=== PATIENT | male | born 1995 | race Caucasian/White ===

== ENCOUNTER 2020-02-24 08:57 | Emergency (ER) | payer SELFPAY ==
[2020-02-24 09:01] VITALS: BMI 27.1
[2020-02-24 09:07] VITALS: BP 156/99; PULSE 116; RESP 18; TEMP 37; O2SAT 99
[2020-02-24 09:08] LABS: Glucose Point of Care 116 mg/dL (70-110)
--- NOTE | 2020-02-24 09:11 | W.ED.GENADLT ---
HPI - General Adult General: Chief complaint: General Medical Stated complaint: SUGAR PROBLEMS Time Seen by Provider: 02/24/20 09:01 Source: patient Mode of arrival: ambulatory Limitations: no limitations History of Present Illness: HPI narrative: Patient is a 24-year-old male who presents to ED today with a complaint of feeling shaky . He wonders if it could be related to his blood sugars. Patient tells me he has a chronic alcoholic and normally consumes about 1/5 of hard alcohol daily. States he has not had a drink since last night. Reports by this time on a normal morning he has already had several drinks. He is also concerned it could be my liver or kidneys . Onset (ago): hour(s) Relieving factors: none Exacerbating factors: other (not drinking) Associated symptoms: Deny chest pain, dyspnea, headache(s), malaise, nausea, rash, palpitations, syncope or vomiting Treatments prior to arrival: none Review of Systems Const: Denies: fever, chills, body aches, change in appetite, change in weight, fatigue or malaise Eyes: Denies: change in vision or blurry vision ENMT: Denies: enlarged tonsils or painful swallowing Card: Denies: chest pain, palpitations, irregular heart rhythm, lightheadedness, syncope or shortness of breath on exertion Resp: Denies: shortness of breath, productive cough or pain on inspiration GI: Denies: abdominal pain, nausea, vomiting, heartburn/indigestion or diarrhea : Denies: difficulty urinating or painful urination Musc: Denies: neck pain, back pain or joint pain Skin/Breast: Denies: rash Neuro: Reports: other (feeling shaky ); Denies: headache, numbness in extremities, weakness in extremities, lack of coordination or difficulty walking [facility] ED PFSH: Medical History (Updated 02/24/20 @ 09:31 by HARDIK Stokes) Pyloric stenosis Tonsillectomy planned Social History Smoking and tobacco status: current every day smoker Physical Exam Const: COMMON NORMALS: no apparent distress, average body habitus, oriented x3, no limitations, healthy appearing, alert and well nourished ORIENTATION/CONSCIOUSNESS: Yes oriented to person, Yes oriented to place and Yes oriented to time HENMT: COMMON NORMALS: normocephalic and head/scalp atraumatic HEAD & SCALP: normocephalic and atraumatic Resp: COMMON NORMALS: normal respiratory effort and clear to auscultation bilaterally AUSCULTATION: clear to auscultation bilaterally Cardio: COMMON NORMALS: regular rhythm RATE: tachycardic RHYTHM: regular rhythm GI: COMMON NORMALS: normal to inspection, nondistended, normoactive bowel sounds, soft to palpation, non-tender, no hepatosplenomegaly and no masses PALPATION: Yes soft and Yes no hepatosplenomegaly Extremity: COMMON NORMALS: normal to inspection, full ROM, normal capillary refill, no joint enlargement, no clubbing, cyanosis or edema, no calf tenderness and no pedal edema Neuro: ALLEN COMA SCALE: document GCS findings Allen coma scale eye opening: Spontaneous [place] coma scale verbal response: Orientated Allen coma scale motor response: Obey commands [place] coma scale total score: 15 COMMON NORMALS: oriented x3, CN's II-XII intact bilaterally, moves all extremities, no focal motor deficits, no sensory deficits noted and gait normal SENSORIUM/ORIENTATION: Yes alert, Yes oriented to person, Yes oriented to place and Yes oriented to time Psych: COMMON NORMALS: mental status grossly normal, cooperative, affect normal, speech normal, denies hallucinations, denies homicidal ideation and denies suicidal ideation APPEARANCE: Yes grossly normal ATTITUDE: Yes calm, Yes engaged and Yes paranoid (slightly ) ACTIVITY/MOTOR BEHAVIOR: Yes psychomotor agitation (mild) SPEECH: Yes normal speech MOOD & AFFECT: Yes euthymic mood ATTENTION/CONCENTRATION: Yes attention grossly intact MEMORY/COGNITION: Yes memory grossly intact and Yes cognition grossly intact Skin: COMMON NORMALS: no rashes or lesions noted GENERAL SKIN EXAM: no rashes or lesions noted Course Vital Signs: Vital signs: Vital Signs Temperature 98.6 F 02/24/20 09:07 Pulse Rate 116 H 02/24/20 09:07 Respiratory Rate 18 02/24/20 09:07 Blood Pressure 156/99 02/24/20 09:07 Pulse Oximetry 99 02/24/20 09:07 MDM - General Adult MDM Narrative: Medical decision making narrative: plan was for patient to receive labs/fluids; he has expressed he has no desire to detox or attempt detox at this time; just wanted to make sure it wasn't something else that caused the shakiness (bedside glucose was 116); shortly after my exam pt was seen walking towards the ED exit; I asked him if he was leaving and he responded yes-I've changed my mind. I don't mean to be disrespectful. Lab Data: Labs: Lab Results 02/24/20 Range/Units 09:04 POC Glucose 116 (70-110) mg/dL Discharge Plan Discharge Patient Disposition: Left Against Medical Advice Clinical Impression: Alcohol withdrawal Condition: Stable Prescriptions: No Action lithium aspartate 5 mg capsule 5 mg PO ONCE RF: 0 doxepin 10 mg capsule 10 mg PO BID RF: 0 Coding Level of Care Code ED Police Officer Crime Prevention for Marie Panda
[2020-02-24 09:38] VITALS: PULSE 116; RESP 16; O2SAT 98
== END 2020-02-24 09:39 | disposition left against medical advice (07) ==
PROVIDERS: Emergency Provider Physician Assistant
DX: F10.239 Alcohol dependence with withdrawal, unspecified (principal); T51.0X1A Toxic effect of ethanol, accidental (unintentional), initial encounter; F17.200 Nicotine dependence, unspecified, uncomplicated; Z53.29 Procedure and treatment not carried out because of patient's decision for other reasons
CPT/HCPCS: 12345; 36416; 82962; 99281; 99282

== ENCOUNTER 2020-03-11 12:56 | Emergency (ER) | payer SELFPAY ==
--- NOTE | 2020-03-11 13:05 | ECG_ITS ---
Measurements Intervals [place] Rate: 80 P: 52 IN: 116 QRS: 83 QRSD: 87 T: 63 QT: 366 QTc: 424 SINUS RHYTHM WITH SHORT IN INTERVAL Compared to ECG 07/01/2017 02:37:03 Short IN interval now present Early repolarization no longer present Electronically Signed On 03-11-2020 19:07:01 CDT by Carlene Keating M.D. [email or web address]
[2020-03-11 13:06] VITALS: BP 176/101; PULSE 82; RESP 18; O2SAT 99; BMI 26.4
--- NOTE | 2020-03-11 13:17 | W.ED.PSYCH ---
HPI - Psych General: Chief Complaint: Psychiatric Symptoms Stated Complaint: mhe Time Seen by Provider: 03/11/20 13:05 History of Present Illness: HPI Narrative: Bolivar is a 25-year-old male who comes in with report of taking some type of unknown medication last night. He states he has been on a 5-day binge of alcohol and drugs. Last night he took something that what he thought was LSD but he states he is not having any of the effects of LSD. He states he is feels tremulous and shaky and wants that to go away. He does admit to alcohol, methamphetamines and marijuana use heavily over the past 3 to 5 days. The patient is alert to person, place, time and situation but overall is a poor historian as he is very uncooperative and not forthcoming with much information. Review of Systems General: Reports: other (Review of systems is thought to be negative other than as noted in HPI. Patient is uncooperative for further questioning.) [facility] ED PFSH: Medical History Pyloric stenosis Tonsillectomy planned Social History Smoking and tobacco status: current every day smoker Physical Exam Const: COMMON NORMALS: no apparent distress, oriented x3, no limitations, healthy appearing and well nourished EXAM LIMITATIONS: no altered mental status GENERAL APPEARANCE: cooperative, well kempt and well developed ORIENTATION/CONSCIOUSNESS: Yes awake HENMT: COMMON NORMALS: normocephalic, head/scalp atraumatic, hearing grossly normal bilaterally, external ears normal, EAC's normal, external nose normal and moist oral mucous membranes HEAD & SCALP: normal to inspection, normocephalic and atraumatic FACE & SINUS: normal facial exam and face symmetric NOSE: external nose normal and nares normal EXTERNAL EAR: Yes external ears normal EXTERNAL AUDITORY CANAL: EAC's normal MOUTH: oral and palatal mucosa normal and tongue normal Eye: COMMON NORMALS: PERRL, EOMs intact bilaterally, conjunctivae normal and no scleral icterus GENERAL EYE: normal appearance of both eyes and normal light reflex CONJUNCTIVA: Yes conjunctivae normal SCLERA: sclerae normal CORNEA: Yes corneas normal PUPIL: Yes PERRL DIRECT OPHTHALMOSCOPY: Yes normal light reflex Neck/C-Spine: COMMON NORMALS: full ROM, no lymphadenopathy, supple, no meningeal signs and no JVD GENERAL: Yes normal visual inspection and Yes trachea midline CERVICAL SPINE: Yes cervical ROM normal Chest: COMMONS NORMALS: inspection of chest normal and palpation of chest normal Resp: COMMON NORMALS: normal respiratory effort, no retractions, no use of accessory muscles and clear to auscultation bilaterally EFFORT & INSPECTION: Yes able to speak in complete sentences AUSCULTATION: clear to auscultation bilaterally Cardio: COMMON NORMALS: no JVD, regular rhythm, S1 normal heart sound, S2 normal heart sound, no gallops, no clicks, no murmurs and no rub JUGULAR VENOUS DISTENTION: no JVD RATE: tachycardic RHYTHM: regular rhythm HEART SOUNDS: S1 normal and S2 normal GI: COMMON NORMALS: soft to palpation, non-tender, no hepatosplenomegaly and no masses INSPECTION: Yes normal to inspection PALPATION: Yes soft and Yes no hepatosplenomegaly : COMMON NORMALS: Yes no CVA tenderness BLADDER/KIDNEY EXAM: Yes no CVA tenderness Back/Pelvis: COMMON NORMALS: no CVA tenderness, thoracic and lumbar spine normal to inspection, no thoracic nor lumbar tenderness and thoraco-lumbar ROM normal Extremity: COMMON NORMALS: normal to inspection, full ROM, normal capillary refill, no joint enlargement, no clubbing, cyanosis or edema and no calf tenderness Neuro: COMMON NORMALS: oriented x3, CN's II-XII intact bilaterally, moves all extremities, no focal motor deficits and no sensory deficits noted MENINGEAL SIGNS: Yes no meningeal signs Psych: COMMON NORMALS: mental status grossly normal, thought process normal, cooperative, affect normal, speech normal and activity/motor behavior normal APPEARANCE: Yes well kempt SPEECH: Yes normal speech THOUGHT PROCESS: normal thought process Skin: COMMON NORMALS: no rashes or lesions noted, skin turgor normal, no jaundice, no petechiae and no mottling GENERAL SKIN EXAM: no rashes or lesions noted and turgor normal MDM - Psych MDM Narrative: Medical decision making narrative: Bolivar is a 25-year-old male who comes in specifically requesting to be tested for drugs to see what medicine or drug he was given last night instead of LSD. He test positive for methamphetamines, marijuana which he did admit to. The patient has been very difficult stopping and refusing to do what we have asked him to multiple times. In the process of trying to figure out why his liver enzymes are elevated he finally admitted to hepatitis C after I diagnosed on acute hepatitis panel he admits to having it chronically. The patient is not homicidal or suicidal but keeps demanding Ativan for anxiety. I will discharge him with Atarax at this time. I do anticipate the patient will be back if he is unable to get drugs. Lab Data: Labs: Lab Results 03/11/20 03/11/20 03/11/20 Range/Units 13:12 13:29 13:29 WBC 6.9 (4.0-10.0) 10^3/ uL RBC 4.85 (4.1-5.3) 10^6/u L Hgb 16.6 (11.7-16.6) g/dL Hct 46.6 (42.0-52.0) % MCV 96.1 H (80-94) fL MCH 34.2 H (28.0-34.0) pg MCHC 35.6 (30.0-36.0) g/dL RDW 12.3 (12.1-15.1) % Plt Count 207 (130-400) 10^3/c mm MPV 11.4 H (7.4-10.4) fL Neut % (Auto) 59.4 % Lymph % (Auto) 28.9 % [place] % (Auto) 9.1 % Eos % (Auto) 2.0 % Baso % (Auto) 0.3 % Neut # (Auto) 4.1 (1.8-7.7) 10^3/u L Lymph # (Auto) 2.0 (0.8-4.8) 10^3/u L [place] # (Auto) 0.6 (0.2-0.9) 10^3/u L Eos # (Auto) 0.1 (0.0-0.8) 10^3/u L Baso # (Auto) 0.0 (0.0-0.1) 10^3/u L Nucleated RBC % (a uto) 0 % Nucleated RBCs # 0.0 /100WBC Sodium (136-145) mmol/L Potassium (3.5-5.1) mmol/L Chloride (98-107) mmol/L Carbon Dioxide (22-29) mmol/L Anion Gap (5-19) BUN (6-20) mg/dL Creatinine (0.7-1.2) mg/dL GFR Calculation (90-130) mL/min Glucose (65-115) mg/dL Calculated Osmolal ity (285-295) mOsm/k g Calcium (8.5-10.5) mg/dL Magnesium (1.7-2.3) mg/dL Total Bilirubin (0.15-1.2) mg/dL AST (0-40) U/L ALT (0-41) U/L Alkaline Phosphata se (40-130) IU/L Creatine Kinase 262 (39-308) U/L Total Protein (6.6-8.7) g/dL Albumin (3.5-5.2) g/dL Globulin (1.3-4.6) g/dL TSH (0.27-4.20) uIU/ mL Urine Color Yellow (Yellow) Urine Appearance Clear (CLEAR) Urine pH 7 (5-7) Ur Specific Gravit y 1.015 (1.005-1.030) Urine Protein Trace (Negative) Urine Glucose (UA) Norm (Normal) Urine Ketones 2+ H (Negative) Urine Blood Neg (Negative) Urine Nitrate Negative (Negative) Urine Bilirubin 1+ H (NEGATIVE) Urine Urobilinogen 1 H (Negative) mg/dL Ur Leukocyte Andie ase Negative (Negative) Urine RBC None (0-2) /hpf Urine WBC 0-4 H (0-5) /hpf Ur Squamous Epith Cells 0-4 H (0-5) Urine Bacteria 1+ H (NONE) Urine Sperm 3+ Salicylates (3-10) mg/dL Urine Opiates Scre en (Negative) ng/mL Acetaminophen (10-30) ug/mL Ur Barbiturates Sc reen (Negative) ng/mL Phenytoin (10-20) ug/mL Valproic Acid (50-100) mcg/mL Carbamazepine (4.0-12.0) ug/mL Ur Phencyclidine S crn (Negative) ng/mL Ur Amphetamines Sc reen (Negative) ng/mL U Benzodiazepines Scrn (Negative) ng/mL [place] (0.6-1.2) mmol/L Urine Cocaine Scre en (Negative) ng/mL U Marijuana (THC) Screen (Negative) ng/mL Ethyl Alcohol (0-10) mg/dL Hepatitis A IgM Ab (Nonreactive) Hep Bs Antigen (Nonreactive) Hep B Core IgM Ab (Nonreactive) Hepatitis C Antibo dy (Nonreactive) 03/11/20 03/11/20 03/11/20 Range/Units 13:29 13:29 13:29 WBC (4.0-10.0) 10^3/ uL RBC (4.1-5.3) 10^6/u L Hgb (11.7-16.6) g/dL Hct (42.0-52.0) % MCV (80-94) fL MCH (28.0-34.0) pg MCHC (30.0-36.0) g/dL RDW (12.1-15.1) % Plt Count (130-400) 10^3/c mm MPV (7.4-10.4) fL Neut % (Auto) % Lymph % (Auto) % [place] % (Auto) % Eos % (Auto) % Baso % (Auto) % Neut # (Auto) (1.8-7.7) 10^3/u L Lymph # (Auto) (0.8-4.8) 10^3/u L [facility] # (Auto) (0.2-0.9) 10^3/u L Eos # (Auto) (0.0-0.8) 10^3/u L Baso # (Auto) (0.0-0.1) 10^3/u L Nucleated RBC % (a uto) % Nucleated RBCs # /100WBC Sodium 141 (136-145) mmol/L Potassium 3.4 L (3.5-5.1) mmol/L Chloride 102 (98-107) mmol/L Carbon Dioxide 21 L (22-29) mmol/L Anion Gap 21.4 H (5-19) BUN 13 (6-20) mg/dL Creatinine 0.8 (0.7-1.2) mg/dL GFR Calculation 116.0 (90-130) mL/min Glucose 120 H (65-115) mg/dL Calculated Osmolal ity 289 (285-295) mOsm/k g Calcium 10.2 (8.5-10.5) mg/dL Magnesium 2.1 (1.7-2.3) mg/dL Total Bilirubin 1.1 (0.15-1.2) mg/dL AST 98 H (0-40) U/L ALT 192 H (0-41) U/L Alkaline Phosphata se 75 (40-130) IU/L Creatine Kinase (39-308) U/L Total Protein 7.7 (6.6-8.7) g/dL Albumin 4.8 (3.5-5.2) g/dL Globulin 2.9 (1.3-4.6) g/dL TSH 0.71 (0.27-4.20) uIU/ mL Urine Color (Yellow) Urine Appearance (CLEAR) Urine pH (5-7) Ur Specific Gravit y (1.005-1.030) Urine Protein (Negative) Urine Glucose (UA) (Normal) Urine Ketones (Negative) Urine Blood (Negative) Urine Nitrate (Negative) Urine Bilirubin (NEGATIVE) Urine Urobilinogen (Negative) mg/dL Ur Leukocyte Andie ase (Negative) Urine RBC (0-2) /hpf Urine WBC (0-5) /hpf Ur Squamous Epith Cells (0-5) Urine Bacteria (NONE) Urine Sperm Salicylates < 0.3 L (3-10) mg/dL Urine Opiates Scre en (Negative) ng/mL Acetaminophen < 5.0 L (10-30) ug/mL Ur Barbiturates Sc reen (Negative) ng/mL Phenytoin 0.8 L (10-20) ug/mL Valproic Acid 2.8 L (50-100) mcg/mL Carbamazepine 2.0 L (4.0-12.0) ug/mL Ur Phencyclidine S crn (Negative) ng/mL Ur Amphetamines Sc reen (Negative) ng/mL U Benzodiazepines Scrn (Negative) ng/mL [place] 0.1 L (0.6-1.2) mmol/L Urine Cocaine Scre en (Negative) ng/mL U Marijuana (THC) Screen (Negative) ng/mL Ethyl Alcohol < 10 (0-10) mg/dL Hepatitis A IgM Ab (Nonreactive) Hep Bs Antigen (Nonreactive) Hep B Core IgM Ab (Nonreactive) Hepatitis C Antibo dy (Nonreactive) 03/11/20 03/11/20 Range/Units 13:29 14:05 WBC (4.0-10.0) 10^3/ uL RBC (4.1-5.3) 10^6/u L Hgb (11.7-16.6) g/dL Hct (42.0-52.0) % MCV (80-94) fL MCH (28.0-34.0) pg MCHC (30.0-36.0) g/dL RDW (12.1-15.1) % Plt Count (130-400) 10^3/c mm MPV (7.4-10.4) fL Neut % (Auto) % Lymph % (Auto) % [place] % (Auto) % Eos % (Auto) % Baso % (Auto) % Neut # (Auto) (1.8-7.7) 10^3/u L Lymph # (Auto) (0.8-4.8) 10^3/u L [place] # (Auto) (0.2-0.9) 10^3/u L Eos # (Auto) (0.0-0.8) 10^3/u L Baso # (Auto) (0.0-0.1) 10^3/u L Nucleated RBC % (a uto) % Nucleated RBCs # /100WBC Sodium (136-145) mmol/L Potassium (3.5-5.1) mmol/L Chloride (98-107) mmol/L Carbon Dioxide (22-29) mmol/L Anion Gap (5-19) BUN (6-20) mg/dL Creatinine (0.7-1.2) mg/dL GFR Calculation (90-130) mL/min Glucose (65-115) mg/dL Calculated Osmolal ity (285-295) mOsm/k g Calcium (8.5-10.5) mg/dL Magnesium (1.7-2.3) mg/dL Total Bilirubin (0.15-1.2) mg/dL AST (0-40) U/L ALT (0-41) U/L Alkaline Phosphata se (40-130) IU/L Creatine Kinase (39-308) U/L Total Protein (6.6-8.7) g/dL Albumin (3.5-5.2) g/dL Globulin (1.3-4.6) g/dL TSH (0.27-4.20) uIU/ mL Urine Color (Yellow) Urine Appearance (CLEAR) Urine pH (5-7) Ur Specific Gravit y (1.005-1.030) Urine Protein (Negative) Urine Glucose (UA) (Normal) Urine Ketones (Negative) Urine Blood (Negative) Urine Nitrate (Negative) Urine Bilirubin (NEGATIVE) Urine Urobilinogen (Negative) mg/dL Ur Leukocyte Andie ase (Negative) Urine RBC (0-2) /hpf Urine WBC (0-5) /hpf Ur Squamous Epith Cells (0-5) Urine Bacteria (NONE) Urine Sperm Salicylates (3-10) mg/dL Urine Opiates Scre en Negative (Negative) ng/mL Acetaminophen (10-30) ug/mL Ur Barbiturates Sc reen Negative (Negative) ng/mL Phenytoin (10-20) ug/mL Valproic Acid (50-100) mcg/mL Carbamazepine (4.0-12.0) ug/mL Ur Phencyclidine S crn Negative (Negative) ng/mL Ur Amphetamines Sc reen Positive H (Negative) ng/mL U Benzodiazepines Scrn Negative (Negative) ng/mL [place] (0.6-1.2) mmol/L Urine Cocaine Scre en Negative (Negative) ng/mL U Marijuana (THC) Screen Positive H (Negative) ng/mL Ethyl Alcohol (0-10) mg/dL Hepatitis A IgM Ab Non-reactive (Nonreactive) Hep Bs Antigen Non-reactive (Nonreactive) Hep B Core IgM Ab Non-reactive (Nonreactive) Hepatitis C Antibo dy Reactive H (Nonreactive) EKG Data^: EKG 1: Attestation: I personally reviewed and interpreted this EKG as follows: EKG interpretation date: 03/11/20 EKG interpretation time: 16:03 Interpretation: Normal sinus rhythm at 80 beats a minute, short [place] interval, UA present to symptoms hypokalemia, otherwise no acute findings. Discharge Plan Discharge Patient Disposition: Home, Self-Care Clinical Impression: Acute anxiety Condition: Stable Prescriptions: New hydroxyzine HCl 25 mg tablet 25 mg PO Q8H PRN (Reason: anxiety) Qty: 20 RF: 0 No Action lithium carbonate 450 mg tablet extended release 450 mg PO BID RF: 0 Discharge Orders: Discharge Order (Routine); Ordered 03/11/20 Ordered By: Kayli Arias Referrals: Adalberto Rubin MD [Physician] - 1-3 days [facility], [Staff Physician] - 1-3 days (Follow-up with [facility] in [place] or in [place].) Discharge Diet: Advance as tolerated Discharge Activity: Resume usual activity Patient Instructions: Polysubstance Abuse (ED) Activity Restrictions/Additional Instructions: Please return to the ER immediately for any of the signs or symptoms listed on your discharge instruction sheets, worsening/changing of your symptoms, you are not getting better as quickly as expected, or for ANY other cause or concerns. Return to the ER if you become suicidal, homicidal or have ideas of wanting to hurt yourself or others. Be certain to follow-up with Dr. Rubin regarding your hepatitis C as you will need further management and care for this. Coding Level of Care Code ED Cnc Operator Machinist for Marie Fwedwin Exam Comprehensive
[2020-03-11 13:48] LABS: Creatine Phosphokinase 262 U/L (39-308)
[2020-03-11] MEDS: ondansetron 2 mg/ML SDV 2 mL 4 MG IVP (13:48)
[2020-03-11] MEDS: folic acid 1 MG, multivitamin inj 10 ML, thiamine 100 MG in sodium chloride 0.9% 1,000 ML 252.8 MG IV (13:53)
[2020-03-11 14:28] LABS: Basophils % 0.3 %; Eosinophils # 0.1 10^3/uL (0.0-0.8); Hematocrit 46.6 % (42.0-52.0); Hemoglobin 16.6 g/dL (11.7-16.6); Lymphocytes % 28.9 %; Mean Corpuscular HGB Conc 35.6 g/dL (30.0-36.0); Mean Corpuscular Hemoglobin 34.2 pg (28.0-34.0); Mean Corpuscular Volume 96.1 fL (80-94); Mean Platelet Volume 11.4 fL (7.4-10.4); Monocytes # 0.6 10^3/uL (0.2-0.9); Monocytes % 9.1 %; Neutrophils # 4.1 10^3/uL (1.8-7.7); Neutrophils % 59.4 %; Nucleated Red Blood Cells % 0 %; Platelet Count 207 10^3/cmm (130-400); Red Blood Count 4.85 10^6/uL (4.1-5.3); Red Cell Distribution Width 12.3 % (12.1-15.1); White Blood Count 6.9 10^3/uL (4.0-10.0)
[2020-03-11 14:52] LABS: Alanine Aminotransferase 192 U/L (0-41); Albumin Level 4.8 g/dL (3.5-5.2); Alkaline Phosphatase 75 IU/L (40-130); Anion Gap 21.4 (5-19); Aspartate Amino Transferase 98 U/L (0-40); Blood Urea Nitrogen 13 mg/dL (6-20); Calcium 10.2 mg/dL (8.5-10.5); Carbon Dioxide 21 mmol/L (22-29); Chloride 102 mmol/L (98-107); Globulin 2.9 g/dL (1.3-4.6); Glucose 120 mg/dL (65-115); Osmolality Calculated 289 mOsm/kg (285-295); Phenytoin Dilantin 0.8 ug/mL (10-20); Potassium 3.4 mmol/L (3.5-5.1); Sodium 141 mmol/L (136-145); Thyroid Stimulating Hormone 0.71 uIU/mL (0.27-4.20); Total Bilirubin 1.1 mg/dL (0.15-1.2); Total Protein 7.7 g/dL (6.6-8.7); Valproic Acid Level 2.8 mcg/mL (50-100)
[2020-03-11 14:53] LABS: Acetaminophen < 5.0 ug/mL (10-30); Alcohol Level < 10 mg/dL (0-10); Salicylate < 0.3 mg/dL (3-10)
[2020-03-11 14:56] LABS: Lithium 0.1 mmol/L (0.6-1.2)
[2020-03-11 15:08] LABS: Amphetamines Screen Urine Positive (Negative); Barbiturates Screen Urine Negative (Negative); Benzodiazepines Screen Urine Negative (Negative); Cocaine Screen Urine Negative (Negative); Opiate Screen Urine Negative (Negative); PCP Screen Urine Negative (Negative); THC Screen Urine Positive (Negative)
[2020-03-11 15:39] LABS: Magnesium 2.1 mg/dL (1.7-2.3)
[2020-03-11 16:09] LABS: Blood Urine Neg (Negative); Glucose Urine UA Norm (Normal); Ketones Urine 2+ (Negative); Protein Urine Trace (Negative); Specific Gravity, Urine 1.015 (1.005-1.030); Urine Appearance Clear (CLEAR); Urine Color Yellow (Yellow); pH Urine 7 (5-7)
[2020-03-11 16:10] LABS: Add Urine Microscopic? YES; Bilirubin Urine 1+ (NEGATIVE); Leukocyte Esterase Urine Negative (Negative); Nitrate Urine Negative (Negative); Urobilinogen Urine 1 mg/dL (Negative)
[2020-03-11 16:11] LABS: Bacteria Urine 1+; Sperm Urine 3+; Squamous Epithelial Cell Urine 0-4 (0-5); WBC Urine 0-4 /hpf (0-5)
[2020-03-11 16:12] LABS: Add Urine Culture? No
[2020-03-11] MEDS: LORazepam 2 mg/mL INJ 1 mL 1 MG IVP (16:20)
[2020-03-11 16:25] LABS: Hepatitis A Antibody IgM. Non-Reactive (Nonreactive); Hepatitis B Core IgM Non-Reactive (Nonreactive); Hepatitis B Surface Antigen. Non-Reactive (Nonreactive)
[2020-03-11 16:59] LABS: Hepatitis C Virus Antibody Reactive (Nonreactive)
== END 2020-03-11 17:33 | disposition home or self-care (01) ==
PROVIDERS: Emergency Provider Emergency Medicine
DX: F15.980 Other stimulant use, unspecified with stimulant-induced anxiety disorder (principal); F17.210 Nicotine dependence, cigarettes, uncomplicated; B18.2 Chronic viral hepatitis C
CPT/HCPCS: 12345; 36415; 80053; 80074; 80156; 80164; 80178; 80185; 80306; 80307; 81001; 82550; 83735; 84443; 85025; 93005; 96365; 96366; 96374; 96375; 99283; 99284; A9270; J2060; J2405; J3411; J3490; J7030

== ENCOUNTER 2020-04-08 00:11 | Emergency (ER) | payer SELFPAY ==
[2020-04-08 00:16] VITALS: BP 147/89; PULSE 132; RESP 18; TEMP 36.8; O2SAT 96; BMI 24.4
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
--- NOTE | 2020-04-08 00:32 | XR_ITS ---
WS: [id number] LEFT HAND: 3 VIEW(S) TECHNIQUE: PA, oblique and lateral. HISTORY: injury COMPARISON: None available. No acute fracture or dislocation. Soft tissue injury proximal third finger. No foreign body or fracture. XR/XR hand LT min 3V* [id number] IMPRESSION: Soft tissue injury third finger.
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
[2020-04-08 00:46] VITALS: BP 140/77; PULSE 123; RESP 18; O2SAT 97
[2020-04-08] MEDS: lidocaine 1% INJ 20 mL INJECTION (00:51)
[2020-04-08 01:28] VITALS: RESP 16
[2020-04-08 01:33] VITALS: BP 131/62; PULSE 120; RESP 16; O2SAT 98
--- NOTE | 2020-04-09 11:14 | DCPLANNER ---
network services project manager had message to schedule a follow up appointment for patient with a hand surgeon. network services project manager called patient to speak with about patient about a referral to a hand surgeon. network services project manager called [phone], unable to speak with patient at this time, a voicemail was left for patient to return test case developer phone call.
== END 2020-04-08 01:37 | disposition home or self-care (01) ==
LOC: ER 01:21
PROVIDERS: Emergency Provider Nurse Practitioner Family
DX: S61.213A Laceration without foreign body of left middle finger without damage to nail, initial encounter (principal); W26.0XXA Contact with knife, initial encounter; F17.210 Nicotine dependence, cigarettes, uncomplicated
CPT/HCPCS: 12001; 12345; 73130; 99281; 99283; J2001

== ENCOUNTER 2020-04-14 22:48 | Emergency (ER) | payer SELFPAY ==
[2020-04-14 22:54] VITALS: BP 109/74; PULSE 109; RESP 16; TEMP 36.6; O2SAT 96; BMI 27.1
--- NOTE | 2020-04-14 23:04 | W.ED.EXTPRO ---
HPI - Extremity Problem General: Chief complaint: Extremity Problem,Nontraumatic Stated complaint: hand and arm pain Time Seen by Provider: 04/14/20 23:02 History of Present Illness: HPI Narrative: Patient is a 25-year-old male who comes into the ED with left extremity pain. Patient was seen here in the ED on April 08 for laceration of third digit on left hand. A referral was placed with case management for patient to be set up with a hand surgeon for evaluation. Patient comes today with pain in the left hand and 3rd finger and states he is unable to bend 3rd finger. Denies any reinjury. patient has been taking cephalexin as prescribed. Patient also admits that he has been drinking heavily. Associated symptoms: Deny chest pain, fever(s) or rash Review of Systems Const: Denies: fever(s), chills or fatigue Eyes: Denies: change in vision or eye discomfort ENMT: Denies: throat pain, odynophagia, nasal discharge or nasal congestion Card: Denies: chest pain, palpitations, edema, swelling of feet/ankles, dyspnea on exertion or orthopnea Resp: Denies: dyspnea, productive cough or non-productive cough GI: Denies: abdominal pain, nausea, vomiting, diarrhea, constipation or hematochezia : Denies: flank pain, difficulty urinating, dysuria or hematuria Musc: Reports: extremity pain (left hand and 3rd digit); Denies: neck pain, back pain or extremity swelling Skin/Breast: Denies: rash or new lesions Neuro: Denies: headache(s), numbness in extremities or weakness in extremities [facility] ED PFSH: Medical History Pyloric stenosis Tonsillectomy planned Social History Smoking and tobacco status: current every day smoker Physical Exam Narrative: EXAM NARRATIVE: Patient is a 25-year-old male that appears to be intoxicated and is sitting comfortably on the exam bed in no distress. Patient was slurring some of his words. Const: COMMON NORMALS: no acute distress and patient oriented x3 HENMT: COMMON NORMALS: normocephalic HEAD & SCALP: normocephalic MOUTH: Normal oral and palatal mucosa present THROAT: posterior oropharynx normal and uvula midline Eye: COMMON NORMALS: Equal, round and reactive pupils present PUPIL: Yes Equal, round and reactive pupils present OTHER: Patient's eyes appear red and bloodshot. Neck/C-Spine: COMMON NORMALS: supple GENERAL: Yes normal visual inspection Resp: COMMON NORMALS: normal respiratory effort, No retractions, No use of accessory muscles and clear to auscultation bilaterally AUSCULTATION: clear to auscultation bilaterally Cardio: COMMON NORMALS: regular rate, regular rhythm, S1 normal heart sound present, S2 normal heart sound present, No gallops present (Cardio), No clicks present (Cardio), No murmurs present (Cardio) and Peripheral pulses 2+ throughout RATE: regular rate RHYTHM: regular rhythm HEART SOUNDS: S1 normal heart sound present and S2 normal heart sound present PERIPHERAL PULSES: Peripheral pulses 2+ throughout GI: COMMON NORMALS: Normal to inspection, nondistended, normoactive bowel sounds present, Soft to palpation, non-tender and no masses PALPATION: Yes Soft to palpation : COMMON NORMALS: Yes no CVA tenderness BLADDER/KIDNEY EXAM: Yes no CVA tenderness Back/Pelvis: COMMON NORMALS: no CVA tenderness Extremity: LEFT UPPER EXTREMITY: Yes hand & digits (Laceration site is healing up well and showing no signs of infection.) Neuro: COMMON NORMALS: patient oriented x3 and moves all extremities Skin: NARRATIVE SKIN EXAM: Laceration site with sutures closing wound visible on left hand third digit. No signs of erythema, warmth purulent drainage. Wound appears to be healing well and closed up well. GENERAL SKIN EXAM: dry skin Course Vital Signs: Vital signs: Vital Signs Temperature 97.8 F 04/14/20 22:54 Pulse Rate 76 04/15/20 00:01 Respiratory Rate 17 04/15/20 00:01 Blood Pressure 153/84 04/15/20 00:01 Pulse Oximetry 98 04/15/20 00:01 MDM - Extremity (Nontraumatic) MDM Narrative: Medical decision making narrative: Patient is a 25-year-old male who comes to the ED with left hand pain due to previous left finger laceration. Patient states he is unable to bend third digit on left hand. Physical exam showed a laceration site that is healing well and showing no signs of infection. Sutures are still in place, laceration site is closed and no drainage seen. Patient had some concerns that he felt the cephalexin was making him feel odd. I switched patient from cephalexin and told him to stop taking cephalexin and to start taking new Bactrim prescription. I also told patient that hand specialist should be contacting him soon to set up an appointment to evaluate injury. Discharge Plan Discharge Patient Disposition: Home, Self-Care Clinical Impression: Finger laceration Qualifiers: Encounter type: subsequent encounter Finger: middle finger Damage to nail status: without damage Foreign body presence: without foreign body Laterality: left Qualified Code(s): S61.213D - Laceration without foreign body of left middle finger without damage to nail, subsequent encounter Condition: Stable Prescriptions: New Bactrim DS 800-160 mg tablet 1 tab PO BID 7 Days Qty: 14 RF: 0 No Action lithium carbonate 450 mg tablet extended release 450 mg PO BID RF: 0 hydroxyzine HCl 25 mg tablet 25 mg PO Q8H PRN (Reason: anxiety) Qty: 20 RF: 0 cephalexin 500 mg capsule 500 mg PO BID 10 Days Qty: 20 RF: 0 diclofenac potassium 50 mg tablet 50 mg PO TID PRN (Reason: pain) Qty: 20 RF: 0 Discharge Orders: Discharge Order (Routine); Ordered 04/14/20 Ordered By: Arden Stewart Discharge Diet: Regular Discharge Activity: Increase activity as tolerated Patient Instructions: Finger Laceration (ED) Activity Restrictions/Additional Instructions: Stop taking cephalexin and fill new prescription of Bactrim and take full course as prescribed. You can take ibuprofen up to 600 mg 3 times a day as needed for pain. As stated at your previous emergency department visit, hand surgeon specialist will be contacting you to set up an appointment to evaluate hand injury. Discharge Date/Time: 04/15/20 00:02 Coding Level of Care Code ED Nick Setter for Marie Panda Exam Comprehensive
[2020-04-14] MEDS: ibuprofen 600 mg Tablet PO (23:50)
[2020-04-15 00:01] VITALS: BP 153/84; PULSE 76; RESP 17; O2SAT 98
--- NOTE | 2020-04-15 10:46 | DCPLANNER ---
clinical engineering manager tried to reach patient after visit on April 08, was unable to speak with patient, a voicemail was left for patient to return case monitor phone call. clinical engineering manager tried to reach patient again after visit on April 14. clinical engineering manager called [phone] and left a voicemail for patient. clinical engineering manager then called [phone], patients mother, left a message with her to have patient call disability case manager. Patients mother gave disability case manager another number to reach patient at which is [phone], disability case manager called that number and there was no answer, and was unable to leave a voicemail for patient.
== END 2020-04-15 00:02 | disposition home or self-care (01) ==
PROVIDERS: Emergency Provider Physician Assistant
DX: S61.213A Laceration without foreign body of left middle finger without damage to nail, initial encounter (principal); X58.XXXA Exposure to other specified factors, initial encounter; F17.210 Nicotine dependence, cigarettes, uncomplicated
CPT/HCPCS: 12345; 99281; 99283

== ENCOUNTER 2020-04-26 04:29 | Emergency (ER) | payer SELFPAY ==
[2020-04-26 04:35] VITALS: BP 144/115; PULSE 100; RESP 16; TEMP 37.2; O2SAT 100; BMI 25.0
--- NOTE | 2020-04-26 04:37 | XRR_ITS ---
PROCEDURE INFORMATION: Exam: XR Chest, 1 View Exam date and time: 04/26/2020 5:27 AM Age: 25 years old Clinical indication: Chest pain; Type not specified; Additional info: Cp x 2 days TECHNIQUE: Imaging protocol: XR of the chest Views: 1 view. COMPARISON: CR Chest 1 [place] [id number] 11/29/2018 2:51 PM FINDINGS: Lungs: Unremarkable. No consolidation. Pleural space: Unremarkable. No pleural effusion. No pneumothorax. Heart/Mediastinum: Unremarkable. No cardiomegaly. Bones/joints: Unremarkable. XR/XR chest 1V portable [id number] IMPRESSION: No acute findings.
--- NOTE | 2020-04-26 04:46 | ED_ITS ---
HPI - Chest Pain General: Chief Complaint: Chest Pain Stated Complaint: cp Time Seen by Provider: 04/26/20 04:36 History of Present Illness: HPI narrative: Bolivar is a 25-year-old male who comes in complaining of left-sided chest pain. 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 He denies any nausea vomiting but he is diaphoretic. He denies any shortness of breath, palpitations syncope or near syncope type symptoms. Patient is a poor historian as he is very reserved and does not want to give much information. Associated symptoms: Deny abdominal pain, diaphoresis, dyspnea, fever(s), nausea, palpitations, syncope or vomiting Review of Systems Const: Denies: fever(s), chills, body aches, fatigue, malaise or diaphoresis Eyes: Denies: change in vision, blurry vision, blind spots or photophobia ENMT: Denies: throat pain, odynophagia, hoarseness, swelling of lips/tongue, ear or mastoid pain, ear discharge, change in hearing or nasal discharge Card: Denies: palpitations, irregular heart rhythm, edema, lightheadedness, syncope, pre-syncope, dyspnea on exertion or orthopnea Resp: Denies: dyspnea, productive cough, non-productive cough, wheezing, hemoptysis or chest congestion GI: Denies: abdominal pain, nausea, vomiting, hematemesis, coffee ground emesis, heartburn, diarrhea, constipation, GI cramping, hematochezia or melena : Denies: flank pain, dysuria, urinary frequency, urinary urgency or hematuria Musc: Denies: neck pain, back pain, extremity pain, extremity swelling, joint pain, joint swelling, joint redness, joint warmth or joint stiffness Skin/Breast: Denies: rash, pruritus, erythema, skin tenderness or jaundice Neuro: Denies: headache(s), numbness in extremities, weakness in extremities, sensory changes, lack of coordination, difficulty walking, dizziness, vertigo, confusion or Slurred speech present Jevon/Lymph: Denies: easy bruising, easy bleeding, petechiae, purpura or enlarged lymph nodes All/Imm: Denies: urticaria, throat swelling, tongue swelling, facial swelling or acute wheezing PFS ED PFSH: Medical History (Updated 04/16/20 @ 00:00 by ) Pyloric stenosis Tonsillectomy planned Social History (Updated 04/26/20 @ 05:00 by Kayli Arias) Smoking and tobacco status: current every day smoker Alcohol intake: current Substance/Drug Use: current Substance/Drug use type: Marijuana and Methamphetamine Physical Exam Const: COMMON NORMALS: no acute distress, patient oriented x3, no limitations, healthy appearing and well nourished GENERAL APPEARANCE: cooperative, well kempt and well developed HENMT: COMMON NORMALS: normocephalic, atraumatic, hearing grossly normal bilaterally, external ears normal, EAC's normal, Normal external nose present and moist oral mucous membranes HEAD & SCALP: normocephalic and atraumatic NOSE: Normal external nose present and Normal nares present EXTERNAL EAR: Yes external ears normal EXTERNAL AUDITORY CANAL: EAC's normal MOUTH: Normal oral and palatal mucosa present, lip normal and tongue normal Eye: COMMON NORMALS: Equal, round and reactive pupils present, EOMs intact bilaterally, conjunctivae normal and no scleral icterus GENERAL EYE: appearance normal, both eyes and all related structures ALIGNMENT: Yes alignment normal PERIORBITAL: periorbital findings normal EYELID: eyelids normal CONJUNCTIVA: Yes conjunctivae normal SCLERA: sclerae normal PUPIL: Yes Equal, round and reactive pupils present Neck/C-Spine: COMMON NORMALS: full ROM, no lymphadenopathy, supple, no mening eal signs and no JVD GENERAL: Yes normal visual inspection and Yes trachea midline Chest: COMMONS NORMALS: normal inspection of the chest and normal palpation of entire chest wall Resp: COMMON NORMALS: normal respiratory effort, No retractions, No use of accessory muscles and clear to auscultation bilaterally EFFORT & INSPECTION: Yes able to speak in complete sentences and Yes symmetric chest movement AUSCULTATION: clear to auscultation bilaterally, no crackles, no rales, no rhonchi and no wheezes Cardio: COMMON NORMALS: no JVD, regular rhythm, S1 normal heart sound present, S2 normal heart sound present, No gallops present (Cardio), No clicks present ( Cardio), No murmurs present (Cardio) and No rub (Cardio) RATE: tachycardic RHYTHM: regular rhythm HEART SOUNDS: S1 normal heart sound present and S2 normal heart sound present GI: COMMON NORMALS: Soft to palpation and No hepatosplenomegaly present PA LPATION: Yes Soft to palpation, No Tenderness to palpation present (GI), No Guarding due to palpation present (GI), No Rigid due to palpation, Yes No hepatosplenomegaly present, No Hernia present, No Palpable mass present and No Pulsatile mass present : COMMON NORMALS: Yes no CVA tenderness BLADDER/KIDNEY EXAM: Yes no CVA tenderness Back/Pelvis: COMMON NORMALS: no CVA tenderness, thoracic and lumbar spine no rmal to inspection, no thoracic nor lumbar tenderness and thoraco-lumbar ROM normal Extremity: COMMON NORMALS: normal to inspection, full ROM, capillary refill normal, no joint enlargement, no clubbing, cyanosis or edema and no calf tenderness Neuro: COMMON NORMALS: patient oriented x3, CN's II-XII intact bilaterally, moves all extremities, no focal motor deficits and no sensory deficits noted MENINGEAL SIGNS: Yes no meningeal signs SPEECH: speech normal Psych: COMMON NORMALS: mental status grossly normal, Normal thought process present, cooperative, normal affect, speech normal and activity/motor behavior normal APPEARANCE: Yes well kempt SPEECH: Yes normal speech THOUGHT PROCESS: Normal thought process present Skin: COMMON NORMALS: no rashes or lesions noted, turgor normal, no jaundice, no petechiae and no mottling GENERAL SKIN EXAM: no rashes or lesions noted and turgor normal Course Vital Signs: Vital signs: Vital Signs Temperature 98.9 F 04/26/20 04:35 Pulse Rate 100 04/26/20 04:35 Respiratory Rate 16 04/26/20 04:35 Blood Pressure 144/115 04/26/20 04:35 Pulse Oximetry 100 04/26/20 04:35 MDM - Chest Pain EKG Data^: EKG 1: Attestation: I personally reviewed and interpreted this EKG as follows: EKG interpretation date: 04/26/20 EKG interpretation time: 04:49 Interpretation: Normal sinus rhythm with sinus arrhythmia at 85 beats a minute, normal axis, nonspecific ST and T wave changes. Discharge Plan Discharge Prescriptions: No Action lithium carbonate 450 mg tablet extended release 450 mg PO BID RF: 0 hydroxyzine HCl 25 mg tablet 25 mg PO Q8H PRN (Reason: anxiety) Qty: 20 RF: 0 diclofenac potassium 50 mg tablet 50 mg PO TID PRN (Reason: pain) Qty: 20 RF: 0 Coding Level of Care Code ED Database Programmer Analyst for Chg Fwd Exam Comprehensive
--- NOTE | 2020-04-26 04:53 | ECG_ITS ---
Measurements Intervals [place] Rate: 85 P: 69 VT: 120 QRS: 71 QRSD: 85 T: 55 QT: 351 QTc: 418 SINUS RHYTHM WITH SINUS ARRHYTHMIA Compared to ECG 03/11/2020 16:03:55 Short VT interval no longer present Electronically Signed On 04-26-2020 7:48:52 CDT by Frank Marie M.D. [id number] f
[2020-04-26] MEDS: aspirin 325 mg Tablet PO (05:05)
[2020-04-26] MEDS: lactated ringers 1,000 ML 999 ML IV ×2 (05:05→05:50)
[2020-04-26 05:14] LABS: Basophils % 0.4 %; Eosinophils # 0.1 10^3/uL (0.0-0.8); Eosinophils % 1.1 %; Hematocrit 42.2 % (42.0-52.0); Lymphocytes % 18.3 %; Mean Corpuscular HGB Conc 35.5 g/dL (30.0-36.0); Mean Corpuscular Hemoglobin 33.9 pg (28.0-34.0); Mean Corpuscular Volume 95.5 fL (80-94); Mean Platelet Volume 10.6 fL (7.4-10.4); Monocytes # 0.5 10^3/uL (0.2-0.9); Monocytes % 9.3 %; Neutrophils # 3.9 10^3/uL (1.8-7.7); Neutrophils % 70.5 %; Nucleated Red Blood Cells % 0 %; Platelet Count 170 10^3/cmm (130-400); Red Blood Count 4.42 10^6/uL (4.1-5.3); White Blood Count 5.6 10^3/uL (4.0-10.0)
[2020-04-26 05:22] LABS: INR 0.88 (0.8-1.2)
[2020-04-26 05:24] LABS: D Dimer 0.77 ug/mIFEU (0-0.59)
[2020-04-26 05:30] LABS: Lactic Sepsis W/Reflex 0.7 mmol/L (0.5-2.2)
[2020-04-26 05:31] LABS: Troponin(5th) Baseline 6 ng/mL (0-15)
[2020-04-26 05:36] LABS: Alanine Aminotransferase 280 U/L (0-41); Albumin Level 4.9 g/dL (3.5-5.2); Alkaline Phosphatase 85 IU/L (40-130); Anion Gap 16.9 (5-19); Aspartate Amino Transferase 205 U/L (0-40); Blood Urea Nitrogen 12 mg/dL (6-20); Calcium 9.3 mg/dL (8.5-10.5); Carbon Dioxide 24 mmol/L (22-29); Chloride 99 mmol/L (98-107); Creatine Phosphokinase 262 U/L (39-308); Globulin 2.3 g/dL (1.3-4.6); Glomerular Filtration Rate 135.3 mL/min (90-130); Glucose 94 mg/dL (65-115); Lipase 20 U/L (13-60); Magnesium 1.8 mg/dL (1.7-2.3); Osmolality Calculated 278 mOsm/kg (285-295); Potassium 3.9 mmol/L (3.5-5.1); Sodium 136 mmol/L (136-145); Thyroid Stimulating Hormone 2.35 uIU/mL (0.27-4.20); Total Bilirubin 0.8 mg/dL (0.15-1.2); Total Protein 7.2 g/dL (6.6-8.7)
[2020-04-26 05:41] LABS: Alcohol Level < 10 mg/dL (0-10)
[2020-04-26 06:40] VITALS: BP 146/90; PULSE 92; O2SAT 96
--- NOTE | 2020-04-26 06:53 | ECG_ITS ---
Measurements Intervals [place] Rate: 72 P: 65 [place]: 121 QRS: 76 QRSD: 88 T: 52 QT: 372 QTc: 408 SINUS RHYTHM Compared to ECG 04/26/2020 04:49:21 Sinus arrhythmia no longer present Electronically Signed On 04-27-2020 17:05:14 CDT by Frank Marie M.D. [id number] f
--- NOTE | 2020-04-26 06:55 | PC.NURSE ---
Report received from LUANNE Bernstein at this time.
[2020-04-26 06:58] LABS: Bilirubin Urine Neg (NEGATIVE); Blood Urine Neg (Negative); Glucose Urine UA Norm (Normal); Ketones Urine Negative (Negative); Leukocyte Esterase Urine Negative (Negative); Nitrate Urine Negative (Negative); Protein Urine Neg (Negative); Specific Gravity, Urine 1.005 (1.005-1.030); Urine Appearance Clear (CLEAR); Urine Color Yellow (Yellow); Urobilinogen Urine 1 mg/dL (Negative); pH Urine 7 (5-7)
[2020-04-26 07:00] LABS: Add Urine Culture? No; Amorphous Sediment Urine TRACE; Bacteria Urine TRACE; Mucus Urine 1+; RBC Urine RARE /hpf (0-2); Sperm Urine 1+; Squamous Epithelial Cell Urine RARE (0-5); WBC Urine 0-4 /hpf (0-5)
--- NOTE | 2020-04-26 07:05 | CTR_ITS ---
PROCEDURE INFORMATION: Exam: CT Angiography Chest With Contrast Exam date and time: 04/26/2020 7:11 AM Age: 25 years old Clinical indication: Left-sided chest pain; Additional info: Dyspnea TECHNIQUE: Imaging protocol: Computed tomographic angiography of the chest with intravenous contrast. 3D rendering: MIP and/or 3D reconstructed images were created by the technologist. Radiation optimization: All CT scans at this facility use at least one of these dose optimization techniques: automated exposure control; mA and/or kV adjustment per patient size (includes targeted exams where dose is matched to clinical indication); or iterative reconstruction. Contrast material: OMNI 350; Contrast volume: 95 ml; Contrast route: RT AC; COMPARISON: CT chest wo con [id number] 09/13/2018 6:37 PM RADIATION DOSE METRICS: Total DLP: 632.53 mGy-cm FINDINGS: Pulmonary arteries: Limited definition of subsegmental artery left anterior mid lung eccentrically is probably related to averaging of vessel margin series to images 295-297. No definite visualization of acute pulmonary embolus. Aorta: Trace calcification thoracic aorta. Lungs: No parenchymal consolidation. Pleural space: Unremarkable. No pneumothorax. No pleural effusion. Heart: Unremarkable. No cardiomegaly. No pericardial effusion. Lymph nodes: Unremarkable. No enlarged lymph nodes. Bones/joints: Unremarkable. No acute fracture. Soft tissues: Unremarkable. CT/CT angio chest PE protcl [id number] IMPRESSION: 1. No acute pulmonary embolus. 2. No pulmonary consolidation. Radiation Dose CTDIVOL = (mGy): DLP = 632.53 (mGy-cm)
[2020-04-26 07:12] VITALS: BP 146/102; PULSE 79; RESP 16; O2SAT 100
[2020-04-26 07:12] LABS: Troponin 5 2HR 7.76 ng/mL (0-15); Troponin 5 2HR Delta 1.76 ABS# (0-10)
[2020-04-26] MEDS: iohexol 350 mg/mL 100 mL Btl IV (07:38)
[2020-04-26 08:08] VITALS: BP 146/96; PULSE 78; RESP 18; O2SAT 100
[2020-04-26 08:16] VITALS: BP 158/105; PULSE 75; RESP 18; O2SAT 100
== END 2020-04-26 08:16 | disposition home or self-care (01) ==
PROVIDERS: Emergency Provider Emergency Medicine
DX: R07.9 Chest pain, unspecified (principal); F17.210 Nicotine dependence, cigarettes, uncomplicated
CPT/HCPCS: 12345; 71045; 71275; 80053; 80307; 81001; 82550; 83605; 83690; 83735; 84443; 84484; 85025; 85378; 85610; 93005; 96360; 96361; 96365; 96366; 99284; Q9967

== ENCOUNTER → 2020-05-08 08:18 | Outpatient (BNVA) | payer OTHER, SELFPAY | PROVIDERS: Visit Provider Psychiatry & Neurology Psychiatry | DX: F39 Unspecified mood [affective] disorder (principal); F19.20 Other psychoactive substance dependence, uncomplicated; F11.20 Opioid dependence, uncomplicated; F10.239 Alcohol dependence with withdrawal, unspecified; Z03.89 Encounter for observation for other suspected diseases and conditions ruled out | CPT/HCPCS: 80306; 99215 ==

== ENCOUNTER 2020-05-11 10:50 | Outpatient (CLI) | payer SELFPAY ==
[2020-05-11 11:20] LABS: Basophils % 0.4 %; Eosinophils # 0.2 10^3/uL (0.0-0.8); Eosinophils % 3.3 %; Hematocrit 42.9 % (42.0-52.0); Hemoglobin 15.1 g/dL (11.7-16.6); Lymphocytes # 1.3 10^3/uL (0.8-4.8); Lymphocytes % 24.3 %; Mean Corpuscular HGB Conc 35.2 g/dL (30.0-36.0); Mean Corpuscular Hemoglobin 35.1 pg (28.0-34.0); Mean Corpuscular Volume 99.8 fL (80-94); Mean Platelet Volume 10.6 fL (7.4-10.4); Monocytes # 0.6 10^3/uL (0.2-0.9); Monocytes % 11.5 %; Neutrophils # 3.2 10^3/uL (1.8-7.7); Neutrophils % 60.3 %; Nucleated Red Blood Cells % 0 %; Platelet Count 184 10^3/cmm (130-400); White Blood Count 5.2 10^3/uL (4.0-10.0)
[2020-05-11 11:33] LABS: Amphetamines Screen Urine Negative (Negative); Barbiturates Screen Urine Negative (Negative); Benzodiazepines Screen Urine Negative (Negative); Cocaine Screen Urine Negative (Negative); Opiate Screen Urine Negative (Negative); PCP Screen Urine Negative (Negative); THC Screen Urine Positive (Negative)
[2020-05-11 11:46] LABS: Alanine Aminotransferase 351 U/L (0-41); Albumin Level 4.6 g/dL (3.5-5.2); Alkaline Phosphatase 85 IU/L (40-130); Anion Gap 16.9 (5-19); Aspartate Amino Transferase 202 U/L (0-40); Blood Urea Nitrogen 15 mg/dL (6-20); Calcium 9.6 mg/dL (8.5-10.5); Carbon Dioxide 20 mmol/L (22-29); Chloride 105 mmol/L (98-107); Cholesterol 151 mg/dL (0-200); Free T4 Free Thyroxine 1.34 ng/dL (0.82-1.77); Globulin 2.4 g/dL (1.3-4.6); Glomerular Filtration Rate 161.6 mL/min (90-130); Glucose 85 mg/dL (65-115); HDL Cholesterol 54 mg/dL (60-100); LDL Cholesterol Calculated 63 mg/dL (50-129); LDL HDL Ratio 1.17 RATIO (0.00-3.22); Magnesium 2.2 mg/dL (1.7-2.3); Osmolality Calculated 282 mOsm/kg (285-295); Potassium 3.9 mmol/L (3.5-5.1); Sodium 138 mmol/L (136-145); T3 Free 4.5 PG/ML (2.0-4.4); Thyroid Stimulating Hormone 1.13 uIU/mL (0.27-4.20); Total Bilirubin 0.6 mg/dL (0.15-1.2); Triglycerides 169 mg/dL (0-150)
[2020-05-11 11:52] LABS: Vitamin B12 670 pg/mL (232-1245)
[2020-05-11 12:26] LABS: Folate Level 13.8 ng/mL (4.5-32.2)
[2020-05-11 13:41] LABS: 25 Hydroxy Vitamin D 26 ng/mL (30-100)
[2020-05-14 00:35] LABS: T3 Total 213 ng/dL (76-181)
[2020-05-19 06:52] LABS: Copper Level 125 mcg/dL (70-175); Zinc Level, Serum or Plasma 67 mcg/dL (60-130)
== END 2020-05-11 10:51 | disposition home or self-care (01) ==
LOC: LAB 10:53
PROVIDERS: Visit Provider Psychiatry & Neurology Psychiatry
DX: F10.239 Alcohol dependence with withdrawal, unspecified (principal); F11.20 Opioid dependence, uncomplicated; F19.20 Other psychoactive substance dependence, uncomplicated; F39 Unspecified mood [affective] disorder; F16.21 Hallucinogen dependence, in remission; F15.20 Other stimulant dependence, uncomplicated; F12.20 Cannabis dependence, uncomplicated
CPT/HCPCS: 36415; 80053; 80061; 80306; 82306; 82525; 82607; 82746; 83735; 84439; 84443; 84480; 84481; 84630; 85025

== ENCOUNTER 2020-05-13 01:22 | Emergency (ER) | payer SELFPAY ==
[2020-05-13] VITALS (7 sets, daily range): BP systolic 104–148; BP diastolic 63–99; PULSE 84–99; RESP 16–18; TEMP 36.6; O2SAT 97–100; BMI 26.9
--- NOTE | 2020-05-13 01:26 | XR_ITS ---
WS: [id number] XR chest 1V portable [id number] REASON FOR EXAM: FALL FINDINGS: Comparisons were made to April 26, 2020. No definite new fractures of the rib cage are seen. The fifth rib on the left shows a remote fracture this was seen on previous exam. No lung contusions pneumonia, pleural effusion, pulmonary edema. The mediastinum was normal including the heart. XR/XR chest 1V portable [id number] IMPRESSION: Remote fracture of the fifth rib on the left unchanged since previous exam April 26, 2020 The remaining chest was negative.
--- NOTE | 2020-05-13 01:46 | PC.NURSE ---
patient refused EKG, Dr. Arias notified
--- NOTE | 2020-05-13 01:52 | ED_ITS ---
Documented by User: Kayli Arias 05/13/20 05:06 HPI - Alcohol General: Chief Complaint: Alcohol Stated Complaint: DEPRESSION / ETOH Time Seen by Provider: 05/13/20 01:22 Source: EMS Mode of arrival: EMS Limitations: no limitations History of Present Illness: HPI narrative: Bolivar is a 25-year-old male who comes in by EMS with report of being intoxicated and feeling depressed. The patient adamantly denies any homicidal or suicidal ideation. EMS reports that law enforcement called them but no report as to why was given. The patient initially said that he wanted to check into the neuropsychiatric unit but now states that he is not suicidal or homicidal and he just misses his kids. He denies any complaints or concerns. He denies any injuries. He admits to drinking but denies any other ingestions at this time. Associated symptoms: Deny abdominal pain, diaphoresis, hematemesis, melena, nausea, syncope or vomiting Review of Systems Const: Denies: fever(s), chills, body aches, fatigue, malaise or diaphoresis Eyes: Denies: change in vision, blurry vision, blind spots or photophobia ENMT: Denies: throat pain, odynophagia, hoarseness, swelling of lips/tongue, ear or mastoid pain, ear discharge, change in hearing or nasal discharge Card: Denies: chest pain, palpitations, irregular heart rhythm, edema, lightheadedness, syncope, pre-syncope, dyspnea on exertion or orthopnea Resp: Denies: dyspnea, productive cough, non-productive cough, wheezing, hemoptysis or chest congestion GI: Denies: abdominal pain, nausea, vomiting, hematemesis, coffee ground emesis, heartburn, diarrhea, constipation, GI cramping, hematochezia or melena : Denies: flank pain, dysuria, urinary frequency, urinary urgency or hematuria Musc: Denies: neck pain, back pain, extremity pain, extremity swelling, joint pain, joint swelling, joint redness, joint warmth or joint stiffness Skin/Breast: Denies: rash, pruritus, erythema, skin tenderness or jaundice Neuro: Denies: headache(s), numbness in extremities, weakness in extremities, sensory changes, lack of coordination, difficulty walking, dizziness, vertigo, confusion or Slurred speech present Jevon/Lymph: Denies: easy bruising, easy bleeding, petechiae, purpura or enlarged lymph nodes All/Imm: Denies: urticaria, throat swelling, tongue swelling, facial swelling or acute wheezing PFSH ED PFSH: Medical History Mood disorder Polysubstance (including opioids) dependence, daily use Pyloric stenosis Social History Smoking and tobacco status: current every day smoker cigarettes Packs smoked per day: 0.75 Years cigarettes smoked: 11 Quit status (tobacco): not considering quitting Second hand smoke exposure: No Alcohol intake: current Physical Exam Const: COMMON NORMALS: no acute distress, patient oriented x3, no limitations, healthy appearing and well nourished GENERAL APPEARANCE: cooperative, well kempt and well developed HENMT: COMMON NORMALS: normocephalic, atraumatic, external ears normal, EAC's normal and Normal external nose present HEAD & SCALP: normal to inspection, normocephalic and atraumatic FACE & SINUS: normal facial exam and face symmetric NOSE: Normal external nose present and Normal nares present EXTERNAL EAR: Yes external ears normal EXTERNAL AUDITORY CANAL: EAC's normal MOUTH: Normal oral and palatal mucosa present, lip normal and tongue normal Eye: COMMON NORMALS: Equal, round and reactive pupils present and conjunctivae normal GENERAL EYE: appearance normal, both eyes and all related structures ALIGNMENT: Yes alignment normal PERIORBITAL: periorbital findings normal EYELID: eyelids normal CONJUNCTIVA: Yes conjunctivae normal SCLERA: sclerae normal PUPIL: Yes Equal, round and reactive pupils present Neck/C-Spine: COMMON NORMALS: full ROM, no lymphadenopathy, supple, no meningeal signs and no JVD GENERAL: Yes normal visual inspection and Yes trachea midline Chest: COMMONS NORMALS: normal inspection of the chest and normal palpation of entire chest wall Resp: COMMON NORMALS: normal respiratory effort, No retractions and No use of accessory muscles EFFORT & INSPECTION: Yes able to speak in complete sentences and Yes symmetric chest movement AUSCULTATION: no crackles, no rales, no rhonchi and no wheezes Cardio: COMMON NORMALS: no JVD, regular rate, regular rhythm, S1 normal heart sound present and S2 normal heart sound present RATE: regular rate RHYTHM: regular rhythm HEART SOUNDS: S1 normal heart sound present, S2 normal heart sound present, no click, no gallops, no murmurs, no rubs and abnormal split S2 GI: COMMON NORMALS: Soft to palpation and No hepatosplenomegaly present PALPATION: Yes Soft to palpation, No Tenderness to palpation present (GI), No Guarding due to palpation present (GI), No Rigid due to palpation, Yes No hepatosplenomegaly present, No Hernia present, No Palpable mass present and No Pulsatile mass present : COMMON NORMALS: Yes no CVA tenderness BLADDER/KIDNEY EXAM: Yes no CVA tenderness Back/Pelvis: COMMON NORMALS: no CVA tenderness, thoracic and lumbar spine normal to inspection, no thoracic nor lumbar tenderness and thoraco-lumbar ROM normal Extremity: COMMON NORMALS: normal to inspection, full ROM, capillary refill normal, no joint enlargement, no clubbing, cyanosis or edema and no calf tenderness Neuro: COMMON NORMALS: patient oriented x3, CN's II-XII intact bilaterally, moves all extremities, no focal motor deficits and no sensory deficits noted MENINGEAL SIGNS: Yes no meningeal signs SPEECH: speech normal Psych: COMMON NORMALS: mental status grossly normal, Normal thought process present, cooperative, normal affect, speech normal and activity/motor behavior normal APPEARANCE: Yes well kempt SPEECH: Yes normal speech THOUGHT PROCESS: Normal thought process present Skin: COMMON NORMALS: no rashes or lesions noted, turgor normal, no jaundice, no petechiae and no mottling GENERAL SKIN EXAM: no rashes or lesions noted and turgor normal Course Vital Signs: Vital signs: Vital Signs Temperature 97.8 F 05/13/20 01:22 Pulse Rate 90 05/13/20 06:20 Respiratory Rate 16 05/13/20 06:20 Blood Pressure 134/82 05/13/20 06:20 Pulse Oximetry 97 05/13/20 06:20 MDM - Alcohol MDM Narrative: Medical decision making narrative: 0237 -bolivar has not been cooperative since arrival but he has not been combative or violent. When asked if he still wants to go to the neuropsychiatric unit he says no. He states he just wants somewhere to sleep for a while and then he wants to leave. We have t ried to call his grandmother to come pick him up but she does not answer her phone. As the patient reports no injuries and no other ingestions and he is hemodynamically stable we will allow him to rest here after giving him something to help him relax and watch him and when clinically sober we will discharge him with a sober driver's license examiner. 0545 -patient has been resting comfortably throughout the night. The been no acute abnormalities or problems from him. He still does not want to go to the [facility] so once he is more cooperative we will have nursing work on getting him a ride home. His grandmother who we called previously has never called back. Lab Data: Labs: Lab Results 05/13/20 05/13/20 05/13/20 Range/Units 01:42 01:42 01:42 WBC 5.3 (4.0-10.0) 10^3/ uL RBC 4.10 (4.1-5.3) 10^6/u L Hgb 14.4 (11.7-16.6) g/dL Hct 41.5 L (42.0-52.0) % MCV 101.2 H (80-94) fL MCH 35.1 H (28.0-34.0) pg MCHC 34.7 (30.0-36.0) g/dL RDW 13.2 (12.1-15.1) % Plt Count 178 (130-400) 10^3/c mm MPV 10.9 H (7.4-10.4) fL Neut % (Auto) 41.8 % Lymph % (Auto) 43.3 % Mccone % (Auto) 10.3 % Eos % (Auto) 3.8 % Baso % (Auto) 0.4 % Neut # (Auto) 2.2 (1.8-7.7) 10^3/u L Lymph # (Auto) 2.3 (0.8-4.8) 10^3/u L Mccone # (Auto) 0.6 (0.2-0.9) 10^3/u L Eos # (Auto) 0.2 (0.0-0.8) 10^3/u L Baso # (Auto) 0.0 (0.0-0.1) 10^3/u L Nucleated RBC % (a uto) 0 % Nucleated RBCs # 0.0 /100WBC Sodium 141 (136-145) mmol/L Potassium 3.8 (3.5-5.1) mmol/L Chloride 105 (98-107) mmol/L Carbon Dioxide 24 (22-29) mmol/L Anion Gap 15.8 (5-19) BUN 10 (6-20) mg/dL Creatinine 0.7 (0.7-1.2) mg/dL GFR Calculation 135.3 H (90-130) mL/min Glucose 113 (65-115) mg/dL Calculated Osmolal ity 289 (285-295) mOsm/k g Calcium 9.0 (8.5-10.5) mg/dL Magnesium 2.4 H (1.7-2.3) mg/dL Total Bilirubin 0.2 (0.15-1.2) mg/dL AST 278 H (0-40) U/L ALT 374 H (0-41) U/L Alkaline Phosphata se 92 (40-130) IU/L Creatine Kinase 376 H* (39-308) U/L Total Protein 7.1 (6.6-8.7) g/dL Albumin 4.5 (3.5-5.2) g/dL Globulin 2.6 (1.3-4.6) g/dL TSH 1.89 (0.27-4.20) uIU/ mL Salicylates < 0.3 L (3-10) mg/dL Acetaminophen < 5.0 L (10-30) ug/mL Phenytoin 0.8 L (10-20) ug/mL Valproic Acid 2.8 L (50-100) ug/mL Carbamazepine 2.0 L (4.0-12.0) ug/mL [place] 0.1 L (0.6-1.2) mmol/L Ethyl Alcohol 269 H (0-10) mg/dL Discharge Plan Discharge Patient Disposition: Home, Self-Care Clinical Impression: Alcoholic intoxication Condition: Stable Prescriptions: No Action lorazepam [Ativan] 1 mg tablet 1 mg PO TID PRN (Reason: anxiety) Qty: 15 RF: 0 aspirin 325 mg tablet 325 mg PO BID RF: 0 lorazepam [Ativan] 2 mg tablet 1 mg PO .q6 hours PRN (Reason: anxiety) 4 Days Qty: 4 RF: 0 hydroxyzine HCl 25 mg tablet 25 mg PO Q8H PRN (Reason: anxiety) Qty: 20 RF: 0 diclofenac potassium 50 mg tablet 50 mg PO TID PRN (Reason: pain) Qty: 20 RF: 0 Discharge Orders: Discharge Order (Routine); Ordered 05/13/20 Ordered By: Romulo Garza Discharge Diet: Advance as tolerated Discharge Activity: Increase activity as tolerated Patient Instructions: Abuse of Alcohol (ED) Activity Restrictions/Additional Instructions: Stop drinking alcohol. Recommend you go either to an inpatient service such as [facility] or begin attending alcoholics anonymous Sign Out Sign Out Data: Patient Sign Out occurred on 05/13/20 at 06:42. Patient's care was discussed, and care was transferred from Kayli Arias to Romulo Garza DO. Sign Out Comment: Case turned over to Dr. Garza at change of shift. Last updated by Kayli Arias at 05/13/20 06:23 Coding Level of Care Code ED Senior Data Integration Developer for Chg Fwd Exam Comprehensive Documented by User: Romulo Garza DO 05/13/20 07:13 HPI - Alcohol General: Chief Complaint: Alcohol Stated Complaint: DEPRESSION / ETOH Time Seen by Provider: 05/13/20 01:22 [facility] ED PFSH: Medical History Mood disorder Polysubstance (including opioids) dependence, daily use Pyloric stenosis Social History Smoking and tobacco status: current every day smoker cigarettes Packs smoked per day: 0.75 Years cigarettes smoked: 11 Quit status (tobacco): not considering quitting Second hand smoke exposure: No Alcohol intake: current Course Vital Signs: Vital signs: Vital Signs Temperature 97.8 F 05/13/20 01:22 Pulse Rate 90 05/13/20 06:20 Respiratory Rate 16 05/13/20 06:20 Blood Pressure 134/82 05/13/20 06:20 Pulse Oximetry 97 05/13/20 06:20 MDM - Alcohol MDM Narrative: Medical decision making narrative: Care assumed a change of shift. Patient is awake and alert he is answering questions appropriately he was able to walk independently to the restroom and use the restroom. At this point he can be discharged patient form to be discharged home and recommend that he does not drink any alcohol and seek assistance from either [facility] for a other outpatient group such as alcoholics anonymous. Lab Data: Labs: Lab Results 05/13/20 05/13/20 05/13/20 Range/Units 01:42 01:42 01:42 WBC 5.3 (4.0-10.0) 10^3/ uL RBC 4.10 (4.1-5.3) 10^6/u L Hgb 14.4 (11.7-16.6) g/dL Hct 41.5 L (42.0-52.0) % MCV 101.2 H (80-94) fL MCH 35.1 H (28.0-34.0) pg MCHC 34.7 (30.0-36.0) g/dL RDW 13.2 (12.1-15.1) % Plt Count 178 (130-400) 10^3/c mm MPV 10.9 H (7.4-10.4) fL Neut % (Auto) 41.8 % Lymph % (Auto) 43.3 % Mccone % (Auto) 10.3 % Eos % (Auto) 3.8 % Baso % (Auto) 0.4 % Neut # (Auto) 2.2 (1.8-7.7) 10^3/u L Lymph # (Auto) 2.3 (0.8-4.8) 10^3/u L Mccone # (Auto) 0.6 (0.2-0.9) 10^3/u L Eos # (Auto) 0.2 (0.0-0.8) 10^3/u L Baso # (Auto) 0.0 (0.0-0.1) 10^3/u L Nucleated RBC % (a uto) 0 % Nucleated RBCs # 0.0 /100WBC Sodium 141 (136-145) mmol/L Potassium 3.8 (3.5-5.1) mmol/L Chloride 105 (98-107) mmol/L Carbon Dioxide 24 (22-29) mmol/L Anion Gap 15.8 (5-19) BUN 10 (6-20) mg/dL Creatinine 0.7 (0.7-1.2) mg/dL GFR Calculation 135.3 H (90-130) mL/min Glucose 113 (65-115) mg/dL Calculated Osmolal ity 289 (285-295) mOsm/k g Calcium 9.0 (8.5-10.5) mg/dL Magnesium 2.4 H (1.7-2.3) mg/dL Total Bilirubin 0.2 (0.15-1.2) mg/dL AST 278 H (0-40) U/L ALT 374 H (0-41) U/L Alkaline Phosphata se 92 (40-130) IU/L Creatine Kinase 376 H* (39-308) U/L Total Protein 7.1 (6.6-8.7) g/dL Albumin 4.5 (3.5-5.2) g/dL Globulin 2.6 (1.3-4.6) g/dL TSH 1.89 (0.27-4.20) uIU/ mL Salicylates < 0.3 L (3-10) mg/dL Acetaminophen < 5.0 L (10-30) ug/mL Phenytoin 0.8 L (10-20) ug/mL Valproic Acid 2.8 L (50-100) ug/mL Carbamazepine 2.0 L (4.0-12.0) ug/mL [place] 0.1 L (0.6-1.2) mmol/L Ethyl Alcohol 269 H (0-10) mg/dL Discharge Plan Discharge Patient Disposition: Home, Self-Care Clinical Impression: Alcoholic intoxication Condition: Stable Prescriptions: No Action lorazepam [Ativan] 1 mg tablet 1 mg PO TID PRN (Reason: anxiety) Qty: 15 RF: 0 aspirin 325 mg tablet 325 mg PO BID RF: 0 lorazepam [Ativan] 2 mg tablet 1 mg PO .q6 hours PRN (Reason: anxiety) 4 Days Qty: 4 RF: 0 hydroxyzine HCl 25 mg tablet 25 mg PO Q8H PRN (Reason: anxiety) Qty: 20 RF: 0 diclofenac potassium 50 mg tablet 50 mg PO TID PRN (Reason: pain) Qty: 20 RF: 0 Discharge Orders: Discharge Order (Routine); Ordered 05/13/20 Ordered By: Romulo Garza Discharge Diet: Advance as tolerated Discharge Activity: Increase activity as tolerated Patient Instructions: Abuse of Alcohol (ED) Activity Restrictions/Additional Instructions: Stop drinking alcohol. Recommend you go either to an inpatient service such as [facility] or begin attending alcoholics anonymous Sign Out Sign Out Data: Patient Sign Out occurred on 05/13/20 at 06:42. Patient's care was discussed, and care was transferred from Kayli Arias to Romulo Garza DO. Sign Out Comment: Case turned over to Dr. Garza at change of shift. Last updated by Kayli Arias at 05/13/20 06:23 Coding Level of Care Code ED Senior Data Integration Developer for Chg Fwd Exam Comprehensive
[2020-05-13 02:10] LABS: Basophils % 0.4 %; Eosinophils # 0.2 10^3/uL (0.0-0.8); Eosinophils % 3.8 %; Hematocrit 41.5 % (42.0-52.0); Hemoglobin 14.4 g/dL (11.7-16.6); Lymphocytes # 2.3 10^3/uL (0.8-4.8); Lymphocytes % 43.3 %; Mean Corpuscular HGB Conc 34.7 g/dL (30.0-36.0); Mean Corpuscular Hemoglobin 35.1 pg (28.0-34.0); Mean Corpuscular Volume 101.2 fL (80-94); Mean Platelet Volume 10.9 fL (7.4-10.4); Monocytes # 0.6 10^3/uL (0.2-0.9); Monocytes % 10.3 %; Neutrophils # 2.2 10^3/uL (1.8-7.7); Neutrophils % 41.8 %; Nucleated Red Blood Cells % 0 %; Platelet Count 178 10^3/cmm (130-400); Red Cell Distribution Width 13.2 % (12.1-15.1); White Blood Count 5.3 10^3/uL (4.0-10.0)
[2020-05-13] MEDS: folic acid 1 MG, multivitamin inj 10 ML, thiamine 100 MG in sodium chloride 0.9% 1,000 ML 252.8 MG IV (02:16)
[2020-05-13] MEDS: haloperidol inj 5 mg/mL INJ 1 mL IVP (02:16)
[2020-05-13] MEDS: diphenhydrAMINE 50 mg/mL SDV 1mL IVP (02:16)
--- NOTE | 2020-05-13 02:16 | PC.NURSE ---
Patient refusing to where pulse ox or bp cuff, just wants to sleep will make frequent rounds.
[2020-05-13 02:26] LABS: Lithium 0.1 mmol/L (0.6-1.2)
[2020-05-13 02:33] LABS: Acetaminophen < 5.0 ug/mL (10-30); Alanine Aminotransferase 374 U/L (0-41); Albumin Level 4.5 g/dL (3.5-5.2); Alcohol Level 269 mg/dL (0-10); Alkaline Phosphatase 92 IU/L (40-130); Anion Gap 15.8 (5-19); Aspartate Amino Transferase 278 U/L (0-40); Blood Urea Nitrogen 10 mg/dL (6-20); Carbon Dioxide 24 mmol/L (22-29); Chloride 105 mmol/L (98-107); Globulin 2.6 g/dL (1.3-4.6); Glomerular Filtration Rate 135.3 mL/min (90-130); Glucose 113 mg/dL (65-115); Magnesium 2.4 mg/dL (1.7-2.3); Osmolality Calculated 289 mOsm/kg (285-295); Phenytoin Dilantin 0.8 ug/mL (10-20); Potassium 3.8 mmol/L (3.5-5.1); Salicylate < 0.3 mg/dL (3-10); Sodium 141 mmol/L (136-145); Total Bilirubin 0.2 mg/dL (0.15-1.2); Total Protein 7.1 g/dL (6.6-8.7); Valproic Acid Level 2.8 ug/mL (50-100)
[2020-05-13 02:34] LABS: Creatine Phosphokinase 376 U/L (39-308)
[2020-05-13 02:35] LABS: Thyroid Stimulating Hormone 1.89 uIU/mL (0.27-4.20)
--- NOTE | 2020-05-13 05:01 | PC.NURSE ---
Patient resting with eyes closed, resp even and unlabored.
== END 2020-05-13 07:12 | disposition home or self-care (01) ==
PROVIDERS: Emergency Medicine; Emergency Provider Family Medicine
DX: F10.129 Alcohol abuse with intoxication, unspecified (principal); Z79.82 Long term (current) use of aspirin; F17.210 Nicotine dependence, cigarettes, uncomplicated
CPT/HCPCS: 12345; 36415; 71045; 80053; 80156; 80164; 80178; 80185; 80307; 82550; 83735; 84443; 85025; 96361; 96374; 96375; 99283; 99284; J1200; J1630; J3411; J3490; J7030

== ENCOUNTER 2020-06-20 13:36 | Emergency (ER) | payer SELFPAY ==
[2020-06-20 13:39] VITALS: BMI 23.7
[2020-06-20 13:44] VITALS: BP 127/86; PULSE 98; RESP 16; TEMP 36.9; O2SAT 99
== END 2020-06-20 14:03 | disposition left against medical advice (07) ==
PROVIDERS: Emergency Provider Emergency Medicine
DX: Z53.21 Procedure and treatment not carried out due to patient leaving prior to being seen by health care provider (principal)
CPT/HCPCS: 99284

== ENCOUNTER 2020-06-27 17:55 | Emergency (ER) | payer SELFPAY ==
[2020-06-27 18:02] VITALS: BP 139/84; PULSE 109; RESP 18; TEMP 36.7; O2SAT 97; BMI 24.4
[2020-06-27 18:04] VITALS: RESP 18
--- NOTE | 2020-06-27 18:14 | W.ED.SKABFB ---
Documented by User: HARDIK Duque 06/27/20 18:55 HPI - Skin/Abscess/Foreign Bdy General: Chief complaint: Skin/Abscess/Foreign Body Stated complaint: spider bite Time Seen by Provider: 06/27/20 18:13 History of Present Illness: Associated symptoms: Deny chills, fever(s), nausea or vomiting Review of Systems Const: Denies: fever(s), chills or fatigue Eyes: Denies: change in vision or eye discomfort ENMT: Denies: throat pain, odynophagia, nasal discharge or nasal congestion Card: Denies: chest pain, palpitations, edema, swelling of feet/ankles, dyspnea on exertion or orthopnea Resp: Denies: dyspnea, productive cough or non-productive cough GI: Denies: abdominal pain, nausea, vomiting, diarrhea, constipation or hematochezia : Denies: flank pain, difficulty urinating, dysuria or hematuria Musc: Denies: neck pain, back pain or extremity swelling Skin/Breast: Denies: rash or new lesions Neuro: Denies: headache(s), numbness in extremities or weakness in extremities PFSH ED PFSH: Medical History Mood disorder Polysubstance (including opioids) dependence, daily use Pyloric stenosis Social History Smoking and tobacco status: current every day smoker cigarettes Packs smoked per day: 0.75 Years cigarettes smoked: 11 Quit status (tobacco): has tried quititng Number of times tried to quit tobacco: 5 Second hand smoke exposure: No Smoking risk assessment/counseling performed?: No Alcohol intake: current Alcohol intake frequency: 3 or more drinks per day Physical Exam Const: COMMON NORMALS: patient oriented x3 HENMT: COMMON NORMALS: normocephalic HEAD & SCALP: normocephalic MOUTH: Normal oral and palatal mucosa present THROAT: posterior oropharynx normal and uvula midline Neck/C-Spine: COMMON NORMALS: supple GENERAL: Yes normal visual inspection Resp: COMMON NORMALS: normal respiratory effort, No retractions, No use of accessory muscles and clear to auscultation bilaterally AUSCULTATION: clear to auscultation bilaterally Cardio: COMMON NORMALS: regular rate, regular rhythm, S1 normal heart sound present, S2 normal heart sound present, No gallops present (Cardio), No clicks present (Cardio), No murmurs present (Cardio) and Peripheral pulses 2+ throughout RATE: regular rate RHYTHM: regular rhythm HEART SOUNDS: S1 normal heart sound present and S2 normal heart sound present PERIPHERAL PULSES: Peripheral pulses 2+ throughout GI: COMMON NORMALS: Normal to inspection, nondistended, normoactive bowel sounds present, Soft to palpation, non-tender and no masses PALPATION: Yes Soft to palpation : COMMON NORMALS: Yes no CVA tenderness BLADDER/KIDNEY EXAM: Yes no CVA tenderness Back/Pelvis: COMMON NORMALS: no CVA tenderness Neuro: COMMON NORMALS: patient oriented x3 and moves all extremities Course Vital Signs: Vital signs: Vital Signs Temperature 98.1 F 06/27/20 18:02 Pulse Rate 109 H 06/27/20 18:02 Respiratory Rate 18 06/27/20 18:04 Blood Pressure 139/84 06/27/20 18:02 Pulse Oximetry 97 06/27/20 18:02 Discharge Plan Discharge Patient Disposition: Home Clinical Impression: Cellulitis Qualifiers: Site of cellulitis: buttock Qualified Code(s): L03.317 - Cellulitis of buttock Condition: Stable Prescriptions: New Bactrim DS 800-160 mg tablet 1 tab PO BID 10 Days Qty: 20 RF: 0 No Action lorazepam [Ativan] 1 mg tablet 1 mg PO TID PRN (Reason: anxiety) Qty: 15 RF: 0 aspirin 325 mg tablet 325 mg PO BID RF: 0 lorazepam [Ativan] 2 mg tablet 1 mg PO .q6 hours PRN (Reason: anxiety) 4 Days Qty: 4 RF: 0 hydroxyzine HCl 25 mg tablet 25 mg PO Q8H PRN (Reason: anxiety) Qty: 20 RF: 0 diclofenac potassium 50 mg tablet 50 mg PO TID PRN (Reason: pain) Qty: 20 RF: 0 Discharge Orders: Discharge Order (Routine); Ordered 06/27/20 Ordered By: Komal Barajas Discharge Diet: Advance as tolerated Discharge Activity: Resume usual activity Patient Instructions: Cellulitis (ED) Coding Level of Care Code ED Radiologic Technician for Chg Fwd Exam Comprehensive Documented by User: Komal Barajas MD 06/27/20 18:49 HPI - Skin/Abscess/Foreign Bdy General: Chief complaint: Skin/Abscess/Foreign Body Stated complaint: spider bite Time Seen by Provider: 06/27/20 18:13 Source: patient Mode of arrival: ambulatory Limitations: no limitations History of Present Illness: HPI narrative: 25-year-old male who states that he believes he had a spider bite to his buttocks 3 days ago. He states he has an area of erythema slightly painful. He denies any fevers. He denies any drainage. complaint: rash Associated symptoms: Deny chills, fever(s), nausea or vomiting Review of Systems Const: Denies: fever(s), chills, body aches or change in appetite Eyes: Denies: blurry vision or eye discomfort ENMT: Denies: throat pain or dental pain Card: Denies: chest pain Resp: Denies: dyspnea GI: Denies: abdominal pain, nausea, vomiting or diarrhea : Denies: dysuria Musc: Denies: neck pain or back pain Skin/Breast: Reports: rash Neuro: Denies: headache(s) Psych: Denies: depression Jevon/Lymph: Denies: easy bruising All/Imm: Denies: urticaria PFSH ED PFSH: Medical History Mood disorder Polysubstance (including opioids) dependence, daily use Pyloric stenosis Social History Smoking and tobacco status: current every day smoker cigarettes Packs smoked per day: 0.75 Years cigarettes smoked: 11 Quit status (tobacco): has tried quititng Number of times tried to quit tobacco: 5 Second hand smoke exposure: No Smoking risk assessment/counseling performed?: No Alcohol intake: current Alcohol intake frequency: 3 or more drinks per day Physical Exam Const: COMMON NORMALS: no acute distress, patient oriented x3 and healthy appearing HENMT: COMMON NORMALS: normocephalic and atraumatic HEAD & SCALP: normocephalic and atraumatic Eye: COMMON NORMALS: Equal, round and reactive pupils present and EOMs intact bilaterally PUPIL: Yes Equal, round and reactive pupils present Neck/C-Spine: COMMON NORMALS: full ROM and supple Chest: COMMONS NORMALS: normal inspection of the chest and normal palpation of entire chest wall Resp: COMMON NORMALS: normal respiratory effort, No retractions, No use of accessory muscles and clear to auscultation bilaterally AUSCULTATION: clear to auscultation bilaterally Cardio: COMMON NORMALS: regular rate, regular rhythm and No murmurs present (Cardio) RATE: regular rate RHYTHM: regular rhythm GI: COMMON NORMALS: Normal to inspection, nondistended, normoactive bowel sounds present, Soft to palpation, non-tender and no masses PALPATION: Yes Soft to palpation Extremity: COMMON NORMALS: normal to inspection and full ROM Neuro: COMMON NORMALS: patient oriented x3, moves all extremities and no focal motor deficits Psych: COMMON NORMALS: mental status grossly normal, Normal thought process present and cooperative THOUGHT PROCESS: Normal thought process present Skin: NARRATIVE SKIN EXAM: Slight area of cellulitis to buttocks with no abscess or necrosis or eschar Course Vital Signs: Vital signs: Vital Signs Temperature 98.1 F 06/27/20 18:02 Pulse Rate 109 H 06/27/20 18:02 Respiratory Rate 18 06/27/20 18:04 Blood Pressure 139/84 06/27/20 18:02 Pulse Oximetry 97 06/27/20 18:02 MDM - Skin/Abscess/Foreign Bdy MDM Narrative: Medical decision making narrative: Chance presents here with cellulitis to his buttocks possibles brown recluse bite. He has no skin necrosis and the wound is well-appearing. He has no signs of abscess. We will place him on Bactrim and he is stable for discharge is return if worsening. Discharge Plan Discharge Patient Disposition: Home Clinical Impression: Cellulitis Qualifiers: Site of cellulitis: buttock Qualified Code(s): L03.317 - Cellulitis of buttock Condition: Stable Prescriptions: New Bactrim DS 800-160 mg tablet 1 tab PO BID 10 Days Qty: 20 RF: 0 No Action lorazepam [Ativan] 1 mg tablet 1 mg PO TID PRN (Reason: anxiety) Qty: 15 RF: 0 aspirin 325 mg tablet 325 mg PO BID RF: 0 lorazepam [Ativan] 2 mg tablet 1 mg PO .q6 hours PRN (Reason: anxiety) 4 Days Qty: 4 RF: 0 hydroxyzine HCl 25 mg tablet 25 mg PO Q8H PRN (Reason: anxiety) Qty: 20 RF: 0 diclofenac potassium 50 mg tablet 50 mg PO TID PRN (Reason: pain) Qty: 20 RF: 0 Discharge Orders: Discharge Order (Routine); Ordered 06/27/20 Ordered By: Komal Barajas Discharge Diet: Advance as tolerated Discharge Activity: Resume usual activity Patient Instructions: Cellulitis (ED) Coding Level of Care Code ED Radiologic Technician for [place] Fwd Exam Comprehensive
== END 2020-06-27 18:55 | disposition home or self-care (01) ==
PROVIDERS: Emergency Provider Emergency Medicine
DX: L03.317 Cellulitis of buttock (principal); Z79.82 Long term (current) use of aspirin; F17.210 Nicotine dependence, cigarettes, uncomplicated
CPT/HCPCS: 12345; 99281; 99282

== ENCOUNTER → 2020-07-17 09:59 | Outpatient (BNVA) | payer OTHER, SELFPAY | PROVIDERS: Visit Provider Nurse Practitioner Psychiatric/Mental Health | DX: Z79.899 Other long term (current) drug therapy (principal); F11.20 Opioid dependence, uncomplicated; F15.20 Other stimulant dependence, uncomplicated | CPT/HCPCS: 80053; 80307; 82550; 82552; 85025 ==

== ENCOUNTER 2020-07-21 22:55 | Emergency (ER) | payer SELFPAY ==
[2020-07-21 22:59] VITALS: BP 133/80; PULSE 113; RESP 18; TEMP 37.1; O2SAT 95; BMI 25.7
--- NOTE | 2020-07-22 01:46 | W.ED.RECABL ---
HPI - Recheck/Abnormal Lab/Rx General: Chief Complaint: Recheck/Abnormal Lab/Rx Stated Complaint: abnormal labs Time Seen by Provider: 07/22/20 01:41 History of Present Illness: HPI narrative: Patient is a 25-year-old male who comes to the ED to get a lab value rechecked. Patient has been seen here in the ED multiple times in the past couple months. Patient has a past medical history of alcohol use disorder, alcohol withdrawal, methamphetamine and opioid use disorder. Patient says he has been told that he is creatine kinase levels have been elevated and he was told to follow-up with his PCP and recheck creatine kinase levels. Patient has an appointment set up with his PCP on July 27. Today patient says he has some increased anxiety. He endorses having some increased mental cloudiness over the past couple days. Patient does state that he drinks approximately 1/5 of liquor every night and for the past couple days he is tried to cut back a little bit. He denies having any alcohol withdrawal symptoms currently. Review of Systems Const: Denies: fever(s), chills or fatigue Eyes: Denies: change in vision or eye discomfort ENMT: Denies: throat pain, odynophagia, nasal discharge or nasal congestion Card: Denies: chest pain, palpitations, edema, swelling of feet/ankles, dyspnea on exertion or orthopnea Resp: Denies: dyspnea, productive cough or non-productive cough GI: Denies: abdominal pain, nausea, vomiting, diarrhea, constipation or hematochezia : Denies: flank pain, difficulty urinating, dysuria or hematuria Musc: Denies: neck pain, back pain or extremity swelling Skin/Breast: Denies: rash or new lesions Neuro: Reports: confusion (Describes feeling a little cloudy mentally); Denies: headache(s), numbness in extremities or weakness in extremities Psych: Reports: anxiety PFS ED PFSH: Medical History Mood disorder Polysubstance (including opioids) dependence, daily use Pyloric stenosis Social History Smoking and tobacco status: current every day smoker cigarettes Packs smoked per day: 0.75 Years cigarettes smoked: 11 Quit status (tobacco): has tried quititng Number of times tried to quit tobacco: 5 Second hand smoke exposure: No Smoking risk assessment/counseling performed?: No Alcohol intake: current Alcohol intake frequency: 3 or more drinks per day Physical Exam Const: COMMON NORMALS: no acute distress, patient oriented x3 and alert GENERAL APPEARANCE: cooperative, comfortable and odor of alcohol detected HENMT: COMMON NORMALS: normocephalic HEAD & SCALP: normocephalic MOUTH: Normal oral and palatal mucosa present THROAT: posterior oropharynx normal and uvula midline Eye: COMMON NORMALS: Equal, round and reactive pupils present CONJUNCTIVA: Yes conjunctival abnormal positive bilateral conjunctival injection PUPIL: Yes Equal, round and reactive pupils present Neck/C-Spine: COMMON NORMALS: supple GENERAL: Yes normal visual inspection Resp: COMMON NORMALS: normal respiratory effort, No retractions, No use of accessory muscles and clear to auscultation bilaterally AUSCULTATION: clear to auscultation bilaterally Cardio: COMMON NORMALS: regular rate, regular rhythm, S1 normal heart sound present, S2 normal heart sound present, No gallops present (Cardio), No clicks present (Cardio), No murmurs present (Cardio) and Peripheral pulses 2+ throughout RATE: regular rate RHYTHM: regular rhythm HEART SOUNDS: S1 normal heart sound present and S2 normal heart sound present PERIPHERAL PULSES: Peripheral pulses 2+ throughout GI: COMMON NORMALS: Normal to inspection, nondistended, normoactive bowel sounds present, Soft to palpation, non-tender and no masses PALPATION: Yes Soft to palpation : COMMON NORMALS: Yes no CVA tenderness BLADDER/KIDNEY EXAM: Yes no CVA tenderness Back/Pelvis: COMMON NORMALS: no CVA tenderness Extremity: COMMON NORMALS: normal to inspection and no pedal edema Neuro: COMMON NORMALS: patient oriented x3 and moves all extremities SENSORIUM/ORIENTATION: Yes alert Skin: COMMON NORMALS: no rashes or lesions noted GENERAL SKIN EXAM: no rashes or lesions noted and dry skin Course Vital Signs: Vital signs: Vital Signs Temperature 98.7 F 07/21/20 22:59 Pulse Rate 98 07/22/20 02:00 Respiratory Rate 16 07/22/20 02:00 Blood Pressure 134/87 07/22/20 02:00 Pulse Oximetry 99 07/22/20 02:00 MDM - Recheck/Abnormal Lab/Rx MDM Narrative: Medical decision making narrative: Patient is a 25-year-old male who comes to the ED to recheck creatine kinase lab and anxiety. Patient's creatine kinase lab value was 399 today. On July 17 patient's CK was 453. Patient was given a dose of Ativan while here in the ED for his anxiety. Patient has follow-up with his PCP scheduled for July 27 to further investigate CK elevation. Return to ED precautions given. Patient understood and agree with plan. Lab Data: Attestation: I reviewed the patient's lab results. Labs: Lab Results 07/22/20 07/22/20 07/22/20 Range/Units 01:51 01:51 01:51 WBC 5.4 (4.0-10.0) 10^3/ uL RBC 4.31 (4.1-5.3) 10^6/u L Hgb 15.1 (11.7-16.6) g/dL Hct 42.7 (42.0-52.0) % MCV 99.1 H (80-94) fL MCH 35.0 H (28.0-34.0) pg MCHC 35.4 (30.0-36.0) g/dL RDW 12.3 (12.1-15.1) % Plt Count 161 (130-400) 10^3/c mm MPV 11.0 H (7.4-10.4) fL Neut % (Auto) 58.1 % Lymph % (Auto) 27.9 % Daggett % (Auto) 11.2 % Eos % (Auto) 2.2 % Baso % (Auto) 0.4 % Neut # (Auto) 3.12 (1.8-7.7) 10^3/u L Lymph # (Auto) 1.5 (0.8-4.8) 10^3/u L Daggett # (Auto) 0.6 (0.2-0.9) 10^3/u L Eos # (Auto) 0.1 (0.0-0.8) 10^3/u L Baso # (Auto) 0.0 (0.0-0.1) 10^3/u L Nucleated RBC % (a uto) 0 % Nucleated RBCs # 0.0 /100WBC Sodium 140 (136-145) mmol/L Potassium 3.4 L (3.5-5.1) mmol/L Chloride 104 (98-107) mmol/L Carbon Dioxide 25 (22-29) mmol/L Anion Gap 14.4 (5-19) BUN 15 (6-20) mg/dL Creatinine 0.7 (0.7-1.2) mg/dL GFR Calculation 135.3 H (90-130) mL/min Glucose 103 (65-115) mg/dL Calculated Osmolal ity 287 (285-295) mOsm/k g Calcium 9.1 (8.5-10.5) mg/dL Total Bilirubin 1.0 (0.15-1.2) mg/dL AST 204 H (0-40) U/L ALT 341 H (0-41) U/L Alkaline Phosphata se 72 (40-130) IU/L Creatine Kinase 399 H* (39-308) U/L Total Protein 8.0 (6.6-8.7) g/dL Albumin 4.9 (3.5-5.2) g/dL Globulin 3.1 (1.3-4.6) g/dL Lipase 20 (13-60) U/L Ethyl Alcohol < 10 (0-10) mg/dL Discharge Plan Discharge Patient Disposition: Home Clinical Impression: Encounter for laboratory test Condition: Stable Prescriptions: No Action lorazepam [Ativan] 1 mg tablet 1 mg PO TID PRN (Reason: anxiety) Qty: 15 RF: 0 aspirin 325 mg tablet 325 mg PO BID RF: 0 lorazepam [Ativan] 2 mg tablet 1 mg PO .q6 hours PRN (Reason: anxiety) 4 Days Qty: 4 RF: 0 hydroxyzine HCl 25 mg tablet 25 mg PO Q8H PRN (Reason: anxiety) Qty: 20 RF: 0 diclofenac potassium 50 mg tablet 50 mg PO TID PRN (Reason: pain) Qty: 20 RF: 0 Discharge Orders: Discharge Order (Routine); Ordered 07/22/20 Ordered By: Arden Stewart Discharge Diet: Regular Discharge Activity: Resume usual activity Activity Restrictions/Additional Instructions: Follow-up with medical provider as previously scheduled on July 27. Return to the ER or your medical provider if condition worsens. Please read and understand discharge instructions. If any questions, please ask. Discharge Date/Time: 07/22/20 03:12 Coding Level of Care Code ED Harbor Boat Pilot for Chg Fwd Exam Comprehensive
[2020-07-22 02:00] VITALS: BP 134/87; PULSE 98; RESP 16; O2SAT 99
[2020-07-22 02:16] LABS: Basophils % 0.4 %; Eosinophils # 0.1 10^3/uL (0.0-0.8); Eosinophils % 2.2 %; Hematocrit 42.7 % (42.0-52.0); Hemoglobin 15.1 g/dL (11.7-16.6); Lymphocytes # 1.5 10^3/uL (0.8-4.8); Lymphocytes % 27.9 %; Mean Corpuscular HGB Conc 35.4 g/dL (30.0-36.0); Mean Corpuscular Volume 99.1 fL (80-94); Monocytes # 0.6 10^3/uL (0.2-0.9); Monocytes % 11.2 %; Neutrophils # 3.12 10^3/uL (1.8-7.7); Neutrophils % 58.1 %; Nucleated Red Blood Cells % 0 %; Platelet Count 161 10^3/cmm (130-400); Red Blood Count 4.31 10^6/uL (4.1-5.3); Red Cell Distribution Width 12.3 % (12.1-15.1); White Blood Count 5.4 10^3/uL (4.0-10.0)
[2020-07-22 02:27] LABS: Alanine Aminotransferase 341 U/L (0-41); Albumin Level 4.9 g/dL (3.5-5.2); Alkaline Phosphatase 72 IU/L (40-130); Anion Gap 14.4 (5-19); Aspartate Amino Transferase 204 U/L (0-40); Blood Urea Nitrogen 15 mg/dL (6-20); Calcium 9.1 mg/dL (8.5-10.5); Carbon Dioxide 25 mmol/L (22-29); Chloride 104 mmol/L (98-107); Globulin 3.1 g/dL (1.3-4.6); Glomerular Filtration Rate 135.3 mL/min (90-130); Glucose 103 mg/dL (65-115); Lipase 20 U/L (13-60); Osmolality Calculated 287 mOsm/kg (285-295); Potassium 3.4 mmol/L (3.5-5.1); Sodium 140 mmol/L (136-145)
[2020-07-22 02:36] LABS: Alcohol Level < 10 mg/dL (0-10); Creatine Phosphokinase 399 U/L (39-308)
[2020-07-22 03:08] LABS: CKMB 9.6 ng/mL (0-10.4); CKMB Relative Index 2.4 % (0.0-5.3)
[2020-07-22 03:10] VITALS: BP 111/68; PULSE 92; RESP 18; O2SAT 98
== END 2020-07-22 03:12 | disposition home or self-care (01) ==
PROVIDERS: Emergency Medicine; Emergency Provider Physician Assistant
DX: Z00.00 Encounter for general adult medical examination without abnormal findings (principal); Z79.82 Long term (current) use of aspirin; F17.210 Nicotine dependence, cigarettes, uncomplicated
CPT/HCPCS: 12345; 80053; 80307; 82550; 82553; 83690; 85025; 99282; 99283

== ENCOUNTER 2020-10-01 13:10 | Emergency (ER) | payer OTHER, SELFPAY ==
[2020-10-01 13:29] VITALS: BP 109/62; PULSE 98; RESP 16; TEMP 36.2; O2SAT 98; BMI 27.1
--- NOTE | 2020-10-01 13:45 | W.ED.COVID ---
HPI - COVID General: Chief Complaint: COVID symptoms Stated Complaint: COVID SYMPTOMS Time Seen by Provider: 10/01/20 13:21 Source: patient Mode of arrival: ambulatory Limitations: no limitations Triage information: Has fever, cough or shortness of breath. No known COVID + exposure last 14 days History of Present Illness: HPI Narrative: 25-year-old male who presents here wanting Covid tested. He states he had symptoms of last 2 to 3 days including low-grade fevers cough. He states his girlfriend is been exposed at work. He denies any severe shortness of breath and he is in no distress here. He states he also needs a refill for his Zoloft. COVID 19 common symptoms: positive chills, non-productive cough, dyspnea and body aches; negative headache(s), throat pain, nausea, vomiting or diarrhea COVID 19 other sytmptoms: negative chest pain COVID Results: No Data to Display Review of Systems Const: Reports: chills and body aches Eyes: Denies: blurry vision or eye discomfort ENMT: Denies: throat pain or dental pain Card: Denies: chest pain Resp: Reports: dyspnea and non-productive cough GI: Denies: abdominal pain, nausea, vomiting or diarrhea : Denies: dysuria Musc: Denies: neck pain or back pain Skin/Breast: Denies: rash Neuro: Denies: headache(s) Psych: Denies: depression Jevon/Lymph: Denies: easy bruising All/Imm: Denies: urticaria PFSH ED PFSH: Medical History Mood disorder Polysubstance (including opioids) dependence, daily use Pyloric stenosis Social History Smoking and tobacco status: current every day smoker cigarettes Packs smoked per day: 0.75 Years cigarettes smoked: 11 Quit status (tobacco): has tried quititng Number of times tried to quit tobacco: 5 Second hand smoke exposure: No Smoking risk assessment/counseling performed?: No Alcohol intake: current Alcohol intake frequency: 3 or more drinks per day Physical Exam Const: COMMON NORMALS: no acute distress, patient oriented x3 and healthy appearing HENMT: COMMON NORMALS: normocephalic and atraumatic HEAD & SCALP: normocephalic and atraumatic Eye: COMMON NORMALS: Equal, round and reactive pupils present and EOMs intact bilaterally PUPIL: Yes Equal, round and reactive pupils present Neck/C-Spine: COMMON NORMALS: full ROM and supple Chest: COMMONS NORMALS: normal inspection of the chest and normal palpation of entire chest wall Resp: COMMON NORMALS: normal respiratory effort, No retractions, No use of accessory muscles and clear to auscultation bilaterally AUSCULTATION: clear to auscultation bilaterally Cardio: COMMON NORMALS: regular rate, regular rhythm and No murmurs present (Cardio) RATE: regular rate RHYTHM: regular rhythm GI: COMMON NORMALS: Normal to inspection, nondistended, normoactive bowel sounds present, Soft to palpation, non-tender and no masses PALPATION: Yes Soft to palpation Extremity: COMMON NORMALS: normal to inspection and full ROM Neuro: COMMON NORMALS: patient oriented x3, moves all extremities and no focal motor deficits Psych: COMMON NORMALS: mental status grossly normal, Normal thought process present and cooperative THOUGHT PROCESS: Normal thought process present Skin: COMMON NORMALS: no rashes or lesions noted and no wounds GENERAL SKIN EXAM: no rashes or lesions noted Course Vital Signs: Vital signs: Vital Signs Temperature 97.2 F L 10/01/20 13:29 Pulse Rate 98 10/01/20 13:29 Respiratory Rate 16 10/01/20 13:29 Blood Pressure 109/62 10/01/20 13:29 Pulse Oximetry 98 10/01/20 13:29 MDM - COVID MDM Narrative Medical decision making narrative: Patient presents with Covid rule out. He is well-appearing here and in no distress. I not believe he needs any imaging or labs at this time. Will do the request and he is to self quarantine. Will refill his Zoloft. He is stable for discharge and is return if worsening. Lab Data COVID Results: No Data to Display Discharge Plan Discharge Patient Disposition: Home Clinical Impression: COVID-19 ruled out Condition: Stable Prescriptions: Continued diclofenac potassium 50 mg tablet 50 mg PO TID PRN (Reason: pain) Qty: 20 RF: 0 Zoloft 50 mg tablet 50 mg PO DAILY Qty: 30 RF: 0 No Action aspirin 325 mg tablet 325 mg PO BID RF: 0 hydroxyzine HCl 25 mg tablet 25 mg PO Q8H PRN (Reason: anxiety) Qty: 20 RF: 0 Discharge Orders: Discharge Order (Routine); Ordered 10/01/20 Ordered By: Komal Barajas Discharge Diet: Advance as tolerated Discharge Activity: Resume usual activity Patient Instructions: Viral Syndrome (ED) Coding Level of Care Code ED Foreign Banknote Teller for Marie Panda
[2020-10-01 13:57] VITALS: O2SAT 98
[2020-10-03 22:23] LABS: Quest SARS-CoV-2 RNA NOT DETECTED (NOT DETECTED)
--- NOTE | 2020-10-04 09:14 | PC.NURSE ---
Pt called and notified of negative COVID result.
== END 2020-10-01 13:58 | disposition home or self-care (01) ==
LOC: ER 13:51
PROVIDERS: Emergency Provider Emergency Medicine
DX: Z20.828 Contact with and (suspected) exposure to other viral communicable diseases (principal); F17.210 Nicotine dependence, cigarettes, uncomplicated
CPT/HCPCS: 12345; 87635; 99282

== ENCOUNTER 2020-10-23 09:16 | Emergency (ER) | payer SELFPAY ==
[2020-10-23 09:37] VITALS: BP 161/105; PULSE 93; RESP 16; TEMP 36.5; O2SAT 100; BMI 27.1
[2020-10-23 09:46] VITALS: O2SAT 100
--- NOTE | 2020-10-23 09:54 | ED_ITS ---
HPI - Psych General: Chief Complaint: Psychiatric Symptoms Stated Complaint: MHE Time Seen by Provider: 10/23/20 09:37 History of Present Illness: HPI Narrative: Patient here asking for prescription to help with his bipolar disorder. He said he like get back on his medication he said Zoloft not working he was fired by Dr. Oh because of relapses. Patient has had 5 relapses in last 6 months with methamphetamines and alcohol. Patient denies any SI or HI intentions MD complaint: other Onset (ago): day(s) Duration: constant History of same: Yes Relieving factors: none Associated psychiatric symptoms: depression Associated symptoms: Reports depression and other (Anxiety); Deny homicidal ideation or suicidal ideation Review of Systems Const: Denies: fever(s), chills or body aches Eyes: Denies: change in vision or blurry vision ENMT: Denies: throat pain or nasal congestion Card: Denies: chest pain or dyspnea on exertion Resp: Denies: dyspnea, productive cough or non-productive cough GI: Denies: abdominal pain, nausea or vomiting : Denies: difficulty urinating Musc: Denies: extremity pain Skin/Breast: Denies: rash Neuro: Denies: headache(s) Psych: Reports: anxiety, depression, mood swings and difficulty concentrating; Denies: suicidal ideation or homicidal ideation Jevon/Lymph: Denies: easy bruising [facility] ED PFSH: Medical History (Updated 10/23/20 @ 09:54 by CAMACHO Hong) Mood disorder Polysubstance (including opioids) dependence, daily use Pyloric stenosis Social History (Updated 10/23/20 @ 09:44 by Jagjit Elizabeth RN) Smoking and tobacco status: current every day smoker cigarettes Packs smoked per day: 0.5 Years cigarettes smoked: 11 Quit status (tobacco): has tried quititng Number of times tried to quit tobacco: 5 Second hand smoke exposure: No Smoking risk assessment/counseling performed?: No Alcohol intake: former Substance/Drug Use: former Physical Exam Const: COMMON NORMALS: no acute distress, average body habitus and patient oriented x3 HENMT: COMMON NORMALS: normocephalic HEAD & SCALP: normal to inspection and normocephalic FACE & SINUS: normal facial exam Eye: COMMON NORMALS: conjunctivae normal GENERAL EYE: appearance normal, both eyes and all related structures CONJUNCTIVA: Yes conjunctivae normal Neck/C-Spine: COMMON NORMALS: no JVD Chest: COMMONS NORMALS: normal inspection of the chest Resp: COMMON NORMALS: normal respiratory effort and clear to auscultation bilaterally AUSCULTATION: clear to auscultation bilaterally Cardio: COMMON NORMALS: no JVD, regular rate and regular rhythm; negative for S1 normal heart sound present, negative for S2 normal heart sound present, negative for No gallops present (Cardio), negative for No clicks present (Cardio), negative for No murmurs present (Cardio), negative for No rub (Cardio) and negative for Peripheral pulses 2+ throughout RATE: regular rate RHYTHM: regular rhythm HEART SOUNDS: S1 abnormal and S2 abnormal PERIPHERAL PULSES: No Peripheral pulses 2+ throughout GI: COMMON NORMALS: Normal to inspection, nondistended, normoactive bowel sounds present Extremity: COMMON NORMALS: normal to inspection and full ROM Neuro: COMMON NORMALS: patient oriented x3 Psych: COMMON NORMALS: mental status grossly normal, Normal thought process present and speech normal ATTITUDE: Yes calm ACTIVITY/MOTOR BEHAVIOR: Yes appropriate eye contact SPEECH: Yes normal speech THOUGHT PROCESS: Normal thought process present THOUGHT CONTENT: Yes Normal thought content present MEMORY/COGNITION: Yes memory grossly intact Discharge Plan Discharge Patient Disposition: Home Clinical Impression: Benign essential HTN Bipolar disorder Qualifiers: Active/Remission status: currently active Current bipolar episode type: mixed Current episode severity: mild Qualified Code(s): F31.61 - Bipolar disorder, current episode mixed, mild Condition: Stable Prescriptions: New hydroxyzine HCl 25 mg tablet 25 mg PO Q8H PRN (Reason: anxiety) Qty: 14 RF: 0 Zyprexa 10 mg tablet 10 mg PO DAILY Qty: 10 RF: 0 lisinopril 5 mg tablet 5 mg PO DAILY Qty: 14 RF: 0 Discontinued hydroxyzine HCl 25 mg tablet 25 mg PO Q8H PRN (Reason: anxiety) Qty: 20 RF: 0 sertraline [Zoloft] 50 mg tablet 50 mg PO DAILY Qty: 30 RF: 0 No Action aspirin 325 mg tablet 325 mg PO BID RF: 0 diclofenac potassium 50 mg tablet 50 mg PO TID PRN (Reason: pain) Qty: 20 RF: 0 Discharge Orders: Discharge Order (Routine); Ordered 10/23/20 Ordered By: Jayme Mello Discharge Diet: Usual diet Discharge Activity: Resume usual activity Patient Instructions: Bipolar Disorder (ED), Hypertension (ED) Activity Restrictions/Additional Instructions: Follow-up with medical provider as directed. Take medications as prescribed. Return to the ER or your medical provider if condition worsens. Please read and understand discharge instructions. If any questions ask please. Follow-up [facility] as scheduled the hospital will contact you with appointment time Coding Level of Care Code ED Director Statistical Programming for Chg Fwd Exam Comprehensive
--- NOTE | 2020-10-27 14:30 | DCPLANNER ---
poultry barn manager had message to schedule a follow up appointment for patient with [facility]. poultry barn manager called [facility] scheduling, spoke with Carolina, a follow up appointment is scheduled for Monday, November 13, 2020 at 1:[address] Oh, patient is aware of appointment.
--- NOTE | 2020-12-29 08:25 | DCPLANNER ---
Patient had an appointment at [facility] - patient did attend appointment.
== END 2020-10-23 09:59 | disposition home or self-care (01) ==
PROVIDERS: Emergency Provider Nurse Practitioner Family
DX: F31.61 Bipolar disorder, current episode mixed, mild (principal); I10 Essential (primary) hypertension; Z79.82 Long term (current) use of aspirin; F17.210 Nicotine dependence, cigarettes, uncomplicated
CPT/HCPCS: 12345; 99284

== ENCOUNTER 2020-11-15 21:28 | Emergency (ER) | payer SELFPAY ==
[2020-11-15 21:43] VITALS: BP 123/82; PULSE 101; RESP 22; TEMP 36.7; O2SAT 98; BMI 29.1
--- NOTE | 2020-11-15 21:57 | ED_ITS ---
HPI - Anxiety General: Chief Complaint: Anxiety Stated Complaint: facial swelling, possible allergic reaction Time Seen by Provider: 11/15/20 21:52 History of Present Illness: HPI narrative: Patient states that he started taking Paxil about a week ago and tonight he started having swelling in the face feel anxious feels like to have allergic reaction. Paxil about 7:00 complaint: anxiety and other (Surgical reaction) Onset (ago): hour(s) Symptoms: other (Swelling about the face) Severity: moderate Quality: constant Place: home History of similar episodes: Yes Provoking factors: other (Recent medication change) Exacerbating factors: medication Associated symptoms: Reports no associated symptoms; Deny chest pain, chills, fever(s), headache(s), nausea or vomiting Review of Systems Narrative: Complains about swelling to the face after taking Paxil and 7:00 tonight does complain about feeling anxious Const: Denies: fever(s), chills or body aches Eyes: Denies: change in vision or blurry vision ENMT: Denies: throat pain or nasal congestion Card: Denies: chest pain or dyspnea on exertion Resp: Denies: dyspnea, productive cough or non-productive cough GI: Denies: abdominal pain, nausea or vomiting : Denies: difficulty urinating Musc: Denies: extremity pain Skin/Breast: Denies: rash Neuro: Denies: headache(s) Psych: Reports: anxiety; Denies: depression Jevon/Lymph: Denies: easy bruising PFS ED PFSH: Medical History (Updated 11/09/20 @ 13:35 by Demarcus Oh MD) Mood disorder Polysubstance (including opioids) dependence, daily use Pyloric stenosis Social History (Updated 10/23/20 @ 09:44 by Jagjit Elizabeth RN) Smoking and tobacco status: current every day smoker cigarettes Packs smoked per day: 0.5 Years cigarettes smoked: 11 Quit status (tobacco): has tried quititng Number of times tried to quit tobacco: 5 Second hand smoke exposure: No Smoking risk assessment/counseling performed?: No Alcohol intake: former Physical Exam Const: COMMON NORMALS: no acute distress, average body habitus and patient oriented x3 HENMT: COMMON NORMALS: normocephalic HEAD & SCALP: normal to inspection and normocephalic FACE & SINUS: normal facial exam and other (Patient does appear to have swelling about the eyes lips look a little bit ) MOUTH: other (Tongue looks fine no swelling) Eye: COMMON NORMALS: conjunctivae normal GENERAL EYE: appearance normal, both eyes and all related structures CONJUNCTIVA: Yes conjunctivae normal Neck/C-Spine: COMMON NORMALS: no JVD Chest: COMMONS NORMALS: normal inspection of the chest Resp: COMMON NORMALS: normal respiratory effort and clear to auscultation b ilaterally AUSCULTATION: clear to auscultation bilaterally Cardio: COMMON NORMALS: no JVD, regular rate and regular rhythm RATE: regular rate RHYTHM: regular rhythm GI: COMMON NORMALS: Normal to inspection, nondistended, normoactive bowel sounds present Extremity: COMMON NORMALS: normal to inspection and full ROM Neuro: COMMON NORMALS: patient oriented x3 Course Vital Signs: Vital signs: Vital Signs Temperature 98.0 F 11/15/20 21:43 Pulse Rate 101 H 11/15/20 21:43 Respiratory Rate 22 H 11/15/20 21:43 Blood Pressure 123/82 11/15/20 21:43 Pulse Oximetry 98 11/15/20 21:43 Discharge Plan Discharge Prescriptions: No Action paroxetine HCl [Paxil] 20 mg tablet 20 mg PO DAILY Qty: 30 RF: 2 propranolol 20 mg tablet 20 mg PO TID PRN (Reason: anxiety) Qty: 90 RF: 2 hydroxyzine HCl 50 mg tablet 50 mg PO QID PRN (Reason: anxiety) Qty: 120 RF: 2 Zyprexa 10 mg tablet 10 mg PO DAILY Qty: 30 RF: 0 diclofenac potassium 50 mg tablet 50 mg PO TID PRN (Reason: pain) Qty: 20 RF: 0 lisinopril 5 mg tablet 5 mg PO DAILY Qty: 14 RF: 0 Coding Level of Care Code ED Black Leather Buffer for Marie Panda
[2020-11-15 22:04] VITALS: BP 123/88; PULSE 92; RESP 16; O2SAT 98
[2020-11-15] MEDS: sodium chloride 0.9% 1,000 ML 999 ML IV (22:12)
[2020-11-15] MEDS: diphenhydrAMINE 50 mg/mL SDV 1mL IVP (22:13)
[2020-11-15] MEDS: LORazepam 2 mg/mL INJ 1 mL IVP (22:13)
[2020-11-15 23:54] VITALS: BP 102/51; PULSE 83; RESP 14; O2SAT 98
== END 2020-11-15 23:52 | disposition home or self-care (01) ==
PROVIDERS: Emergency Provider Nurse Practitioner Family
DX: F41.9 Anxiety disorder, unspecified (principal); F17.210 Nicotine dependence, cigarettes, uncomplicated
CPT/HCPCS: 12345; 96361; 96374; 96375; 99282; 99283; J1200; J2060; J2930; J7030

== ENCOUNTER 2020-12-09 07:24 | Emergency (ER) | payer SELFPAY ==
[2020-12-09 07:39] VITALS: BP 146/94; PULSE 114; RESP 16; TEMP 36.2; O2SAT 98; BMI 28.5
[2020-12-09 07:44] VITALS: BP 146/94; PULSE 125; RESP 18; O2SAT 99
--- NOTE | 2020-12-09 07:54 | ED_ITS ---
HPI - Psych General: Chief Complaint: Psychiatric Symptoms Stated Complaint: mental health check Time Seen by Provider: 12/09/20 07:37 Source: patient Mode of arrival: ambulatory Limitations: no limitations History of Present Illness: HPI Narrative: 25-year-old male patient presents to the emergency department with medication problem. He reports received a prescription for olanzapine from [facility] last week, states medication is too expensive at [facility] it is not able to have medication filled due to cost. He reports last dose was approximately 4 to 5 days ago, does not like the way he feels today. Is requesting something to help with symptoms. He reports if he does not take olanzapine, he experiences thoughts of relapse of EtOH and drug abuse. Is requesting help today with olanzapine, states does not want to fall back into drug use. He has up appointment with Dr. Oh, psychiatry scheduled for next week. He denies thoughts of suicide/homicidal ideation thoughts of plans upon exam. When asked of stress and anxiety, he reports olanzapine makes these feelings go away, does not wish to be admitted to the stress unit today. He is requesting assistance with medication. He reports Paroxetine discontinued due to allergy. MD complaint: feels depressed and other Duration: intermittent and getting worse History of same: Yes Relieving factors: medication Context: recent alcohol abuse (4 days ago) Associated symptoms: Reports depression (history - not increased); Deny auditory hallucinations, visual hallucinations, homicidal ideation or suicidal ideation Treatments prior to arrival: none Review of Systems General: Reports: 10 or more systems reviewed and unremarkable except in HPI and below Const: Denies: fever(s), chills or diaphoresis Eyes: Denies: blurry vision or eye redness ENMT: Denies: throat pain, dental pain or disequilibrium Card: Denies: chest pain, palpitations or irregular heart rhythm Resp: Denies: dyspnea, productive cough, non-productive cough or wheezing GI: Denies: abdominal pain, nausea or vomiting : Denies: difficulty urinating, dysuria, urinary urgency or urinary incontinence Musc: Denies: neck pain, back pain, joint pain, joint stiffness, limited range of motion or muscle weakness Skin/Breast: Denies: rash or pruritus Neuro: Denies: headache(s), weakness in extremities or behavioral changes Psych: Reports: anxiety (increased due to cessation of olanzapine), depression (history - not increased), hopelessness and difficulty concentrating; Denies: visual hallucinations, auditory hallucinations, tactile hallucinations, suicidal ideation or homicidal ideation Jevon/Lymph: Denies: easy bruising PFSH ED PFSH: Medical History (Updated 12/09/20 @ 08:31 by BRITTANY Albarran) Mood disorder Polysubstance (including opioids) dependence, daily use Pyloric stenosis Social History Smoking and tobacco status: current every day smoker cigarettes Packs smoked per day: 0.5 Years cigarettes smoked: 11 Quit status (tobacco): has tried quititng Number of times tried to quit tobacco: 5 Second hand smoke exposure: No Smoking risk assessment/counseling performed?: No Alcohol intake: former Physical Exam Const: COMMON NORMALS: no acute distress, patient oriented x3, healthy appearing and alert GENERAL APPEARANCE: cooperative, comfortable, well kempt and well hydrated HENMT: COMMON NORMALS: normocephalic, Normal external nose present and moist oral mucous membranes HEAD & SCALP: normocephalic NOSE: Normal external nose present Eye: COMMON NORMALS: Equal, round and reactive pupils present and EOMs intact bilaterally GENERAL EYE: appearance normal, both eyes and all related structures PUPIL: Yes Equal, round and reactive pupils present Neck/C-Spine: COMMON NORMALS: full ROM and no lymphadenopathy GENERAL: Yes normal visual inspection and Yes trachea midline CERVICAL SPINE: Yes cervical ROM normal Lymph: LYMPHATIC: no lymphadenopathy noted Chest: COMMONS NORMALS: normal inspection of the chest Resp: COMMON NORMALS: normal respiratory effort and clear to auscultation bilaterally AUSCULTATION: clear to auscultation bilaterally Cardio: COMMON NORMALS: regular rhythm, S1 normal heart sound present and S2 normal heart sound present RHYTHM: regular rhythm HEART SOUNDS: S1 normal heart sound present and S2 normal heart sound present GI: COMMON NORMALS: Soft to palpation and non-tender INSPECTION: Yes normal to inspection PALPATION: Yes Soft to palpation : COMMON NORMALS: Yes no CVA tenderness BLADDER/KIDNEY EXAM: Yes no CVA tenderness Back/Pelvis: COMMON NORMALS: no CVA tenderness and thoracic and lumbar spine normal to inspection Extremity: COMMON NORMALS: normal to inspection and capillary refill normal Neuro: COMMON NORMALS: patient oriented x3 and no focal motor deficits SENSORIUM/ORIENTATION: Yes alert Psych: COMMON NORMALS: mental status grossly normal, cooperative, normal affect, speech normal, activity/motor behavior normal, denies hallucinations, denies homicidal ideation and denies suicidal ideation APPEARANCE: Yes grossly normal and Yes well kempt ATTITUDE: Yes calm and Yes Withdrawn affect present ACTIVITY/MOTOR BEHAVIOR: Yes appropriate eye contact, No fidgeting, No hyperactivity, No restless and No Avoids eye contact (attititude/behavior) SPEECH: Yes normal speech and No excessive MOOD & AFFECT: No depressed mood, No anxious and Yes Flat affect present THOUGHT PROCESS: Circumstantial tho ught process present THOUGHT CONTENT: Yes Normal thought content present, No Suicidality present, No Homicidality present and No Depersonalization present ATTENTION/CONCENTRATION: Yes attention grossly intact and Yes concentration grossly intact MEMORY/COGNITION: Yes memory grossly intact INSIGHT: Good insight present (Psych) JUDGEMENT: Good judgement present (Psych) Skin: COMMON NORMALS: no rashes or lesions noted and turgor normal GENERAL SKIN EXAM: no rashes or lesions noted and turgor normal Discharge Plan Discharge Patient Disposition: Home Clinical Impression: Generalized anxiety disorder, Alcohol use disorder, severe, dependence Depression Qualifiers: Depression Type: other depression Qualified Code(s): F32.89 - Other specified depressive episodes Condition: Stable Prescriptions: Continued propranolol 20 mg tablet 20 mg PO TID PRN (Reason: anxiety) Qty: 90 RF: 2 hydroxyzine HCl 50 mg tablet 50 mg PO QID PRN (Reason: anxiety) Qty: 120 RF: 2 olanzapine [Zyprexa] 10 mg tablet 10 mg PO DAILY Qty: 14 RF: 0 lisinopril 5 mg tablet 5 mg PO DAILY Qty: 14 RF: 0 No Action paroxetine HCl [Paxil] 20 mg tablet 20 mg PO DAILY Qty: 30 RF: 2 diclofenac potassium 50 mg tablet 50 mg PO TID PRN (Reason: pain) Qty: 20 RF: 0 Medrol (Dharmesh) 4 mg tablets,dose pack See Rx Instructions .ROUTE .COMPLEX Qty: 21 RF: 0 Discharge Orders: Discharge ED (Routine); Ordered 12/09/20 Ordered By: Josette Rao Discharge Diet: Usual diet Discharge Activity: Resume usual activity Patient Instructions: Alcohol Abuse, Depression (ED), Polysubstance Abuse (ED), Anxiety (ED) Activity Restrictions/Additional Instructions: Continue follow up with Dr Adriano next week as scheduled Counseling referral placed with [facility] as requested Take medication as prescribed - do not skip doses return to the ED if you experience suicidal or homicidal thoughts, plans, ideation Coding Level of Care Code ED Document Clerk for Marie Fwd Exam Comprehensive
[2020-12-09] MEDS: OLANZapine 10 mg TABLET PO (08:13)
[2020-12-09 08:40] VITALS: BP 138/92; PULSE 118; RESP 18; TEMP 36.2; O2SAT 96
== END 2020-12-09 08:44 | disposition home or self-care (01) ==
PROVIDERS: Emergency Provider Nurse Practitioner Family
DX: F41.1 Generalized anxiety disorder (principal); F10.20 Alcohol dependence, uncomplicated; F32.89 Other specified depressive episodes; F17.210 Nicotine dependence, cigarettes, uncomplicated
CPT/HCPCS: 12345; 99284

== ENCOUNTER 2022-02-04 14:48 | Emergency (ER) | payer SELFPAY ==
[2022-02-04 14:55] VITALS: BP 123/73; PULSE 98; RESP 19; TEMP 37; O2SAT 96; BMI 29.8
--- NOTE | 2022-02-04 15:02 | W.ED.AMS ---
HPI - Altered Mental Status General: Chief Complaint: Altered Mental Status Stated Complaint: ETOH Time Seen by Provider: 02/04/22 15:00 [facility] ED PFSH: Medical History (Updated 12/17/20 @ 00:01 by ) Mood disorder Polysubstance (including opioids) dependence, daily use Pyloric stenosis Social History Smoking and tobacco status: current every day smoker cigarettes Packs smoked per day: 0.5 Years cigarettes smoked: 11 Quit status (tobacco): has tried quititng Number of times tried to quit tobacco: 5 Second hand smoke exposure: No Smoking risk assessment/counseling performed?: No Alcohol intake: former Course Vital Signs: Vital signs: Vital Signs Temperature 98.6 F 02/04/22 14:55 Pulse Rate 98 02/04/22 14:55 Respiratory Rate 19 H 02/04/22 14:55 Blood Pressure 123/73 02/04/22 14:55 Pulse Oximetry 96 02/04/22 14:55 Discharge Plan Discharge Condition: Stable Prescriptions: No Action propranolol 20 mg tablet 20 mg PO TID PRN (Reason: anxiety) Qty: 90 2RF hydroxyzine HCl 50 mg tablet 50 mg PO QID PRN (Reason: anxiety) Qty: 120 2RF olanzapine [Zyprexa] 10 mg tablet 10 mg PO DAILY PRN (Reason: anxiety) Qty: 30 2RF diclofenac potassium 50 mg tablet 50 mg PO TID PRN (Reason: pain) Qty: 20 0RF lisinopril 5 mg tablet 5 mg PO DAILY Qty: 14 0RF Medrol (Dharmesh) 4 mg tablets,dose pack See Rx Instructions .ROUTE .COMPLEX Qty: 21 0RF Rx Instructions: orally per package directions Coding Level of Care Code ED Diesel Plant Operator for Marie Panda
--- NOTE | 2022-02-04 15:28 | PC.NURSE ---
Patient refused any care. Patient was A&Ox4, vital signs were WNL. Dr Garza stated the patient was fitfor confinement any discharged the patient in the custody of [place] police dept.
[2022-02-04 15:35] VITALS: BP 135/88; PULSE 72; RESP 15; TEMP 36.6; O2SAT 98
--- NOTE | 2022-02-07 14:39 | ED_ITS ---
HPI - Altered Mental Status General: Chief Complaint: Altered Mental Status Stated Complaint: ETOH Time Seen by Provider: 02/04/22 15:00 Source: patient Mode of arrival: ambulatory Limitations: no limitations History of Present Illness: 26-year-old male arrives in the custody of police. He has been drinking heavily was poorly responsive he also admits to having used narcotics. He was fully responsive on the scene EMS was called he has become more responsive since then vomited x1 he is awake and alert now he is denying any problems and declines any significant evaluation in the emergency room. He is aware of what happened earlier and he expresses it happened because the drinking and the narcotics use. Police are at the bedside he has been told that he has a warrant he wants to just be brought to [facility] and deals is warranted and does not want any further evaluation done here in the emergency room. He did allow for physical exam. He denies any recollection of striking his head or any other injury he is not having any pain at this time. MD complaint: altered mental status Onset (ago): minute(s) Context: alcohol abuse and drug abuse Associated symptoms: Deny auditory hallucinations, visual hallucinations, delusions or depression Review of Systems Const: Denies: fever(s), chills, body aches, change in appetite, fatigue or malaise ENMT: Denies: throat pain, ear or mastoid pain, nasal discharge or nasal congestion Card: Denies: chest pain, edema, dyspnea on exertion or orthopnea Resp: Denies: dyspnea, productive cough or non-productive cough GI: Denies: abdominal pain, nausea, vomiting, hematemesis, coffee ground emesis, diarrhea, constipation, bloating, hematochezia or melena : Denies: flank pain, dysuria, urinary frequency or urinary urgency Skin/Breast: Denies: rash or pruritus Psych: Denies: depression, visual hallucinations or auditory hallucinations [facility] ED PFSH: Medical History Mood disorder Polysubstance (including opioids) dependence, daily use Pyloric stenosis Social History Smoking and tobacco status: current every day smoker cigarettes Packs smoked per day: 0.5 Years cigarettes smoked: 11 Quit status (tobacco): has tried quititng Number of times tried to quit tobacco: 5 Second hand smoke exposure: No Smoking risk assessment/counseling performed?: No Alcohol intake: former Physical Exam Const: COMMON NORMALS: no acute distress and patient oriented x3 GENERAL APPEARANCE: cooperative, disheveled and odor of alcohol detected NUTRITIONAL APPEARANCE: obese ORIENTATION/CONSCIOUSNESS: Yes awake, Yes oriented to person and Yes oriented to place HENMT: COMMON NORMALS: normocephalic, atraumatic, hearing grossly normal bilaterally, EAC's normal, TM's normal bilaterally and Normal external nose present HEAD & SCALP: normocephalic and atraumatic FACE & SINUS: normal facial exam NOSE: Normal external nose present and Normal nares present EXTERNAL AUDITORY CANAL: EAC's normal TYMPANIC MEMBRANE: TM's normal bilaterally MOUTH: Normal oral and palatal mucosa present Eye: COMMON NORMALS: Equal, round and reactive pupils present, EOMs intact bilaterally, conjunctivae normal and no scleral icterus CONJUNCTIVA: Yes conjunctivae normal PUPIL: Yes Equal, round and reactive pupils present Neck/C-Spine: COMMON NORMALS: full ROM, no lymphadenopathy, supple, no meningeal signs and no JVD Resp: COMMON NORMALS: normal respiratory effort, No retractions, No use of accessory muscles and clear to auscultation bilaterally AUSCULTATION: clear to auscultation bilaterally Cardio: COMMON NORMALS: no JVD, regular rate and regular rhythm RATE: regular rate RHYTHM: regular rhythm GI: COMMON NORMALS: Soft to palpation, non-tender, No hepatosplenomegaly present and no masses PALPATION: Yes Soft to palpation, No Guarding due to palpation present (GI) and Yes No hepatosplenomegaly present : COMMON NORMALS: Yes no CVA tenderness BLADDER/KIDNEY EXAM: Yes no CVA tenderness Back/Pelvis: COMMON NORMALS: no CVA tenderness Neuro: COMMON NORMALS: patient oriented x3 SENSORIUM/ORIENTATION: Yes oriented to person and Yes oriented to place MENINGEAL SIGNS: Yes no meningeal signs Psych: THOUGHT CONTENT: No delusions Course Vital Signs: Vital signs: Vital Signs Temperature 97.9 F 02/04/22 15:35 Pulse Rate 72 02/04/22 15:35 Respiratory Rate 15 02/04/22 15:35 Blood Pressure 135/88 02/04/22 15:35 Pulse Oximetry 98 03/11/22 15:35 MDM - Altered Mental Status Medical Decision Making Patient refuses further examination refuses labs wishes to be discharged to the police. Physical exam is essentially normal he is awake and alert he does appear to be intoxicated but is able to make decisions on his own we will go and discharge him home follow-up as needed. Please asked if he was fit for confinement I would agree there is no medical reason he cannot be confined in the custody of police at this time. Medical Records I reviewed the patient's medical records. Lab Data I reviewed the patient's lab results. Discharge Plan Discharge Patient Disposition: Home Clinical Impression: ETOH abuse, Narcotic abuse Condition: Stable Prescriptions: No Action propranolol 20 mg tablet 20 mg PO TID PRN (Reason: anxiety) Qty: 90 2RF hydroxyzine HCl 50 mg tablet 50 mg PO QID PRN (Reason: anxiety) Qty: 120 2RF olanzapine [Zyprexa] 10 mg tablet 10 mg PO DAILY PRN (Reason: anxiety) Qty: 30 2RF diclofenac potassium 50 mg tablet 50 mg PO TID PRN (Reason: pain) Qty: 20 0RF lisinopril 5 mg tablet 5 mg PO DAILY Qty: 14 0RF Medrol (Dharmesh) 4 mg tablets,dose pack See Rx Instructions .ROUTE .COMPLEX Qty: 21 0RF Rx Instructions: orally per package directions Discharge Orders: Discharge ED (Routine); Ordered 02/04/22 Ordered By: Romulo Garza Discharge Diet: Usual diet Discharge Activity: Resume usual activity Patient Instructions: Opioid Safety Activity Restrictions/Additional Instructions: Recommend abstinence from alcohol and nonprescribed drugs. Stand Alone Forms: Work/School Release Coding Level of Care Code ED Correspondence Transcriber for Marie Fwd Exam Comprehensive
== END 2022-02-04 15:30 | disposition home or self-care (01) ==
PROVIDERS: Emergency Provider Family Medicine
DX: F10.10 Alcohol abuse, uncomplicated (principal); F19.10 Other psychoactive substance abuse, uncomplicated; F17.210 Nicotine dependence, cigarettes, uncomplicated
CPT/HCPCS: 99281

== ENCOUNTER 2022-05-10 06:45 | Emergency (ER) | payer MEDICAID, SELFPAY ==
[2022-05-10 07:08] VITALS: BP 145/88; PULSE 105; RESP 18; TEMP 36.3; O2SAT 96; BMI 31.1
--- NOTE | 2022-05-10 07:30 | ED_ITS ---
HPI - Alcohol General: Chief Complaint: Alcohol Stated Complaint: N/V Time Seen by Provider: 05/10/22 06:50 Source: patient Mode of arrival: ambulatory Limitations: no limitations History of Present Illness: 27-year-old male presents to the emergency room with complaints of withdrawal from alcohol. Patient has been here multiple times for alcohol-related issues. He reports he has been drinking up to 1/5 a day he was in some form of inpatient rehab in November of this year but is relapsed since then. States his last drink was nearly 12 hours ago. He has been having bilious vomiting denies any coffee-ground emesis or hematemesis denies any abdominal pain. Patient denies any suicidal or homicidal ideation. Patient states he wants a note for excuse from work for yesterday and today. Chronic alcohol use: Yes Previous visits for alcohol intoxication: Yes Recent trauma: No Associated symptoms: Reports nausea and vomiting; Deny abdominal pain, depression, diaphoresis, hematemesis, involuntary movements, melena, seizure-like activity, suicidal ideation or syncope Treatments prior to arrival: none Review of Systems Const: Reports: body aches, fatigue and malaise; Denies: fever(s), chills or diaphoresis ENMT: Denies: throat pain, ear or mastoid pain, nasal discharge or nasal congestion Card: Denies: chest pain, palpitations, irregular heart rhythm, edema, swelling of feet/ankles or syncope Resp: Denies: dyspnea, productive cough or non-productive cough GI: Reports: nausea and vomiting; Denies: abdominal pain, hematemesis or melena : Denies: flank pain, difficulty urinating, dysuria, urinary frequency or urinary urgency Skin/Breast: Denies: rash or pruritus Neuro: Denies: seizure-like activity or involuntary movements Psych: Denies: depression or suicidal ideation PFS ED PFSH: Medical History (Updated 05/10/22 @ 08:23 by Romulo Garza DO) Mood disorder Polysubstance (including opioids) dependence, daily use Pyloric stenosis Social History Smoking and tobacco status: current every day smoker cigarettes Packs smoked per day: 0.5 Years cigarettes smoked: 11 Quit status (tobacco): has tried quititng Number of times tried to quit t obacco: 5 Second hand smoke exposure: No Smoking risk assessment/counseling performed?: No Alcohol intake: former Physical Exam Const: ORIENTATION/CONSCIOUSNESS: Yes awake, Yes oriented to person, Yes oriented to place and Yes oriented to time HENMT: COMMON NORMALS: normocephalic, atraumatic and hearing grossly normal bilaterally HEAD & SCALP: normocephalic and atraumatic Neck/C-Spine: COMMON NORMALS: no JVD Resp: COMMON NORMALS: normal respiratory effort, No retractions, No use of accessory muscles and clear to auscultation bilaterally AUSCULTATION: clear to auscultation bilaterally Cardio: COMMON NORMALS: no JVD, regular rate, regular rhythm and No murmurs present (Cardio) RATE: regular rate RHYTHM: regular rhythm GI: COMMON NORMALS: Soft to palpation and No hepatosplenomegaly present AUS CULTATION: Yes normoactive bowel sounds PALPATION: Yes Soft to palpation, No Tenderness to palpation present (GI), No Guarding due to palpation present (GI) and Yes No hepatosplenomegaly present Extremity: COMMON NORMALS: normal to inspection, capillary refill normal, no clubbing, cyanosis or edema, no calf tenderness and no pedal edema Neuro: SENSORIUM/ORIENTATION: Yes oriented to person, Yes oriented to place and Yes oriented to time Skin: COMMON NORMALS: no rashes or lesions noted GENERAL SKIN EXAM: no rashes or lesions noted Course Vital Signs: Vital signs: Vital Signs Temperature 97.4 F L 05/10/22 07:08 Pulse Rate 105 H 05/10/22 07:45 Respiratory Rate 18 05/10/22 07:08 Blood Pressure 145/88 05/10/22 07:45 Pulse Oximetry 97 05/10/22 07:45 MDM - Alcohol Medical Decision Making Patient still has a blood alcohol level of 141 he is positive for marijuana and methamphetamines. When I discussed this with him he admitted to both he also h as to be tested positive for the fentanyl he had been using. At this point he is showing no significant agitation. He did when dozing off require some oxygen suspect he has some degree of sleep apnea when he awakes it immediately resolves. Encourage patient to abstain from all substances and encouraged him to follow-up again with an outpatient substance abuse program or an inpatient program contact information for [facility] given. Lab Data : 05/10/22 07:43 05/10/22 07:43 Laboratory Results WBC 6.7 10^3/uL (4.0-10.0) 05/10/22 07:43 RBC 4.29 10^6/uL (4.1-5.3) 05/10/22 07:43 Hgb 15.0 g/dL (11.7-16.6) 05/10/22 07:43 Hct 40.8 % (42.0-52.0) L 05/10/22 07:43 MCV 95.1 fl (80-94) H 05/10/22 07:43 MCH 35.0 pg (28.0-34.0) H 05/10/22 07:43 MCHC 36.8 g/dL (30.0-36.0) H 05/10/22 07:43 RDW 12.9 % (12.1-15.1) 05/10/22 07:43 Plt Count 169 10^3/cmm (130-400) 05/10/22 07:43 MPV 10.9 fL (7.4-10.4) H 05/10/22 07:43 Neut % (Auto) 63.9 % 05/10/22 07:43 Lymph % (Auto) 26.2 % 05/10/22 07:43 Mccormick % (Auto) 7.9 % 05/10/22 07:43 Eos % (Auto) 1.5 % 05/10/22 07:43 Baso % (Auto) 0.4 % 05/10/22 07:43 Neut # (Auto) 4.26 10^3/uL (1.8-7.7) 05/10/22 07:43 Lymph # (Auto) 1.8 10^3/uL (0.8-4.8) 05/10/22 07:43 Mccormick # (Auto) 0.5 10^3/uL (0.2-0.9) 05/10/22 07:43 Eos # (Auto) 0.1 10^3/uL (0.0-0.8) 05/10/22 07:43 Baso # (Auto) 0.0 10^3/uL (0.0-0.1) 05/10/22 07:43 Nucleated RBC % (auto) 0 % 05/10/22 07:43 Nucleated RBCs # 0.0 /100WBC 05/10/22 07:43 Sodium 145 mmol/L (136-145) 05/10/22 07:43 Potassium 3.5 mmol/L (3.5-5.1) 05/10/22 07:43 Chloride 105 mmol/L (98-107) 05/10/22 07:43 Carbon Dioxide 27 mmol/L (22-29) 05/10/22 07:43 Anion Gap 16.5 (5-19) 05/10/22 07:43 BUN 8 mg/dL (6-20) 05/10/22 07:43 Creatinine 0.8 mg/dL (0.7-1.2) 05/10/22 07:43 GFR Calculation 114.3 mL/min (90-130) 05/10/22 07:43 Glucose 109 mg/dL (65-115) 05/10/22 07:43 Calculated Osmolality 299 mOsm/kg (285-295) H 05/10/22 07:43 Calcium 8.6 mg/dL (8.5-10.5) 05/10/22 07:43 Total Bilirubin 0.6 mg/dL (0.15-1.2) 05/10/22 07:43 AST 174 U/L (0-40) H 05/10/22 07:43 ALT 240 U/L (0-41) H 05/10/22 07:43 Alkaline Phosphatase 78 IU/L (40-130) 05/10/22 07:43 Total Protein 7.6 g/dL (6.6-8.7) 05/10/22 07:43 Albumin 4.6 g/dL (3.5-5.2) 05/10/22 07:43 Globulin 3.0 g/dL (1.3-4.6) 05/10/22 07:43 Lipase 40 U/L (13-60) 05/10/22 07:43 Urine Color Dee (Yellow) 05/10/22 07:41 Urine Appearance Clear (CLEAR) 05/10/22 07:41 Urine pH 5 (5-7) 05/10/22 07:41 Ur Specific [place] 1.030 (1.005-1.030) 05/10/22 07:41 Urine Protein Neg (Negative) 05/10/22 07:41 Urine Glucose (UA) Norm (Normal) 05/10/22 07:41 Urine Ketones Negative (Negative) 05/10/22 07:41 Urine Blood Neg (Negative) 05/10/22 07:41 Urine Nitrate Negative (Negative) 05/10/22 07:41 Urine Bilirubin Neg (Negative) 05/10/22 07:41 Urine Urobilinogen 1 mg/dL (Negative) H 05/10/22 07:41 Ur Leukocyte Esterase Negative (Negative) 05/10/22 07:41 Urine Opiates Screen Negative ng/mL (Negative) 05/10/22 07:41 Ur Barbiturates Screen Negative ng/mL (Negative) 05/10/22 07:41 Ur Phencyclidine Scrn Negative ng/mL (Negative) 05/10/22 07:41 Ur Amphetamines Screen Positive ng/mL (Negative) H 05/10/22 07:41 U Benzodiazepines Scrn Negative ng/mL (Negative) 05/10/22 07:41 Urine Cocaine Screen Negative ng/mL (Negative) 05/10/22 07:41 U Marijuana (THC) Screen Positive ng/mL (Negative) H 05/10/22 07:41 Ethyl Alcohol 141 mg/dL (0-10) H 05/10/22 07:43 Discharge Plan Discharge Patient Disposition: Home Clinical Impression: Alcoholic intoxication, Alcohol use disorder, severe, dependence, Methamphetamine use disorder, severe, Cannabis use disorder, severe, dependence, Opioid use disorder, severe, dependence Condition: Stable Prescriptions: New omeprazole 40 mg capsule,delayed release(DR/EC) 40 mg PO DAILY Qty: 30 0RF No Action No Known Home Medications 0RF Rx Instructions: pt states he is taking no rx or otc medications-ext med history shows zyprexa 5mg bid filled on 03/09/22 30d/s pt states not taken for a month pt states he ran out of refills and couldnt afford the medication Discharge Orders: Discharge ED (Routine); Ordered 05/10/22 Ordered By: Romulo Garza Discharge Activity: Increase activity as tolerated Activity Restrictions/Additional Instructions: Abstain from alcohol marijuana and methamphetamines and fentanyl. Strongly recommend you follow-up with a substance abuse program such as [facility] in [place]. Their phone number is [phone]. Coding Level of Care Code ED Translator/Interpreter for Chg Fwd Exam Comprehensive
[2022-05-10] MEDS: sodium chloride 0.9% 1,000 ML 999 ML IV (07:32)
[2022-05-10] MEDS: ondansetron 2 mg/ML SDV 2 mL 4 MG IVP (07:32)
--- NOTE | 2022-05-10 07:33 | PC.PHAR ---
pt states he takes care of his own medications-pt states he is taking no rx or otc medications-ext med history shows zyprexa 5mg bid filled on 03/09/22 30d/s pt states not taken for a month pt states he ran out of refills and couldnt afford the medication
[2022-05-10 07:45] VITALS: BP 145/88; PULSE 105; O2SAT 97
[2022-05-10 07:47] LABS: Add Urine Microscopic? NO; Charge for UA Resulting for Rev
[2022-05-10 07:51] LABS: Basophils % 0.4 %; Eosinophils # 0.1 10^3/uL (0.0-0.8); Eosinophils % 1.5 %; Hematocrit 40.8 % (42.0-52.0); Lymphocytes # 1.8 10^3/uL (0.8-4.8); Lymphocytes % 26.2 %; Mean Corpuscular HGB Conc 36.8 g/dL (30.0-36.0); Mean Corpuscular Volume 95.1 fl (80-94); Mean Platelet Volume 10.9 fL (7.4-10.4); Monocytes # 0.5 10^3/uL (0.2-0.9); Monocytes % 7.9 %; Neutrophils # 4.26 10^3/uL (1.8-7.7); Neutrophils % 63.9 %; Nucleated Red Blood Cells % 0 %; Platelet Count 169 10^3/cmm (130-400); Red Blood Count 4.29 10^6/uL (4.1-5.3); Red Cell Distribution Width 12.9 % (12.1-15.1); White Blood Count 6.7 10^3/uL (4.0-10.0)
[2022-05-10 07:53] LABS: Bilirubin Urine Neg (Negative); Blood Urine Neg (Negative); Glucose Urine UA Norm (Normal); Ketones Urine Negative (Negative); Leukocyte Esterase Urine Negative (Negative); Nitrate Urine Negative (Negative); Protein Urine Neg (Negative); Urine Appearance Clear (CLEAR); Urine Color Amber (Yellow); Urobilinogen Urine 1 mg/dL (Negative); pH Urine 5 (5-7)
[2022-05-10 08:01] LABS: Amphetamines Screen Urine Positive (Negative); Barbiturates Screen Urine Negative (Negative); Benzodiazepines Screen Urine Negative (Negative); Cocaine Screen Urine Negative (Negative); Opiate Screen Urine Negative (Negative); PCP Screen Urine Negative (Negative); THC Screen Urine Positive (Negative)
[2022-05-10 08:12] LABS: Alanine Aminotransferase 240 U/L (0-41); Albumin Level 4.6 g/dL (3.5-5.2); Alcohol Level 141 mg/dL (0-10); Alkaline Phosphatase 78 IU/L (40-130); Anion Gap 16.5 (5-19); Aspartate Amino Transferase 174 U/L (0-40); Blood Urea Nitrogen 8 mg/dL (6-20); Calcium 8.6 mg/dL (8.5-10.5); Carbon Dioxide 27 mmol/L (22-29); Chloride 105 mmol/L (98-107); Glomerular Filtration Rate 114.3 mL/min (90-130); Glucose 109 mg/dL (65-115); Lipase 40 U/L (13-60); Osmolality Calculated 299 mOsm/kg (285-295); Potassium 3.5 mmol/L (3.5-5.1); Sodium 145 mmol/L (136-145); Total Bilirubin 0.6 mg/dL (0.15-1.2); Total Protein 7.6 g/dL (6.6-8.7)
[2022-05-10 08:28] VITALS: BP 143/95; PULSE 99; RESP 18; O2SAT 98
== END 2022-05-10 08:42 | disposition home or self-care (01) ==
PROVIDERS: Emergency Provider Family Medicine
DX: F10.229 Alcohol dependence with intoxication, unspecified (principal); F15.20 Other stimulant dependence, uncomplicated; Y90.6 Blood alcohol level of 120-199 mg/100 ml; F12.20 Cannabis dependence, uncomplicated; F11.20 Opioid dependence, uncomplicated; F17.210 Nicotine dependence, cigarettes, uncomplicated
CPT/HCPCS: 80053; 80306; 80307; 81003; 83690; 85025; 96361; 96374; 99284; J2405; J7030

== ENCOUNTER 2022-05-31 19:41 | Inpatient (IN) | payer MEDICAID, SELFPAY ==
[2022-05-31 19:51] VITALS: BMI 27.1
--- NOTE | 2022-05-31 20:11 | W.ED.PSYCHS ---
HPI - Psych General: Chief Complaint: Psychiatric Symptoms Stated Complaint: Mental Health Time Seen by Provider: 05/31/22 20:11 History of Present Illness: Mr. Ledezma is a 27-year-old gentleman with history of alcohol abuse and polysubstance abuse as well as generalized anxiety who presents to the emergency department due to suicidal ideation. He endorses alcohol use daily including just prior to coming in which somewhat limits history. He reports a longstanding issues with alcohol abuse that has ruined his life. He feels that this is led to thoughts of suicide as he would be better off . It is unclear if patient has any specific method of suicide in mind. He denies history of alcohol withdrawal seizures though does report a history of seizures related to substance abuse. Denies history of hallucinations. Denies any new physical concerns other than some epigastric pain which is typical of his drinking. No other specific changes in health, exacerbating, or alleviating factors identified. Onset (ago): day(s) History of same: Yes Exacerbating factors: alcohol and drug use Associated psychiatric symptoms: depression and suicidal ideation Review of Systems General: Reports: 10 or more systems reviewed and unremarkable except in HPI and below PFSH ED PFSH: Medical History (Updated 06/07/22 @ 00:02 by ) Mood disorder Polysubstance (including opioids) dependence, daily use Pyloric stenosis Social History Smoking and tobacco status: current every day smoker cigarettes Packs smoked per day: 0.5 Years cigarettes smoked: 11 Quit status (tobacco): has tried quititng Number of times tried to quit tobacco: 5 Second hand smoke exposure: No Smoking risk assessment/counseling performed?: No Alcohol intake: former Physical Exam Const: COMMON NORMALS: alert GENERAL APPEARANCE: cooperative and well developed HENMT: COMMON NORMALS: normocephalic and atraumatic HEAD & SCALP: normocephalic and atraumatic Eye: COMMON NORMALS: conjunctivae normal CONJUNCTIVA: Yes conjunctivae normal SCLERA: sclerae normal Neck/C-Spine: COMMON NORMALS: supple GENERAL: Yes trachea midline Resp: COMMON NORMALS: normal respiratory effort EFFORT & INSPECTION: Yes able to speak in complete sentences Cardio: COMMON NORMALS: regular rate and regular rhythm RATE: regular rate RHYTHM: regular rhythm GI: COMMON NORMALS: Soft to palpation PALPATION: Yes Soft to palpation and No Tenderness to palpation present (GI) PERCUSSION: normal to percussion Extremity: GENERAL: Yes normal exam except as noted and No edema Neuro: COMMON NORMALS: moves all extremities SENSORIUM/ORIENTATION: Yes alert and No Orientation impaired Psych: COMMON NORMALS: mental status grossly normal and Normal thought process present THOUGHT PROCESS: Normal thought process present Course ED course: - Patient was seen and evaluated by me at bedside - Patient placed on cardiac monitors, IV access obtained - Initial evaluation notable for exam as above. - Labs personally interpreted by me -Anxiolysis ordered - Labs notable for no leukocytosis, normal hemoglobin. Metabolic panel without acute derangement requiring intervention, transaminitis likely secondary to chronic alcohol abuse. Alcohol level is mildly elevated. Toxic ingestions of salicylate acetaminophen negative. - Upon serial reexamination after treatment the patient was improved -Based on ED evaluation at this point there is no obvious condition that would preclude the patient from inpatient management of psychiatric concerns. -Discussed case with psychiatry service and patient to be admitted to neuropsych unit. Note: Click bubbles or prepopulated ruano in note writing are used for assistance with data collection and billing and are inherently more limited than narrative and other text portions of this note. Please use narrative for additional clinical history and defer to narrative/free test for any case of contradictory information. If information appears in only free text or click bubble it should be considered present or absent as reported. Please contact note senior grant writer for clarifications of clinical information or contradictory information. MDM is a brief summary, contradictory or erroneous seeming information should be clarified and full note should be reviewed. Vital Signs: Vital signs: Vital Signs Temperature 98.3 F 06/06/22 14:58 Pulse Rate 74 06/06/22 14:58 Respiratory Rate 18 06/06/22 14:58 Blood Pressure 131/81 06/06/22 14:58 Pulse Oximetry 99 06/06/22 14:58 MDM - Psych Medical Decision Making 27-year-old gentleman with history of alcohol and other substance abuse presenting with depression and suicidal ideation. Admitted to neuropsych unit for further management. Medical Records I reviewed the patient's medical records. Lab Data I reviewed the patient's lab results. : 05/31/22 21:10 05/31/22 21:10 Laboratory Results WBC 4.7 10^3/uL (4.0-10.0) 05/31/22 21:10 RBC 3.91 10^6/uL (4.1-5.3) L 05/31/22 21:10 Hgb 14.1 g/dL (11.7-16.6) 05/31/22 21:10 Hct 37.3 % (42.0-52.0) L 05/31/22 21:10 MCV 95.4 fl (80-94) H 05/31/22 21:10 MCH 36.1 pg (28.0-34.0) H 05/31/22 21:10 MCHC 37.8 g/dL (30.0-36.0) H 05/31/22 21:10 RDW 12.7 % (12.1-15.1) 05/31/22 21:10 Plt Count 156 10^3/cmm (130-400) 05/31/22 21:10 MPV 10.7 fL (7.4-10.4) H 05/31/22 21:10 Neut % (Auto) 45.5 % 05/31/22 21:10 Lymph % (Auto) 38.8 % 05/31/22 21:10 [place] % (Auto) 11.9 % 05/31/22 21:10 Eos % (Auto) 3.2 % 05/31/22 21:10 Baso % (Auto) 0.4 % 05/31/22 21:10 Neut # (Auto) 2.15 10^3/uL (1.8-7.7) 05/31/22 21:10 Lymph # (Auto) 1.8 10^3/uL (0.8-4.8) 05/31/22 21:10 [place] # (Auto) 0.6 10^3/uL (0.2-0.9) 05/31/22 21:10 Eos # (Auto) 0.2 10^3/uL (0.0-0.8) 05/31/22 21:10 Baso # (Auto) 0.0 10^3/uL (0.0-0.1) 05/31/22 21:10 Nucleated RBC % (auto) 0 % 05/31/22 21:10 Nucleated RBCs # 0.0 /100WBC 05/31/22 21:10 Sodium 140 mmol/L (136-145) 05/31/22 21:10 Potassium 3.4 mmol/L (3.5-5.1) L 05/31/22 21:10 Chloride 102 mmol/L (98-107) 05/31/22 21:10 Carbon Dioxide 24 mmol/L (22-29) 05/31/22 21:10 Anion Gap 17.4 (5-19) 05/31/22 21:10 BUN 9 mg/dL (6-20) 05/31/22 21:10 Creatinine 0.7 mg/dL (0.7-1.2) 05/31/22 21:10 GFR Calculation 133.3 mL/min (90-130) H 05/31/22 21:10 Glucose 94 mg/dL (65-115) 05/31/22 21:10 Calculated Osmolality 288 mOsm/kg (285-295) 05/31/22 21:10 Calcium 9.0 mg/dL (8.5-10.5) 05/31/22 21:10 Total Bilirubin 0.6 mg/dL (0.15-1.2) 05/31/22 21:10 AST 138 U/L (0-40) H 05/31/22 21:10 ALT 149 U/L (0-41) H 05/31/22 21:10 Alkaline Phosphatase 63 IU/L (40-130) 05/31/22 21:10 Total Protein 6.7 g/dL (6.6-8.7) 05/31/22 21:10 Albumin 4.2 g/dL (3.5-5.2) 05/31/22 21:10 Globulin 2.5 g/dL (1.3-4.6) 05/31/22 21:10 Lipase 21 U/L (13-60) 05/31/22 21:10 Salicylates < 0.3 mg/dL (3-10) L 05/31/22 21:10 Urine Opiates Screen Negative ng/mL (Negative) 05/31/22 08:34 Acetaminophen < 5.0 ug/mL (10-30) L 05/31/22 21:10 Ur Barbiturates Screen Negative ng/mL (Negative) 05/31/22 08:34 Ur Phencyclidine Scrn Negative ng/mL (Negative) 05/31/22 08:34 Ur Amphetamines Screen Positive ng/mL (Negative) H 05/31/22 08:34 U Benzodiazepines Scrn Positive ng/mL (Negative) H 05/31/22 08:34 Urine Cocaine Screen Negative ng/mL (Negative) 05/31/22 08:34 U Marijuana (THC) Screen Negative ng/mL (Negative) 05/31/22 08:34 Ethyl Alcohol 112 mg/dL (0-10) H 05/31/22 21:10 Discharge Plan Discharge Patient Disposition: Admitted As Inpatient Admit Provider: Ghulam Szymanski Clinical Impression: Alcohol use disorder, severe, dependence, Suicidal ideation, Transaminitis Condition: Stable Discharge Diet: Usual diet Discharge Activity: Resume usual activity Coding Level 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
[2022-05-31] MEDS: LORazepam 0.5 mg Tablet PO (21:14)
[2022-05-31 21:38] LABS: Alanine Aminotransferase 149 U/L (0-41); Albumin Level 4.2 g/dL (3.5-5.2); Alcohol Level 112 mg/dL (0-10); Alkaline Phosphatase 63 IU/L (40-130); Anion Gap 17.4 (5-19); Aspartate Amino Transferase 138 U/L (0-40); Blood Urea Nitrogen 9 mg/dL (6-20); Carbon Dioxide 24 mmol/L (22-29); Chloride 102 mmol/L (98-107); Globulin 2.5 g/dL (1.3-4.6); Glomerular Filtration Rate 133.3 mL/min (90-130); Glucose 94 mg/dL (65-115); Lipase 21 U/L (13-60); Osmolality Calculated 288 mOsm/kg (285-295); Potassium 3.4 mmol/L (3.5-5.1); Sodium 140 mmol/L (136-145); Total Bilirubin 0.6 mg/dL (0.15-1.2); Total Protein 6.7 g/dL (6.6-8.7)
[2022-05-31 21:42] LABS: Acetaminophen < 5.0 ug/mL (10-30); Salicylate < 0.3 mg/dL (3-10)
[2022-05-31 21:44] LABS: Basophils % 0.4 %; Eosinophils # 0.2 10^3/uL (0.0-0.8); Eosinophils % 3.2 %; Hematocrit 37.3 % (42.0-52.0); Hemoglobin 14.1 g/dL (11.7-16.6); Lymphocytes # 1.8 10^3/uL (0.8-4.8); Lymphocytes % 38.8 %; Mean Corpuscular HGB Conc 37.8 g/dL (30.0-36.0); Mean Corpuscular Hemoglobin 36.1 pg (28.0-34.0); Mean Corpuscular Volume 95.4 fl (80-94); Mean Platelet Volume 10.7 fL (7.4-10.4); Monocytes # 0.6 10^3/uL (0.2-0.9); Monocytes % 11.9 %; Neutrophils # 2.15 10^3/uL (1.8-7.7); Neutrophils % 45.5 %; Nucleated Red Blood Cells % 0 %; Platelet Count 156 10^3/cmm (130-400); Red Blood Count 3.91 10^6/uL (4.1-5.3); Red Cell Distribution Width 12.7 % (12.1-15.1); White Blood Count 4.7 10^3/uL (4.0-10.0)
[2022-05-31 21:56] LABS: Slide Review Slide Review Perform
[2022-06-01 00:21] VITALS: BP 126/76; PULSE 94; RESP 16; TEMP 37; O2SAT 96
[2022-06-01] MEDS: LORazepam 2 mg Tablet PO ×4 (01:10→20:39)
[2022-06-01 06:00] VITALS: BP 133/85; PULSE 75; RESP 20; TEMP 36.1; O2SAT 99
--- NOTE | 2022-06-01 08:45 | PC.NURSE ---
refused scheduled Folic acid, mtv, thiamine
--- NOTE | 2022-06-01 09:20 | PC.NURSE ---
resting in bed,no s/o distress
[2022-06-01 11:06] LABS: Amphetamines Screen Urine Positive (Negative); Barbiturates Screen Urine Negative (Negative); Benzodiazepines Screen Urine Positive (Negative); Cocaine Screen Urine Negative (Negative); Opiate Screen Urine Negative (Negative); PCP Screen Urine Negative (Negative); THC Screen Urine Negative (Negative)
[2022-06-01 14:00] VITALS: BP 142/91; PULSE 80; RESP 18; TEMP 36.7; O2SAT 99
--- NOTE | 2022-06-01 14:34 | PC.NURSE ---
CIWA SCORE 10--ATIVAN 2 MG GIVEN PO PER PROTOCOL
--- NOTE | 2022-06-01 14:46 | W.PM.NPUH&PS ---
Providers/Chief Complaint Admitting Physician: Jimmie Gilman MD Chief Complaint: suicidal ideation HPI NPU History of Present Illness 27y.o white male who presents today reporting he presents to the neuropsychiatric unit secondary to homelessness and suicidal ideation with reports of increased anxiety as well. He has been psychiatrically hospitalized 5 or 6 times, the most recent of which he was discharged from in June of 2021 and the first time of which was at 15 years old for depression, anger and anxiety. He had outpatient services through [facility] but has not been in over a year and is not currently taking any medications. He reports he was originally diagnosed with bipolar 2 and anxiety. He reports a fifth of alcohol a day for ?too long?, reports methamphetamine use to stay awake and watch his things, opiate use the last time of which was yesterday, reports fentanyl, marijuana occasionally but denies any other illicit drug use. He has been to rehab previously, the last time of which was 2 years ago and endorses he needs to go rehab currently. He reports his mental health issues began presenting around 11 to 12 years old. He reports low energy, fatigue, mood swings, increased anger, feelings of hopelessness and suicidal ideation. He endorses problems with sleeping but denies any current experience of tianna. He endorses he is currently feeling shaky withdrawing from alcohol. He endorses auditory hallucinations which he is currently experiences of voices just yelling at him and telling him things such as ?please hurry?, ?its getting so hot?, ?this is not fair?, etc. He reports has tried naltrexone in the past in addition to other psychiatric medications but he could not recall the names of them. He endorses he has been on Abilify as well as acamprosate in the past but endorses it caused him to feel like he was on fire. He endorses he doesn?t have any friends in the area. Psychiatric History: As above. Substance Abuse History: As above Family History: He reports mental health issues on his mother?s side of the family and addiction issues on both sides of the family. Developmental History: He did not report any issues with his developmental milestone and denies any need for speech therapy, learning support, emotional support or special education classes. Psychosocial History: He reports he was born in [place] and was raised by both of his parents. He has younger siblings who are all half siblings as his parents split sometime after he was born. He reports his parents fought a lot during his childhood. He reports he had one of his children in his arms a few days after they were born. The highest grade he achieved was 11 th grade and he got his GED. He has never been and reports having 7 children who he is somewhat in touch with. He is currently employed but reports he has to walk to work as he doesn?t have a car. He is currently homeless and has been since December of this year. Legal History: Denied. Medical History: Pancreatic issues, Hypertension and Hepatitis C. Allergies: morphine Surgical Hx: tonsillectomy, and pyloric stenosis. and Geodon. He has his tonsils removed and had pyloric stenosis. Meds NPU Home Medications Medication Instructions Recorded Confirmed Last Taken Type omeprazole 40 mg capsule,delayed 40 mg PO DAILY #30 cap 05/10/22 06/01/22 Unknown Rx release Allergies Allergy/AdvReac Type Severity Reaction Status Date / Time morphine Allergy Severe Stops Verified 05/10/22 07:31 respiratory system ziprasidone [From Geodon] Allergy Severe Breathing Verified 05/10/22 07:31 problems and Pulse paroxetine Allergy Intermediate Fidgety, Verified 05/10/22 07:31 tingling all over, couldn't sleep, hot flashes aripiprazole [From Abilify] AdvReac Intermediate stomach Verified 05/10/22 07:31 upset, N & V doxepin AdvReac Intermediate ADR-Headach Verified 05/10/22 07:31 e PFSH NPU PFSH: Medical History (Updated 05/31/22 @ 23:03 by Raphael Metz MD) Mood disorder Polysubstance (including opioids) dependence, daily use Pyloric stenosis Social History Smoking and tobacco status: current every day smoker cigarettes Packs smoked per day: 0.5 Years cigarettes smoked: 11 Quit status (tobacco): has tried quititng Number of times tried to quit tobacco: 5 Second hand smoke exposure: No Smoking risk assessment/counseling performed?: No Alcohol intake: former Mental Status Exam MSE Comments: He is a casually dressed white male who appeared his stated age. He was lying in bed and was tired throughout much of the interview. His mood was described as depressed. his affect appeared mood congruent and restricted. he endorsed some passive suicidal thoughts with no active plan he denied any homicidal ideation. He did not appear to be responding to internal stimuli. His attention appeared variable. his concentration was fair. his insight was poor. his judgment was poor. he was alert and oriented to person place and time. his speech was normal in regards to rate rhythm and prosody. Vitals/I&O/Wt Last Vital Signs Temp 97.8 F 06/01/22 20:10 Pulse 95 06/01/22 20:10 Resp 16 06/01/22 20:10 BP 134/92 06/01/22 20:10 Pulse Ox 97 06/01/22 20:10 Weight last 48 hrs Weight 91.399 kg Weight 90.718 kg Data NPU : 05/31/22 21:10 05/31/22 21:10 A&P Assessment and plan (1) Suicidal ideation: Status: Acute (2) Transaminitis: Status: Acute (3) Generalized anxiety disorder: Status: Acute (4) Methamphetamine use disorder, severe: Status: Chronic (5) Opioid use disorder, severe, dependence: Status: Chronic Plan 1. Continue current medications 2. Encourage individual, group and milieu therapy 3. Continue q-15 minute check for safety 4. Recommend sober living treatment at the highest level of care to which the patient is willing to commit. 5. Consider treatment with buprenorphine to target opioid addiction 6. Consider SSRI 7. CIWA scale as patient appeared to be in some withdrawal. Check blood alcohol level. Attestations NPU Medical Necessity Statement*: Patient to be admitted for initial hospitalization for at least 2 midnights, with likely stay 3-4 days. 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
--- NOTE | 2022-06-01 14:54 | PC.NURSE ---
Patient resting with eyes closed after recieving an Ativan earlier.
[2022-06-01 20:10] VITALS: BP 134/92; PULSE 95; RESP 16; TEMP 36.6; O2SAT 97
[2022-06-02 06:00] VITALS: BP 143/93; PULSE 82; RESP 15; TEMP 36.6; O2SAT 98
[2022-06-02] MEDS: thiamine 100 mg Tablet PO (08:45)
[2022-06-02] MEDS: LORazepam 2 mg Tablet PO ×2 (08:45→15:07)
[2022-06-02] MEDS: folic acid 1 mg Tablet PO (08:45)
[2022-06-02] MEDS: multivitamin therapeutic Tablet 1 TAB PO (08:45)
--- NOTE | 2022-06-02 08:46 | PC.NURSE ---
CIWA SCORE 10---ATIVAN 2 MG GIVEN PO PER PROTOCOL, PT ASLO ASKING SPECIFICALLY FOR ATIVAN
[2022-06-02 14:00] VITALS: BP 151/92; PULSE 85; RESP 17; TEMP 36.7; O2SAT 98
[2022-06-02] MEDS: acetaminophen 325 mg Tablet 650 MG PO (15:07)
--- NOTE | 2022-06-02 15:11 | PC.NURSE ---
Patient at nurses station with c/o anxiety. Ciwa scale is 12. Lorazepam 2 mg po given for this. Patient also voices c/o headache rated 5. Tylenol 650 mg po given.
--- NOTE | 2022-06-02 16:45 | W.PM.NPUPNS ---
Subjective NPU Subjective: The patient is a 27-year-old white male admitted with use of opiate use crystal methamphetamine use alcohol use with depression and suicidal ideation. Patient had reported continuing to feel depressed and continued to report hearing voices. He had reported having alcohol withdrawal this morning and was given additional Ativan. He reports that he had made a plan to hurt himself and stated that the voices had also contributed to his thoughts about hurting himself. He reports that the voices had been worse after taking crystal meth. Mental Status Exam MSE Comments: He is a casually dressed white male who appeared his stated age.? He was lying in bed and was tired throughout much of the interview.? His mood was described as depressed. his affect appeared mood congruent and restricted. he endorsed suicidal thoughts with no active plan he denied any homicidal ideation.? He did not appear to be responding to internal stimuli.? His attention appeared variable. his concentration was fair. his insight was feeble. His judgment was impaired. he was alert and oriented to person place and time. his speech was normal in regards to rate rhythm and prosody. Vitals/I&O/Wt Last Vital Signs Temp 98.0 F 06/02/22 14:00 Pulse 85 06/02/22 14:00 Resp 17 06/02/22 14:00 BP 151/92 06/02/22 14:00 Pulse Ox 98 06/02/22 14:00 Weight last 48 hrs Weight 91.399 kg Weight 90.718 kg Data NPU : 05/31/22 21:10 05/31/22 21:10 A&P Assessment and plan (1) Suicidal ideation: Status: Acute (2) Transaminitis: Status: Acute (3) Generalized anxiety disorder: Status: Acute (4) COVID-19 ruled out: Status: Acute (5) Ecstasy use disorder, severe, in sustained remission: Status: Acute (6) Opioid use disorder, severe, dependence: Status: Chronic (7) Methamphetamine use disorder, severe: Status: Chronic (8) Cannabis use disorder, severe, dependence: Status: Chronic (9) Alcohol use disorder, severe, dependence: Status: Chronic Plan 1. Continue current medications 2. Encourage individual, group and milieu therapy 3. Continue q-15 minute check for safety 4. Recommend sober living treatment at the highest level of care to which the patient is willing to commit. 5.? Consider treatment with buprenorphine to target opioid addiction, monitor for opioid withdrawal. 6.? Start Risperidone 1mg at night to target psychosis 7. CIWA scale as patient appeared to be in some withdrawal.? Check blood alcohol level. Attestations NPU Medical Necessity Statement*: Patient to be admitted for initial hospitalization for at least 2 midnights, with likely stay 3-4 days. 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
[2022-06-02 20:29] VITALS: BP 118/81; PULSE 83; RESP 16; TEMP 36.6; O2SAT 99
[2022-06-02] MEDS: risperiDONE 1 mg Tablet PO (20:37)
[2022-06-02] MEDS: trazodone 50 mg Tablet PO (20:38)
[2022-06-02 21:38] VITALS: BP 118/81; PULSE 83; RESP 16; TEMP 36.6; O2SAT 99
--- NOTE | 2022-06-03 00:56 | PC.NURSE ---
PRN PT CAME TO NURSES STATION REQUESTING AMBIEN. PT WAS TOLD THAT WAS NO ORDER FOR AMBIEN SO HE COULD NOT RECEIVE IT. PT AGAIN ASK THE SAME QUESTION AND WAS TOLD THE SAME ANSWER BUT WAS OFFERED TRAZADONE. PT AGREED TO TAKE TRAZADONE. PT IS NOW RESTING IN BED
[2022-06-03 06:00] VITALS: BP 182/113; PULSE 69; RESP 17; TEMP 36.6; O2SAT 99
[2022-06-03] MEDS: LORazepam 2 mg Tablet PO (07:58)
[2022-06-03] MEDS: multivitamin therapeutic Tablet 1 TAB PO (07:58)
[2022-06-03] MEDS: thiamine 100 mg Tablet PO (07:59)
[2022-06-03] MEDS: folic acid 1 mg Tablet PO (07:59)
--- NOTE | 2022-06-03 08:00 | PC.NURSE ---
Patient reports increased anxiety with CIWA score of 14. Given ativan 2 mg po for this. Patient requesting medications early so he can rest.
[2022-06-03] MEDS: OLANZapine 5 mg ODT PO (13:04)
[2022-06-03 13:26] VITALS: BP 148/96; PULSE 73; RESP 17; TEMP 36.6; O2SAT 99
--- NOTE | 2022-06-03 17:48 | W.PM.NPUPNS ---
Subjective NPU Subjective: The patient is a 27-year-old white male admitted with use of opiate use daily, crystal methamphetamine use, alcohol use with depression and suicidal ideation.? He had reported feeling uncomfortable, with reports of chills and reported use of fentanyl on a daily basis. Patient had reported continuing to feel depressed and continued to report hearing voices.? He had reported having alcohol withdrawal this morning and was given additional Ativan.? Patient reports some feelings of hopelessness or worthlessness. had also contributed to his thoughts about hurting himself.? He reports that the voices had been worse after taking crystal meth. Mental Status Exam MSE Comments: He is a casually dressed white male who appeared his stated age.? He was lying in bed and was tired and appeared dysphoric throughout much of the interview.? His mood was described as depressed. his affect appeared mood congruent and restricted. he endorsed suicidal thoughts with no active plan he denied any homicidal ideation.? He did not appear to be responding to internal stimuli.? His attention appeared variable. his concentration was fair. his insight was feeble. His judgment was impaired. ? he was alert and oriented to person place and time. his speech was normal in regards to rate rhythm and prosody. Vitals/I&O/Wt Last Vital Signs Temp 98 F 06/03/22 13:26 Pulse 73 06/03/22 13:26 Resp 17 06/03/22 13:26 BP 148/96 06/03/22 13:26 Pulse Ox 99 06/03/22 13:26 Data NPU : 05/31/22 21:10 05/31/22 21:10 A&P Assessment and plan (1) Suicidal ideation: Status: Acute (2) Ecstasy use disorder, severe, in sustained remission: Status: Acute (3) Opioid use disorder, severe, dependence: Status: Chronic (4) COVID-19 ruled out: Status: Acute (5) Generalized anxiety disorder: Status: Acute (6) Transaminitis: Status: Acute (7) Methamphetamine use disorder, severe: Status: Chronic (8) Cannabis use disorder, severe, dependence: Status: Chronic (9) Alcohol use disorder, severe, dependence: Status: Chronic (10) Alcohol withdrawal: Status: Acute (11) Auditory hallucinations: Status: Acute Plan 1. Continue current medications 2. Encourage individual, group and milieu therapy 3. Continue q-15 minute check for safety 4. Recommend sober living treatment at the highest level of care to which the patient is willing to commit. 5.?Add Suboxone 8/2mg now to target opioid addiction, monitor for opioid withdrawal.? 6.? Increase Risperidone to 1.5mg at night to target psychosis 7. CIWA scale as patient appeared to be in some withdrawal.? Check blood alcohol level. Attestations NPU Medical Necessity Statement*: Inpatient hospitalization is medically necessary and the clinically appropriate intervention at this time. We will monitor medications and make changes as indicated.? Likely length of stay is 3-5 days.? 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
[2022-06-03] MEDS: buprenorphine-naloxone 4-1 mg Film 2 EACH SUBLINGUAL (18:40)
[2022-06-03 19:38] VITALS: BP 121/81; PULSE 6; RESP 16; TEMP 36.7; O2SAT 98
[2022-06-03] MEDS: risperiDONE 1 mg Tablet 1.5 MG PO (20:42)
[2022-06-03] MEDS: trazodone 50 mg Tablet PO (20:42)
[2022-06-04 06:00] VITALS: BP 94/56; PULSE 64; RESP 17; TEMP 36.6; O2SAT 99
[2022-06-04] MEDS: multivitamin therapeutic Tablet 1 TAB PO (09:46)
[2022-06-04] MEDS: thiamine 100 mg Tablet PO (09:46)
[2022-06-04] MEDS: folic acid 1 mg Tablet PO (09:46)
[2022-06-04] MEDS: buprenorphine-naloxone 4-1 mg Film 1 EACH SUBLINGUAL ×2 (13:10→17:49)
[2022-06-04 13:44] VITALS: BP 112/69; PULSE 74; RESP 17; TEMP 36.6; O2SAT 98
--- NOTE | 2022-06-04 16:28 | W.PM.NPUPNS ---
Subjective NPU Subjective: The patient is a 27-year-old white male admitted with use of opiate use daily, crystal methamphetamine use,? alcohol use with depression and suicidal ideation with audiitory hallucinations. Patient reports signficant insomnia and increase agitation and reports that he had relief of anxiety with use of suboxone for his opiate withdrawal yesterday. He reported better control of sleep and hallucinations with zyprexa in the past. Patient had reported continuing to feel depressed and continued to report hearing voices.? He had reported having alcohol withdrawal this morning and was given additional Ativan.? Patient reports some feelings of hopelessness or worthlessness but reports no homicidal or suicidal ideation. Mental Status Exam MSE Comments: He is a casually dressed white male who appeared his stated age.? He was lying in bed and was awake and less fatigued, but appeared dysphoric throughout much of the interview.? His mood was described as depressed. his affect appeared mood congruent and restricted. he endorsed suicidal thoughts with no active plan. he denied any homicidal ideation.? He did not appear to be responding to internal stimuli though he reported auditory hallucinations. His attention span appeared variable. his concentration was fair. his insight was feeble. His judgment was impaired. ? he was alert and oriented to person place and time. his speech was normal in regards to rate rhythm and prosody. Vitals/I&O/Wt Last Vital Signs Temp 98 F 06/04/22 13:44 Pulse 74 06/04/22 13:44 Resp 17 06/04/22 13:44 BP 112/69 06/04/22 13:44 Pulse Ox 98 06/04/22 13:44 Data NPU : 05/31/22 21:10 05/31/22 21:10 A&P Assessment and plan (1) Auditory hallucinations: Status: Acute (2) Suicidal ideation: Status: Acute (3) Transaminitis: Status: Acute (4) Generalized anxiety disorder: Status: Acute (5) COVID-19 ruled out: Status: Acute (6) Ecstasy use disorder, severe, in sustained remission: Status: Acute (7) Opioid use disorder, severe, dependence: Status: Chronic Plan 1. Continue current medications 2. Encourage individual, group and milieu therapy 3. Continue q-15 minute check for safety 4. Recommend sober living treatment at the highest level of care to which the patient is willing to commit. 5.?Continue Suboxone 4/1mg bid now to target opioid addiction, monitor for opioid withdrawal.? 6.?Discontinue Risperidone, and begin Olanzapine 7.5mg at night instead to target psychosis. Attestations NPU Medical Necessity Statement*: Inpatient hospitalization is medically necessary and the clinically appropriate intervention at this time. We will monitor medications and make changes as indicated.? Likely length of stay is 3-5 days.? Coding Level of Care Code Acute Manager Wound Care for Chg Fwd History Problem Focused Exam Problem Focused Medical Decision Making Straight Forward Diagnoses Auditory hallucinations R44.0 Suicidal ideation R45.851 Transaminitis R74.01 Generalized anxiety disorder F41.1 COVID-19 ruled out Z03.818 Ecstasy use disorder, severe, in sustained remission F16.21 Opioid use disorder, severe, dependence F11.20
[2022-06-04 20:09] VITALS: BP 125/70; PULSE 62; RESP 18; TEMP 36.9; O2SAT 96
[2022-06-04] MEDS: OLANZapine 5 mg TABLET 7.5 MG PO (21:23)
[2022-06-04] MEDS: hyDROXYzine 25 mg Capsule 50 MG PO (21:24)
[2022-06-04] MEDS: trazodone 50 mg Tablet PO (21:24)
--- NOTE | 2022-06-04 22:25 | PC.NURSE ---
Trazodone 50mg PO and Vistaril 50mg PO given at 21:24 for sleep and anxiety with good results.
[2022-06-05 06:00] VITALS: BP 100/65; PULSE 72; RESP 20; TEMP 36.8; O2SAT 97
[2022-06-05] MEDS: multivitamin therapeutic Tablet 1 TAB PO (09:17)
[2022-06-05] MEDS: thiamine 100 mg Tablet PO (09:17)
[2022-06-05] MEDS: buprenorphine-naloxone 4-1 mg Film 1 EACH SUBLINGUAL ×2 (09:17→14:46)
[2022-06-05] MEDS: folic acid 1 mg Tablet PO (09:17)
--- NOTE | 2022-06-05 12:48 | W.PM.NPUPNS ---
Subjective NPU Subjective: The patient is a 27-year-old white male admitted with use of opiate use daily, crystal methamphetamine use,? alcohol use with depression and suicidal ideation with audiitory hallucinations.? He reports less anxiety and no opiate withdrawal symptoms with addition of 8mg/day of suboxone. He reports voices have been better controlled. He reports improved sleep and energy. He reports depressed mood but reports improved motivation with medication changes. Mental Status Exam MSE Comments: He is a casually dressed white male who appeared his stated age.? He was lying in bed and was awake and alert. His mood was described as depressed. his affect appeared mood congruent and restricted. He endorsed suicidal thoughts with no active plan. he denied any homicidal ideation.? He did not appear to be responding to internal stimuli though he reported auditory hallucinations.? His attention span appeared variable. his concentration was fair. his insight was poor. His judgment was improving. ? He was alert and oriented to person place and time. His speech was normal in regards to rate rhythm and prosody. Vitals/I&O/Wt Last Vital Signs Temp 98 F 06/05/22 13:58 Pulse 71 06/05/22 13:58 Resp 17 06/05/22 13:58 BP 129/78 06/05/22 13:58 Pulse Ox 99 06/05/22 13:58 Weight last 48 hrs Weight 94.801 kg Data NPU : 05/31/22 21:10 05/31/22 21:10 A&P Assessment and plan (1) Auditory hallucinations: Status: Acute (2) Suicidal ideation: Status: Acute (3) Transaminitis: Status: Acute (4) Generalized anxiety disorder: Status: Acute (5) Methamphetamine use disorder, severe: Status: Chronic (6) Opioid use disorder, severe, dependence: Status: Chronic (7) Bipolar disorder: Status: Acute Plan 1. Continue current medications 2. Encourage individual, group and milieu therapy 3. Continue q-15 minute check for safety 4. Recommend sober living treatment at the highest level of care to which the patient is willing to commit. 5.?Continue? Suboxone 4/1mg bid now to target opioid addiction, monitor for opioid withdrawal.? 6.?Continue Olanzapine 7.5mg at night to target psychosis.? Attestations NPU Medical Necessity Statement*: Inpatient hospitalization is medically necessary and the clinically appropriate intervention at this time. We will monitor medications and make changes as indicated.? Likely length of stay is 1-2 days.? Coding Level of Care Code Established Pt Acute Slasher Machine Operator for Chg Fwd Patient Type Established History Problem Focused Exam Problem Focused Medical Decision Making Straight Forward Diagnoses Auditory hallucinations R44.0 Suicidal ideation R45.851 Transaminitis R74.01 Generalized anxiety disorder F41.1 Methamphetamine use disorder, severe F15.20 Opioid use disorder, severe, dependence F11.20 Bipolar disorder F31.9
[2022-06-05 13:58] VITALS: BP 129/78; PULSE 71; RESP 17; TEMP 36.6; O2SAT 99
[2022-06-05] MEDS: hyDROXYzine 25 mg Capsule 50 MG PO (14:28)
--- NOTE | 2022-06-05 14:28 | PC.NURSE ---
PRN VISTARIL 50 MG GIVEN PO PER PT C/O STATED ANXIETY. ANXIOUS, WANTING HIS SUBOXONE FILMS NOW
[2022-06-05 20:25] VITALS: BP 146/88; PULSE 80; RESP 20; TEMP 36.6; O2SAT 95
[2022-06-05] MEDS: trazodone 50 mg Tablet PO (20:58)
[2022-06-05] MEDS: OLANZapine 5 mg TABLET 7.5 MG PO (20:58)
[2022-06-06 06:00] VITALS: BP 123/81; PULSE 71; RESP 20; TEMP 36.6; O2SAT 96
[2022-06-06] MEDS: multivitamin therapeutic Tablet 1 TAB PO (07:50)
[2022-06-06] MEDS: buprenorphine-naloxone 4-1 mg Film 1 EACH SUBLINGUAL ×2 (07:51→14:36)
[2022-06-06] MEDS: folic acid 1 mg Tablet PO (07:51)
[2022-06-06] MEDS: thiamine 100 mg Tablet PO (07:51)
[2022-06-06] MEDS: hyDROXYzine 25 mg Capsule 50 MG PO (12:51)
[2022-06-06 14:00] VITALS: BP 131/81; PULSE 74; RESP 18; TEMP 36.8; O2SAT 99
[2022-06-06 14:58] VITALS: BP 131/81; PULSE 74; RESP 18; TEMP 36.8; O2SAT 99
--- NOTE | 2022-06-06 15:21 | W.PM.NPUDCS ---
Diagnoses at Discharge Discharge Diagnosis (1) Auditory hallucinations: Status: Acute (2) Suicidal ideation: Status: Acute (3) Transaminitis: Status: Acute (4) Generalized anxiety disorder: Status: Acute (5) Methamphetamine use disorder, severe: Status: Chronic (6) Opioid use disorder, severe, dependence: Status: Chronic (7) Bipolar disorder: Status: Acute Reason for Visit Reason for Visit: suicidal ideation Brief History: 27y.o white male who presents to NPU secondary to homelessness and suicidal ideation with reports of increased anxiety as well. He has been psychiatrically hospitalized 5 or 6 times, the most recent of which he was discharged from in June of 2021 and the first time of which was at 15 years old for depression, anger and anxiety. He had outpatient services through [facility] but has not been in over a year and is not currently taking any medications. He reports he was originally diagnosed with bipolar 2 and anxiety. He reports a fifth of alcohol a day for ?too long?, reports methamphetamine use to stay awake and watch his things, opiate use the last time of which was yesterday, reports fentanyl, marijuana occasionally but denies any other illicit drug use. He has been to rehab previously, the last time of which was 2 years ago and endorses he needs to go rehab currently. He reports his mental health issues began presenting around 11 to 12 years old. He reports low energy, fatigue, mood swings, increased anger, feelings of hopelessness and suicidal ideation. He endorses problems with sleeping but denies any current experience of tianna. He endorses he is currently feeling shaky withdrawing from alcohol. He endorses auditory hallucinations which he is currently experiences of voices just yelling at him and telling him things such as ?please hurry?, ?its getting so hot?, ?this is not fair?, etc. He reports has tried naltrexone in the past in addition to other psychiatric medications but he could not recall the names of them. He endorses he has been on Abilify as well as acamprosate in the past but endorses it caused him to feel like he was on fire. He endorses he doesn?t have any friends in the area. Psychiatric History: As above. Substance Abuse History: As above Family History: He reports mental health issues on his mother?s side of the family and addiction issues on both sides of the family. Developmental History: He did not report any issues with his developmental milestone and denies any need for speech therapy, learning support, emotional support or special education classes. Psychosocial History: He reports he was born in [place] and was raised by both of his parents. He has younger siblings who are all half siblings as his parents split sometime after he was born. He reports his parents fought a lot during his childhood. He reports he had one of his children in his arms a few days after they were born. The highest grade he achieved was 11 th grade and he got his GED. He has never been and reports having 7 children who he is somewhat in touch with. He is currently employed but reports he has to walk to work as he doesn?t have a car. He is currently homeless and has been since December of this year. Legal History: Denied. Medical History: Pancreatic issues, Hypertension? and Hepatitis C. Allergies: morphine Surgical Hx: tonsillectomy, and pyloric stenosis. and Geodon. He has his tonsils removed and had pyloric stenosis. Hospital Course Hospital Course During the hospitalization, patient had routine laboratory studies which were within normal limits except for few outliers. Additionally there was a general medical evaluation which was also within normal limits and revealed no new acute processes. The patient had admitted to signicant polysubstance abuse including alcohol and opiate use on daily basis for years. The patient was placed on CIWA scale and reported significant anxiety and had relief from opiate withdrawal with the initiation of Suboxone film 8mg/2mg daily with patient reporting resumption of anxiety. Discharge Summary: At the time of discharge, lethality was denied and psychosis was resolving. Mood and anxiety were well managed. Patient endorsed a plan to avoid all drugs of abuse and follow-up with the aftercare recommendations of the treatment team. Patient was evaluated and deemed to be absent credible lethality, and had achieved the maximum benefit from an inpatient hospitalization, so was discharged. Mental Status Exam MSE Comments: He is a casually dressed white male who appeared his stated age.? His mood was described as better. His affect appeared mood congruent and restricted. He endorsed suicidal thoughts with no active plan. he denied any homicidal ideation.? He did not appear to be responding to internal stimuli. ? His attention span appeared fair. his concentration was fair. his insight was fair. His judgment was improving. ? He was alert and oriented to person place and time. His speech was normal in regards to rate rhythm and prosody. There was no evidence of delusional thinking. Discharge Data Studies Completed and Pending: Laboratory Results WBC 4.7 10^3/uL (4.0- 10.0) 05/31/22 21:10 RBC 3.91 10^6/uL (4.1 -5.3) L 05/31/22 21:10 Hgb 14.1 g/dL (11.7-1 6.6) 05/31/22 21:10 Hct 37.3 % (42.0-52.0 ) L 05/31/22 21:10 MCV 95.4 fl (80-94) H 05/31/22 21:10 MCH 36.1 pg (28.0-34. 0) H 05/31/22 21:10 MCHC 37.8 g/dL (30.0-3 6.0) H 05/31/22 21:10 RDW 12.7 % (12.1-15.1 ) 05/31/22 21:10 Plt Count 156 10^3/cmm (130 -400) 05/31/22 21:10 MPV 10.7 fL (7.4-10.4 ) H 05/31/22 21:10 Neut % (Auto) 45.5 % 05/31/22 21:10 Lymph % (Auto) 38.8 % 05/31/22 21:10 [place] % (Auto) 11.9 % 05/31/22 21:10 Eos % (Auto) 3.2 % 05/31/22 21:10 Baso % (Auto) 0.4 % 05/31/22 21:10 Neut # (Auto) 2.15 10^3/uL (1.8 -7.7) 05/31/22 21:10 Lymph # (Auto) 1.8 10^3/uL (0.8- 4.8) 05/31/22 21:10 [place] # (Auto) 0.6 10^3/uL (0.2- 0.9) 05/31/22 21:10 Eos # (Auto) 0.2 10^3/uL (0.0- 0.8) 05/31/22 21:10 Baso # (Auto) 0.0 10^3/uL (0.0- 0.1) 05/31/22 21:10 Nucleated RBC % (a uto) 0 % 05/31/22 21:10 Nucleated RBCs # 0.0 /100WBC 05/31/22 21:10 Sodium 140 mmol/L (136-1 45) 05/31/22 21:10 Potassium 3.4 mmol/L (3.5-5 .1) L 05/31/22 21:10 Chloride 102 mmol/L (98-10 7) 05/31/22 21:10 Carbon Dioxide 24 mmol/L (22-29) 05/31/22 21:10 Anion Gap 17.4 (5-19) 05/31/22 21:10 BUN 9 mg/dL (6-20) 05/31/22 21:10 Creatinine 0.7 mg/dL (0.7-1. 2) 05/31/22 21:10 GFR Calculation 133.3 mL/min (90- 130) H 05/31/22 21:10 Glucose 94 mg/dL (65-115) 05/31/22 21:10 Calculated Osmolal ity 288 mOsm/kg (285- 295) 05/31/22 21:10 Calcium 9.0 mg/dL (8.5-10 .5) 05/31/22 21:10 Total Bilirubin 0.6 mg/dL (0.15-1 .2) 05/31/22 21:10 AST 138 U/L (0-40) H 05/31/22 21:10 ALT 149 U/L (0-41) H 05/31/22 21:10 Alkaline Phosphata se 63 IU/L (40-130) 05/31/22 21:10 Total Protein 6.7 g/dL (6.6-8.7 ) 05/31/22 21:10 Albumin 4.2 g/dL (3.5-5.2 ) 05/31/22 21:10 Globulin 2.5 g/dL (1.3-4.6 ) 05/31/22 21:10 Lipase 21 U/L (13-60) 05/31/22 21:10 Salicylates < 0.3 mg/dL (3-10 ) L 05/31/22 21:10 Urine Opiates Scre en Negative ng/mL (N egative) 05/31/22 08:34 Acetaminophen < 5.0 ug/mL (10-3 0) L 05/31/22 21:10 Ur Barbiturates Sc reen Negative ng/mL (N egative) 05/31/22 08:34 Ur Phencyclidine S crn Negative ng/mL (N egative) 05/31/22 08:34 Ur Amphetamines Sc reen Positive ng/mL (N egative) H 05/31/22 08:34 U Benzodiazepines Scrn Positive ng/mL (N egative) H 05/31/22 08:34 Urine Cocaine Scre en Negative ng/mL (N egative) 05/31/22 08:34 U Marijuana (THC) Screen Negative ng/mL (N egative) 05/31/22 08:34 Ethyl Alcohol 112 mg/dL (0-10) H 05/31/22 21:10 Vitals: Last Vital Signs Temp 98 F 06/06/22 06:00 Pulse 71 06/06/22 06:00 Resp 20 H 06/06/22 06:00 BP 123/81 06/06/22 06:00 Pulse Ox 96 06/06/22 06:00 Discharge Plan Discharge Patient Disposition: Home Condition: Stable Prescriptions: New olanzapine 5 mg Tablet 7.5 mg PO BEDTIME Qty: 45 1RF Vitamin B-1 (mononitrate) 100 mg Tablet 100 mg PO DAILY 30 Days Qty: 30 1RF trazodone 50 mg Tablet 50 mg PO BEDTIME PRN (Reason: Insomnia) 30 Days Qty: 30 1RF Continued omeprazole 40 mg capsule,delayed release(DR/EC) 40 mg PO DAILY Qty: 30 0RF Discharge Orders: Discharge Order (Routine); Ordered 06/06/22 Ordered By: Jimmie Gilman Referrals: [facility] [Other] (Application completed and turned in) [facility] [Other] - 06/07/22 8:00 am (Suboxone provider) [facility] [Outside] - 06/08/22 12:00 pm (Phone assessment) Discharge Diet: Usual diet Discharge Activity: Resume usual activity Patient Instructions: Trazodone (By mouth), Thiamine (By mouth), Olanzapine (By mouth), Opioid Safety Activity Restrictions/Additional Instructions: Follow up at [facility] for agonist therapy for opioid dependence at 8am, on 06/07/22 Discharge Attestations NPU Time Spent in Discharge Care*: less than 30 min Coding Level of Care Code Established Pt Acute Chg FW DC note Patient Type Established History Problem Focused Exam Problem Focused Medical Decision Making Straight Forward Diagnoses Auditory hallucinations R44.0 Suicidal ideation R45.851 Transaminitis R74.01 Generalized anxiety disorder F41.1 Methamphetamine use disorder, severe F15.20 Opioid use disorder, severe, dependence F11.20 Bipolar disorder F31.9
== END 2022-06-06 15:08 | disposition home or self-care (01) | DRG 885 ==
LOC: ER 23:03 → NP 06-01 02:19
PROVIDERS: Emergency Medicine; Admitting Provider Psychiatry & Neurology Psychiatry; Emergency Provider Emergency Medicine; Visit Provider Psychiatry & Neurology Psychiatry
DX: F31.81 Bipolar II disorder (principal); F10.239 Alcohol dependence with withdrawal, unspecified; R45.851 Suicidal ideations; F15.20 Other stimulant dependence, uncomplicated; F11.20 Opioid dependence, uncomplicated; F10.229 Alcohol dependence with intoxication, unspecified; Y90.9 Presence of alcohol in blood, level not specified; F41.1 Generalized anxiety disorder; F17.210 Nicotine dependence, cigarettes, uncomplicated; Z59.00 Homelessness unspecified; I10 Essential (primary) hypertension; B19.20 Unspecified viral hepatitis C without hepatic coma; F16.21 Hallucinogen dependence, in remission
CPT/HCPCS: 80053; 80306; 80307; 83690; 85025; 97165; 99285; J0573

== ENCOUNTER 2022-07-13 00:45 | Inpatient (IN) | payer MEDICAID, SELFPAY ==
[2022-07-13 00:50] VITALS: BP 135/88; PULSE 92; RESP 16; TEMP 36.7; O2SAT 98; BMI 27.0
--- NOTE | 2022-07-13 00:59 | W.ED.PSYCHS ---
HPI - Psych General: Chief Complaint: Psychiatric Symptoms Stated Complaint: anxiety Time Seen by Provider: 07/13/22 00:48 Source: patient Mode of arrival: ambulatory Limitations: no limitations History of Present Illness: Time he did [id number] male has a history of heroin abuse he states that he has been in and out of intermediate and is homeless states that he keeps relapsing on heroin and is feeling helpless he states he has been having increased depression with some suicidal thoughts wants to be admitted is any worsening improving factors. Denies any specific plan. Associated symptoms: Reports depression Review of Systems Const: Denies: fever(s), chills, body aches or change in appetite Eyes: Denies: blurry vision or eye discomfort ENMT: Denies: throat pain or dental pain Card: Denies: chest pain Resp: Denies: dyspnea GI: Denies: abdominal pain, nausea, vomiting or diarrhea : Denies: dysuria Musc: Denies: neck pain or back pain Skin/Breast: Denies: rash Neuro: Denies: headache(s) Psych: Reports: depression Jevon/Lymph: Denies: easy bruising All/Imm: Denies: urticaria PFSH ED PFSH: Medical History (Updated 07/06/22 @ 16:51 by Tamica Arias) Mood disorder Polysubstance (including opioids) dependence, daily use Psychiatric care Pyloric stenosis Social History Smoking and tobacco status: current every day smoker cigarettes Packs smoked per day: 0.5 Years cigarettes smoked: 11 Quit status (tobacco): has tried quititng Number of times tried to quit tobacco: 5 Second hand smoke exposure: No Smoking risk assessment/counseling performed?: No Alcohol intake: former Course Vital Signs: Vital signs: Vital Signs Temperature 98.0 F 07/13/22 00:50 Pulse Rate 92 07/13/22 00:50 Respiratory Rate 16 07/13/22 00:50 Blood Pressure 135/88 07/13/22 00:50 Pulse Oximetry 98 07/13/22 00:50 Oxygen Delivery Me thod 07/13/22 00:50 MDM - Psych Medical Decision Making Patient presents here with depression all suicidal ideation patient voluntarily went to the psych zepeda spoke to psychiatrist will admit he is medically cleared. Lab Data : 07/13/22 01:13 07/13/22 01:13 Laboratory Results WBC 4.7 10^3/uL (4.0-10.0) 07/13/22 01:13 RBC 4.02 10^6/uL (4.1-5.3) L 07/13/22 01:13 Hgb 13.5 g/dL (11.7-16.6) 07/13/22 01:13 Hct 38.2 % (42.0-52.0) L 07/13/22 01:13 MCV 95.0 fl (80-94) H 07/13/22 01:13 MCH 33.6 pg (28.0-34.0) 07/13/22 01:13 MCHC 35.3 g/dL (30.0-36.0) 07/13/22 01:13 RDW 10.9 % (12.1-15.1) L 07/13/22 01:13 Plt Count 145 10^3/cmm (130-400) 07/13/22 01:13 MPV 10.5 fL (7.4-10.4) H 07/13/22 01:13 Neut % (Auto) 52.5 % 07/13/22 01:13 Lymph % (Auto) 34.0 % 07/13/22 01:13 [place] % (Auto) 9.1 % 07/13/22 01:13 Eos % (Auto) 3.8 % 07/13/22 01:13 Baso % (Auto) 0.4 % 07/13/22 01:13 Neut # (Auto) 2.47 10^3/uL (1.8-7.7) 07/13/22 01:13 Lymph # (Auto) 1.6 10^3/uL (0.8-4.8) 07/13/22 01:13 [place] # (Auto) 0.4 10^3/uL (0.2-0.9) 07/13/22 01:13 Eos # (Auto) 0.2 10^3/uL (0.0-0.8) 07/13/22 01:13 Baso # (Auto) 0.0 10^3/uL (0.0-0.1) 07/13/22 01:13 Nucleated RBC % (auto) 0 % 07/13/22 01:13 Nucleated RBCs # 0.0 /100WBC 07/13/22 01:13 Sodium 141 mmol/L (136-145) 07/13/22 01:13 Potassium 3.6 mmol/L (3.5-5.1) 07/13/22 01:13 Chloride 103 mmol/L (98-107) 07/13/22 01:13 Carbon Dioxide 25 mmol/L (22-29) 07/13/22 01:13 Anion Gap 16.6 (5-19) 07/13/22 01:13 BUN 11 mg/dL (6-20) 07/13/22 01:13 Creatinine 0.8 mg/dL (0.7-1.2) 07/13/22 01:13 GFR Calculation 114.3 mL/min (90-130) 07/13/22 01:13 Glucose 85 mg/dL (65-115) 07/13/22 01:13 Calculated Osmolality 291 mOsm/kg (285-295) 07/13/22 01:13 Calcium 9.0 mg/dL (8.5-10.5) 07/13/22 01:13 Total Bilirubin 0.7 mg/dL (0.15-1.2) 07/13/22 01:13 AST 93 U/L (0-40) H 07/13/22 01:13 ALT 170 U/L (0-41) H 07/13/22 01:13 Alkaline Phosphatase 62 U/L (40-130) 07/13/22 01:13 Total Protein 7.2 g/dL (6.6-8.7) 07/13/22 01:13 Albumin 4.3 g/dL (3.5-5.2) 07/13/22 01:13 Globulin 2.9 g/dL (1.3-4.6) 07/13/22 01:13 Salicylates < 0.3 mg/dL (3-10) L 07/13/22 01:13 Urine Opiates Screen Negative ng/mL (Negative) 07/13/22 01:18 Acetaminophen < 5.0 ug/mL (10-30) L 07/13/22 01:13 Ur Barbiturates Screen Negative ng/mL (Negative) 07/13/22 01:18 Ur Phencyclidine Scrn Negative ng/mL (Negative) 07/13/22 01:18 Ur Amphetamines Screen Positive ng/mL (Negative) H 07/13/22 01:18 U Benzodiazepines Scrn Negative ng/mL (Negative) 07/13/22 01:18 Urine Cocaine Screen Negative ng/mL (Negative) 07/13/22 01:18 U Marijuana (THC) Screen Negative ng/mL (Negative) 07/13/22 01:18 Ethyl Alcohol 28 mg/dL (0-10) H 07/13/22 01:13 Discharge Plan Discharge Admit Provider: Ghulam Szymanski Condition: Stable Coding Level of Care Code ED Annealing Operator for Marie Panda
[2022-07-13 01:25] LABS: Basophils % 0.4 %; Eosinophils # 0.2 10^3/uL (0.0-0.8); Eosinophils % 3.8 %; Hematocrit 38.2 % (42.0-52.0); Hemoglobin 13.5 g/dL (11.7-16.6); Lymphocytes # 1.6 10^3/uL (0.8-4.8); Mean Corpuscular HGB Conc 35.3 g/dL (30.0-36.0); Mean Corpuscular Hemoglobin 33.6 pg (28.0-34.0); Mean Platelet Volume 10.5 fL (7.4-10.4); Monocytes # 0.4 10^3/uL (0.2-0.9); Monocytes % 9.1 %; Neutrophils # 2.47 10^3/uL (1.8-7.7); Neutrophils % 52.5 %; Nucleated Red Blood Cells % 0 %; Platelet Count 145 10^3/cmm (130-400); Red Blood Count 4.02 10^6/uL (4.1-5.3); Red Cell Distribution Width 10.9 % (12.1-15.1); White Blood Count 4.7 10^3/uL (4.0-10.0)
[2022-07-13 01:46] LABS: Amphetamines Screen Urine Positive (Negative); Barbiturates Screen Urine Negative (Negative); Benzodiazepines Screen Urine Negative (Negative); Cocaine Screen Urine Negative (Negative); Opiate Screen Urine Negative (Negative); PCP Screen Urine Negative (Negative); THC Screen Urine Negative (Negative)
[2022-07-13 01:50] LABS: Albumin Level 4.3 g/dL (3.5-5.2); Alkaline Phosphatase 62 U/L (40-130); Anion Gap 16.6 (5-19); Blood Urea Nitrogen 11 mg/dL (6-20); Carbon Dioxide 25 mmol/L (22-29); Chloride 103 mmol/L (98-107); Globulin 2.9 g/dL (1.3-4.6); Glomerular Filtration Rate 114.3 mL/min (90-130); Glucose 85 mg/dL (65-115); Osmolality Calculated 291 mOsm/kg (285-295); Potassium 3.6 mmol/L (3.5-5.1); Sodium 141 mmol/L (136-145); Total Bilirubin 0.7 mg/dL (0.15-1.2); Total Protein 7.2 g/dL (6.6-8.7)
[2022-07-13 01:54] LABS: Alanine Aminotransferase 170 U/L (0-41); Alcohol Level 28 mg/dL (0-10); Aspartate Amino Transferase 93 U/L (0-40)
[2022-07-13 01:55] LABS: Acetaminophen < 5.0 ug/mL (10-30); Salicylate < 0.3 mg/dL (3-10)
[2022-07-13 02:14] VITALS: BP 128/70; PULSE 96; RESP 18; TEMP 36.4; O2SAT 99
[2022-07-13] MEDS: LORazepam 1 mg Tablet 2 MG PO (02:25)
[2022-07-13 06:00] VITALS: BP 125/88; PULSE 105; RESP 18; TEMP 36.9; O2SAT 98
[2022-07-13] MEDS: multivitamin therapeutic Tablet 1 TAB PO (08:18)
[2022-07-13] MEDS: pantoprazole DR 40 mg Tablet PO (08:19)
[2022-07-13] MEDS: thiamine 100 mg Tablet PO (08:19)
[2022-07-13] MEDS: hyDROXYzine 25 mg Capsule 50 MG PO (08:19)
[2022-07-13] MEDS: OLANZapine 5 mg ODT PO (08:19)
[2022-07-13] MEDS: folic acid 1 mg Tablet PO (08:19)
--- NOTE | 2022-07-13 08:20 | PC.NURSE ---
ATIVAN SEEKING, PRN VISTARIL & ZYPREXA ZYDIS IMMEDIATELY UPON SHIFT CHANGE, PT ASKING FOR ANOTHER ATIVAN PT IS ON [facility] DETOX PROTOCOL, SOME MILD ANXIETY NOTED BUT NO OTHER SYMPTOMS, NO ATIVAN GIVEN AT THIS TIME... VISTARIL 50 MG GIVEN PO PER PT C/O STATED ANXIETY ZYPREXA ZYDIS 5 MG GIVEN PO PER REQUEST, C/O STATED AGITATION THAT HE CAN'T GET PRN ATIVAN NOW
[2022-07-13] MEDS: haloperidol 5 mg Tablet PO (10:48)
--- NOTE | 2022-07-13 11:07 | PC.NURSE ---
PRN MEDICATIONS PT UP TO NURSES STATION STATING HE IS HAVING SEVERE ANXIETY AND THE VISTARIL AND ZYDIS HE RECEIVED EARLIER IS NOT WORKING. HALDOL 5 MG GIVEN ORDERED FOR ANXIETY.
[2022-07-13 14:00] VITALS: BP 108/71; PULSE 83; RESP 20; TEMP 36.6; O2SAT 99
--- NOTE | 2022-07-13 17:12 | P.NPUHP_ITS ---
Providers/Chief Complaint Admitting Physician: Ghulam Szymanski MD Chief Complaint: anxiety HPI NPU History of Present Illness Bolivar Ledezma is a 27 year old male who presented to the emergency department with the following report: Chief Complaint: Psychiatric Symptoms Stated Complaint: anxiety Time Seen by Provider: 07/13/22 00:48 Source: patient Mode of arrival: ambulatory Limitations: no limitations History of Present Illness: Time he did [id number] male has a history of heroin abuse he states that he has been in and out of long-term and is homeless states that he keeps relapsing on heroin and is feeling helpless he states he has been having increased depression with some suicidal thoughts wants to be admitted is any worsening improving factors. Denies any specific plan. Associated symptoms: Reports depression. He was admitted to the neuropsychiatric unit for definitive treatment of those issues. Patient presents today reporting that since the time he saw me back in August 2019 he has had some good days and bad times. An excerpt of that note is included below for context. He presents today reporting that he has had significant inpatient and outpatient services since he saw me then. He had been consistent with outpatient services at [facility] as recently as the end of summer 2020. He was inpatient last month and left connected with Suboxone treatment. He reports that in general he feels like he is been doing well but he has recently struggled with his drug use. He reports that he had some heroin overdoses and that he did get his Medicaid in place but he is working and is wit hout transportation and the closest Suboxone place requires daily visits and he is unable to make it there due to transportation. He reports that is created a very dangerous situation and he came in because of suicidal thoughts and fears that his addiction would lead to completed overdose. He reports that he actually has an appointment on with a provider that we will do office-based treatment but he was feeling like he might not make it that far due to his most recent behavior. He reports that he currently is homeless still and that creates a challenge and he is trying to get these final pieces in place so that he believes he will be able to finally stabilize and be functional again. We agreed that he would assist us in finding the name of the doctor who he is set up with next Monday and that we might be able to collaborate to create a safe bridge to that appointment. Otherwise he reports that he is doing fine on his medication and he feels safe here in the facility. Per his 09/13/2019 [facility] inpatient psychiatric evaluation: Date of Service: Sep 13, 2019 Chief Complaint: I'm struggling. HPI: Bolivar presents today reporting that he struggles with very low frustration to lerance.? He reports that his anxiety is through the roof. ? He reports that he had a rough go of it.? That he screams, cries and that his new relationship isn't going well secondary to his poor behavior.He reports that in March of this year he lost the second of his twins that were born at 28 weeks.? He reports that he and his significant other went several stays away to try to get away from the memories and fine work.? He reports that that lasted a short period of time and that they return to [place] but that the ghosts and demons were too much.? They split up and he hooked up with a new girlfriend who has 3 kids.? He tried to drown his memories in her children.? But that didn't work and his addiction started getting the best of him and he knows he needs help.? His goal in plan is to the get into an inpatient rehabilitation and he reports he has a bed waiting for him on 1024 but he wasn't sure he go that long without a slip up.? He reports doing was 14 he started smoking cigarettes, drinking alcohol and smoking marijuana by 15 he was doing everything else.? By 17 or 18.? Connected with heroin and alcohol heroin and methamphetamine became his problems.? He reported that apparently before and that he is hopefully going to go back there for inpatient.? He is on a 96 hour hold secondary secondary to his erratic behavior off of this medication and was active addiction. Psychiatric history: He reports he's been hospitalized 4 times and he's been on different medications but he reports that lithium and Depakote were the best.? Research however does not uncover a time when he was on Depakote.? But he has had reported benefits with lithium for some time. Substance abuse history: Patient reports he smokes a half a pack of cigarettes a day, he has alcohol use from time to time now, he has marijuana rarely cocaine rarely methamphetamine at times and pain pills/hair 1 have been a real problem.? He's been in rehabilitation 4 times the last time being in 2018.? He's had no DUIs. Per ED eval HISTORY OF PRESENT ILLNESS Chief Complaint: BEHAVIOR CHANGE and AGITATED, HOMICIDAL THOUGHTS, DELUSIONAL and HALLUCINATIONS.? This started today 3 weeks ago.? (24 yo male presents to ED with homicidal ideations, agitation, delusions, hallucinations and bizarre behavior. The patient has a history of psychiatric problems and quit taking his prescribed medications, instead he is self medicating with methamphetamines and marijuana. The patient had a butter knife on his person when he presented to the ED. The patient stated he feels like some people are trying to hurt him and are after him. He was going to use the butter knife on these people who are after him. The patient said the people were trying to run him over and all sort of shit .).? ? No situational problems.? He has exhibited a behavior change. but was not found wandering.? He is non-compliant with medication.? Recent drug use and alcohol consumption.? Has exhibited unusual behavior but been eating or sleeping or not been depressed.? No anxiety, anger, paranoia, suicidal thoughts or self-injury inflicted.? He has had delusions and hallucinations.? ? The symptoms are described as severe.? No injury is present.? ? Similar symptoms previously. None.? ? Recent medical care: Not recently seen/assessed.? ? REVIEW OF SYSTEMS No headache, dizziness, weakness, chest pain or palpitations.? No abdominal pain, vomiting, diarrhea, black stools or numbness.? No fever, sore throat, cough, difficulty breathing or urinary frequency.? No skin rash, enlarged lymph nodes, joint pain, weight loss or laceration.? ? PAST HISTORY See nurses notes.? Hypertension.? GI disease.? ( PCP - none).? Asthma.? Hypokalemia.? Hepatitis.? Gastroesophageal reflux.? Anxiety.? Bipolar disorder.? Depression.? Alcoholism.? Substance abuse.? ( Lifestyle/Substance Problems).? ? Surgeries: Adenoidectomy.? Tonsillectomy.? (Pyloric Stenosis Surgery).? ? SOCIAL HISTORY Current every day heavy tobacco smoker (cigarette)- less than 1 pack per day. Heavy alcohol use. Last drink was just prior to arrival.? History of heavy drug use: methamphetamines, marijuana. Recently used drugs just prior to arrival.? ? ADDITIONAL NOTES The nursing notes have been reviewed.? Meds NPU Home Medications Medication Instructions Recorded Confirmed Last Taken Type omeprazole 40 mg capsule,delayed 40 mg PO DAILY #30 caps 05/10/22 07/13/22 Unknown Rx release olanzapine 5 mg tablet 7.5 mg PO BEDTIME #45 tabs 06/06/22 07/13/22 Unknown Rx thiamine mononitrate (vit B1) 100 100 mg PO DAILY 30 days #30 tabs 06/06/22 07/13/22 Unknown Rx mg tablet (Vitamin B-1 (mononitrate)) trazodone 50 mg tablet 50 mg PO BEDTIME PRN Insomnia 30 06/06/22 07/13/22 Un known Rx days #30 tabs Allergies Allergy/AdvReac Type Severity Reaction Status Date / Time morphine Allergy Severe Stops Verified 05/10/22 07:31 respiratory system ziprasidone [From Geodon] Allergy Severe Breathing Verified 05/10/22 07:31 problems and Pulse paroxetine Allergy Intermediate Fidgety, Verified 05/10/22 07:31 tingling all over, couldn't sleep, hot flashes aripiprazole [From Abilify] AdvReac Intermediate stomach Verified 05/10/22 07:31 upset, N & V doxepin AdvReac Intermediate ADR-Headach Verified 05/10/22 07:31 e PFSH NPU PFSH: Medical History (Updated 07/14/22 @ 07:29 by Ghulam Szymanski MD) Mood disorder Polysubstance (including opioids) dependence, daily use Psychiatric care Pyloric stenosis Social History Smoking and tobacco status: current every day smoker cigarettes Packs smoked per day: 0.5 Years cigarettes smoked: 11 Quit status (tobacco): has tried quititng Number of times tried to quit tobacco: 5 Second hand smoke exposure: No Smoking risk assessment/counseling performed?: No Alcohol intake: former Mental Status Exam MSE Comments: This is an overweight white male with in hospital scrubs with limited grooming and eye contact. No abnormal movements except for psychomotor retardation. Cooperative with exam in mild to moderate distress. Speech was decreased rate and volume. Mood described as tired and anxious, affect congruent. Thought process organized, thought content: patient denies suicidal or homicidal ideation, there were no delusions reported or noted, she denied any auditory or visual hallucinations. Attention and concentration were intact and memory appeared reliable but none were formally tested. She?s alert and oriented times three. Insight and judgment appeared fair and impulse control appeared limited. Vitals/I&O/Wt Last Vital Signs Temp 98 F 07/13/22 14:00 Pulse 83 07/13/22 14:00 Resp 20 H 07/13/22 14:00 BP 108/71 07/13/22 14:00 Pulse Ox 99 07/13/22 14:00 O2 Del Method 07/13/22 03:33 Weight last 48 hrs Weight 90.446 kg Data NPU : 07/13/22 01:13 07/13/22 01:13 A&P Assessment and plan (1) Bipolar disorder: Status: Acute (2) Alcohol use disorder, severe, dependence: Status: Chronic (3) Opioid use disorder, severe, dependence: Status: Acute Plan This is a 27-year-old white male with a long history of inpatient and outpatient services and addiction with current active addiction particularly with opiates who presents after recent overdoses with depression, anxiety suicidality and hopelessness about getting connected with services. 1. Continue current medication. We will work with outpatient doctor to see if we can bridge Suboxone to that appointment. 2. Continue every 15 minute checks for safety. 3. Encourage individual, group and milieu therapies. 4. Encourage sober living treatment after discharge at the highest level of c are to which he is willing to commit. Involuntary Hold Information 96 Hour Hold: 96 Hour Involuntary Admission: No Attestations NPU Medical Necessity Statement*: Inpatient hospitalization is medically necessary and the clinically appropriate intervention at this time. We will monitor medication to make changes as indicated. Patient will be in the hospital for over two midnights. Likely length of stay 2-4 days. Coding Level of Care Code Acute Automated Teller Manager for Marie Panda Diagnoses Bipolar disorder F31.9 Alcohol use disorder, severe, dependence F10.20 Opioid use disorder, severe, dependence F11.20
[2022-07-13 19:59] VITALS: BP 98/58; PULSE 76; RESP 16; TEMP 36.4; O2SAT 99
[2022-07-13] MEDS: OLANZapine 5 mg TABLET 7.5 MG PO (20:41)
[2022-07-14 06:00] VITALS: BP 115/75; PULSE 87; RESP 17; TEMP 36.6; O2SAT 99
[2022-07-14] MEDS: multivitamin therapeutic Tablet 1 TAB PO (09:00)
[2022-07-14] MEDS: thiamine 100 mg Tablet PO (09:00)
[2022-07-14] MEDS: pantoprazole DR 40 mg Tablet PO (09:00)
[2022-07-14] MEDS: folic acid 1 mg Tablet PO (09:00)
[2022-07-14] MEDS: haloperidol 5 mg Tablet PO (09:01)
--- NOTE | 2022-07-14 09:02 | PC.NURSE ---
PRN HALDOL 5 MG GIVEN PO PER PT C/O STATED AGITATION, NO OUTWARD S/S OF AGITATION NOTED CURRENTLY
[2022-07-14 14:00] VITALS: BP 135/96; PULSE 96; RESP 18; TEMP 36.7; O2SAT 100
--- NOTE | 2022-07-14 17:19 | W.PM.NPUPNS ---
Subjective NPU Subjective: Patient presents today managing through the challenge of his withdrawal and trying to get connected to more functional services. We discussed the fact that we are in communication with [facility] [place] and trying to determine if we can in fact bradycardia situation that is a bridge to his appointment on July 19. Otherwise he has been isolative and somewhat irritable but reporting that he is still optimistic that this is the best mood to make given his recent dangerous behavior. Mental Status Exam MSE Comments: This is an overweight white male with in hospital scrubs with limited grooming and eye contact. No abnormal movements except for psychomotor retardation. Cooperative with exam in mild distress. Speech was decreased rate and volume. Mood described as tired, affect congruent. Thought process organized, thought content: patient denies suicidal or homicidal ideation, there were no delusions reported or noted, she denied any auditory or visual hallucinations. Attention and concentration were intact and memory appeared reliable but none were formally tested. She?s alert and oriented times three. Insight and judgment appeared fair and impulse control appeared limited. Vitals/I&O/Wt Last Vital Signs Temp 98.2 F 07/14/22 19:48 Pulse 69 07/14/22 19:48 Resp 16 07/14/22 19:48 BP 108/70 07/14/22 19:48 Pulse Ox 99 07/14/22 19:48 O2 Del Method 07/14/22 19:48 Data NPU : 07/13/22 01:13 07/13/22 01:13 A&P Assessment and plan (1) Bipolar disorder: Status: Acute (2) Alcohol use disorder, severe, dependence: Status: Chronic (3) Opioid use disorder, severe, dependence: Status: Acute Plan This is a 27-year-old white male with a long history of inpatient and outpatient services and addiction with current active addiction particularly with opiates who presents after recent overdoses with depression, anxiety suicidality and hopelessness about getting connected with services. 1. Continue current medication. We will work with outpatient doctor to see if we can bridge Suboxone to that appointment. 2. Continue every 15 minute checks for safety. 3. Encourage individual, group and milieu therapies. 4. Encourage sober living treatment after discharge at the highest level of care to which he is willing to commit. Involuntary Hold Information 96 Hour Hold: 96 Hour Involuntary Admission: No Attestations NPU Medical Necessity Statement*: Inpatient hospitalization is medically necessary and the clinically appropriate intervention at this time. We will monitor medication to make changes as indicated. Patient will be in the hospital for over two midnights. Likely length of stay 2-4 days. Coding Level of Care Code Acute Stained Glass Glazier Helper for g Fwd Diagnoses Bipolar disorder F31.9 Alcohol use disorder, severe, dependence F10.20 Opioid use disorder, severe, dependence F11.20
[2022-07-14 19:48] VITALS: BP 108/70; PULSE 69; RESP 16; TEMP 36.8; O2SAT 99
[2022-07-14] MEDS: OLANZapine 5 mg TABLET 7.5 MG PO (20:59)
[2022-07-14] MEDS: trazodone 50 mg Tablet PO (21:02)
[2022-07-15 06:00] VITALS: BP 106/71; PULSE 71; RESP 16; TEMP 36.6; O2SAT 98
[2022-07-15] MEDS: multivitamin therapeutic Tablet 1 TAB PO (08:48)
[2022-07-15] MEDS: pantoprazole DR 40 mg Tablet PO (08:48)
[2022-07-15] MEDS: thiamine 100 mg Tablet PO (08:48)
[2022-07-15] MEDS: folic acid 1 mg Tablet PO (08:48)
[2022-07-15] MEDS: haloperidol 5 mg Tablet PO (08:48)
--- NOTE | 2022-07-15 10:00 | PC.NURSE ---
IN BED RESTING, REQUEST HALDOL FOR SEVERE ANXIETY. PT APPEARS CALM AND COOPERATIVE BUT MED NURSE WAS NOTIFIED TO GIVE HALDOL REQUESTED. PT DENIES PAIN. DENIES SI/HI AND AVH AT THIS TIME. ALL QUESTIONS ANSWERED AND SUPPORT VOICED.
[2022-07-15] MEDS: hyDROXYzine 25 mg Capsule 50 MG PO (13:39)
[2022-07-15 14:00] VITALS: BP 109/60; PULSE 73; RESP 16; O2SAT 98
--- NOTE | 2022-07-15 16:37 | W.PM.NPUDCS ---
Diagnoses at Discharge Discharge Diagnosis (1) Bipolar disorder: Status: Acute (2) Alcohol use disorder, severe, dependence: Status: Chronic (3) Opioid use disorder, severe, dependence: Status: Acute Reason for Visit Reason for Visit: anxiety Brief History: History of Present Illness Bolivar Ledezma is a 27 year old male who presented to the emergency department with the following report: Chief Complaint: Psychiatric Symptoms Stated Complaint: anxiety Time Seen by Provider: 07/13/22 00:48 Source: patient Mode of arrival: ambulatory Limitations: no limitations History of Present Illness:?? Time he did [id number] male has a history of heroin abuse he states that he has been in and out of [facility] and is homeless states that he keeps relapsing on heroin and is feeling helpless he states he has been having increased depression with some suicidal thoughts wants to be admitted is any worsening improving factors.? Denies any specific plan. Associated symptoms: Reports depression. He was admitted to the neuropsychiatric unit for definitive treatment of those issues.? Patient presents today reporting that since the time he saw me back in August 2019 he has had some good days and bad times.? An excerpt of that note is included below for context.? He presents today reporting that he has had significant inpatient and outpatient services since he saw me then.? He had been consistent with outpatient services at [facility] as recently as the end of summer 2020.? He was inpatient last month and left connected with Suboxone treatment.? He reports that in general he feels like he is been doing well but he has recently struggled with his drug use.? He reports that he had some heroin overdoses and that he did get his Medicaid in place but he is working and is without transportation and the closest Suboxone place requires daily visits and he is unable to make it there due to transportation.? He reports that is created a very dangerous situation and he came in because of suicidal thoughts and fears that his addiction would lead to completed overdose.? He reports that he actually has an appointment on 823 with a provider that we will do office-based treatment but he was feeling like he might not make it that far due to his most recent behavior.? He reports that he currently is homeless still and that creates a challenge and he is trying to get these final pieces in place so that he believes he will be able to finally stabilize and be functional again.? We agreed that he would assist us in finding the name of the doctor who he is set up with next Monday and that we might be able to collaborate to create a safe bridge to that appointment.? Otherwise he reports that he is doing fine on his medication and he feels safe here in the facility. Per his 09/13/2019 [facility] inpatient psychiatric evaluation: Date of Service: Sep 13, 2019 Chief Complaint: I'm struggling. HPI: Bolivar presents today reporting that he struggles with very low frustration tolerance.? He reports that his anxiety is through the roof. ? He reports that he had a rough go of it.? That he screams, cries and that his new relationship isn't going well secondary to his poor behavior.He reports that in March of this year he lost the second of his twins that were born at 28 weeks.? He reports that he and his significant other went several stays away to try to get away from the memories and fine work.? He reports that that lasted a short period of time and that they return to [place] but that the ghosts and demons were too much.? They split up and he hooked up with a new girlfriend who has 3 kids.? He tried to drown his memories in her children.? But that didn't work and his addiction started getting the best of him and he knows he needs help.? His goal in plan is to the get into an inpatient rehabilitation and he reports he has a bed waiting for him on 1024 but he wasn't sure he go that long without a slip up.? He reports doing was 14 he started smoking cigarettes, drinking alcohol and smoking marijuana by 15 he was doing everything else.? By 17 or 18.? Connected with heroin and alcohol heroin and methamphetamine became his problems.? He reported that apparently before and that he is hopefully going to go back there for inpatient.? He is on a 96 hour hold secondary secondary to his erratic behavior off of this medication and was active addiction. Psychiatric history: He reports he's been hospitalized 4 times and he's been on different medications but he reports that lithium and Depakote were the best.? Research however does not uncover a time when he was on Depakote.? But he has had reported benefits with lithium for some time. Substance abuse history: Patient reports he smokes a half a pack of cigarettes a day, he has alcohol use from time to time now, he has marijuana rarely cocaine rarely methamphetamine at times and pain pills/hair 1 have been a real problem.? He's been in rehabilitation 4 times the last time being in 2018.? He's had no DUIs. Per ED eval HISTORY OF PRESENT ILLNESS Chief Complaint: BEHAVIOR CHANGE and AGITATED, HOMICIDAL THOUGHTS, DELUSIONAL and HALLUCINATIONS.? This started today 3 weeks ago.? (24 yo male presents to ED with homicidal ideations, agitation, delusions, hallucinations and bizarre behavior. The patient has a history of psychiatric problems and quit taking his prescribed medications, instead he is self medicating with methamphetamines and marijuana. The patient had a butter knife on his person when he presented to the ED. The patient stated he feels like some people are trying to hurt him and are after him. He was going to use the butter knife on these people who are after him. The patient said the people were trying to run him over and all sort of shit .).? ? No situational problems.? He has exhibited a behavior change. but was not found wandering.? He is non-compliant with medication.? Recent drug use and alcohol consumption.? Has exhibited unusual behavior but been eating or sleeping or not been depressed.? No anxiety, anger, paranoia, suicidal thoughts or self-injury inflicted.? He has had delusions and hallucinations.? ? The symptoms are described as severe.? No injury is present.? ? Similar symptoms previously. None.? ? Recent medical care: Not recently seen/assessed.? ? REVIEW OF SYSTEMS No headache, dizziness, weakness, chest pain or palpitations.? No abdominal pain, vomiting, diarrhea, black stools or numbness.? No fever, sore throat, cough, difficulty breathing or urinary frequency.? No skin rash, enlarged lymph nodes, joint pain, weight loss or laceration.? ? PAST HISTORY See nurses notes.? Hypertension.? GI disease.? ( PCP - none).? Asthma.? Hypokalemia.? Hepatitis.? Gastroesophageal reflux.? Anxiety.? Bipolar disorder.? Depression.? Alcoholism.? Substance abuse.? ( Lifestyle/Substance Problems).? ? Surgeries: Adenoidectomy.? Tonsillectomy.? (Pyloric Stenosis Surgery).? ? SOCIAL HISTORY Current every day heavy tobacco smoker (cigarette)- less than 1 pack per day. Heavy alcohol use. Last drink was just prior to arrival.? History of heavy drug use: methamphetamines, marijuana. Recently used drugs just prior to arrival.? ? ADDITIONAL NOTES The nursing notes have been reviewed.? Hospital Course Hospital Course He slowly acclimated to the individual, group and milieu therapies provided. It became apparent that his primary objective was to get connected with [facility] for his Suboxone treatment and a office setting given his logistical limitations. The social work team assisted him in navigating [facility] to that end which helped in making sure he had a right appointment but ended up putting that back in time. Also we attempted to collaborate with him to have his medication started here in the psychiatric unit and have them give him a prescription until his appointment as a bridge which we could not accomplish. He felt some optimism at seeing the light in the tunnel. He did have modest improvement and was able to contract for safety outside of the hospital prior to discharge. During the hospitalization, patient had routine laboratory studies which were within normal limits except for few outliers. Additionally there was a general medical evaluation which was also within normal limits and revealed no new acute processes. Discharge Summary: At the time of discharge, he denied psychosis or lethality. Mood and anxiety were well managed. Patient endorsed a plan to avoid all drugs of abuse and follow-up with the aftercare recommendations of the treatment team. Patient was evaluated and deemed to be absent credible lethality, and had achieved the maximum benefit from an inpatient hospitalization, so was discharged. Involuntary Hold Information 96 Hour Hold: 96 Hour Involuntary Admission: No Mental Status Exam MSE Comments: This is an overweight white male with in hospital scrubs with limited grooming and eye contact. No abnormal movements except for psychomotor retardation. Cooperative with exam in no acute distress. Speech was decreased rate and volume. Mood described as a little better, affect congruent. Thought process organized, thought content: patient denies suicidal or homicidal ideation, there were no delusions reported or noted, he denied any auditory or visual hallucinations. Attention and concentration were intact and memory appeared reliable but none were formally tested. He is alert and oriented times three. Insight and judgment appeared fair and impulse control appeared limited. Discharge Data Studies Completed and Pending: Laboratory Results WBC 4.7 10^3/uL (4.0- 10.0) 07/13/22 01:13 RBC 4.02 10^6/uL (4.1 -5.3) L 07/13/22 01:13 Hgb 13.5 g/dL (11.7-1 6.6) 07/13/22 01:13 Hct 38.2 % (42.0-52.0 ) L 07/13/22 01:13 MCV 95.0 fl (80-94) H 07/13/22 01:13 MCH 33.6 pg (28.0-34. 0) 07/13/22 01:13 MCHC 35.3 g/dL (30.0-3 6.0) 07/13/22 01:13 RDW 10.9 % (12.1-15.1 ) L 07/13/22 01:13 Plt Count 145 10^3/cmm (130 -400) 07/13/22 01:13 MPV 10.5 fL (7.4-10.4 ) H 07/13/22 01:13 Neut % (Auto) 52.5 % 07/13/22 01:13 Lymph % (Auto) 34.0 % 07/13/22 01:13 [place] % (Auto) 9.1 % 07/13/22 01:13 Eos % (Auto) 3.8 % 07/13/22 01:13 Baso % (Auto) 0.4 % 07/13/22 01:13 Neut # (Auto) 2.47 10^3/uL (1.8 -7.7) 07/13/22 01:13 Lymph # (Auto) 1.6 10^3/uL (0.8- 4.8) 07/13/22 01:13 [place] # (Auto) 0.4 10^3/uL (0.2- 0.9) 07/13/22 01:13 Eos # (Auto) 0.2 10^3/uL (0.0- 0.8) 07/13/22 01:13 Baso # (Auto) 0.0 10^3/uL (0.0- 0.1) 07/13/22 01:13 Nucleated RBC % (a uto) 0 % 07/13/22 01:13 Nucleated RBCs # 0.0 /100WBC 07/13/22 01:13 Sodium 141 mmol/L (136-1 45) 07/13/22 01:13 Potassium 3.6 mmol/L (3.5-5 .1) 07/13/22 01:13 Chloride 103 mmol/L (98-10 7) 07/13/22 01:13 Carbon Dioxide 25 mmol/L (22-29) 07/13/22 01:13 Anion Gap 16.6 (5-19) 07/13/22 01:13 BUN 11 mg/dL (6-20) 07/13/22 01:13 Creatinine 0.8 mg/dL (0.7-1. 2) 07/13/22 01:13 GFR Calculation 114.3 mL/min (90- 130) 07/13/22 01:13 Glucose 85 mg/dL (65-115) 07/13/22 01:13 Calculated Osmolal ity 291 mOsm/kg (285- 295) 07/13/22 01:13 Calcium 9.0 mg/dL (8.5-10 .5) 07/13/22 01:13 Total Bilirubin 0.7 mg/dL (0.15-1 .2) 07/13/22 01:13 AST 93 U/L (0-40) H 07/13/22 01:13 ALT 170 U/L (0-41) H 07/13/22 01:13 Alkaline Phosphata se 62 U/L (40-130) 07/13/22 01:13 Total Protein 7.2 g/dL (6.6-8.7 ) 07/13/22 01:13 Albumin 4.3 g/dL (3.5-5.2 ) 07/13/22 01:13 Globulin 2.9 g/dL (1.3-4.6 ) 07/13/22 01:13 Salicylates < 0.3 mg/dL (3-10 ) L 07/13/22 01:13 Urine Opiates Scre en Negative ng/mL (N egative) 07/13/22 01:18 Acetaminophen < 5.0 ug/mL (10-3 0) L 07/13/22 01:13 Ur Barbiturates Sc reen Negative ng/mL (N egative) 07/13/22 01:18 Ur Phencyclidine S crn Negative ng/mL (N egative) 07/13/22 01:18 Ur Amphetamines Sc reen Positive ng/mL (N egative) H 07/13/22 01:18 U Benzodiazepines Scrn Negative ng/mL (N egative) 07/13/22 01:18 Urine Cocaine Scre en Negative ng/mL (N egative) 07/13/22 01:18 U Marijuana (THC) Screen Negative ng/mL (N egative) 07/13/22 01:18 Ethyl Alcohol 28 mg/dL (0-10) H 07/13/22 01:13 Vitals: Last Vital Signs Temp 98 F 07/15/22 06:00 Pulse 73 07/15/22 14:00 Resp 16 07/15/22 14:00 BP 109/60 07/15/22 14:00 Pulse Ox 98 07/15/22 14:00 O2 Del Method 07/15/22 14:00 Discharge Plan Discharge Patient Disposition: Home Condition: Stable Prescriptions: Continued trazodone 50 mg Tablet 50 mg PO BEDTIME PRN (Reason: Insomnia) 30 Days Qty: 30 1RF olanzapine 5 mg Tablet 7.5 mg PO BEDTIME 30 Days Qty: 45 1RF omeprazole 40 mg capsule,delayed release(DR/EC) 40 mg PO DAILY 30 Days Qty: 30 1RF Vitamin B-1 (mononitrate) 100 mg Tablet 100 mg PO DAILY 30 Days Qty: 30 1RF Discharge Orders: Discharge Order (Routine); Ordered 07/15/22 Ordered By: Ghulam Szymanski Referrals: [facility] [Other] Mary Nina APRN [Nurse Practitioner] - 07/19/22 (Follow up) Discharge Diet: Regular Discharge Activity: Resume usual activity Patient Instructions: Olanzapine (By mouth), Opioid Safety Discharge Attestations NPU Time Spent in Discharge Care*: less than 30 min Specific Discharge Activities: Specific discharge activities: educating patient, discussing with bottle caser/social workers/dc planners, documenting/other paperwork and evaluating patient/reviewing data Coding Level of Care Code Acute Chg FW DC note Diagnoses Bipolar disorder F31.9 Alcohol use disorder, severe, dependence F10.20 Opioid use disorder, severe, dependence F11.20
[2022-07-15 16:44] VITALS: BP 109/60; PULSE 73; RESP 16; TEMP 37.1; O2SAT 98
--- NOTE | 2022-07-15 16:45 | PC.NURSE ---
DISCHARGE NOTE PTS GIRLFRIEND NOTIFIED SOCIAL WORKERS THAT GUNS HAVE BEEN REMOVED FROM HOME AND IT SAFE FOR HIS RETURN
== END 2022-07-15 17:02 | disposition home or self-care (01) | DRG 885 ==
LOC: ER 02:03 → NP 02:10
PROVIDERS: Admitting Provider Psychiatry & Neurology Psychiatry; Emergency Provider Emergency Medicine; Visit Provider Psychiatry & Neurology Psychiatry
DX: F31.9 Bipolar disorder, unspecified (principal); F19.20 Other psychoactive substance dependence, uncomplicated; R45.851 Suicidal ideations; Z59.00 Homelessness unspecified; F17.210 Nicotine dependence, cigarettes, uncomplicated; F10.20 Alcohol dependence, uncomplicated; Z79.891 Long term (current) use of opiate analgesic
CPT/HCPCS: 80053; 80306; 80307; 85025; 97165; 99285

== ENCOUNTER 2022-07-22 06:31 | Emergency (ER) | payer MEDICAID, SELFPAY ==
[2022-07-22 06:35] VITALS: BP 125/78; PULSE 111; RESP 18; TEMP 36.4; O2SAT 98; BMI 25.4
--- NOTE | 2022-07-22 06:35 | ED_ITS ---
HPI - Skin/Abscess/Foreign Bdy General: Chief complaint: Skin/Abscess/Foreign Body Stated complaint: skin infection Time Seen by Provider: 07/22/22 06:34 History of Present Illness: 27-year-old gentleman with complex past history of substance abuse and psychiatric disorder presenting to the ER with various concerns. He reports a few week history of intermittent flank pain associated with some urinary hesitancy and dysuria and is concerned about sexually transmitted infections. He denies testicular pain, urethral discharge, penile pain, or other associated genital specific concerns. Additionally few days ago he noticed a skin lesion on the lateral aspect of his right proximal lower leg. He reports some yellowish discharge and mild associated discomfort. He thinks this may be related to other people with similar lesions though this does not appear vesicular or umbilicated. He does endorse being out of his clonidine as well. Overall course of symptoms has persisted. Intensity is mild to moderate. No other specific changes in health, exacerbating, or alleviating factors identified. Onset (ago): day(s) Severity: mild Review of Systems General: Reports: 10 or more systems reviewed and unremarkable except in HPI and below PFSH ED PFSH: Medical History (Updated 07/22/22 @ 06:57 by Raphael Metz MD) Mood disorder Polysubstance (including opioids) dependence, daily use Psychiatric care Pyloric stenosis Social History Smoking and tobacco status: current every day smoker cigarettes Packs smoked per day: 0.5 Years cigarettes smoked: 11 Quit status (tobacco): has tried quititng Number of times tried to quit tobacco: 5 Second hand smoke exposure: No Smoking risk assessment/counseling performed?: No Alcohol intake: former Physical Exam Const: COMMON NORMALS: alert GENERAL APPEARANCE: cooperative and well developed HENMT: COMMON NORMALS: normocephalic and atraumatic HEAD & SCALP: normocephalic and atraumatic Eye: COMMON NORMALS: conjunctivae normal CONJUNCTIVA: Yes conjunctivae normal SCLERA: sclerae normal Neck/C-Spine: COMMON NORMALS: supple GENERAL: Yes trachea midline Resp: COMMON NORMALS: normal respiratory effort EFFORT & INSPECTION: Yes able to speak in complete sentences Cardio: COMMON NORMALS: regular rhythm RATE: tachycardic RHYTHM: regular rhythm GI: COMMON NORMALS: Soft to palpation PALPATION: Yes Soft to palpation and No Tenderness to palpation present (GI) Extremity: GENERAL: Yes normal exam except as noted and No edema Neuro: COMMON NORMALS: moves all extremities SENSORIUM/ORIENTATION: Yes alert and No Orientation impaired Psych: ACTIVITY/MOTOR BEHAVIOR: Yes fidgeting and Yes restless Skin: NARRATIVE SKIN EXAM: Approximately 1 cm erythematous with central scab lesion to the lateral right lower leg. No evidence of surrounding lesions. No vesicular or umbilicated lesion. No evidence of joint involvement. Course Vital Signs: Vital signs: Vital Signs Temperature 97.5 F L 07/22/22 06:35 Pulse Rate 111 H 07/22/22 06:35 Respiratory Rate 18 07/22/22 06:35 Blood Pressure 125/78 07/22/22 06:35 Pulse Oximetry 98 07/22/22 06:35 Oxygen Delivery Me thod 07/22/22 06:35 MDM - Skin/Abscess/Foreign Bdy Medicial Decision Making 27-year-old gentleman presenting with various concerns. Patient appears somewhat fidgety and does endorse that he has been out of his Suboxone for approximately 2 days. He does have a plan to go to clinic and get it today however this explains tachycardia and overall clinical appearance. He denies suicidal or homicidal ideation. Patient is nontoxic in appearance and I do not believe that he has sepsis from any particular source. Initial plan was to obtain urine and likely treat empirically for STI. Shortly after my assessment of patient he expressed to nurse a desire to leave if I was not also going to perform blood work. Based on overall clinical appearance and history I do not feel that blood work including testing that he requested such as hep C viral load is warranted from the emergency department. This is most appropriate for outpatient. Empiric treatment for STIs ordered with Rocephin and doxycycline, doxycycline also will cover some skin infections. Satisfactory for outpatient management, patient expresses plan to go to public health. Medical Records I reviewed the patient's medical records. Lab Data I reviewed the patient's lab results. Discharge Plan Discharge Patient Disposition: Home Clinical Impression: Skin lesion, Concern about sexually transmitted disease in male without diagnosis Condition: Stable Prescriptions: New doxycycline hyclate 100 mg capsule 100 mg PO Q12H 7 Days Qty: 14 0RF No Action trazodone 50 mg Tablet 50 mg PO BEDTIME PRN (Reason: Insomnia) 30 Days Qty: 30 1RF olanzapine 5 mg Tablet 7.5 mg PO BEDTIME 30 Days Qty: 45 1RF omeprazole 40 mg capsule,delayed release(DR/EC) 40 mg PO DAILY 30 Days Qty: 30 1RF Vitamin B-1 (mononitrate) 100 mg Tablet 100 mg PO DAILY 30 Days Qty: 30 1RF Discharge Orders: Discharge ED (Routine); Ordered 07/22/22 Ordered By: Raphael Metz Discharge Diet: Usual diet Discharge Activity: Increase activity as tolerated Patient Instructions: Safe Sex Practices (ED), Acute Wounds (DC) Activity Restrictions/Additional Instructions: Thank you for visiting the emergency department. You were seen and evaluated fo r concern over skin lesions and urinary symptoms. Without further evaluation I am unable to fully assess the cause of your urinary symptoms however given your concern over sexually transmitted infections you will be treated empirically. Please follow-up with a primary care provider. Please establish with a primary care provider if you do not currently have one. I recommend taking your antipsychotics as prescribed and other medications as prescribed as well. Return to the emergency department for anything that you are concerned about a feel needs emergency department evaluation. Coding Level of Care Code ED Event Representative for Marie Panda Exam Comprehensive
[2022-07-22] MEDS: doxycycline 100 mg Tablet PO (07:02)
== END 2022-07-22 07:27 | disposition home or self-care (01) ==
PROVIDERS: Emergency Provider Emergency Medicine
DX: L98.9 Disorder of the skin and subcutaneous tissue, unspecified (principal); Z20.2 Contact with and (suspected) exposure to infections with a predominantly sexual mode of transmission; F17.210 Nicotine dependence, cigarettes, uncomplicated
CPT/HCPCS: 96372; 99284; J0696

== ENCOUNTER 2022-08-20 17:38 | Inpatient (IN) | payer MEDICAID, SELFPAY ==
[2022-08-20] VITALS (10 sets, daily range): BP systolic 141–143; BP diastolic 77–88; PULSE 73–95; RESP 15–22; TEMP 36.9–37.4; O2SAT 95–100; BMI 27.1
--- NOTE | 2022-08-20 17:56 | ED.C_ITS ---
HPI - Psych General: Chief Complaint: Psychiatric Symptoms Stated Complaint: wants to be 96ed Time Seen by Provider: 08/20/22 17:56 History of Present Illness: Mr. Ledezma is a 27-year-old gentleman with family history of bipolar disorder and polysubstance abuse who presents to the em ergency department due to psychiatric symptoms. He has a longstanding history of substance abuse and was recently in a drug and alcohol rehab program from which he was kicked out of few days ago. Since that time he has relapsed including drinking alcohol just before coming in and using injectable opioids earlier this morning. He states that he needs a lifestyle change because this current situation is waking him feel like dying. He denies specific plan. Otherwise denies medical complaints. No other specific changes in health, exacerbating, or alleviating factors identified. Onset (ago): day(s) Duration: getting worse History of same: Yes Exacerbating factors: alcohol and drug use Context: recent alcohol abuse and recent drug abuse Review of Systems General: Reports: 10 or more systems reviewed and unremarkable except in HPI and below PFSH ED PFSH: Medical History Mood disorder Polysubstance (including opioids) dependence, daily use Psychiatric care Pyloric stenosis Social History Smoking and tobacco status: current every day smoker cigarettes Packs smoked per day: 0.5 Years cigarettes smoked: 11 Quit status (tobacco): has tried quititng Number of times tried to quit tobacco: 5 Second hand smoke exposure: No Smoking risk assessment/counseling performed?: No Alcohol intake: former Physical Exam Const: COMMON NORMALS: alert GENERAL APPEARANCE: cooperative and well developed HENMT: COMMON NORMALS: normocephalic and atraumatic HEAD & SCALP: normocephalic and atraumatic Eye: COMMON NORMALS: conjunctivae normal CONJUNCTIVA: Yes conjunctivae n ormal SCLERA: sclerae normal Neck/C-Spine: COMMON NORMALS: supple GENERAL: Yes trachea midline Resp: COMMON NORMALS: normal respiratory effort EFFORT & INSPECTION: Yes able to speak in complete sentences Cardio: COMMON NORMALS: regular rate and regular rhythm RATE: regular rate RHYTHM: regular rhythm GI: COMMON NORMALS: Soft to palpation PALPATION: Yes Soft to palpation and No Tenderness to palpation present (GI) PERCUSSION: normal to percussion Extremity: GENERAL: Yes normal exam except as noted and No edema Neuro: COMMON NORMALS: moves all extremities SENSORIUM/ORIENTATION: Yes alert and No Orientation impaired Psych: COMMON NORMALS: mental status grossly normal and Normal thought process present ATTITUDE: Yes Guarded attititude/behavior present MOOD & AFFECT: Yes depressed mood THOUGHT PROCESS: Normal thought process present Course Vital Signs: Vital signs: Vital Signs Temperature 98.6 F 08/26/22 16:25 Pulse Rate 72 08/26/22 16:25 Respiratory Rate 14 08/26/22 16:25 Blood Pressure 117/62 08/26/22 16:25 Pulse Oximetry 92 08/26/22 16:25 Oxygen Delivery Me thod 08/26/22 06:00 MDM - Psych Medical Decision Making 27-year-old gentleman presenting with psychiatric symptoms in the context of substance abuse. Laboratory studies reviewed. Based on ED evaluation at this time there is no obvious condition that would preclude the patient from inpatient management of psychiatric symptoms. Admitted to neuropsychiatric unit for further management. Medical Records I reviewed the patient's medical records. Lab Data I reviewed the patient's lab results. : 08/20/22 19:17 08/20/22 19:17 Laboratory Results WBC 4.2 10^3/uL (4.0-10.0) 08/20/22 19:17 RBC 3.95 10^6/uL (4.1-5.3) L 08/20/22 19:17 Hgb 13.8 g/dL (11.7-16.6) 08/20/22 19:17 Hct 36.8 % (42.0-52.0) L 08/20/22 19:17 MCV 93.2 fl (80-94) 08/20/22 19:17 MCH 34.9 pg (28.0-34.0) H 08/20/22 19:17 MCHC 37.5 g/dL (30.0-36.0) H 08/20/22 19:17 RDW 12.7 % (12.1-15.1) 08/20/22 19:17 Plt Count 166 10^3/cmm (130-400) 08/20/22 19:17 MPV 10.6 fL (7.4-10.4) H 08/20/22 19:17 Neut % (Auto) 45.7 % 08/20/22 19:17 Lymph % (Auto) 42.1 % 08/20/22 19:17 [place] % (Auto) 7.2 % 08/20/22 19:17 Eos % (Auto) 4.5 % 08/20/22 19:17 Baso % (Auto) 0.5 % 08/20/22 19:17 Neut # (Auto) 1.91 10^3/uL (1.8-7.7) 08/20/22 19:17 Lymph # (Auto) 1.8 10^3/uL (0.8-4.8) 08/20/22 19:17 [place] # (Auto) 0.3 10^3/uL (0.2-0.9) 08/20/22 19:17 Eos # (Auto) 0.2 10^3/uL (0.0-0.8) 08/20/22 19:17 Baso # (Auto) 0.0 10^3/uL (0.0-0.1) 08/20/22 19:17 Nucleated RBC % (auto) 0 % 08/20/22 19:17 Nucleated RBCs # 0.0 /100WBC 08/20/22 19:17 Sodium 143 mmol/L (136-145) 08/20/22 19:17 Potassium 3.6 mmol/L (3.5-5.1) 08/20/22 19:17 Chloride 107 mmol/L (98-107) 08/20/22 19:17 Carbon Dioxide 23 mmol/L (22-29) 08/20/22 19:17 Anion Gap 16.6 (5-19) 08/20/22 19:17 BUN 11 mg/dL (6-20) 08/20/22 19:17 Creatinine 0.6 mg/dL (0.7-1.2) L 08/20/22 19:17 GFR Calculation 159.3 mL/min (90-130) H 08/20/22 19:17 Glucose 86 mg/dL (65-115) 08/20/22 19:17 Calculated Osmolality 295 mOsm/kg (285-295) 08/20/22 19:17 Calcium 9.0 mg/dL (8.5-10.5) 08/20/22 19:17 Total Bilirubin 0.2 mg/dL (0.15-1.2) 08/20/22 19:17 AST 85 U/L (0-40) H 08/20/22 19:17 ALT 124 U/L (0-41) H 08/20/22 19:17 Alkaline Phosphatase 63 U/L (40-130) 08/20/22 19:17 Total Protein 6.8 g/dL (6.6-8.7) 08/20/22 19:17 Albumin 4.1 g/dL (3.5-5.2) 08/20/22 19:17 Globulin 2.7 g/dL (1.3-4.6) 08/20/22 19:17 TSH 2.62 uIU/mL (0.27-4.20) 08/20/22 19:17 Urine Color Yellow (Yellow) 08/20/22 18:11 Urine Appearance Clear (CLEAR) 08/20/22 18:11 Urine pH 5 (5-7) 08/20/22 18:11 Ur Specific [place] 1.025 (1.005-1.030) 08/20/22 18:11 Urine Protein Neg (Negative) 08/20/22 18:11 Urine Glucose (UA) Norm (Normal) 08/20/22 18:11 Urine Ketones Negative (Negative) 08/20/22 18:11 Urine Blood Neg (Negative) 08/20/22 18:11 Urine Nitrate Negative (Negative) 08/20/22 18:11 Urine Bilirubin Neg (Negative) 08/20/22 18:11 Urine Urobilinogen Neg mg/dL (Negative) 08/20/22 18:11 Ur Leukocyte Esterase Negative (Negative) 08/20/22 18:11 Salicylates < 0.3 mg/dL (3-10) L 08/20/22 19:17 Urine Opiates Screen Negative ng/mL (Negative) 08/20/22 18:11 Acetaminophen < 5.0 ug/mL (10-30) L 08/20/22 19:17 Ur Barbiturates Screen Negative ng/mL (Negative) 08/20/22 18:11 Ur Phencyclidine Scrn Negative ng/mL (Negative) 08/20/22 18:11 Ur Amphetamines Screen Negative ng/mL (Negative) 08/20/22 18:11 U Benzodiazepines Scrn Negative ng/mL (Negative) 08/20/22 18:11 Urine Cocaine Screen Negative ng/mL (Negative) 08/20/22 18:11 U Marijuana (THC) Screen Positive ng/mL (Negative) H 08/20/22 18:11 Ethyl Alcohol 112 mg/dL (0-10) H 08/20/22 19:17 HIV-1 Antibody Cancelled 08/20/22 19:17 HIV-1 DNA/RNA Qual PCR Cancelled 08/20/22 19:17 HIV-2 Antibody Cancelled 08/20/22 19:17 HIV 1&2 Ab & HIV 1 Ag Non-reactive (Non-Reactiv) 08/20/22 19:17 HIV 1&2 Ag/Ab, 4th Gen Cancelled 08/20/22 19:17 HIV 1&2 Antibody Non-reactive (Non-Reactiv) 08/20/22 19:17 Discharge Plan Discharge Patient Disposition: Admitted As Inpatient Admit Provider: Ghulam Szymanski Clinical Impression: Suicidal ideation Condition: Stable Discharge Diet: Advance as tolerated Discharge Activity: Resume usual activity Coding Level of Care Code ED Biomedical Engineering Aide for Marie Panda
[2022-08-20 18:59] LABS: Add Urine Microscopic? NO; Charge for UA Resulting for Rev
--- NOTE | 2022-08-20 19:00 | PC.NURSE ---
report received from off going nurse, assumed care of patient at this time. confirmed with dr nevarez patient is not on a legal hold, that we are awaiting dr jackson to interview and make decision for disposition.
--- NOTE | 2022-08-20 19:01 | PC.NURSE ---
patient in paper scrubs, belongings locked in NPU cabinet.
[2022-08-20 19:02] LABS: Bilirubin Urine Neg (Negative); Blood Urine Neg (Negative); Glucose Urine UA Norm (Normal); Ketones Urine Negative (Negative); Leukocyte Esterase Urine Negative (Negative); Nitrate Urine Negative (Negative); Protein Urine Neg (Negative); Specific Gravity, Urine 1.025 (1.005-1.030); Urine Appearance Clear (CLEAR); Urine Color Yellow (Yellow); Urobilinogen Urine Neg (Negative); pH Urine 5 (5-7)
[2022-08-20 19:10] LABS: Amphetamines Screen Urine Negative (Negative); Barbiturates Screen Urine Negative (Negative); Benzodiazepines Screen Urine Negative (Negative); Cocaine Screen Urine Negative (Negative); Opiate Screen Urine Negative (Negative); PCP Screen Urine Negative (Negative); THC Screen Urine Positive (Negative)
[2022-08-20 19:24] LABS: Basophils % 0.5 %; Eosinophils # 0.2 10^3/uL (0.0-0.8); Eosinophils % 4.5 %; Hematocrit 36.8 % (42.0-52.0); Hemoglobin 13.8 g/dL (11.7-16.6); Lymphocytes # 1.8 10^3/uL (0.8-4.8); Lymphocytes % 42.1 %; Mean Corpuscular HGB Conc 37.5 g/dL (30.0-36.0); Mean Corpuscular Hemoglobin 34.9 pg (28.0-34.0); Mean Corpuscular Volume 93.2 fl (80-94); Mean Platelet Volume 10.6 fL (7.4-10.4); Monocytes # 0.3 10^3/uL (0.2-0.9); Monocytes % 7.2 %; Neutrophils # 1.91 10^3/uL (1.8-7.7); Neutrophils % 45.7 %; Nucleated Red Blood Cells % 0 %; Platelet Count 166 10^3/cmm (130-400); Red Blood Count 3.95 10^6/uL (4.1-5.3); Red Cell Distribution Width 12.7 % (12.1-15.1); White Blood Count 4.2 10^3/uL (4.0-10.0)
[2022-08-20] MEDS: LORazepam 0.5 mg Tablet PO (19:24)
--- NOTE | 2022-08-20 19:25 | PC.NURSE ---
patient sitting up on side of bed, in line of sight of staff, calm cooperative, affect is calm and appropriate, eating meal. ordered med given for reported anxiety.
[2022-08-20 20:04] LABS: Albumin Level 4.1 g/dL (3.5-5.2); Alkaline Phosphatase 63 U/L (40-130); Blood Urea Nitrogen 11 mg/dL (6-20); Carbon Dioxide 23 mmol/L (22-29); Chloride 107 mmol/L (98-107); Globulin 2.7 g/dL (1.3-4.6); Glomerular Filtration Rate 159.3 mL/min (90-130); Glucose 86 mg/dL (65-115); Osmolality Calculated 295 mOsm/kg (285-295); Sodium 143 mmol/L (136-145); Thyroid Stimulating Hormone 2.62 uIU/mL (0.27-4.20); Total Bilirubin 0.2 mg/dL (0.15-1.2); Total Protein 6.8 g/dL (6.6-8.7)
[2022-08-20 20:11] LABS: Acetaminophen < 5.0 ug/mL (10-30); Anion Gap 16.6 (5-19); Potassium 3.6 mmol/L (3.5-5.1); Salicylate < 0.3 mg/dL (3-10)
[2022-08-20 20:39] LABS: Alcohol Level 112 mg/dL (0-10)
[2022-08-20 21:00] LABS: Alanine Aminotransferase 124 U/L (0-41); Aspartate Amino Transferase 85 U/L (0-40)
--- NOTE | 2022-08-20 21:40 | PC.NURSE ---
report called to Luis STROUD, accepted to rm 155-1 in NPU.
--- NOTE | 2022-08-20 22:05 | PC.NURSE ---
belongings brought with patient to NPU, including : shoes, socks, shirts, pants, cell phone, wallet and wallet contents.
[2022-08-20] MEDS: OLANZapine 5 mg TABLET 7.5 MG PO ×3 (22:19→22:27)
--- NOTE | 2022-08-20 23:30 | PC.NURSE ---
2200 admit from ER via staff escort and w/c. Voluntary status, he had ask for a 96 hr in the ER. Good affect, conversation is oriented, goal directed, evades some questions. Can be a poor historian. Pt has a slightly entitled attitude when talking with staff. Denies medical Hx. Allergies: Morphine Sulfate, Ziprasidone, Paroxetine, Aripiprazole, Doxepin. Stated he has been off his regular medications for 1 week. However, can not tell this development writer what his routine meds are. State last ETOH and THC was just before arrival to the ER. Oriented to unit.
[2022-08-21 06:00] VITALS: BP 135/85; PULSE 80; RESP 18; TEMP 36.8; O2SAT 99
--- NOTE | 2022-08-21 07:59 | P.NPUHP_ITS ---
Providers/Chief Complaint Admitting Physician: Ghulam Szymanski MD Chief Complaint: wants to be 96ed HPI NPU History of Present Illness Bolivar Ledezma is a 27 year old male who presented to the ED with the foll owing report: Chief Complaint: Psychiatric Symptoms Stated Complaint: wants to be 96ed Time Seen by Provider: 08/20/22 17:56 History of Present Illness: Mr. Ledezma is a 27-year-old gentleman with family history of bipolar disorder and polysubstance abuse who presents to the emergency department due to psychiatric symptoms. He has a longstanding history of substance abuse and was recently in a drug and alcohol rehab program from which he was kicked out of few days ago. Since that time he has relapsed including drinking alcohol just before coming in and using injectable opioids earlier this morning. He states that he needs a lifestyle change because this current situation is waking him feel like dying. He denies specific plan. Otherwise denies medical complaints. No other specific changes in health, exacerbating, or alleviating factors identified. He was admitted to the neuropsychiatric unit for definitive treatment of those issues. He present today reporting that after his last discharge that he went to a program for a couple weeks and has been off of Suboxone or opiates because they did not allow. He reports he got kicked out of the program because of some interaction with another participant and came back to [place] and family self feeling like he had no options and was unclear about what his next move should be to avoid suicidal behavior or drug abuse. He reports that he is off of his Zyprexa which was 50 mg p.o. twice daily for 2 weeks and feels that he is doing much better on it. We discussed his benefits and alternatives of restarting that as he milligrams p.o. twice daily and then titrating that up. He reports that he is homeless, off his medication and so he is spinning out of control. He agreed to proceed with this plan as is documented in this note. An excerpt of his last hospitalization about a month ago is included below as there have been no substantive changes except those noted above. Per in [facility] 07/13/22 inpatient psychiatric evaluation: History of Present Illness Bolivar Ledezma is a 27 year old male who presented to the emergency department with the following report: Chief Complaint: Psychiatric Symptoms Stated Complaint: anxiety Time Seen by Provider: 07/13/22 00:48 Source: patient Mode of arrival: ambulatory Limitations: no limitations History of Present Illness: Time he did [id number] male has a history of heroin abuse he states that he has been in and out of correction and is homeless states that he keeps relapsing on heroin and is feeling helpless he states he has been having increased depression with some suicidal thoughts wants to be admitted is any worsening improving factors. Denies any specific plan. Associated symptoms: Reports depression. He was admitted to the neuropsychiatric unit for definitive treatment of those issues. Patient presents today reporting that since the time he saw me back in August 2019 he has had some good days and bad times. An excerpt of that note is included below for context. He presents today reporting that he has had significant inpatient and outpatient services since he saw me then. He had been consistent with outpatient services at [facility] as recently as the end of summer 2020. He was inpatient last month and left connected with Suboxone treatment. He reports that in general he feels like he is been doing well but he has recently struggled with his drug use. He reports that he had some heroin o verdoses and that he did get his Medicaid in place but he is working and is without transportation and the closest Suboxone place requires daily visits and he is unable to make it there due to transportation. He reports that is created a very dangerous situation and he came in because of suicidal thoughts and fears that his addiction would lead to completed overdose. He reports that he actually has an appointment on 3 with a provider that we will do office-based treatment but he was feeling like he might not make it that far due to his most recent behavior. He reports that he currently is homeless still and that creates a challenge and he is trying to get these final pieces in place so that he believes he will be able to finally stabilize and be functional again. We agreed that he would assist us in finding the name of the doctor who he is set up with next Monday and that we might be able to collaborate to create a safe bridge to that appointment. Otherwise he reports that he is doing fine on his medication and he feels safe here in the facility. Per his 09/13/2019 [facility] inpatient psychiatric evaluation: Date of Service: Sep 13, 2019 Chief Complaint: I'm struggling. HPI: Chance presents today reporting that he struggles with very low frustration tolerance. He reports that his anxiety is through the roof. He reports that he had a rough go of it. That he screams, cries and that his new relationship isn't going well secondary to his poor behavior.He reports that in March of this year he lost the second of his twins that were born at 28 weeks. He reports that he and his significant other went several stays away to try to get away from the memories and fine work. He reports that that lasted a short period of time and that they return to [place] but that the ghosts and demons were too much. They split up and he hooked up with a new girlfriend who has 3 kids. He tried to drown his memories in her children. But that didn't work and his add iction started getting the best of him and he knows he needs help. His goal in plan is to the get into an inpatient rehabilitation and he reports he has a bed waiting for him on 1024 but he wasn't sure he go that long without a slip up. He reports doing was 14 he started smoking cigarettes, drinking alcohol and smoking marijuana by 15 he was doing everything else. By 17 or 18. Connected with heroin and alcohol heroin and methamphetamine became his problems. He reported that apparently before and that he is hopefully going to go back there for inpatient. He is on a 96 hour hold secondary secondary to his erratic behavior off of this medication and was active addiction. Psychiatric history: He reports he's been hospitalized 4 times and he's been on different medications but he reports that lithium and Depakote were the best. Research however does not uncover a time when he was on Depakote. But he has had reported benefits with lithium for some time. Substance abuse history: Patient reports he smokes a half a pack of cigarettes a day, he has alcohol use from time to time now, he has marijuana rarely cocaine rarely methamphetamine at times and pain pills/hair 1 have been a real problem. He's been in rehabilitation 4 times the last time being in 2018. He's had no DUIs. Per ED eval HISTORY OF PRESENT ILLNESS Chief Complaint: BEHAVIOR CHANGE and AGITATED, HOMICIDAL THOUGHTS, DELUSIONAL and HALLUCINATIONS. This started today 3 weeks ago. (24 yo male presents to ED with homicidal ideations, agitation, delusions, hallucinations and bizarre behavior. The patient has a history of psychiatric problems and quit taking his prescribed medications, instead he is self medicating with methamphetamines and marijuana. The patient had a butter knife on his person when he presented to the ED. The patient stated he feels like some people are trying to hurt him and are after him. He was going to use the butter knife on these people who are after him. The patient said the people were trying to run him over and all sort of shit .). No situational problems. He has exhibited a behavior change. but was not found wandering. He is non-compliant with medication. Recent drug use and alcohol consumption. Has exhibited unusual behavior but been eating or sleeping or not been depressed. No anxiety, anger, paranoia, suicidal thoughts or self-injury inflicted. He has had delusions and hallucinations. The symptoms are described as severe. No injury is present. Similar symptoms previously. None. Recent medical care: Not recently seen/assessed. REVIEW OF SYSTEMS No headache, dizziness, weakness, chest pain or palpitations. No abdominal pain, vomiting, diarrhea, black stools or numbness. No fever, sore throat, cough, difficulty breathing or urinary frequency. No skin rash, enlarged lymph nodes, joint pain, weight loss or laceration. PAST HISTORY See nurses notes. Hypertension. GI disease. ( PCP - none). Asthma. Hypokalemia. Hepatitis. Gastroesophageal reflux. Anxiety. Bipolar disorder. Depression. Alcoholism. Substance abuse. ( Lifestyle/Substance Problems). Surgeries: Adenoidectomy. Tonsillectomy. (Pyloric Stenosis Surgery). SOCIAL HISTORY Current every day heavy tobacco smoker (cigarette)- less than 1 pack per day. Heavy alcohol use. Last drink was just prior to arrival.? History of heavy drug use: methamphetamines, marijuana. Recently used drugs just prior to arrival.? Meds NPU Home Medications Medication Instructions Recorded Confirmed Last Taken Type olanzapine 5 mg tablet 7.5 mg PO BEDTIME 30 days #45 tabs 07/15/22 08/20/22 Unknown Rx omeprazole 40 mg capsule,delayed 40 mg PO DAILY 30 days #30 caps 07/15/22 08/20/22 Unknown Rx release thiamine mononitrate (vit B1) 100 100 mg PO DAILY 30 days #30 tabs 07/15/22 08/20/22 Unknown Rx mg tablet (Vitamin B-1 (mononitrate)) trazodone 50 mg tablet 50 mg PO BEDTIME PRN Insomnia 30 07/15/22 08/20/22 Unknown Rx days #30 tabs Allergies Allergy/AdvReac Type Severity Reaction Status Date / Time morphine Allergy Severe Stops Verified 05/10/22 07:31 respiratory system ziprasidone [From Geodon] Allergy Severe Breathing Verified 05/10/22 07:31 problems and Pulse paroxetine Allergy Intermediate Fidgety, Verified 05/10/22 07:31 tingling all over, couldn't sleep, hot flashes aripiprazole [From Abilify] AdvReac Intermediate stomach Verified 05/10/22 07:31 upset, N & V doxepin AdvReac Intermediate ADR-Headach Verified 05/10/22 07:31 e PFSH NPU PFSH: Medical History Mood disorder Polysubstance (including opioids) dependence, daily use Psychiatric care Pyloric stenosis Social History Smoking and tobacco status: current every day smoker cigarettes Packs smoked per day: 0.5 Years cigarettes smoked: 11 Quit status (tobacco): has tried quititng Number of times tried to quit tobacco: 5 Second hand smoke exposure: No Smoking risk assessment/counseling performed?: No Alcohol intake: former Mental Status Exam MSE Comments: This is an overweight white male with in hospital scrubs with limited grooming and eye contact. Echymosis around eye. No abnormal movements except for psychomotor retardation. Cooperative with exam in mild to moderate distress. Speech was decreased rate and volume. Mood described as frustrated with myself, affect congruent. Thought process organized, thought content: patient denies suicidal or homicidal ideation, there were no delusions reported or noted, he denied any auditory or visual hallucinations. Attention and concentration were intact and memory appeared reliable but none were formally tested. He?s alert and oriented times three. Insight and judgment appeared fair and impulse control appeared limited. Vitals/I&O/Wt Last Vital Signs Temp 98.4 F 08/20/22 22:00 Pulse 74 08/20/22 22:00 Resp 18 08/20/22 22:01 BP 143/88 08/20/22 22:00 Pulse Ox 100 08/20/22 22:01 O2 Del Method 08/20/22 22:03 Weight last 48 hrs Weight 90.718 kg Weight 90.718 kg Data NPU : 08/20/22 19:17 08/20/22 19:17 A&P Assessment and plan (1) Bipolar disorder: (2) Alcohol use disorder, severe, dependence: (3) Opioid use disorder, severe, dependence: Plan This is a 27-year-old white male with a long history of inpatient and outpatient services and addiction with current active addiction particularly with opiates who presents after recent overdoses with depression, anxiety suicidality and hopelessness about getting connected with services. 1. Continue current medication. Restart zyprexa 10 mg po bid, with plan to titrate back to 15 mg po bid as was previous dose. 2. Continue every 15 minute checks for safety. 3. Encourage individual, group and milieu therapies. 4. Encourage sober living treatment after discharge at the highest level of care to which he is willing to commit. Involuntary Hold Information 96 Hour Hold: 96 Hour Involuntary Admission: No Attestations NPU Medical Necessity Statement*: Inpatient hospitalization is medically necessary and the clinically appropriate intervention at this time. We will monitor medication to make changes as indicated. Patient will be in the hospital for over two midnights. Likely length of stay 2-4 days. Coding Level of Care Code Acute Tobacco Sprayer for Marie Panda Diagnoses Bipolar disorder F31.9 Alcohol use disorder, severe, dependence F10.20 Opioid use disorder, severe, dependence F11.20
[2022-08-21] MEDS: multivitamin therapeutic Tablet 1 TAB PO (08:10)
[2022-08-21] MEDS: pantoprazole DR 40 mg Tablet PO (08:10)
[2022-08-21] MEDS: hyDROXYzine 25 mg Capsule 50 MG PO (08:10)
[2022-08-21] MEDS: thiamine 100 mg Tablet PO (08:10)
[2022-08-21] MEDS: folic acid 1 mg Tablet PO (08:10)
[2022-08-21] MEDS: OLANZapine 5 mg ODT PO (12:34)
[2022-08-21 14:00] VITALS: BP 143/78; PULSE 73; RESP 15; TEMP 36.6; O2SAT 99
[2022-08-21 20:26] VITALS: BP 134/85; PULSE 66; RESP 17; TEMP 36.6; O2SAT 98
[2022-08-21] MEDS: OLANZapine 10 mg TABLET PO (21:07)
[2022-08-22 06:00] VITALS: BP 150/92; PULSE 60; RESP 16; TEMP 36.6; O2SAT 99
[2022-08-22] MEDS: pantoprazole DR 40 mg Tablet PO (09:03)
[2022-08-22] MEDS: multivitamin therapeutic Tablet 1 TAB PO (09:03)
[2022-08-22] MEDS: thiamine 100 mg Tablet PO (09:03)
[2022-08-22] MEDS: folic acid 1 mg Tablet PO (09:03)
[2022-08-22] MEDS: haloperidol 5 mg Tablet PO (12:25)
[2022-08-22 14:00] VITALS: BP 115/70; PULSE 86; RESP 16; TEMP 36.3; O2SAT 99
[2022-08-22] MEDS: acetaminophen 325 mg Tablet 650 MG PO (14:43)
--- NOTE | 2022-08-22 19:48 | P.NPUPN_ITS ---
Subjective NPU Subjective: Patient is a 27-year-old white male with a history of opiate dependence along with alcohol dependence with a history of psychotic symptoms and reported history of bipolar disorder. Patient had reported that he was forced to get off of his medications at his previous living situation and it had led to his relapsing on opiates and alcohol. He had also reported that he had had a resumption in regards to his depression and auditory hallucinations. He reports some withdrawal symptoms of opiates including increased cravings. He had reported that he is willing to follow-up on an outpatient basis at [facility]. He reported restarting Zyprexa without any side effects. He reported improved sleep last night on the Zyprexa but continued to report that his depression was not good . Mental Status Exam MSE Comments: This is an overweight white male with in hospital scrubs with limited grooming and eye contact. Echymosis around eye. No abnormal movements except for psychomotor retardation. Cooperative with exam in mild to moderate distress. Speech was decreased rate and volume. Mood described not good. His affect was mood congruent and restricted in range. Thought process was organized, thought content: patient denies suicidal or homicidal ideation, there were no delusions reported or noted. Attention and concentration were intact and memory appeared reliable but none were formally tested. He?s alert and oriented times three. Insight and judgment appeared fair and impulse control appeared limited. Vitals/I&O/Wt Last Vital Signs Temp 97.4 F L 08/22/22 14:00 Pulse 86 08/22/22 14:00 Resp 16 08/22/22 14:00 BP 115/70 08/22/22 14:00 Pulse Ox 99 08/22/22 14:00 O2 Del Method 08/22/22 06:00 Weight last 48 hrs Weight 90.718 kg Data NPU : 08/20/22 19:17 08/20/22 19:17 A&P Assessment and plan (1) Bipolar disorder: (2) Alcohol use disorder, severe, dependence: (3) Opioid use disorder, severe, dependence: Plan This is a 27-year-old white male with a long history of inpatient and outpatient services and addiction with current active addiction particularly with opiates who presents after recent overdoses with depression, anxiety suicidality and hopelessness about getting connected with services. 1. Restart suboxone 8mg/2mg daily, continue zyprexa 10mg at night. 2. Continue every 15 minute checks for safety. 3. Encourage individual, group and milieu therapies. 4. Encourage sober living treatment after discharge at the highest level of care to which he is willing to commit. Involuntary Hold Information 96 Hour Hold: 96 Hour Involuntary Admission: No Attestations NPU Medical Necessity Statement*: Inpatient hospitalization is medically necessary and the clinically appropriate intervention at this time. We will monitor medication to make changes as indicated. Patient will be in the hospital for over two midnights. Likely length of stay 2-4 days. Coding Level of Care Code Established Pt Acute Latent Print Examiner for Chg Fwd Patient Type Established History Problem Focused Exam Problem Focused Medical Decision Making Straight Forward Diagnoses Bipolar disorder F31.9 Alcohol use disorder, severe, dependence F10.20 Opioid use disorder, severe, dependence F11.20
[2022-08-22 20:27] VITALS: BP 128/80; PULSE 75; RESP 18; TEMP 36.8; O2SAT 98
[2022-08-22] MEDS: trazodone 50 mg Tablet PO (21:13)
[2022-08-22] MEDS: OLANZapine 10 mg TABLET PO (21:13)
[2022-08-23 06:00] VITALS: BP 128/73; PULSE 63; RESP 16; TEMP 36.6; O2SAT 98
[2022-08-23] MEDS: multivitamin therapeutic Tablet 1 TAB PO (09:28)
[2022-08-23] MEDS: folic acid 1 mg Tablet PO (09:28)
[2022-08-23] MEDS: pantoprazole DR 40 mg Tablet PO (09:28)
[2022-08-23] MEDS: buprenorphine-naloxone 4-1 mg Film 2 EACH SUBLINGUAL (09:28)
[2022-08-23] MEDS: thiamine 100 mg Tablet PO (09:28)
[2022-08-23] MEDS: ondansetron 4 MG Tablet PO (11:40)
[2022-08-23 14:00] VITALS: BP 125/70; PULSE 68; RESP 15; TEMP 36.9; O2SAT 95
[2022-08-23] MEDS: hyDROXYzine 25 mg Capsule 50 MG PO (16:13)
[2022-08-23 16:57] LABS: HIV 1 & 2 Antibody Non-Reactive (Non-Reactiv); HIV 1 & 2 Antigen Non-Reactive (Non-Reactiv)
--- NOTE | 2022-08-23 18:51 | W.PM.NPUPNS ---
Subjective NPU Subjective: Patient is a 27-year-old white male with a history of opiate dependence along with alcohol dependence with a history of psychotic symptoms and reported history of bipolar disorder. Patient continues to endorse depressed mood. He reports that he continues to hear intense screaming in his ears and reports in the past that Zyprexa had been helpful. He had reported low energy and low motivation. He had continue to report report some sense of hopelessness and appeared to isolate himself on the milieu. The patient reports that he continues to have problems with completing routine activities and reports a lack of motivation and reports difficulties with concentration. He does report having some stable housing situation at this time. He had acknowledged that his methamphetamine may worsen his mood and increase his paranoia. Mental Status Exam MSE Comments: This is an overweight white male with in hospital scrubs with limited grooming and eye contact. Echymosis around eye. No abnormal movements except for significant psychomotor retardation. Cooperative with exam in mild to moderate distress. Speech was decreased rate and decreased volume. Mood described as terrible. His affect was mood congruent and restricted in range. Thought process was organized, thought content: patient denies suicidal or homicidal ideation, there were no delusions reported or noted. He did appear to be responding to internal stimuli. Attention span appeared impaired and concentration appeared impaired. a He?s alert and oriented times three. Insight and judgment appeared fair and impulse control appeared limited. Vitals/I&O/Wt Last Vital Signs Temp 98.5 F 08/23/22 14:00 Pulse 68 08/23/22 14:00 Resp 15 08/23/22 14:00 BP 125/70 08/23/22 14:00 Pulse Ox 95 08/23/22 14:00 O2 Del Method 08/23/22 14:00 Data NPU : 08/20/22 19:17 08/20/22 19:17 A&P Assessment and plan (1) Bipolar disorder: (2) Alcohol use disorder, severe, dependence: (3) Opioid use disorder, severe, dependence: Plan This is a 27-year-old white male with a long history of inpatient and outpatient services and addiction with current active addiction particularly with opiates who presents after recent overdoses with depression, anxiety suicidality and hopelessness about getting connected with services. 1. Increase suboxone 12mg/3mg daily, increase zyprexa 15mg at night. Add wellbutrin xl 150mg in am. 2. Continue every 15 minute checks for safety. 3. Encourage individual, group and milieu therapies. 4. Encourage sober living treatment after discharge at the highest level of care to which he is willing to commit. Involuntary Hold Information 96 Hour Hold: 96 Hour Involuntary Admission: No Attestations NPU Medical Necessity Statement*: Inpatient hospitalization is medically necessary and the clinically appropriate intervention at this time. We will monitor medication to make changes as indicated. Patient will be in the hospital for over two midnights. Likely length of stay 2-4 days. Coding Level of Care Code Established Pt Acute Wax Ball Knock Out Worker for Marie Panda Patient Type Established History Problem Focused Exam Problem Focused Medical Decision Making Straight Forward Diagnoses Bipolar disorder F31.9 Alcohol use disorder, severe, dependence F10.20 Opioid use disorder, severe, dependence F11.20
[2022-08-23] MEDS: acetaminophen 325 mg Tablet 650 MG PO (20:18)
[2022-08-23] MEDS: trazodone 50 mg Tablet PO (20:19)
[2022-08-23] MEDS: OLANZapine 10 mg TABLET 15 MG PO (20:20)
[2022-08-23] MEDS: buprenorphine-naloxone 4-1 mg Film 1 EACH SUBLINGUAL (20:20)
[2022-08-23 22:00] VITALS: BP 135/76; PULSE 95; RESP 16; TEMP 36.9; O2SAT 97
[2022-08-24 06:00] VITALS: BP 122/78; PULSE 82; RESP 17; TEMP 36.8; O2SAT 96
[2022-08-24] MEDS: pantoprazole DR 40 mg Tablet PO (08:11)
[2022-08-24] MEDS: thiamine 100 mg Tablet PO (08:11)
[2022-08-24] MEDS: multivitamin therapeutic Tablet 1 TAB PO (08:11)
[2022-08-24] MEDS: buprenorphine-naloxone 4-1 mg Film 1 EACH SUBLINGUAL ×3 (08:11→20:03)
[2022-08-24] MEDS: folic acid 1 mg Tablet PO (08:11)
[2022-08-24] MEDS: buPROPion XL (24 HR) 150 mg Tablet PO (08:11)
[2022-08-24] MEDS: OLANZapine 5 mg ODT PO (08:13)
[2022-08-24] MEDS: ibuprofen 600 mg Tablet PO ×2 (11:24→20:03)
[2022-08-24] MEDS: hyDROXYzine 25 mg Capsule 50 MG PO ×2 (11:25→20:02)
--- NOTE | 2022-08-24 13:58 | PM.CONSULT ---
Providers/Reason For Consult Consulting Physician/Specialty*: Armen Prince MD, hospitalist Reason for Consult*: Sore throat Attending Physician: Ghulam Szymanski MD History of Present Illness History of Present Illness Bolivar Ledezma is a 27 year old male who was admitted to the psychiatric unit on August 20 with alcohol and opioid use disorder in the setting of his bipolar disorder. He reports he has been doing okay while inpatient but concerned about withdrawal from fentanyl and alcohol he had been using. He reports he has had a little bit of sweating and some chills but no documented fever. He reports he has been coughing up a little colored sputum, and his throat is sore. He states its not sore enough that he can eat and drink. He does not feel short of breath. He has had no chest discomfort. He has had some slight nasal congestion. Review of Systems General: Reports: 10 or more systems reviewed and unremarkable except in HPI and below Const: Reports: chills and fatigue; Denies: fever(s) Eyes: Denies: change in vision ENMT: Reports: throat pain and nasal congestion Card: Denies: chest pain Resp: Reports: productive cough; Denies: dyspnea GI: Denies: abdominal pain : Denies: flank pain Musc: Denies: neck pain Skin/Breast: Denies: rash Neuro: Denies: headache(s) Psych: Denies: anxiety Endo: Denies: polyuria Jevon/Lymph: Denies: easy bruising All/Imm: Denies: urticaria Medications/Allergies Home Medications Medication Instructions Recorded Confirmed Last Taken Type olanzapine 5 mg tablet 7.5 mg PO BEDTIME 30 days #45 tabs 07/15/22 08/20/22 Unknown Rx omeprazole 40 mg capsule,delayed 40 mg PO DAILY 30 days #30 caps 07/15/22 08/20/22 Unknown Rx release thiamine mononitrate (vit B1) 100 100 mg PO DAILY 30 days #30 tabs 07/15/22 08/20/22 Unknown Rx mg tablet (Vitamin B-1 (mononitrate)) trazodone 50 mg tablet 50 mg PO BEDTIME PRN Insomnia 30 07/15/22 08/20/22 Unknown Rx days #30 tabs Allergies Allergy/AdvReac Type Severity Reaction Status Date / Time morphine Allergy Severe Stops Verified 05/10/22 07:31 respiratory system ziprasidone [From Geodon] Allergy Severe Breathing Verified 05/10/22 07:31 problems and Pulse paroxetine Allergy Intermediate Fidgety, Verified 05/10/22 07:31 tingling all over, couldn't sleep, hot flashes aripiprazole [From Debvelvet] AdvReac Intermediate stomach Verified 05/10/22 07:31 upset, N & V doxepin AdvReac Intermediate ADR-Headach Verified 05/10/22 07:31 e Current Medications Generic Name Dose Route Start Last Admin Trade Name Freq PRN Reason Stop Dose Admin Acetaminophen 650 mg 08/20/22 21:55 08/23/22 20:18 Acetaminophen 325 Mg Tablet PO 650 mg Q4H PRN Administration MILD PAIN Buprenorphine/Naloxone 1 each 08/23/22 21:00 08/24/22 08:11 Buprenorphine-Naloxone 4-1 Mg Film SUBLINGUAL 1 each TID MARIA ISABEL Administration Bupropion HCl 150 mg 08/24/22 09:00 08/24/22 08:11 Bupropion Xl (24 Hr) 150 Mg Tablet PO 150 mg DAILY MARIA ISABEL Administration Folic Acid 1 mg 08/21/22 09:00 08/24/22 08:11 Folic Acid 1 Mg Tablet PO 1 mg DAILY MARIA ISABEL Administration Haloperidol 5 mg 08/20/22 21:55 08/22/22 12:25 Haloperidol 5 Mg Tablet PO 5 mg Q4H PRN Administration AGITATION Hydroxyzine Pamoate 50 mg 08/20/22 21:55 08/24/22 11:25 Hydroxyzine 25 Mg Capsule PO 50 mg Q6H PRN Administration ANXIETY Ibuprofen 600 mg 08/20/22 21:55 08/24/22 11:24 Ibuprofen 600 Mg Tablet PO 600 mg Q6H PRN Administration MODERATE PAIN Multivitamins Therapeutic 1 tab 08/21/22 09:00 08/24/22 08:11 Multivitamin Therapeutic Tablet PO 1 tab DAILY MARIA ISABEL Administration Olanzapine 5 mg 08/20/22 21:55 08/24/22 08:13 Olanzapine 5 Mg Odt PO 5 mg Q4H PRN Administration Agitation/Psychosis Olanzapine 15 mg 08/23/22 21:00 08/23/22 20:20 Olanzapine 10 Mg Tablet PO 15 mg BEDTIME MARIA ISABEL Administration Ondansetron HCl 4 mg 08/20/22 21:55 08/23/22 11:40 Ondansetron 4 Mg Tablet PO 4 mg Q6H PRN Administration NAUSEA AND VOMITING Pantoprazole Sodium 40 mg 08/21/22 09:00 08/24/22 08:[address] 40 Mg Tablet PO 40 mg DAILY MARIA ISABEL Administration Thiamine Mononitrate 100 mg 08/21/22 09:00 08/24/22 08:11 Thiamine 100 Mg Tablet PO 100 mg DAILY MARIA ISABEL Administration Trazodone HCl 50 mg 08/20/22 21:55 08/23/22 20:19 Trazodone 50 Mg Tablet PO 50 mg BEDTIME PRN Administration SLEEP PFSH Acute PFSH: Medical History Mood disorder Polysubstance (including opioids) dependence, daily use Psychiatric care Pyloric stenosis Social History (Updated 08/24/22 @ 14:12 by Armen Prince MD) Smoking and tobacco status: current every day smoker cigarettes Packs smoked per day: 0.5 Years cigarettes smoked: 11 Quit status (tobacco): has tried quititng Number of times tried to quit tobacco: 5 Second hand smoke exposure: No Smoking risk assessment/counseling performed?: No Alcohol intake: former Substance/Drug Use: current Other PFSH information: Supplemental PFSH Information: Denies pertinent family history or surgical history Vitals/I&O/Wt Last Vital Signs Temp 98.2 F 08/24/22 06:00 Pulse 82 08/24/22 06:00 Resp 17 08/24/22 06:00 BP 122/78 08/24/22 06:00 Pulse Ox 96 08/24/22 06:00 O2 Del Method 08/23/22 14:00 Physical Exam Narrative: General exam has an alert oriented male in no apparent distress HEENT: Atraumatic and normocephalic. Pupils equally round. Oropharynx without exudate. Possible mild erythema. Tongue appears normal. No evidence of thrush. Neck is supple. Slight tenderness to bilateral cervical lymph nodes which are small in nature to palpation. Cardiovascular regular rate and rhythm without murmur Lungs clear no wheezing or crackles Abdomen is soft positive bowel sounds. No obvious organomegaly Extremities no cyanosis clubbing or edema, cap refill brisk Skin no rash Neuro no focal deficits Data : 08/20/22 19:17 08/20/22 19:17 A&P Assessment and plan (1) URI (upper respiratory infection): Patient appears to have URI symptoms. His lung exam is clear. He is not requiring oxygen. He occasionally coughs but not constantly. There may be some slight erythema to his posterior oropharynx. We will go ahead and obtain a rapid strep. If positive will treat. Will obtain a COVID PCR as this will have quarantine implications if positive. He does not need a chest x-ray at this time May have Robitussin as needed, Tylenol as needed Plan History of hepatitis C. I encouraged him to follow-up for this as an outpatient Other medical problems as documented by psychiatry Thank you for this consultation Consult Attestations Medical Necessity Statement: As per primary Coding Level of Care Code Acute Chemical Engineering Technologist for [facility] Amarilys Diagnoses URI (upper respiratory infection) J06.9
[2022-08-24 14:00] VITALS: BP 145/90; PULSE 82; RESP 18; TEMP 36.7; O2SAT 95
[2022-08-24 14:31] LABS: Rapid Strep A Test Negative (Negative)
[2022-08-24 16:12] LABS: Adenovirus Not Detected (NOT DETECT); Chlamydia Pneumoniae Not Detected (NOT DETECT); Coronavirus 229E,HKU1,NL63,OC4 Not Detected (NOT DETECT); Human Metapneumovirus Not Detected (NOT DETECT); Human Rhinovirus/Enterovirus Not Detected (NOT DETECT); Influenza A Not Detected (NOT DETECT); Influenza A H1 Not Detected (NOT DETECT); Influenza A H1-2009 Not Detected (NOT DETECT); Influenza A H3 Not Detected (NOT DETECT); Influenza B Not Detected (NOT DETECT); Mycoplasma Pneumoniae Not Detected (NOT DETECT); Parainfluenza Virus Type 1 Not Detected (NOT DETECT); Parainfluenza Virus Type 2 Not Detected (NOT DETECT); Parainfluenza Virus Type 3 Not Detected (NOT DETECT); Parainfluenza Virus Type 4 Not Detected (NOT DETECT); Respiratory Syncytial Virus A Not Detected (NOT DETECT); Respiratory Syncytial Virus B Not Detected (NOT DETECT); SARS-COV-2 Not Detected (NOT DETECT)
--- NOTE | 2022-08-24 18:40 | W.PM.NPUPNS ---
Subjective NPU Subjective: Patient is a 27-year-old white male with a history of opiate dependence along with alcohol dependence with a history of psychotic symptoms and reported history of bipolar disorder. Patient reported continued depressed mood. He reported feeling sick today. He had reported difficulties with concentration and continue to report hearing noises in his head. He reported improved ability to sleep last night. He had reported no cravings for methamphetamine and stated that he felt less anxious with the addition of buprenorphine 12 mg daily. He had complained of sinus headaches and shortness of breath earlier this morning. Mental Status Exam MSE Comments: This is an overweight white male with in hospital scrubs with limited grooming and eye contact. No abnormal movements except for significant psychomotor retardation. Cooperative with exam in mild to moderate distress. Speech was decreased rate and decreased volume. Mood described as not good. His affect was mood congruent and restricted in range. Thought process was organized, thought content: patient denies suicidal or homicidal ideation, there were no delusions reported or noted. He did appear to be responding to internal stimuli. Attention span appeared impaired and concentration appeared impaired. He?s alert and oriented times three. Insight and judgment appeared fair and impulse control appeared limited. Vitals/I&O/Wt Last Vital Signs Temp 98.0 F 08/24/22 14:00 Pulse 82 08/24/22 14:00 Resp 18 08/24/22 14:00 BP 145/90 08/24/22 14:00 Pulse Ox 95 08/24/22 14:00 O2 Del Method 08/23/22 14:00 Data NPU : 08/20/22 19:17 08/20/22 19:17 A&P Assessment and plan (1) Bipolar disorder: (2) Alcohol use disorder, severe, dependence: (3) Opioid use disorder, severe, dependence: Plan This is a 27-year-old white male with a long history of inpatient and outpatient services and addiction with current active addiction particularly with opiates who presents after recent overdoses with depression, anxiety suicidality and hopelessness about getting connected with services. 1. Continue suboxone 12mg/3mg daily, continue zyprexa 15mg at night. continue wellbutrin xl 150mg in am. 2. Continue every 15 minute checks for safety. 3. Encourage individual, group and milieu therapies. 4. Encourage sober living treatment after discharge at the highest level of care to which he is willing to commit. Involuntary Hold Information 96 Hour Hold: 96 Hour Involuntary Admission: No Attestations NPU Medical Necessity Statement*: Inpatient hospitalization is medically necessary and the clinically appropriate intervention at this time. We will monitor medication to make changes as indicated. Patient will be in the hospital for over two midnights. Likely length of stay 2-4 days. Coding Level of Care Code Established Pt Acute Child Care Education Coordinator for g Fwd Patient Type Established History Problem Focused Exam Problem Focused Medical Decision Making Straight Forward Diagnoses Bipolar disorder F31.9 Alcohol use disorder, severe, dependence F10.20 Opioid use disorder, severe, dependence F11.20
[2022-08-24] MEDS: trazodone 50 mg Tablet PO (20:03)
[2022-08-24] MEDS: OLANZapine 10 mg TABLET 15 MG PO (20:03)
[2022-08-24 20:35] VITALS: BP 131/70; PULSE 84; RESP 18; TEMP 36.7; O2SAT 97
[2022-08-24] MEDS: haloperidol 5 mg Tablet PO (21:59)
[2022-08-25] MEDS: trazodone 50 mg Tablet PO ×2 (00:05→20:31)
[2022-08-25 06:00] VITALS: BP 118/73; PULSE 83; RESP 18; TEMP 36.7; O2SAT 95
--- NOTE | 2022-08-25 07:07 | W.PM.EVENTAC ---
Event Note Event Note: Rapid strep negative. COVID PCR negative. Recommended continued symptom management, with Robitussin. No further recommendations at this time. Please call if patient worsens. We will sign off for now.
[2022-08-25] MEDS: thiamine 100 mg Tablet PO (07:53)
[2022-08-25] MEDS: benztropine 1 mg Tablet PO (07:53)
[2022-08-25] MEDS: ibuprofen 600 mg Tablet PO (07:53)
[2022-08-25] MEDS: multivitamin therapeutic Tablet 1 TAB PO (07:53)
[2022-08-25] MEDS: pantoprazole DR 40 mg Tablet PO (07:54)
[2022-08-25] MEDS: buprenorphine-naloxone 4-1 mg Film 1 EACH SUBLINGUAL ×2 (07:54→16:09)
[2022-08-25] MEDS: buPROPion XL (24 HR) 150 mg Tablet PO (07:54)
[2022-08-25] MEDS: folic acid 1 mg Tablet PO (07:54)
--- NOTE | 2022-08-25 08:02 | NUR.SHIFT ---
Addendum entered by Lashonda Perez RN 08/25/22 08:04: PT DENIES SI/HI/AVH, FLAT AFFECT, GUARDED WITH ASSESSMENT BUT COOPERATIVE AND ANSWERS QUESTIONS APPROPRIATELY Original Note: PT C/O SORE THROAT, SHOWED THIS NURSE RED TINGED SPUTUM HE HAD SPIT IN TOLIET IN ROOM, PT THROAT RED AND SWOLLEN, PRN IBUPROFEN GIVEN, PT REFUSED COUGH SYRUP AND COUGH DROP. DR CELIS AWARE, COVID AND STREP NEG
[2022-08-25 14:00] VITALS: BP 122/71; PULSE 84; RESP 18; TEMP 36.5; O2SAT 95
[2022-08-25] MEDS: hyDROXYzine 25 mg Capsule 50 MG PO (14:22)
--- NOTE | 2022-08-25 14:23 | PC.NURSE ---
PRN VISTARIL 50 MG GIVEN PO PER PT C/O STATED ANXIETY. FLAT AFFECT
--- NOTE | 2022-08-25 20:15 | W.PM.NPUPNS ---
Subjective NPU Subjective: Patient is a 27-year-old white male with a history of opiate dependence along with alcohol dependence with a history of psychotic symptoms and reported history of bipolar disorder. Patient had expressed desire to return home soon. He reported that he wished to follow-up with outpatient treatment. He stated that he did not appear to have a follow-up appointment to receive Suboxone and was informed that Suboxone could not be prescribed for even 1 to 2 days after his discharge unless it was by his outpatient provider. Patient had reported no cravings. He reported that the voices had diminished. He continued to report feeling sick and reported some difficulty swallowing. He had reported that his loud screams had been quelled somewhat by the increase in Zyprexa. Mental Status Exam MSE Comments: This is an overweight white male with in hospital scrubs with limited grooming and eye contact. No abnormal movements except for significant psychomotor retardation. Cooperative with exam in mild to moderate distress. Speech was decreased rate and decreased volume. Mood described as a little better. His affect was mood incongruent and remained flat. Thought process was organized, thought content: patient denies suicidal or homicidal ideation, there were no delusions reported or noted. He did not appear to be responding to internal stimuli. Attention span appeared improved and concentration appeared variable today. He is alert and oriented times three. Insight and judgment appeared fair and impulse control appeared limited. Vitals/I&O/Wt Last Vital Signs Temp 97.7 F 08/25/22 14:00 Pulse 84 08/25/22 14:00 Resp 18 08/25/22 14:00 BP 122/71 08/25/22 14:00 Pulse Ox 95 08/25/22 14:00 O2 Del Method 08/25/22 06:00 Data NPU : 08/20/22 19:17 08/20/22 19:17 Micro: Microbiology 08/24/22 14:15 Group A Streptococcus Rapid Screen - Preliminary Throat Microbiology 08/24/22 14:15 Throat Group A Streptococcus Rapid Screen - Preliminary A&P Assessment and plan (1) Bipolar disorder: (2) Alcohol use disorder, severe, dependence: (3) Opioid use disorder, severe, dependence: Plan This is a 27-year-old white male with a long history of inpatient and outpatient services and addiction with current active addiction particularly with opiates who presents after recent overdoses with depression, anxiety suicidality and hopelessness about getting connected with services. 1. Decrease suboxone 8/2mg day, continue zyprexa 15mg at night. continue wellbutrin xl 150mg in am. 2. Continue every 15 minute checks for safety. 3. Encourage individual, group and milieu therapies. 4. Encourage sober living treatment after discharge at the highest level of care to which he is willing to commit. Involuntary Hold Information 96 Hour Hold: 96 Hour Involuntary Admission: No Attestations NPU Medical Necessity Statement*: Inpatient hospitalization is medically necessary and the clinically appropriate intervention at this time. We will monitor medication to make changes as indicated. Patient will be in the hospital for over two midnights. Likely length of stay 2-4 days. Coding Level of Care Code Established Pt Acute Web Machine Tender for Marie Panda Patient Type Established History Problem Focused Exam Problem Focused Medical Decision Making Straight Forward Diagnoses Bipolar disorder F31.9 Alcohol use disorder, severe, dependence F10.20 Opioid use disorder, severe, dependence F11.20
[2022-08-25] MEDS: OLANZapine 10 mg TABLET 15 MG PO (20:31)
[2022-08-25 22:00] VITALS: BP 131/86; PULSE 86; RESP 16; TEMP 36.9; O2SAT 96
[2022-08-26 06:00] VITALS: BP 117/62; PULSE 72; RESP 14; TEMP 37; O2SAT 92
--- NOTE | 2022-08-26 08:13 | PM.PN ---
Subjective Subjective: Patient reports nasal congestion. Throat is not as sore. No shortness of breath. Occasional cough. Medications: Reviewed: Yes Vitals/I&O/Wt Last Vital Signs Temp 98.6 F 08/26/22 06:00 Pulse 72 08/26/22 06:00 Resp 14 08/26/22 06:00 BP 117/62 08/26/22 06:00 Pulse Ox 92 08/26/22 06:00 O2 Del Method 08/26/22 06:00 Physical Exam Narrative: Thanks wasGeneral exam no distress Right posterior erythema, no exudate. No significant swelling. Neck without significant lymphadenopathy today Lungs clear no wheezing or crackles Cardiovascular regular rate and rhythm Data : 08/20/22 19:17 08/20/22 19:17 Micro: Microbiology 08/24/22 14:15 Group A Streptococcus Rapid Screen - Preliminary Throat A&P Assessment and plan (1) URI (upper respiratory infection): Patient appears to have URI symptoms. COVID PCR and rapid strep negative He is improving May have Robitussin as needed, Tylenol as needed Plan History of hepatitis C. I encouraged him to follow-up for this as an outpatient Other medical problems as documented by psychiatry Will sign off Attestations Medical Necessity Statement*: As per primary Coding Level of Care Code Acute Citrix Consultant for shanae Panda Diagnoses URI (upper respiratory infection) J06.9
[2022-08-26] MEDS: folic acid 1 mg Tablet PO (08:54)
[2022-08-26] MEDS: buPROPion XL (24 HR) 300 mg Tablet PO (08:54)
[2022-08-26] MEDS: ibuprofen 600 mg Tablet PO (08:54)
[2022-08-26] MEDS: buprenorphine-naloxone 4-1 mg Film 1 EACH SUBLINGUAL ×2 (08:54→16:28)
[2022-08-26] MEDS: pantoprazole DR 40 mg Tablet PO (08:54)
[2022-08-26] MEDS: multivitamin therapeutic Tablet 1 TAB PO (08:55)
[2022-08-26] MEDS: thiamine 100 mg Tablet PO (08:55)
--- NOTE | 2022-08-26 09:21 | PC.NURSE ---
Behavioral Assessment Patient resting in bed with eyes open. Patient denies HI/SI and VH/AH. Patient states he is here for heroin abuse but believes he is doing well enough to go home today. He states he is a bit anxious this morning and rates it at a 3 out of 0-10 scale and says he wouldn't like to take anything for it. Patient was calm and cooperative throughout assessment. No distress noted.
[2022-08-26] MEDS: hyDROXYzine 25 mg Capsule 50 MG PO (12:17)
[2022-08-26] MEDS: OLANZapine 5 mg ODT PO (13:25)
[2022-08-26 14:00] VITALS: BP 130/84; PULSE 71; RESP 18; TEMP 36.8; O2SAT 96
[2022-08-26] MEDS: haloperidol 5 mg Tablet PO (15:15)
--- NOTE | 2022-08-26 15:16 | PC.NURSE ---
PRN Meds Haldol given for patient stating he is experiencing anxiety at a 5/10.
--- NOTE | 2022-08-26 16:05 | W.PM.NPUDCS ---
Diagnoses at Discharge Discharge Diagnosis (1) URI (upper respiratory infection): Status: Acute Reason for Visit Reason for Visit: wants to be 96ed Brief History: Bolivar Ledezma is a 27 year old male who presented to the ED with the following report: Chief Complaint: Psychiatric Symptoms Stated Complaint: wants to be 96ed Time Seen by Provider: 08/20/22 17:56 History of Present Illness:?? Mr. Ledezma is a 27-year-old gentleman with family history of bipolar disorder and polysubstance abuse who presents to the emergency department due to psychiatric symptoms.? He has a longstanding history of substance abuse and was recently in a drug and alcohol rehab program from which he was kicked out of few days ago.? Since that time he has relapsed including drinking alcohol just before coming in and using injectable opioids earlier this morning.? He states that he needs a lifestyle change because this current situation is waking him feel like dying.? He denies specific plan.? Otherwise denies medical complaints.? No other specific changes in health, exacerbating, or alleviating factors identified. He was admitted to the neuropsychiatric unit for definitive treatment of those issues.? He present today reporting that after his last discharge that he went to a program for a couple weeks and has been off of Suboxone or opiates because they did not allow.? He reports he got kicked out of the program because of some interaction with another participant and came back to [place] and family self feeling like he had no options and was unclear about what his next move should be to avoid suicidal behavior or drug abuse.? He reports that he is off of his Zyprexa which was 50 mg p.o. twice daily for 2 weeks and feels that he is doing much better on it.? We discussed his benefits and alternatives of restarting that as he milligrams p.o. twice daily and then titrating that up.? He reports that he is homeless, off his medication and so he is spinning out of control.? He agreed to proceed with this plan as is documented in this note.? An excerpt of his last hospitalization about a month ago is included below as there have been no substantive changes except those noted above. Per [facility] 07/13/22 inpatient psychiatric evaluation: History of Present Illness Bolivar Ledezma is a 27 year old male who presented to the emergency department with the following report: Chief Complaint: Psychiatric Symptoms Stated Complaint: anxiety Time Seen by Provider: 07/13/22 00:48 Source: patient Mode of arrival: ambulatory Limitations: no limitations History of Present Illness:?? Time he did [id number] male has a history of heroin abuse he states that he has been in and out of long term and is homeless states that he keeps relapsing on heroin and is feeling helpless he states he has been having increased depression with some suicidal thoughts wants to be admitted is any worsening improving factors.? Denies any specific plan. Associated symptoms: Reports depression. He was admitted to the neuropsychiatric unit for definitive treatment of those issues.? Patient presents today reporting that since the time he saw me back in August 2019 he has had some good days and bad times.? An excerpt of that note is included below for context.? He presents today reporting that he has had significant inpatient and outpatient services since he saw me then.? He had been consistent with outpatient services at [facility] as recently as the end of summer 2020.? He was inpatient last month and left connected with Suboxone treatment.? He reports that in general he feels like he is been doing well but he has recently struggled with his drug use.? He reports that he had some heroin overdoses and that he did get his Medicaid in place but he is working and is without transportation and the closest Suboxone place requires daily visits and he is unable to make it there due to transportation.? He reports that is created a very dangerous situation and he came in because of suicidal thoughts and fears that his addiction would lead to completed overdose.? He reports that he actually has an appointment on 823 with a provider that we will do office-based treatment but he was feeling like he might not make it that far due to his most recent behavior.? He reports that he currently is homeless still and that creates a challenge and he is trying to get these final pieces in place so that he believes he will be able to finally stabilize and be functional again.? We agreed that he would assist us in finding the name of the doctor who he is set up with next Monday and that we might be able to collaborate to create a safe bridge to that appointment.? Otherwise he reports that he is doing fine on his medication and he feels safe here in the facility. Hospital Course Hospital Course During the hospitalization, patient had routine laboratory studies which were within normal limits except for few outliers.? Additionally there was a general medical evaluation which was also within normal limits and revealed no new acute processes. Discharge Summary: At the time of discharge, lethality was denied and psychosis was resolving.? Mood and anxiety were well managed.? Patient endorsed a plan to avoid all drugs of abuse and follow-up with the aftercare recommendations of the treatment team.? Patient was evaluated and deemed to be absent credible lethality, and had achieved the maximum benefit from an inpatient hospitalization, so was discharged. ? Involuntary Hold Information 96 Hour Hold: 96 Hour Involuntary Admission: No Mental Status Exam MSE Comments: This is an overweight white male with in hospital scrubs with limited grooming and eye contact. No abnormal movements except for significant psychomotor retardation. Cooperative with exam in mild to moderate distress. Speech was decreased rate and decreased volume. Mood described as a little better. His affect was mood congruent and brighter today. Thought process was organized, thought content: patient denies suicidal or homicidal ideation, there were no delusions reported or noted. He did not appear to be responding to internal stimuli. Attention span appeared improved and concentration appeared at baseline. He is alert and oriented times three. Insight and judgment appeared fair and impulse control appeared fair. Discharge Data Studies Completed and Pending: Laboratory Results WBC 4.2 10^3/uL (4.0- 10.0) 08/20/22 19:17 RBC 3.95 10^6/uL (4.1 -5.3) L 08/20/22 19:17 Hgb 13.8 g/dL (11.7-1 6.6) 08/20/22 19:17 Hct 36.8 % (42.0-52.0 ) L 08/20/22 19:17 MCV 93.2 fl (80-94) 08/20/22 19:17 MCH 34.9 pg (28.0-34. 0) H 08/20/22 19:17 MCHC 37.5 g/dL (30.0-3 6.0) H 08/20/22 19:17 RDW 12.7 % (12.1-15.1 ) 08/20/22 19:17 Plt Count 166 10^3/cmm (130 -400) 08/20/22 19:17 MPV 10.6 fL (7.4-10.4 ) H 08/20/22 19:17 Neut % (Auto) 45.7 % 08/20/22 19:17 Lymph % (Auto) 42.1 % 08/20/22 19:17 [place] % (Auto) 7.2 % 08/20/22 19:17 Eos % (Auto) 4.5 % 08/20/22 19:17 Baso % (Auto) 0.5 % 08/20/22 19:17 Neut # (Auto) 1.91 10^3/uL (1.8 -7.7) 08/20/22 19:17 Lymph # (Auto) 1.8 10^3/uL (0.8- 4.8) 08/20/22 19:17 [place] # (Auto) 0.3 10^3/uL (0.2- 0.9) 08/20/22 19:17 Eos # (Auto) 0.2 10^3/uL (0.0- 0.8) 08/20/22 19:17 Baso # (Auto) 0.0 10^3/uL (0.0- 0.1) 08/20/22 19:17 Nucleated RBC % (a uto) 0 % 08/20/22 19:17 Nucleated RBCs # 0.0 /100WBC 08/20/22 19:17 Sodium 143 mmol/L (136-1 45) 08/20/22 19:17 Potassium 3.6 mmol/L (3.5-5 .1) 08/20/22 19:17 Chloride 107 mmol/L (98-10 7) 08/20/22 19:17 Carbon Dioxide 23 mmol/L (22-29) 08/20/22 19:17 Anion Gap 16.6 (5-19) 08/20/22 19:17 BUN 11 mg/dL (6-20) 08/20/22 19:17 Creatinine 0.6 mg/dL (0.7-1. 2) L 08/20/22 19:17 GFR Calculation 159.3 mL/min (90- 130) H 08/20/22 19:17 Glucose 86 mg/dL (65-115) 08/20/22 19:17 Calculated Osmolal ity 295 mOsm/kg (285- 295) 08/20/22 19:17 Calcium 9.0 mg/dL (8.5-10 .5) 08/20/22 19:17 Total Bilirubin 0.2 mg/dL (0.15-1 .2) 08/20/22 19:17 AST 85 U/L (0-40) H 08/20/22 19:17 ALT 124 U/L (0-41) H 08/20/22 19:17 Alkaline Phosphata se 63 U/L (40-130) 08/20/22 19:17 Total Protein 6.8 g/dL (6.6-8.7 ) 08/20/22 19:17 Albumin 4.1 g/dL (3.5-5.2 ) 08/20/22 19:17 Globulin 2.7 g/dL (1.3-4.6 ) 08/20/22 19:17 TSH 2.62 uIU/mL (0.27 -4.20) 08/20/22 19:17 Urine Color Yellow (Yellow) 08/20/22 18:11 Urine Appearance Clear (CLEAR) 08/20/22 18:11 Urine pH 5 (5-7) 08/20/22 18:11 Ur Specific Gravit y 1.025 (1.005-1.0 30) 08/20/22 18:11 Urine Protein Neg (Negative) 08/20/22 18:11 Urine Glucose (UA) Norm (Normal) 08/20/22 18:11 Urine Ketones Negative (Negati ve) 08/20/22 18:11 Urine Blood Neg (Negative) 08/20/22 18:11 Urine Nitrate Negative (Negati ve) 08/20/22 18:11 Urine Bilirubin Neg (Negative) 08/20/22 18:11 Urine Urobilinogen Neg mg/dL (Negati ve) 08/20/22 18:11 Ur Leukocyte Andie ase Negative (Negati ve) 08/20/22 18:11 Salicylates < 0.3 mg/dL (3-10 ) L 08/20/22 19:17 Urine Opiates Scre en Negative ng/mL (N egative) 08/20/22 18:11 Acetaminophen < 5.0 ug/mL (10-3 0) L 08/20/22 19:17 Ur Barbiturates Sc reen Negative ng/mL (N egative) 08/20/22 18:11 Ur Phencyclidine S crn Negative ng/mL (N egative) 08/20/22 18:11 Ur Amphetamines Sc reen Negative ng/mL (N egative) 08/20/22 18:11 U Benzodiazepines Scrn Negative ng/mL (N egative) 08/20/22 18:11 Urine Cocaine Scre en Negative ng/mL (N egative) 08/20/22 18:11 U Marijuana (THC) Screen Positive ng/mL (N egative) H 08/20/22 18:11 Ethyl Alcohol 112 mg/dL (0-10) H 08/20/22 19:17 Coronavirus 229E ( PCR) Not detected (NO T DETECT) 08/24/22 14:16 HIV-1 Antibody Cancelled 08/20/22 19:17 HIV-1 DNA/RNA Qual PCR Cancelled 08/20/22 19:17 HIV-2 Antibody Cancelled 08/20/22 19:17 HIV 1&2 Ab & HIV 1 Ag Non-reactive (No n-Reactiv) 08/20/22 19:17 HIV 1&2 Ag/Ab, 4th Gen Cancelled 08/20/22 19:17 HIV 1&2 Antibody Non-reactive (No n-Reactiv) 08/20/22 19:17 SARS-CoV-2 (PCR) Not detected (NO T DETECT) 08/24/22 14:16 Group A Strep Rapi d Negative (Negati ve) 08/24/22 14:15 Vitals: Last Vital Signs Temp 98.6 F 08/26/22 06:00 Pulse 72 08/26/22 06:00 Resp 14 08/26/22 06:00 BP 117/62 08/26/22 06:00 Pulse Ox 92 08/26/22 06:00 O2 Del Method 08/26/22 06:00 Discharge Plan Discharge Patient Disposition: Home Condition: Stable Prescriptions: New bupropion HCl 300 mg Tablet Extended Release 24 Hr 300 mg PO DAILY 30 Days Qty: 30 1RF olanzapine 10 mg Tablet 15 mg PO BEDTIME 30 Days Qty: 45 1RF Continued trazodone 50 mg Tablet 50 mg PO BEDTIME PRN (Reason: Insomnia) 30 Days Qty: 30 1RF omeprazole 40 mg capsule,delayed release(DR/EC) 40 mg PO DAILY 30 Days Qty: 30 1RF thiamine mononitrate (vit B1) [Vitamin B-1 (mononitrate)] 100 mg Tablet 100 mg PO DAILY 30 Days Qty: 30 1RF olanzapine 5 mg Tablet 7.5 mg PO BEDTIME 30 Days Qty: 45 1RF Discharge Orders: Discharge Order (Routine); Ordered 08/26/22 Ordered By: Jimmie Gilman Referrals: [facility] [Outside] - 08/31/22 7:45 am (Initial assessment with Steven. ) [facility] [Outside] Sandy Cruz, PMHNP [Staff Physician] - 09/14/22 9:30 am (Follow up) Discharge Diet: Advance as tolerated Discharge Activity: Resume usual activity Patient Instructions: Opioid Safety Discharge Attestations NPU Time Spent in Discharge Care*: less than 30 min Specific Discharge Activities: Specific discharge activities: educating patient, discussing with pcp/other providers, discussing with watch case polisher/social workers/dc planners, documenting/other paperwork and evaluating patient/reviewing data Coding Level of Care Code Established Pt Acute Chg FW DC note Patient Type Established History Problem Focused Exam Problem Focused Medical Decision Making Straight Forward Diagnoses URI (upper respiratory infection) J06.9
[2022-08-26 16:20] VITALS: BP 117/62; PULSE 72; RESP 14; TEMP 37; O2SAT 92
[2022-08-26 16:25] VITALS: BP 117/62; PULSE 72; RESP 14; TEMP 37; O2SAT 92
--- NOTE | 2022-08-26 16:28 | PC.NURSE ---
DR CELIS GAVE THIS NURSE VERBAL ORDER TO GIVE PT SUBOXONE EARLY BEFORE PT IS DISCHARGED
== END 2022-08-26 17:05 | disposition home or self-care (01) | DRG 885 ==
LOC: ER 21:10 → NP 21:20
PROVIDERS: Internal Medicine; Admitting Provider Psychiatry & Neurology Psychiatry; Emergency Provider Emergency Medicine; Visit Provider Psychiatry & Neurology Psychiatry
DX: F31.9 Bipolar disorder, unspecified (principal); F15.20 Other stimulant dependence, uncomplicated; F12.20 Cannabis dependence, uncomplicated; F10.10 Alcohol abuse, uncomplicated; Z86.19 Personal history of other infectious and parasitic diseases; F41.9 Anxiety disorder, unspecified; F17.210 Nicotine dependence, cigarettes, uncomplicated; J06.9 Acute upper respiratory infection, unspecified; Z91.14 Patient's other noncompliance with medication regimen; Z59.00 Homelessness unspecified; Z79.891 Long term (current) use of opiate analgesic
CPT/HCPCS: 36415; 80053; 80306; 80307; 81003; 84443; 85025; 87081; 87635; 87806; 87880; 97165; 99285; J0573; Q0162

== ENCOUNTER 2022-09-21 11:34 | Emergency (ER) | payer MEDICAID, SELFPAY ==
[2022-09-21 12:38] VITALS: BP 145/93; PULSE 96; RESP 15; TEMP 36.8; O2SAT 99; BMI 25.7
[2022-09-21 12:41] VITALS: BP 140/86; PULSE 96; RESP 15; TEMP 36.8; O2SAT 99
[2022-09-21 13:29] LABS: Basophils % 0.2 %; Eosinophils # 0.1 10^3/uL (0.0-0.8); Eosinophils % 2.2 %; Hematocrit 43.3 % (42.0-52.0); Hemoglobin 15.5 g/dL (11.7-16.6); Lymphocytes # 1.3 10^3/uL (0.8-4.8); Lymphocytes % 22.6 %; Mean Corpuscular HGB Conc 35.8 g/dL (30.0-36.0); Mean Corpuscular Hemoglobin 33.5 pg (28.0-34.0); Mean Corpuscular Volume 93.5 fl (80-94); Monocytes # 0.6 10^3/uL (0.2-0.9); Monocytes % 9.8 %; Neutrophils # 3.79 10^3/uL (1.8-7.7); Nucleated Red Blood Cells % 0 %; Platelet Count 196 10^3/cmm (130-400); Red Blood Count 4.63 10^6/uL (4.1-5.3); Red Cell Distribution Width 12.8 % (12.1-15.1); White Blood Count 5.8 10^3/uL (4.0-10.0)
[2022-09-21 13:53] LABS: Alanine Aminotransferase 203 U/L (0-41); Albumin Level 4.4 g/dL (3.5-5.2); Alkaline Phosphatase 76 U/L (40-130); Anion Gap 15.4 (5-19); Aspartate Amino Transferase 116 U/L (0-40); Blood Urea Nitrogen 9 mg/dL (6-20); Calcium 9.8 mg/dL (8.5-10.5); Carbon Dioxide 27 mmol/L (22-29); Chloride 101 mmol/L (98-107); Globulin 3.4 g/dL (1.3-4.6); Glomerular Filtration Rate 133.3 mL/min (90-130); Glucose 89 mg/dL (65-115); Lipase 14 U/L (13-60); Osmolality Calculated 286 mOsm/kg (285-295); Potassium 4.4 mmol/L (3.5-5.1); Sodium 139 mmol/L (136-145); Total Bilirubin 1.3 mg/dL (0.15-1.2); Total Protein 7.8 g/dL (6.6-8.7)
--- NOTE | 2022-09-21 14:23 | ED_ITS ---
HPI - Abdominal Pain General: Chief Complaint: Abdominal Pain Stated Complaint: Abd Pain Time Seen by Provider: 09/21/22 13:44 History of Present Illness: Patient is a 27-year-old male comes to the ED with nausea and vomiting. Patient says symptoms started approximately 4 days ago. He also endorses having some abdominal cramping type pain but denies any diarrhea. He has a history of hepatitis B and C. Here in the ED his nausea is controlled and he says he does not feel like he is going to throw up at all. Associated Symptoms: Reports nausea and vomiting; Denies chills, constipation, diarrhea, dysuria, fever(s), hematochezia and hematuria Review of Systems Const: Denies: fever(s), chills or fatigue Eyes: Denies: change in vision or eye discomfort ENMT: Denies: throat pain, odynophagia, nasal discharge or nasal congestion Card: Denies: chest pain, palpitations, edema, swelling of feet/ankles, dyspnea on exertion or orthopnea Resp: Denies: dyspnea, productive cough or non-productive cough GI: Reports: nausea and vomiting; Denies: abdominal pain, diarrhea, constipation or hematochezia : Denies: flank pain, difficulty urinating, dysuria or hematuria Musc: Denies: neck pain, back pain or extremity swelling Skin/Breast: Denies: rash or new lesions Neuro: Denies: headache(s), numbness in extremities or weakness in extremities [facility] ED PFSH: Medical History Hepatitis C Mood disorder Polysubstance (including opioids) dependence, daily use Psychiatric care Pyloric stenosis Social History Smoking and tobacco status: current every day smoker cigarettes Packs smoked per day: 0.5 Years cigarettes smoked: 11 Quit status (tobacco): has tried quititng Number of times tried to quit tobacco: 5 Second hand smoke exposure: No Smoking risk assessment/counseling performed?: No Alcohol intake: former Physical Exam Const: COMMON NORMALS: no acute distress, patient oriented x3, healthy appearing and alert GENERAL APPEARANCE: cooperative and comfortable OTHER: Patient appears nontoxic and in no acute distress or pain. HENMT: COMMON NORMALS: normocephalic HEAD & SCALP: normocephalic MOUTH: Normal oral and palatal mucosa present THROAT: posterior oropharynx normal and uvula midline Neck/C-Spine: COMMON NORMALS: supple GENERAL: Yes normal visual inspection Resp: COMMON NORMALS: normal respiratory effort, No retractions, No use of accessory muscles and clear to auscultation bilaterally AUSCULTATION: clear to auscultation bilaterally Cardio: COMMON NORMALS: regular rate, regular rhythm, S1 normal heart sound present, S2 normal heart sound present, No gallops present (Cardio), No clicks present (Cardio), No murmurs present (Cardio) and Peripheral pulses 2+ throughout RATE: regular rate RHYTHM: regular rhythm HEART SOUNDS: S1 normal heart sound present and S2 normal heart sound present PERIPHERAL PULSES: Peripheral pulses 2+ throughout GI: COMMON NORMALS: Normal to inspection, nondistended, normoactive bowel sounds present, Soft to palpation, non-tender and no masses PALPATION: Yes Soft to palpation : COMMON NORMALS: Yes no CVA tenderness BLADDER/KIDNEY EXAM: Yes no CVA tenderness Back/Pelvis: COMMON NORMALS: no CVA tenderness Extremity: COMMON NORMALS: normal to inspection Neuro: COMMON NORMALS: patient oriented x3 SENSORIUM/ORIENTATION: Yes alert GAIT: Yes Normal gait present Skin: GENERAL SKIN EXAM: dry skin Course Vital Signs: Vital signs: Vital Signs Temperature 98.3 F 09/21/22 12:41 Pulse Rate 70 09/21/22 17:01 Respiratory Rate 18 09/21/22 17:01 Blood Pressure 140/86 09/21/22 12:41 Pulse Oximetry 98 09/21/22 17:01 Oxygen Delivery Me thod 09/21/22 12:41 MDM - Abdominal Pain Medical Decision Making Patient is a 27-year-old male comes to the ED with nausea and vomiting. Patient says symptoms started approximately 4 days ago. Patient has a past medical history of hepatitis C and hep B. Vitals are stable. Patient appears nontoxic in no acute distress or pain. He has no abdominal tenderness to palpation. Rest of exam is benign. AST 116 and ALT 203. CBC and CMP were unremarkable. Lipase 14. Hepatitis C antibodies were reactive. Reflex HCV PCR test pending. Likely chronic hep C infection given history. I placed an order with case management for patient referred to Dr. Rubin for hepatitis C treatment. Patient able to tolerate p.o. food and fluids here in the ED without any nausea medications given. Patient was discharged home with a prescription for Zofran for nausea. He was told to call [facility] tomorrow morning to find out of hepatitis lab results. Return ED precautions given. Patient understood and agreed with plan. Lab Data I reviewed the patient's lab results. : 09/21/22 13:24 09/21/22 13:24 Labs/Radiology: Laboratory Results WBC 5.8 10^3/uL (4.0-10.0) 09/21/22 13:24 RBC 4.63 10^6/uL (4.1-5.3) 09/21/22 13:24 Hgb 15.5 g/dL (11.7-16.6) 09/21/22 13:24 Hct 43.3 % (42.0-52.0) 09/21/22 13:24 MCV 93.5 fl (80-94) 09/21/22 13:24 MCH 33.5 pg (28.0-34.0) 09/21/22 13:24 MCHC 35.8 g/dL (30.0-36.0) 09/21/22 13:24 RDW 12.8 % (12.1-15.1) 09/21/22 13:24 Plt Count 196 10^3/cmm (130-400) 09/21/22 13:24 MPV 10.0 fL (7.4-10.4) 09/21/22 13:24 Neut % (Auto) 65.0 % 09/21/22 13:24 Lymph % (Auto) 22.6 % 09/21/22 13:24 [place] % (Auto) 9.8 % 09/21/22 13:24 Eos % (Auto) 2.2 % 09/21/22 13:24 Baso % (Auto) 0.2 % 09/21/22 13:24 Neut # (Auto) 3.79 10^3/uL (1.8-7.7) 09/21/22 13:24 Lymph # (Auto) 1.3 10^3/uL (0.8-4.8) 09/21/22 13:24 [place] # (Auto) 0.6 10^3/uL (0.2-0.9) 09/21/22 13:24 Eos # (Auto) 0.1 10^3/uL (0.0-0.8) 09/21/22 13:24 Baso # (Auto) 0.0 10^3/uL (0.0-0.1) 09/21/22 13:24 Nucleated RBC % (auto) 0 % 09/21/22 13:24 Nucleated RBCs # 0.0 /100WBC 09/21/22 13:24 Sodium 139 mmol/L (136-145) 09/21/22 13:24 Potassium 4.4 mmol/L (3.5-5.1) 09/21/22 13:24 Chloride 101 mmol/L (98-107) 09/21/22 13:24 Carbon Dioxide 27 mmol/L (22-29) 09/21/22 13:24 Anion Gap 15.4 (5-19) 09/21/22 13:24 BUN 9 mg/dL (6-20) 09/21/22 13:24 Creatinine 0.7 mg/dL (0.7-1.2) 09/21/22 13:24 GFR Calculation 133.3 mL/min (90-130) H 09/21/22 13:24 Glucose 89 mg/dL (65-115) 09/21/22 13:24 Calculated Osmolality 286 mOsm/kg (285-295) 09/21/22 13:24 Calcium 9.8 mg/dL (8.5-10.5) 09/21/22 13:24 Total Bilirubin 1.3 mg/dL (0.15-1.2) H 09/21/22 13:24 AST 116 U/L (0-40) H 09/21/22 13:24 ALT 203 U/L (0-41) H 09/21/22 13:24 Alkaline Phosphatase 76 U/L (40-130) 09/21/22 13:24 Total Protein 7.8 g/dL (6.6-8.7) 09/21/22 13:24 Albumin 4.4 g/dL (3.5-5.2) 09/21/22 13:24 Globulin 3.4 g/dL (1.3-4.6) 09/21/22 13:24 Lipase 14 U/L (13-60) 09/21/22 13:24 Urine Color [place] (Yellow) 09/21/22 16:40 Urine Appearance Clear (CLEAR) 09/21/22 16:40 Urine pH 6 (5-7) 09/21/22 16:40 Ur Specific [place] 1.020 (1.005-1.030) 09/21/22 16:40 Urine Protein Neg (Negative) 09/21/22 16:40 Urine Glucose (UA) Norm (Normal) 09/21/22 16:40 Urine Ketones 1+ (Negative) H 09/21/22 16:40 Urine Blood Neg (Negative) 09/21/22 16:40 Urine Nitrate Negative (Negative) 09/21/22 16:40 Urine Bilirubin 1+ (Negative) H 09/21/22 16:40 Urine Urobilinogen 4 mg/dL (Negative) H 09/21/22 16:40 Ur Leukocyte Esterase Negative (Negative) 09/21/22 16:40 Urine RBC None /hpf (0-2) 09/21/22 16:40 Urine WBC None /hpf (0-5) 09/21/22 16:40 Ur Squamous Epith Cells 0-4 /hpf (0-5) H 09/21/22 16:40 Amorphous Sediment Not Reportable 09/21/22 16:40 Urine Bacteria 1+ /hpf (NONE) H 09/21/22 16:40 Urine Sperm 1+ /hpf 09/21/22 16:40 Hepatitis A IgM Ab Non-reactive (Nonreactive) 09/21/22 13:28 Hep Bs Antigen Non-reactive (Nonreactive) 09/21/22 13:28 Hep Bs Antibody 3.5 (11.5-1000) L 09/21/22 13:28 Hep B Core Total Ab Non-reactive (Nonreactive) 09/21/22 13:28 Hepatitis C Antibody Reactive (Nonreactive) H 09/21/22 13:28 Discharge Plan Discharge Patient Disposition: Home Clinical Impression: Hepatitis C antibody test positive Nausea & vomiting Qualifiers: Vomiting type: unspecified Qualified Code(s): R11.2 - Nausea with vomiting, unspecified Condition: Stable Prescriptions: New ondansetron 4 mg tablet,disintegrating 4 mg PO Q8H PRN (Reason: nausea and vomiting) Qty: 20 0RF No Action bupropion HCl 300 mg Tablet Extended Release 24 Hr 300 mg PO DAILY 30 Days Qty: 30 1RF olanzapine 15 mg tablet 15 mg PO DAILY Discharge Orders: Discharge ED (Routine); Ordered 09/21/22 Ordered By: Arden Stewart Discharge Diet: Regular Discharge Activity: Increase activity as tolerated Patient Instructions: Acute Nausea and Vomiting (ED) Activity Restrictions/Additional Instructions: Follow-up with medical provider as directed. Here hepatitis panel labs are pending and results should be back later today. You can call [facility] to find out lab results. Referring you to Dr. Rubin and case management should be contacting next several days to set up an appointment with him for follow-up. Take medications as prescribed. Return to the ER or your medical provider if condition worsens. Please read and understand discharge instructions. Thank you for choosing [facility] for your healthcare needs today. Please realize this is an emergency room and that we are providing you with a me dical screening exam and this may not be complete and all inclusive of all the testing and or work up that you may need to determine your ailment or severity of your illness. It is very important that you follow up as instructed or that you return to the Emergency Department should you have concerns or if your condition changes or worsens in any way. Coding Level of Care Code ED Plant Maintenance Technician for Marie Fwd Exam Comprehensive
[2022-09-21 16:41] VITALS: PULSE 70; RESP 18
--- NOTE | 2022-09-21 16:46 | PC.NURSE ---
Pt asleep in bed.
--- NOTE | 2022-09-21 16:49 | PC.NURSE ---
Pt asleep in bed at this time. No needs.
--- NOTE | 2022-09-21 16:54 | PC.NURSE ---
Pt requesting sandwich and food to eat. Pt given update on waiting for labs and needing urine from him so we can finish tests. Verbalized understanding.
[2022-09-21] MEDS: ondansetron 4 MG Tablet PO (16:56)
[2022-09-21 16:58] LABS: Blood Urine Neg (Negative); Glucose Urine UA Norm (Normal); Ketones Urine 1+ (Negative); Nitrate Urine Negative (Negative); Protein Urine Neg (Negative); Urine Appearance Clear (CLEAR); Urine Color Amber (Yellow); pH Urine 6 (5-7)
[2022-09-21 16:59] LABS: Add Urine Microscopic? YES; Bilirubin Urine 1+ (Negative); Leukocyte Esterase Urine Negative (Negative); Urobilinogen Urine 4 mg/dL (Negative)
[2022-09-21 17:01] VITALS: PULSE 70; RESP 18; O2SAT 98
[2022-09-21 17:01] LABS: Bacteria Urine 1+ /hpf; Squamous Epithelial Cell Urine 0-4 /hpf (0-5)
[2022-09-21 17:02] LABS: Add Urine Culture? No; Sperm Urine 1+ /hpf
[2022-09-21 17:43] LABS: Hepatitis A Antibody IgM Non-Reactive (Nonreactive); Hepatitis B Core AB, Total Non-Reactive (Nonreactive); Hepatitis B Surface AB 3.5 (11.5-1000); Hepatitis B Surface Antigen Non-Reactive (Nonreactive)
[2022-09-21 19:15] LABS: Hepatitis C Virus Antibody Reactive (Nonreactive)
--- NOTE | 2022-09-22 12:48 | DCPLANNER ---
Addendum entered by Theresa Deras 10/19/22 15:18: Patient had a follow up appointment scheduled for 09.22.[address] Rubin - patient did attend appointment. Original Note: sr. strategic sourcing manager had message to schedule a follow up appointment for patient with internal medicine, Dr. Rubin. sr. strategic sourcing manager sent patients information to the front office staff of Internal Medicine. Patients information will be printed and reviewed. Clinic will call patient with appointment information.
[2022-09-27 02:13] LABS: HEP C RNA Viral Load Quant 2860000 IU/mL (NOT DETECTED); HEP C RNA Viral Load Quant 6.46 Log IU/mL (NOT DETECTED)
== END 2022-09-21 17:03 | disposition home or self-care (01) ==
PROVIDERS: Emergency Provider Physician Assistant
DX: R11.2 Nausea with vomiting, unspecified (principal); B19.20 Unspecified viral hepatitis C without hepatic coma; F17.210 Nicotine dependence, cigarettes, uncomplicated
CPT/HCPCS: 36415; 80053; 81001; 83690; 85025; 86705; 86706; 86709; 86803; 87340; 87522; 99283; Q0162

== ENCOUNTER 2022-09-22 15:40 | Outpatient (CLI) | payer MEDICAID, SELFPAY ==
[2022-09-22 17:24] LABS: HIV 1 & 2 Antibody Non-Reactive (Non-Reactiv); HIV 1 & 2 Antigen Non-Reactive (Non-Reactiv)
[2022-09-22 17:28] LABS: Tumor Marker Alpha Fetoprotein 1.2 ng/mL (0-8.3)
[2022-09-22 17:34] LABS: Ammonia 20 umol/L (16-60)
[2022-09-22 21:43] LABS: Hepatitis B Core AB, Total Non-Reactive (Nonreactive); Hepatitis B Surface AB 3.5 (11.5-1000); Hepatitis B Surface Antigen Non-Reactive (Nonreactive)
[2022-09-26 23:08] LABS: HEP C RNA Viral Load Quant 6.44 Log IU/mL (NOT DETECTED)
[2022-09-27 20:13] LABS: Hepatitis C Genotype RNA 3
== END 2022-09-22 15:41 | disposition home or self-care (01) ==
LOC: LAB 15:42
PROVIDERS: Visit Provider Internal Medicine
DX: B18.2 Chronic viral hepatitis C (principal)
CPT/HCPCS: 36415; 82105; 82140; 86705; 86706; 87340; 87522; 87806; 87902

== ENCOUNTER 2022-10-01 04:20 | Emergency (ER) | payer MEDICAID, SELFPAY ==
[2022-10-01 04:35] VITALS: BP 131/89; PULSE 115; RESP 18; TEMP 36.7; O2SAT 97; BMI 26.8
[2022-10-01 05:32] LABS: Basophils % 0.4 %; Eosinophils % 0.5 %; Hematocrit 46.4 % (42.0-52.0); Hemoglobin 16.3 g/dL (11.7-16.6); Lymphocytes # 1.6 10^3/uL (0.8-4.8); Lymphocytes % 18.3 %; Mean Corpuscular HGB Conc 35.1 g/dL (30.0-36.0); Mean Corpuscular Hemoglobin 33.5 pg (28.0-34.0); Mean Corpuscular Volume 95.3 fl (80-94); Mean Platelet Volume 10.3 fL (7.4-10.4); Monocytes # 0.5 10^3/uL (0.2-0.9); Monocytes % 5.9 %; Neutrophils # 6.37 10^3/uL (1.8-7.7); Neutrophils % 74.7 %; Nucleated Red Blood Cells % 0 %; Platelet Count 183 10^3/cmm (130-400); Red Blood Count 4.87 10^6/uL (4.1-5.3); Red Cell Distribution Width 12.9 % (12.1-15.1); White Blood Count 8.5 10^3/uL (4.0-10.0)
--- NOTE | 2022-10-01 05:42 | W.ED.PSYCHS ---
HPI - Psych General: Chief Complaint: Psychiatric Symptoms Stated Complaint: mental issues Time Seen by Provider: 10/01/22 04:39 Source: patient Mode of arrival: ambulatory Limitations: no limitations History of Present Illness: 27-year-old male with a history of alcohol and drug abuse he has been admitted multiple times in psych [facility] he states he was just recently discharged and states he still having some hallucinations and still has depression he denies any suicidal or homicidal ideations he denies any plans of killing himself denies any worsening improving factors. Associated symptoms: Reports auditory hallucinations and depression; Deny homicidal ideation or suicidal ideation Review of Systems Const: Denies: fever(s), chills, body aches or change in appetite Eyes: Denies: blurry vision or eye discomfort ENMT: Denies: throat pain or dental pain Card: Denies: chest pain Resp: Denies: dyspnea GI: Denies: abdominal pain, nausea, vomiting or diarrhea : Denies: dysuria Musc: Denies: neck pain or back pain Skin/Breast: Denies: rash Neuro: Denies: headache(s) Psych: Reports: depression and auditory hallucinations; Denies: suicidal ideation or homicidal ideation Jevon/Lymph: Denies: easy bruising All/Imm: Denies: urticaria PFSH ED PFSH: Medical History (Updated 10/01/22 @ 06:06 by Komal Barajas MD) Hepatitis C Mood disorder Polysubstance (including opioids) dependence, daily use Psychiatric care Pyloric stenosis Social History Smoking and tobacco status: former smoker Quit status (tobacco): has tried quititng Number of times tried to quit tobacco: 5 Second hand smoke exposure: No Smoking risk assessment/counseling performed?: No Alcohol intake: former Physical Exam Const: COMMON NORMALS: no acute distress, patient oriented x3 and healthy appearing HENMT: COMMON NORMALS: normocephalic and atraumatic HEAD & SCALP: normocephalic and atraumatic Eye: COMMON NORMALS: Equal, round and reactive pupils present and EOMs intact bilaterally PUPIL: Yes Equal, round and reactive pupils present Neck/C-Spine: COMMON NORMALS: full ROM and supple Chest: COMMONS NORMALS: normal inspection of the chest and normal palpation of entire chest wall Resp: COMMON NORMALS: normal respiratory effort, No retractions, No use of accessory muscles and clear to auscultation bilaterally AUSCULTATION: clear to auscultation bilaterally Cardio: COMMON NORMALS: regular rate, regular rhythm and No murmurs present (Cardio) RATE: regular rate RHYTHM: regular rhythm GI: COMMON NORMALS: Normal to inspection, nondistended, normoactive bowel sounds present, Soft to palpation, non-tender and no masses PALPATION: Yes Soft to palpation Extremity: COMMON NORMALS: normal to inspection and full ROM Neuro: COMMON NORMALS: patient oriented x3, moves all extremities and no focal motor deficits Psych: COMMON NORMALS: mental status grossly normal, Normal thought process present and cooperative THOUGHT PROCESS: Normal thought process present Skin: COMMON NORMALS: no rashes or lesions noted and no wounds GENERAL SKIN EXAM: no rashes or lesions noted Course Vital Signs: Vital signs: Vital Signs Temperature 98.1 F 10/01/22 04:35 Pulse Rate 115 H 10/01/22 04:35 Respiratory Rate 18 10/01/22 04:35 Blood Pressure 131/89 10/01/22 04:35 Pulse Oximetry 97 10/01/22 04:35 Oxygen Delivery Me thod 10/01/22 04:35 [facility] - Psych Medical Decision Making Patient presents here with depression he has chronic opioid abuse he is well-appearing here he had just got out of the psych unit here a month ago he was admitted and discharged from another psych unit 2 days ago I had Dr. Szymanski evaluate the patient he stable for discharge she is not suicidal or homicidal he is safe on his own. Lab Data : 10/01/22 05:26 10/01/22 05:26 Laboratory Results WBC 8.5 10^3/uL (4.0-10.0) 10/01/22 05:26 RBC 4.87 10^6/uL (4.1-5.3) 10/01/22 05:26 Hgb 16.3 g/dL (11.7-16.6) 10/01/22 05:26 Hct 46.4 % (42.0-52.0) 10/01/22 05:26 MCV 95.3 fl (80-94) H 10/01/22 05:26 MCH 33.5 pg (28.0-34.0) 10/01/22 05:26 MCHC 35.1 g/dL (30.0-36.0) 10/01/22 05:26 RDW 12.9 % (12.1-15.1) 10/01/22 05:26 Plt Count 183 10^3/cmm (130-400) 10/01/22 05:26 MPV 10.3 fL (7.4-10.4) 10/01/22 05:26 Neut % (Auto) 74.7 % 10/01/22 05:26 Lymph % (Auto) 18.3 % 10/01/22 05:26 [place] % (Auto) 5.9 % 10/01/22 05:26 Eos % (Auto) 0.5 % 10/01/22 05:26 Baso % (Auto) 0.4 % 10/01/22 05:26 Neut # (Auto) 6.37 10^3/uL (1.8-7.7) 10/01/22 05:26 Lymph # (Auto) 1.6 10^3/uL (0.8-4.8) 10/01/22 05:26 [place] # (Auto) 0.5 10^3/uL (0.2-0.9) 10/01/22 05:26 Eos # (Auto) 0.0 10^3/uL (0.0-0.8) 10/01/22 05:26 Baso # (Auto) 0.0 10^3/uL (0.0-0.1) 10/01/22 05:26 Nucleated RBC % (auto) 0 % 10/01/22 05:26 Nucleated RBCs # 0.0 /100WBC 10/01/22 05:26 Sodium 136 mmol/L (136-145) 10/01/22 05:26 Potassium 4.3 mmol/L (3.5-5.1) 10/01/22 05:26 Chloride 99 mmol/L (98-107) 10/01/22 05:26 Carbon Dioxide 24 mmol/L (22-29) 10/01/22 05:26 Anion Gap 17.3 (5-19) 10/01/22 05:26 BUN 13 mg/dL (6-20) 10/01/22 05:26 Creatinine 0.9 mg/dL (0.7-1.2) 10/01/22 05:26 GFR Calculation 99.8 mL/min (90-130) 10/01/22 05:26 Glucose 81 mg/dL (65-115) 10/01/22 05:26 Calculated Osmolality 281 mOsm/kg (285-295) L 10/01/22 05:26 Calcium 10.2 mg/dL (8.5-10.5) 10/01/22 05:26 Total Bilirubin 1.1 mg/dL (0.15-1.2) 10/01/22 05:26 AST 152 U/L (0-40) H 10/01/22 05:26 ALT 326 U/L (0-41) H 10/01/22 05:26 Alkaline Phosphatase 82 U/L (40-130) 10/01/22 05:26 Total Protein 8.1 g/dL (6.6-8.7) 10/01/22 05:26 Albumin 5.2 g/dL (3.5-5.2) 10/01/22 05:26 Globulin 2.9 g/dL (1.3-4.6) 10/01/22 05:26 Salicylates < 0.3 mg/dL (3-10) L 10/01/22 05:26 Acetaminophen < 5.0 ug/mL (10-30) L 10/01/22 05:26 Ethyl Alcohol < 10 mg/dL (0-10) 10/01/22 05:26 Discharge Plan Discharge Patient Disposition: Home Clinical Impression: Depression, Alcohol use disorder, severe, dependence, Opioid use disorder, severe, dependence Condition: Stable Prescriptions: No Action bupropion HCl 300 mg Tablet Extended Release 24 Hr 300 mg PO DAILY 30 Days Qty: 30 1RF olanzapine 15 mg tablet 15 mg PO DAILY ondansetron 4 mg tablet,disintegrating 4 mg PO Q8H PRN (Reason: nausea and vomiting) Qty: 20 0RF Discharge Orders: Discharge ED (Routine); Ordered 10/01/22 Ordered By: Komal Barajas Discharge Diet: Advance as tolerated Discharge Activity: Resume usual activity Coding Level of Care Code ED Process Improvement Engineer for [place] Fwd Exam Comprehensive
[2022-10-01 05:55] LABS: Alanine Aminotransferase 326 U/L (0-41); Albumin Level 5.2 g/dL (3.5-5.2); Alkaline Phosphatase 82 U/L (40-130); Anion Gap 17.3 (5-19); Aspartate Amino Transferase 152 U/L (0-40); Blood Urea Nitrogen 13 mg/dL (6-20); Calcium 10.2 mg/dL (8.5-10.5); Carbon Dioxide 24 mmol/L (22-29); Chloride 99 mmol/L (98-107); Globulin 2.9 g/dL (1.3-4.6); Glomerular Filtration Rate 99.8 mL/min (90-130); Glucose 81 mg/dL (65-115); Osmolality Calculated 281 mOsm/kg (285-295); Potassium 4.3 mmol/L (3.5-5.1); Sodium 136 mmol/L (136-145); Total Bilirubin 1.1 mg/dL (0.15-1.2); Total Protein 8.1 g/dL (6.6-8.7)
[2022-10-01 06:02] LABS: Acetaminophen < 5.0 ug/mL (10-30); Alcohol Level < 10 mg/dL (0-10); Salicylate < 0.3 mg/dL (3-10)
== END 2022-10-01 06:11 | disposition home or self-care (01) ==
PROVIDERS: Emergency Medicine; Emergency Provider Emergency Medicine
DX: F32.A Depression, unspecified (principal); F10.20 Alcohol dependence, uncomplicated; F11.20 Opioid dependence, uncomplicated
CPT/HCPCS: 36415; 80053; 80307; 85025; 99283

== ENCOUNTER 2022-12-27 13:21 | Emergency (ER) | payer MEDICAID, SELFPAY ==
[2022-12-27 13:25] VITALS: BP 163/115; PULSE 75; RESP 16; TEMP 36.9; O2SAT 97
--- NOTE | 2022-12-27 13:48 | ED_ITS ---
HPI - Headache General: Chief Complaint: Headache Stated Complaint: head pressure, numbness Time Seen by Provider: 12/27/22 13:29 Source: patient Mode of arrival: ambulatory History of Present Illness: 27 yo male present swith complaints of numbness in the R occipital region with no other symtposms. He expresses more numbnes than pain. He has not had any vision changes, no vomitting. No other focal neurologic deficit had this previously. Not noticed any rash or changes in the skin or scalp in the region he has no numbness. No recent falls or trauma. Symptoms began overnight. MD elicited complaint: headache Onset (ago): hour(s) Onset description: suddenly Location: right and occipital Severity: mild Exacerbating factors: none Relieving factors: nothing Associated symptoms: Deny chest pain, confusion, cough, diaphoresis, eye pain, eye redness, fever(s), lightheadedness, loss of vision, malaise, nausea, neck stiffness, numbness, paresthesias, photophobia, pre-syncope, rash, seizures, abdoul rt of breath, sound sensitivity, syncope, vomiting or weakness Treatments prior to arrival: none Review of Systems Const: Denies: fever(s), chills, fatigue, malaise or diaphoresis ENMT: Denies: throat pain, ear or mastoid pain, nasal discharge or nasal congestion Card: Denies: chest pain, lightheadedness, syncope or pre-syncope Resp: Denies: dyspnea, productive cough or non-productive cough GI: Denies: abdominal pain, nausea or vomiting : Denies: flank pain, dysuria, urinary frequency or urinary urgency Musc: Denies: neck pain or extremity pain Skin/Breast: Denies: rash or pruritus Neuro: Denies: confusion PFSH ED PFSH: Medical History Hepatitis C Mood disorder Polysubstance (including opioids) dependence, daily use Psychiatric care Pyloric stenosis Social History Smoking and tobacco status: former smoker Quit status (tobacco): has tried quititng Number of times tried to quit tobacco: 5 Second hand smoke exposure: No Smoking risk assessment/counseling performed?: No Alcohol intake: former Physical Exam Const: COMMON NORMALS: no acute distress GENERAL APPEARANCE: cooperative and comfortable ORIENTATION/CONSCIOUSNESS: Yes awake, Yes oriented to person, Yes oriented to place and Yes oriented to time HENMT: COMMON NORMALS: normocephalic, atraumatic, hearing grossly normal bilaterally, external ears normal, EAC's normal, TM's normal bilaterally and Normal nasal mucous membranes and turbinates present HEAD & SCALP: normocephalic and atraumatic NOSE: Normal nasal mucous membranes and turbinates present EXTERNAL EAR: Yes external ears normal EXTERNAL AUDITORY CANAL: EAC's normal TYMPANIC MEMBRANE: TM's normal bilaterally Eye: COMMON NORMALS: Equal, round and reactive pupils present, EOMs intact bilaterally, conjunctivae normal and no scleral icterus CONJUNCTIVA: Yes conjunctivae normal PUPIL: Yes Equal, round and reactive pupils present DIRECT OPHTHALMOSCOPY: No photophobia Neck/C-Spine: COMMON NORMALS: full ROM, no lymphadenopathy, supple and no JVD Resp: COMMON NORMALS: normal respiratory effort, No retractions, No use of accessory muscles and clear to auscultation bilaterally AUSCULTATION: clear to auscultation bilaterally Cardio: COMMON NORMALS: no JVD, regular rate, regular rhythm and No murmurs present (Cardio) RATE: regular rate RHYTHM: regular rhythm GI: COMMON NORMALS: Soft to palpation and No hepatosplenomegaly present AUSCULTATION: Yes normoactive bowel sounds PALPATION: Yes Soft to palpation, No Tenderness to palpation present (GI), No Guarding due to palpation present (GI) and Yes No hepatosplenomegaly present Extremity: COMMON NORMALS: normal to inspection, capillary refill normal, no clubbing, cyanosis or edema, no calf tenderness and no pedal edema Neuro: SENSORIUM/ORIENTATION: Yes oriented to person, Yes oriented to place and Yes oriented to time OTHER: No focal neurologic deficits are noted Skin: COMMON NORMALS: no rashes or lesions noted GENERAL SKIN EXAM: no rashes or lesions noted Course Vital Signs: Vital signs: Vital Signs Temperature 98.5 F 12/27/22 13:25 Pulse Rate 75 12/27/22 15:04 Respiratory Rate 16 12/27/22 15:04 Blood Pressure 166/100 12/27/22 15:04 Pulse Oximetry 93 12/27/22 15:04 Oxygen Delivery Me thod 12/27/22 14:30 MDM - Headache Medical Decision Making Patient is more of a paresthesia in the occipital nerve region. There is no abnormalities palpation on the scalp neurologically is fully intact. When I talked to him he downplays a headache aspect of it and says he feels more like a pressure there with the numbness on his itching sensation in the occipital area just on the right. There is no trauma no abnormality on exam. We will put him on prednisone taper I have him follow-up with primary care doctor if symptoms persist. Return if is worsening problems. She also monitor his blood pressure is mildly elevated while he was emergency room today. Medical Records I reviewed the patient's medical records. Lab Data I reviewed the patient's lab results. Discharge Plan Discharge Patient Disposition: Home Clinical Impression: Occipital neuralgia of right side Condition: Stable Prescriptions: New prednisone 20 mg tablet 20 mg PO TID Qty: 15 0RF Rx Instructions: 1 p.o. 3 times daily x3 days, 1 p.o. twice daily x2 days, 1 p.o. daily x2 days Discharge Orders: Discharge ED (Routine); Ordered 12/27/22 Ordered By: Romulo Garza Discharge Diet: Usual diet Discharge Activity: Increase activity as tolerated Patient Instructions: Opioid Safety, Pain Management Activity Restrictions/Additional Instructions: You were seen today with complaints of a paresthetic effect on the posterior right scalp. It is in the distribution of the occipital nerve. You are given ketorolac and diphenhydramine in the emergency room and discharged home with this course of prednisone. If this persist follow-up with your primary care doctor for further evaluation. Coding Level of Care Code ED Immigration Officer for Marie Panda Exam Comprehensive
[2022-12-27 14:13] VITALS: BP 173/117
[2022-12-27] MEDS: ketorolac 30 mg/mL INJ IVP (14:15)
[2022-12-27] MEDS: diphenhydrAMINE 50 mg/mL SDV 1mL IM (14:15)
[2022-12-27 14:30] VITALS: BP 160/88; PULSE 64; RESP 18; O2SAT 99
[2022-12-27 15:04] VITALS: BP 166/100; PULSE 75; RESP 16; O2SAT 93
== END 2022-12-27 15:05 | disposition home or self-care (01) ==
PROVIDERS: Emergency Provider Family Medicine
DX: M54.81 Occipital neuralgia (principal); Z86.19 Personal history of other infectious and parasitic diseases; Z87.891 Personal history of nicotine dependence
CPT/HCPCS: 96372; 96374; 99284; J1200; J1885

== ENCOUNTER 2023-02-01 09:42 | Emergency (ER) | payer MEDICAID, SELFPAY ==
[2023-02-01 09:43] VITALS: BP 146/94; PULSE 94; RESP 19; TEMP 36.7; O2SAT 98; BMI 30.5
--- NOTE | 2023-02-01 09:50 | ECG_ITS ---
[facility] Test Date: 2023-02-01 Pat Name: Bolivar Ledezma Department: Room: Gender: Male Chief Unit Forester: : 1995 Requested By: Romulo Schmidt Order Number: [id number] Haley MD: Frank Marie M.D. Measurements Intervals [place] Rate: 90 P: 63 [place]: 122 QRS: 66 QRSD: 90 T: 48 QT: 340 QTc: 417 Interpretive Statements SINUS RHYTHM Compared to ECG 04/26/2020 06:55:27 No significant changes Electronically Signed On 02-01-2023 15:06:42 ASH COLLECTOR by Frank Marie M.D. [id number] f
--- NOTE | 2023-02-01 10:21 | ECG_ITS ---
[facility] Test Date: 2023-02-01 Pat Name: Bolivar Ledezma Department: Room: Gender: Male Agent Ticketing Gate: : 1995 Requested By: Romulo Schmidt Order Number: [id number] Haley MD: Frank Marie M.D. Measurements Intervals [place] Rate: 84 P: 52 [place]: 129 QRS: 61 QRSD: 86 T: 45 QT: 353 QTc: 418 Interpretive Statements SINUS RHYTHM Compared to ECG 02/01/2023 09:54:04 No significant changes Electronically Signed On 02-01-2023 15:07:12 SUPERVISOR PRECISION OPTICAL ELEMENTS by Frank Marie M.D. [id number]
[2023-02-01 11:16] LABS: Basophils % 0.6 %; Eosinophils # 0.1 10^3/uL (0.0-0.8); Hematocrit 41.3 % (42.0-52.0); Hemoglobin 14.8 g/dL (11.7-16.6); Lymphocytes # 0.9 10^3/uL (0.8-4.8); Lymphocytes % 23.5 %; Mean Corpuscular HGB Conc 35.8 g/dL (30.0-36.0); Mean Corpuscular Hemoglobin 34.3 pg (28.0-34.0); Mean Corpuscular Volume 95.8 fl (80-94); Mean Platelet Volume 10.3 fL (7.4-10.4); Monocytes # 0.4 10^3/uL (0.2-0.9); Monocytes % 11.1 %; Neutrophils # 2.23 10^3/uL (1.8-7.7); Neutrophils % 61.8 %; Nucleated Red Blood Cells % 0 %; Platelet Count 113 10^3/cmm (130-400); Red Blood Count 4.31 10^6/uL (4.1-5.3); Red Cell Distribution Width 13.4 % (12.1-15.1); White Blood Count 3.6 10^3/uL (4.0-10.0)
--- NOTE | 2023-02-01 11:28 | W.ED.CHESTPA ---
HPI - Chest Pain General: Chief Complaint: Chest Pain Stated Complaint: BP issues, detoxing Time Seen by Provider: 02/01/23 09:57 Source: patient Mode of arrival: ambulatory History of Present Illness: 27-year-old male presents to the emergency room complaining of epigastric and chest pain. This is been an ongoing issue. He has been a heavy drinker for the last 10 years. He will drink up to a sixpack a day beer and large amounts of hard liquor daily. He took 2 shots of hard liquor this morning. He wants to stop drinking. He says he had tried previously family members state he had a seizure but he was not seen for that. He has a known history of hepatitis C he has not been treated to this point. He has had some nausea and vomiting recently denies hematochezia melena hematemesis or coffee-ground emesis. His initial complaint was that of chest pain however in talking to him he is complaining of more of epigastric and right upper quadrant pain with the vomiting. MD complaint: chest pain Timing of current episode: episodic Prior episodes: Yes Onset: during rest Pain location: epigastric Pain radiation: other (Right upper quadrant) Severity: moderate Quality: aching Relieving factors: nothing Exacerbating factors: nothing Associated symptoms: Reports abdominal pain, nausea and vomiting; Deny diaphoresis, dyspnea, fever(s), leg edema, palpitations, sense of impending doom or syncope Review of Systems Const: Denies: fever(s), chills or diaphoresis ENMT: Denies: throat pain, ear or mastoid pain, nasal discharge or nasal congestion Card: Reports: chest pain; Denies: palpitations, irregular heart rhythm, edema or syncope Resp: Denies: dyspnea, productive cough, non-productive cough or wheezing GI: Reports: abdominal pain, nausea and vomiting; Denies: hematemesis or coffee ground emesis : Denies: flank pain, dysuria, urinary frequency or urinary urgency Skin/Breast: Denies: rash or pruritus [facility] ED PFSH: Medical History (Updated 02/01/23 @ 17:13 by Romulo Garza DO) Alcohol use disorder, severe, dependence Hepatitis C Mood disorder Polysubstance (including opioids) dependence, daily use Psychiatric care Pyloric stenosis Social History Smoking and tobacco status: former smoker Quit status (tobacco): has tried quititng Number of times tried to quit tobacco: 5 Second hand smoke exposure: No Smoking risk assessment/counseling performed?: No Alcohol intake: former Physical Exam Const: COMMON NORMALS: no acute distress GENERAL APPEARANCE: cooperative and comfortable ORIENTATION/CONSCIOUSNESS: Yes awake, Yes oriented to person, Yes oriented to place and Yes oriented to time HENMT: COMMON NORMALS: normocephalic, atraumatic and hearing grossly normal bilaterally HEAD & SCALP: normocephalic and atraumatic Resp: COMMON NORMALS: normal respiratory effort, No retractions, No use of accessory muscles and clear to auscultation bilaterally AUSCULTATION: clear to auscultation bilaterally Cardio: COMMON NORMALS: regular rate, regular rhythm and No murmurs present (Cardio) RATE: regular rate RHYTHM: regular rhythm GI: COMMON NORMALS: Soft to palpation and No hepatosplenomegaly present AUSCULTATION: Yes normoactive bowel sounds PALPATION: Yes Soft to palpation, No Tenderness to palpation present (GI), No Guarding due to palpation present (GI) and Yes No hepatosplenomegaly present Extremity: COMMON NORMALS: normal to inspection, capillary refill normal, no clubbing, cyanosis or edema, no calf tenderness and no pedal edema Neuro: SENSORIUM/ORIENTATION: Yes oriented to person, Yes oriented to place and Yes oriented to time Skin: COMMON NORMALS: no rashes or lesions noted GENERAL SKIN EXAM: no rashes or lesions noted Course Vital Signs: Vital signs: Vital Signs Temperature 98.1 F 02/01/23 09:43 Pulse Rate 74 02/01/23 15:19 Respiratory Rate 18 02/01/23 15:19 Blood Pressure 188/83 02/01/23 15:19 Pulse Oximetry 97 02/01/23 15:19 Oxygen Delivery Me thod 02/01/23 09:43 MDM - Chest Pain Medical Decision Making No evidence of delirium tremors at this time. We will discharge patient home on chlordiazepoxide taper. Recommend he follow-up with [facility] for [facility] program. Return if he has further problems. Additionally suspect patient has alcoholic gastritis recommend he start on a proton pump inhibitor and abstain from alcohol. Medical Records I reviewed the patient's medical records. Lab Data I reviewed the patient's lab results. 02/01/23 11:08 02/01/23 11:08 Laboratory Results WBC 3.6 10^3/uL (4.0-10.0) L 02/01/23 11:08 RBC 4.31 10^6/uL (4.1-5.3) 02/01/23 11:08 Hgb 14.8 g/dL (11.7-16.6) 02/01/23 11:08 Hct 41.3 % (42.0-52.0) L 02/01/23 11:08 MCV 95.8 fl (80-94) H 02/01/23 11:08 MCH 34.3 pg (28.0-34.0) H 02/01/23 11:08 MCHC 35.8 g/dL (30.0-36.0) 02/01/23 11:08 RDW 13.4 % (12.1-15.1) 02/01/23 11:08 Plt Count 113 10^3/cmm (130-400) L 02/01/23 11:08 MPV 10.3 fL (7.4-10.4) 02/01/23 11:08 Neut % (Auto) 61.8 % 02/01/23 11:08 Lymph % (Auto) 23.5 % 02/01/23 11:08 [place] % (Auto) 11.1 % 02/01/23 11:08 Eos % (Auto) 3.0 % 02/01/23 11:08 Baso % (Auto) 0.6 % 02/01/23 11:08 Neut # (Auto) 2.23 10^3/uL (1.8-7.7) 02/01/23 11:08 Lymph # (Auto) 0.9 10^3/uL (0.8-4.8) 02/01/23 11:08 [place] # (Auto) 0.4 10^3/uL (0.2-0.9) 02/01/23 11:08 Eos # (Auto) 0.1 10^3/uL (0.0-0.8) 02/01/23 11:08 Baso # (Auto) 0.0 10^3/uL (0.0-0.1) 02/01/23 11:08 Nucleated RBC % (auto) 0 % 02/01/23 11:08 Nucleated RBCs # 0.0 /100WBC 02/01/23 11:08 Sodium 136 mmol/L (136-145) 02/01/23 11:08 Potassium 4.1 mmol/L (3.5-5.1) 02/01/23 11:08 Chloride 100 mmol/L (98-107) 02/01/23 11:08 Carbon Dioxide 25 mmol/L (22-29) 02/01/23 11:08 Anion Gap 15.1 (5-19) 02/01/23 11:08 BUN 7 mg/dL (6-20) 02/01/23 11:08 Creatinine 0.7 mg/dL (0.7-1.2) 02/01/23 11:08 GFR Calculation 133.3 mL/min (90-130) H 02/01/23 11:08 Glucose 90 mg/dL (65-115) 02/01/23 11:08 Calculated Osmolality 280 mOsm/kg (285-295) L 02/01/23 11:08 Calcium 8.8 mg/dL (8.5-10.5) 02/01/23 11:08 Total Bilirubin 1.2 mg/dL (0.15-1.2) 02/01/23 11:08 Direct Bilirubin 0.40 mg/dL (0.00-0.30) H 02/01/23 11:08 AST 354 U/L (0-40) H 02/01/23 11:08 ALT 340 U/L (0-41) H 02/01/23 11:08 Alkaline Phosphatase 63 U/L (40-130) 02/01/23 11:08 Troponin T Baseline 6 ng/L (0-15) 02/01/23 11:08 Troponin T 120 Minute 6.00 ng/L (0-15) 02/01/23 13:13 Delta Troponin T 0 ABS# (0-10) 02/01/23 13:13 Total Protein 6.9 g/dL (6.6-8.7) 02/01/23 11:08 Albumin 4.7 g/dL (3.5-5.2) 02/01/23 11:08 Globulin 2.2 g/dL (1.3-4.6) 02/01/23 11:08 Lipase 29 U/L (13-60) 02/01/23 11:08 Ethyl Alcohol < 10 mg/dL (0-10) 02/01/23 11:08 Discharge Plan Discharge Patient Disposition: Home Clinical Impression: Alcohol use disorder, severe, dependence, Alcoholic gastritis Condition: Stable Prescriptions: New chlordiazepoxide HCl 25 mg capsule 25 mg PO QID PRN (Reason: alcohol withdrawal) Qty: 27 0RF Rx Instructions: 1 p.o. 4 times daily x3 days, 1 p.o. 3 times daily x3 days, 1 p.o. twice daily x3 days Protonix 40 mg tablet,delayed release (DR/EC) 40 mg PO DAILY Qty: 30 0RF No Action lisinopril 20 mg tablet 20 mg PO DAILY Discharge Orders: Discharge ED (Routine); Ordered 02/01/23 Ordered By: Romulo Garza Referrals: Raghavendra Diez MD [Primary Care Provider] - Discharge Diet: Usual diet Discharge Activity: Increase activity as tolerated Patient Instructions: Opioid Safety, Pain Management Activity Restrictions/Additional Instructions: You were seen today for stomach upset and desire to stop using alcohol. Recommend you do not drink use of chlordiazepoxide for withdrawal symptoms as on the taper as written on the prescription. Additionally start pantoprazole 40 mg once a day abstain from all alcohol. Recommend you follow-up with [facility] to begin an outpatient treatment program for alcohol abstinence. Coding Level of Care Code ED Casework Specialist for Marie Panda
[2023-02-01 11:38] LABS: Troponin(5th) Baseline 6 ng/L (0-15)
[2023-02-01] MEDS: promethazine 25 mg/mL SDV 1 mL IM (11:42)
[2023-02-01] MEDS: lidocaine 2% viscous 15 ML, aluminum-mag hydrox-simethicon 30 ML, sucralfate oral liq 1 GM PO (11:42)
[2023-02-01] MEDS: pantoprazole 40 mg SDV IVP (11:42)
[2023-02-01 11:45] LABS: Anion Gap 15.1 (5-19); Blood Urea Nitrogen 7 mg/dL (6-20); Calcium 8.8 mg/dL (8.5-10.5); Carbon Dioxide 25 mmol/L (22-29); Chloride 100 mmol/L (98-107); Glomerular Filtration Rate 133.3 mL/min (90-130); Glucose 90 mg/dL (65-115); Osmolality Calculated 280 mOsm/kg (285-295); Potassium 4.1 mmol/L (3.5-5.1); Sodium 136 mmol/L (136-145)
[2023-02-01 11:48] LABS: Alcohol Level < 10 mg/dL (0-10)
[2023-02-01 13:04] LABS: Alanine Aminotransferase 340 U/L (0-41); Albumin Level 4.7 g/dL (3.5-5.2); Alkaline Phosphatase 63 U/L (40-130); Aspartate Amino Transferase 354 U/L (0-40); Globulin 2.2 g/dL (1.3-4.6); Lipase 29 U/L (13-60); Total Bilirubin 1.2 mg/dL (0.15-1.2); Total Protein 6.9 g/dL (6.6-8.7)
--- NOTE | 2023-02-01 13:35 | ECG_ITS ---
[facility] Test Date: 2023-02-01 Pat Name: Bolivar Ledezma Department: Room: Gender: Male Comb Fixer: : 1995 Requested By: Romulo Schmidt Order Number: [id number] Haley MD: Frank Marie M.D. Measurements Intervals [place] Rate: 81 P: 63 [place]: 134 QRS: 70 QRSD: 84 T: 58 QT: 376 QTc: 437 Interpretive Statements SINUS RHYTHM WITH SINUS ARRHYTHMIA Compared to ECG 02/01/2023 10:55:11 No significant changes Electronically Signed On 02-01-2023 15:13:02 BOTTLE LABEL INSPECTOR by Frank Marie M.D. [id number]
[2023-02-01 13:42] VITALS: BP 146/96; O2SAT 98
[2023-02-01 14:01] LABS: Troponin 5 2HR Delta 0 ABS# (0-10)
[2023-02-01 15:19] VITALS: BP 188/83; PULSE 74; RESP 18; O2SAT 97
== END 2023-02-01 15:20 | disposition home or self-care (01) ==
PROVIDERS: Emergency Provider Family Medicine; PCP Family Medicine
DX: F10.20 Alcohol dependence, uncomplicated (principal); K29.20 Alcoholic gastritis without bleeding; Z86.19 Personal history of other infectious and parasitic diseases; Z87.891 Personal history of nicotine dependence
CPT/HCPCS: 36415; 80048; 80076; 80307; 83690; 84484; 85025; 93005; 96372; 96374; 99285; C9113; J2550

== ENCOUNTER 2023-03-02 16:37 | Emergency (ER) | payer MEDICAID, SELFPAY ==
[2023-03-02 16:55] VITALS: BP 139/85; PULSE 108; RESP 18; TEMP 36.8; O2SAT 98
--- NOTE | 2023-03-02 17:10 | W.ED.GIBLEED ---
HPI - GI Bleed General: Chief complaint: GI Bleed Stated complaint: THROWING UP BLOOD Time Seen by Provider: 03/02/23 17:10 History of Present Illness: Mr. Ledezma is a 27-year-old gentleman with history of hepatitis C, alcohol abuse, likely cirrhosis presenting for vomiting blood. He reports currently drinking approximately 20 shooters of alcohol per day. He notes generalized abdominal discomfort and starting this morning he had blood in vomit. He denies history of similar. He does endorse daily vomiting and becoming shaky when he tries to stop drinking. Overall course of symptoms is worsened. Last drink a few hours prior to arrival. No other specific changes in health, exacerbating, or alleviating factors identified. Onset (ago): hour(s) Pain Consistency: constant Severity: moderate Exacerbating factors: eating and vomiting Context: liver disease and alcohol abuse Associated symptoms: Reports abdominal pain and other Review of Systems General: Reports: 10 or more systems reviewed and unremarkable except in HPI and below GI: Reports: abdominal pain [facility] ED PFSH: Medical History Alcohol use disorder, severe, dependence Hepatitis C Mood disorder Polysubstance (including opioids) dependence, daily use Psychiatric care Pyloric stenosis Social History Smoking and tobacco status: former smoker Quit status (tobacco): has tried quititng Number of times tried to quit tobacco: 5 Second hand smoke exposure: No Smoking risk assessment/counseling performed?: No Alcohol intake: former Physical Exam Const: COMMON NORMALS: alert GENERAL APPEARANCE: cooperative and well developed HENMT: COMMON NORMALS: normocephalic and atraumatic HEAD & SCALP: normocephalic and atraumatic THROAT: posterior oropharynx normal Eye: COMMON NORMALS: conjunctivae normal CONJUNCTIVA: Yes conjunctivae normal SCLERA: sclerae normal Neck/C-Spine: COMMON NORMALS: supple GENERAL: Yes trachea midline Resp: COMMON NORMALS: normal respiratory effort EFFORT & INSPECTION: Yes able to speak in complete sentences Cardio: COMMON NORMALS: regular rate and regular rhythm RATE: regular rate and tachycardic RHYTHM: regular rhythm GI: COMMON NORMALS: Soft to palpation PALPATION: Yes Soft to palpation, Yes Tenderness to palpation present (GI), No Guarding due to palpation present (GI) and No Rigid due to palpation Extremity: GENERAL: Yes normal exam except as noted and No edema Neuro: COMMON NORMALS: moves all extremities SENSORIUM/ORIENTATION: Yes alert and No Orientation impaired Psych: COMMON NORMALS: mental status grossly normal and Normal thought process present THOUGHT PROCESS: Normal thought process present Course Vital Signs: Vital signs: Vital Signs Temperature 98.3 F 03/02/23 16:55 Pulse Rate 93 03/02/23 21:26 Respiratory Rate 18 03/02/23 16:55 Blood Pressure 139/85 03/02/23 16:55 Pulse Oximetry 98 03/02/23 21:26 Oxygen Delivery Me thod Room Air 03/02/23 16:55 MDM - GI Bleed Medical Decision Making 28-year-old male with extensive history of alcohol abuse presenting to the emergency department for concern over hematemesis. No active bleeding noted on exam. Labs demonstrate normal hemoglobin, normal coags, no significant Actilite). Transaminitis consistent with known history of alcohol abuse. Alcohol level is still elevated at 239. CT angiography demonstrates no active bleeding. Incidental findings discussed and noted/discussed with patient. Patient with improvement with pantoprazole, fluids, anxiolysis, antiemetic. He initially was given initial empiric dose of Rocephin. He is able to tolerate p.o. intake. Most likely etiology patient symptoms is alcohol gastritis/esophagitis. The results of ED evaluation were discussed with the patient including prescriptions and/or symptomatic cares (if applicable) including appropriate and responsible use, followup plan, and return precautions. The patient verbalized understanding and felt safe for discharge. Medical Records I reviewed the patient's medical records. Lab Data I reviewed the patient's lab results. 03/02/23 17:23 03/02/23 17:23 Radiology Impressions Chest/Abdomen/Pelvis CTA 03/02/23 18:01 IMPRESSION: There are no acute concerning abnormalities. No evidence for esophageal bleed. Laboratory Results WBC 4.4 10^3/uL (4.0-10.0) 03/02/23 17:23 RBC 4.38 10^6/uL (4.1-5.3) 03/02/23 17:23 Hgb 15.5 g/dL (11.7-16.6) 03/02/23 17: Hct 42.0 % (42.0-52.0) 03/02/23 17: MCV 95.9 fl (80-94) H 03/02/23 17: MCH 35.4 pg (28.0-34.0) H 03/02/23 17: MCHC 36.9 g/dL (30.0-36.0) H 03/02/23: RDW 12.7 % (12.1-15.1) 03/02/23: Plt Count 170 10^3/cmm (130-400) 03/02/23 17: MPV 10.5 fL (7.4-10.4) H 03/02/23 17: Neut % (Auto) 51.6 % 03/02/23 17: Lymph % (Auto) 37.4 % 03/02/23 17: Prentiss % (Auto) 9.4 % 03/02/23: Eos % (Auto) 0.9 % 03/02/23: Baso % (Auto) 0.5 % 03/02/23: Neut # (Auto) 2.26 10^3/uL (1.8-7.7) 03/02/23 17: Lymph # (Auto) 1.6 10^3/uL (0.8-4.8) 03/02/23: Prentiss # (Auto) 0.4 10^3/uL (0.2-0.9) 03/02/23: Eos # (Auto) 0.0 10^3/uL (0.0-0.8) 03/02/23: Baso # (Auto) 0.0 10^3/uL (0.0-0.1) 03/02/23: Nucleated RBC % (auto) 0 % 03/02/23: Nucleated RBCs # 0.0 /100WBC 03/02/23: PT 13.50 SECONDS (12.1-14.9) 03/02/23: INR 1.00 (0.8-1.2) 03/02/23: APTT 25.6 SECONDS (23.9-36.7) 03/02/23 17: Sodium 141 mmol/L (136-145) 04/06/23 17:23 Potassium 4.1 mmol/L (3.5-5.1) 03/02/23 17:23 Chloride 105 mmol/L (98-107) 03/02/23 17: Carbon Dioxide 25 mmol/L (22-29) 03/02/23 17:23 Anion Gap 15.1 (5-19) 03/02/23 17:23 BUN 6 mg/dL (6-20) 03/02/23 17: Creatinine 0.7 mg/dL (0.7-1.2) 03/02/23 17:23 GFR Calculation 133.3 mL/min (90-130) H 03/02/23 17:23 Glucose 108 mg/dL (65-115) 03/02/23 17: Calculated Osmolality 290 mOsm/kg (285-295) 03/02/23 17: Lactate 1.1 mmol/L (0.5-2.2) 03/02/23 17: Calcium 8.5 mg/dL (8.5-10.5) 03/02/23 17: Total Bilirubin 1.0 mg/dL (0.15-1.2) 03/02/23 17:23 AST 454 U/L (0-40) H 03/02/23 17:23 ALT 376 U/L (0-41) H 03/02/23 17: Alkaline Phosphatase 82 U/L (40-130) 03/02/23 17:23 Total Protein 7.5 g/dL (6.6-8.7) 03/02/23 17: Albumin 4.7 g/dL (3.5-5.2) 03/02/23 17: Globulin 2.8 g/dL (1.3-4.6) 03/02/23 17: Lipase 29 U/L (13-60) 03/02/23 17: Ethyl Alcohol 239 mg/dL (0-10) H 03/02/23 17:23 Blood Type A Positive 03/02/23 17:23 Rho(D) Type Positive 03/02/23 17: Antibody Screen Negative 03/02/23 17: Discharge Plan Discharge Patient Disposition: Home Clinical Impression: Alcohol use disorder, severe, dependence, Alcoholic gastritis with bleeding, Alcoholic hepatitis Condition: Stable Prescriptions: Continued lisinopril 20 mg tablet 20 mg PO DAILY chlordiazepoxide HCl 25 mg capsule 25 mg PO QID PRN (Reason: alcohol withdrawal) Qty: 27 0RF Rx Instructions: 1 p.o. 4 times daily x3 days, 1 p.o. 3 times daily x3 days, 1 p.o. twice daily x3 days Protonix 40 mg tablet,delayed release (DR/EC) 40 mg PO DAILY Qty: 30 0RF Discharge Orders: Discharge ED (Routine); Ordered 03/02/23 Ordered By: Raphael Metz Referrals: Raghavendra Diez MD [Primary Care Provider] - Discharge Diet: Usual diet Discharge Activity: Increase activity as tolerated Patient Instructions: Gastritis (ED), Abuse of Alcohol (ED), Alcoholic Hepatitis (ED), Hematemesis (ED) Activity Restrictions/Additional Instructions: Thank you for visiting the emergency department. You were seen and evaluated for possible blood in vomit. The exact cause your symptoms is unclear though likely related to alcoholic gastritis. You were found to have evidence of alcoholic hepatitis as well. Given CT and laboratory study findings you do not require admission at this time. Please stop abusing alcohol, failure to stop abusing alcohol will likely lead to or worse. There is a crisis stabilization center on the south side of the hospital ([address]) for mental health or addiction resources. Their hours are 11 AM to 9 PM daily. There are also community resources such as [facility] that you can call for alcohol cessation. Please establish with a primary care provider. Return to the emergency department for anything that you are concerned about and feel needs emergency department evaluation. Coding Level of Care Code ED Integration Analyst for Marie Panda
[2023-03-02] MEDS: sodium chloride 0.9% 1,000 ML 999 ML IV (17:28)
[2023-03-02] MEDS: ondansetron 2 mg/ML SDV 2 mL 4 MG IVP (17:31)
[2023-03-02 17:43] LABS: Basophils % 0.5 %; Eosinophils % 0.9 %; Hemoglobin 15.5 g/dL (11.7-16.6); Lymphocytes # 1.6 10^3/uL (0.8-4.8); Lymphocytes % 37.4 %; Mean Corpuscular HGB Conc 36.9 g/dL (30.0-36.0); Mean Corpuscular Hemoglobin 35.4 pg (28.0-34.0); Mean Corpuscular Volume 95.9 fl (80-94); Mean Platelet Volume 10.5 fL (7.4-10.4); Monocytes # 0.4 10^3/uL (0.2-0.9); Monocytes % 9.4 %; Neutrophils # 2.26 10^3/uL (1.8-7.7); Neutrophils % 51.6 %; Nucleated Red Blood Cells % 0 %; Platelet Count 170 10^3/cmm (130-400); Red Blood Count 4.38 10^6/uL (4.1-5.3); Red Cell Distribution Width 12.7 % (12.1-15.1); White Blood Count 4.4 10^3/uL (4.0-10.0)
[2023-03-02] MEDS: pantoprazole 40 mg SDV 80 MG IVP (17:54)
[2023-03-02] MEDS: cefTRIAXone 1,000 MG in sodium chloride 0.9% (plus) 50 ML 100 MG IV (17:54)
[2023-03-02 17:56] LABS: Partial Thromboplastin Time 25.6 SECONDS (23.9-36.7)
[2023-03-02 17:59] LABS: Lactate (Lactic Acid level) 1.1 mmol/L (0.5-2.2)
[2023-03-02 18:00] LABS: Alanine Aminotransferase 376 U/L (0-41); Albumin Level 4.7 g/dL (3.5-5.2); Alcohol Level 239 mg/dL (0-10); Alkaline Phosphatase 82 U/L (40-130); Anion Gap 15.1 (5-19); Aspartate Amino Transferase 454 U/L (0-40); Blood Urea Nitrogen 6 mg/dL (6-20); Calcium 8.5 mg/dL (8.5-10.5); Carbon Dioxide 25 mmol/L (22-29); Chloride 105 mmol/L (98-107); Globulin 2.8 g/dL (1.3-4.6); Glomerular Filtration Rate 133.3 mL/min (90-130); Glucose 108 mg/dL (65-115); Lipase 29 U/L (13-60); Osmolality Calculated 290 mOsm/kg (285-295); Potassium 4.1 mmol/L (3.5-5.1); Sodium 141 mmol/L (136-145); Total Protein 7.5 g/dL (6.6-8.7)
--- NOTE | 2023-03-02 18:01 | CTR_ITS ---
PROCEDURE INFORMATION: Exam: CTA Chest With Contrast CTA Abdomen and Pelvis Without And With Contrast Exam date and time: 03/02/2023 6:57 PM Age: 27 years old Clinical indication: Other: Hematemesis, esohhageal bleeding? ; Additional info: Hematemesis, abd pain, eval esophageal bleeding vs other TECHNIQUE: Imaging protocol: Computed tomographic angiography of the chest with contrast. Computed tomographic angiography of the abdomen and pelvis without and with contrast. 3D rendering (Not supervised by radiologist): MIP and/or 3D reconstructed images were created by the technologist. Radiation optimization: All CT scans at this facility use at least one of these dose optimization techniques: automated exposure control; mA and/or kV adjustment per patient size (includes targeted exams where dose is matched to clinical indication); or iterative reconstruction. Contrast material: OMNI 350; Contrast volume: 100 ml; Contrast route: INTRAVENOUS (IV); REPORTING DATA: Count of CT and Cardiac NM exams in prior 12 months: This patient has received 0 known CTs and 0 known cardiac nuclear medicine studies in the 12 months prior to the current study. COMPARISON: CT angio chest PE protcl [id number] 04/26/2020 7:22 AM RADIATION DOSE METRICS: Total DLP (mGy-cm): 1861.94 FINDINGS: VASCULATURE: Pulmonary arteries: Normal. No pulmonary emboli. Aorta: No aortic aneurysm. No aortic dissection. Celiac trunk and mesenteric arteries: No occlusion or significant stenosis. Renal arteries: No occlusion or significant stenosis. Right iliac arteries: No occlusion or significant stenosis. Left iliac arteries: No occlusion or significant stenosis. CHEST: Lungs: Unremarkable. No consolidation. No masses. Pleural spaces: Unremarkable. No pneumothorax. No pleural effusion. Heart: Unremarkable. No cardiomegaly. No pericardial effusion. No esophageal wall thickening or mass. No pneumomediastinum. ABDOMEN AND PELVIS: Liver: Findings consistent with fatty infiltration of the liver are identified. Gallbladder and bile ducts: Unremarkable. No calcified stones. No ductal dilation. Pancreas: Unremarkable. No mass. No ductal dilation. Spleen: Unremarkable. No splenomegaly. Adrenal glands: Unremarkable. No mass. Kidneys and ureters: Unremarkable. No solid mass. No hydronephrosis. Stomach and bowel: Unremarkable. No obstruction. No mucosal thickening. Appendix: The appendix is visualized and appears normal. Intraperitoneal space: Unremarkable. No free air. No significant fluid collection. Urinary bladder: Unremarkable. No mass. Reproductive: Unremarkable as visualized. Lymph nodes: Unremarkable. No enlarged lymph nodes. Bones/joints: Unremarkable. No acute fracture. Soft tissues: Unremarkable. CT/CT [facility] [id number] IMPRESSION: There are no acute concerning abnormalities. No evidence for esophageal bleed.
[2023-03-02] MEDS: iohexol 350 mg/mL 500 mL Btl (per mL) IV (19:17)
--- NOTE | 2023-03-02 19:20 | PC.NURSE ---
PT returned from CT scan, c/o feeling shaky, nauseated, dry heaves. Dr Metz informed, order for ativan received and given.
[2023-03-02] MEDS: LORazepam 2 mg/mL INJ 1 mL 1 MG IVP (19:26)
--- NOTE | 2023-03-02 20:35 | PC.NURSE ---
Orders to PO challenge, pt given cola to drink per his request
--- NOTE | 2023-03-02 20:55 | PC.NURSE ---
Tolerating fluids, given sandwich to eat
[2023-03-02 21:25] VITALS: PULSE 93; O2SAT 98
[2023-03-02 21:26] VITALS: PULSE 93; O2SAT 98
== END 2023-03-02 21:27 | disposition home or self-care (01) ==
PROVIDERS: Nurse Practitioner Family; Emergency Provider Emergency Medicine; PCP Family Medicine
DX: K29.21 Alcoholic gastritis with bleeding (principal); K70.10 Alcoholic hepatitis without ascites; F10.20 Alcohol dependence, uncomplicated; Z87.891 Personal history of nicotine dependence
CPT/HCPCS: 71275; 74174; 80053; 80307; 83605; 83690; 85025; 85610; 85730; 86850; 86900; 96365; 96375; 99285; C9113; J0696; J2060; J2405; J7030; Q9967

== ENCOUNTER 2023-03-26 18:21 | Observation (INO) | payer MEDICAID, SELFPAY ==
[2023-03-26 18:25] VITALS: BP 153/117; PULSE 120; RESP 20; TEMP 36.7; O2SAT 98
--- NOTE | 2023-03-26 18:43 | XRR_ITS ---
PROCEDURE INFORMATION: Exam: XR Chest Exam date and time: 03/26/2023 6:56 PM Age: 28 years old Clinical indication: Screening exam; Other screening; Patient HX: Behavioral health screening; Additional info: Vomiting TECHNIQUE: Imaging protocol: Radiologic exam of the chest. Views: 1 view. COMPARISON: CT ang karennishant neri [id number] 03/02/2023 6:57 PM FINDINGS: Lungs: Unremarkable. No consolidation. Pleural spaces: Unremarkable. No pleural effusion. No pneumothorax. Heart/Mediastinum: Unremarkable. No cardiomegaly. Bones/joints: Unremarkable. XR/XR chest 1V portable [id number] IMPRESSION: No acute findings.
--- NOTE | 2023-03-26 18:54 | ED_ITS ---
HPI - Alcohol General: Chief Complaint: Alcohol Stated Complaint: detox , wants npu eval Time Seen by Provider: 03/26/23 18:31 History of Present Illness: 28-year-old male here intoxicated. He says he wants to stop drinking. Initially at least, he denies suicidal or homicidal ideation. He is tearful on exam. Evidently he swallowed 3 small Xanax pills on arrival to the ER. He s tates that he threw up blood last night. This concerned him. Last drink: Just SKIAGRAPHER Amount of alcohol consumed: 18 shots. Chronic alcohol use: Yes Previous visits for alcohol intoxication: Yes Recent trauma: No Associated symptoms: Reports abdominal pain, depression, hematemesis, nausea and vomiting; Deny melena, suicidal ideation or syncope Treatments prior to arrival: none Review of Systems Card: Denies: chest pain or syncope Resp: Denies: dyspnea, productive cough or non-productive cough GI: Reports: abdominal pain, nausea, vomiting, hematemesis and diarrhea; Denies: hematochezia or melena Skin/Breast: Denies: rash Neuro: Denies: headache(s) Psych: Reports: depression; Denies: suicidal ideation or homicidal ideation [facility] ED PFSH: Medical History Alcohol use disorder, severe, dependence Hepatitis C Mood disorder Polysubstance (including opioids) dependence, daily use Psychiatric care Pyloric stenosis Social History Smoking and tobacco status: former smoker Quit status (tobacco): has tried quititng Number of times tried to quit tobacco: 5 Second hand smoke exposure: No Smoking risk assessment/counseling performed?: No Alcohol intake: former Substance/Drug Use: current Physical Exam Const: GENERAL APPEARANCE: cooperative and disheveled; not frail appearing NUTRITIONAL APPEARANCE: overweight ORIENTATION/CONSCIOUSNESS: Yes awake, Yes oriented to person, Yes oriented to place and Yes oriented to time HENMT: COMMON NORMALS: normocephalic and atraumatic HEAD & SCALP: normocephalic and atraumatic FACE & SINUS: normal facial exam and face symmetric Eye: COMMON NORMALS: Equal, round and reactive pupils present and EOMs intact bilaterally PUPIL: Yes Equal, round and reactive pupils present Neck/C-Spine: GENERAL: Yes trachea midline Chest: CHEST: Yes Symmetrical chest wall rise Resp: COMMON NORMALS: normal respiratory effort, No use of accessory muscles and clear to auscultation bilaterally AUSCULTATION: clear to auscultation bilaterally Cardio: COMMON NORMALS: regular rate and regular rhythm RATE: regular rate RHYTHM: regular rhythm GI: COMMON NORMALS: Normal to inspection, nondistended, normoactive bowel sounds present and Soft to palpation PALPATION: Yes Soft to palpation and Yes Tenderness to palpation present (GI) (diffuse) Neuro: HECTOR COMA SCALE: document GCS findings [place] coma scale eye opening: Spontaneous H[place] coma scale verbal response: Orientated [place] coma scale motor response: Obey commands [place] coma scale total score: 15 SENSOR IUM/ORIENTATION: Yes oriented to person, Yes oriented to place and Yes oriented to time SPEECH: abnormal speech Details: slurred GAIT: Yes Normal gait present MOTOR EXAM: Normal motor muscle tone present throughout Psych: COMMON NORMALS: cooperative ACTIVITY/MOTOR BEHAVIOR: Yes psychomotor agitation SPEECH: Yes rapid MOOD & AFFECT: Yes tearful THOUGHT PROCESS: disorganized (mildly) THOUGHT CONTENT: No Suicidality present, No Homicidality present and No Hallucination(s) present ATTENTION/CONCENTRATION: Yes attention grossly intact and Yes concentration grossly intact MEM ORY/COGNITION: Yes memory grossly intact and Yes cognition grossly intact INSIGHT: Fair insight present (Psych) JUDGEMENT: Fair judgement present (Psych) Course Vital Signs: Vital signs: Vital Signs Temperature 98.1 F 03/26/23 18:25 Pulse Rate 67 03/26/23 21:14 Respiratory Rate 18 03/26/23 21:14 Blood Pressure 147/102 03/26/23 21:30 Pulse Oximetry 93 03/26/23 21:14 Oxygen Delivery Me thod Room Air 03/26/23 21:14 MDM - Alcohol Medical Decision Making Although the patient's alcohol is 320, he is awake, ambulatory without significant stumbling, and conversant. His vitals are stable. CBC and BMP are normal. Urine drug screen is positive only for marijuana. Liver enzymes are mildly elevated, and bilirubin is normal. He is quite depressed on examination. He is struggling with his addiction, and unable to help himself in his situation. If quitting, he is likely to experience significant withdrawal symptoms. With evidence of significant/severe depression and request for psychiatric help regarding depression and alcohol use, coupled with multiple vi sits over the past 6-week requesting similar, is prudent to keep for psychiatric evaluation. Spoke with psychiatry, they agree. He will be admitted to the neuropsychiatric unit. [facility] protocol orders will be placed. Lab Data 03/26/23 19:05 03/26/23 19:05 Radiology Impressions Chest X-Ray 03/26/23 18:43 IMPRESSION: No acute findings. Laboratory Results WBC 4.9 10^3/uL (4.0-10.0) 03/26/23 19:05 RBC 4.20 10^6/uL (4.1-5.3) 03/26/23 19:05 Hgb 15.1 g/dL (11.7-16.6) 03/26/23 19:05 Hct 42.3 % (42.0-52.0) 03/26/23 19:05 MCV 100.7 fl (80-94) H 03/26/23 19:05 MCH 36.0 pg (28.0-34.0) H 03/26/23 19:05 MCHC 35.7 g/dL (30.0-36.0) 03/26/23 19:05 RDW 12.7 % (12.1-15.1) 03/26/23 19:05 Plt Count 174 10^3/cmm (130-400) 03/26/23 19:05 MPV 10.2 fL (7.4-10.4) 03/26/23 19:05 Neut % (Auto) 50.2 % 03/26/23 19:05 Lymph % (Auto) 35.0 % 03/26/23 19:05 [place] % (Auto) 13.2 % 03/26/23 19:05 Eos % (Auto) 0.8 % 03/26/23 19:05 Baso % (Auto) 0.6 % 03/26/23 19:05 Neut # (Auto) 2.47 10^3/uL (1.8-7.7) 03/26/23 19:05 Lymph # (Auto) 1.7 10^3/uL (0.8-4.8) 03/26/23 19:05 [place]geman # (Auto) 0.7 10^3/uL (0.2-0.9) 03/26/23 19:05 Eos # (Auto) 0.0 10^3/uL (0.0-0.8) 03/26/23 19:05 Baso # (Auto) 0.0 10^3/uL (0.0-0.1) 03/26/23 19:05 Nucleated RBC % (auto) 0 % 03/26/23 19:05 Nucleated RBCs # 0.0 /100WBC 03/26/23 19:05 PT 13.40 SECONDS (12.1-14.9) 03/26/23 20:17 INR 0.99 (0.8-1.2) 03/26/23 20:17 APTT 27.6 SECONDS (23.9-36.7) 03/26/23 20:17 Sodium 142 mmol/L (136-145) 03/26/23 19:05 Potassium 3.9 mmol/L (3.5-5.1) 03/26/23 19:05 Chloride 103 mmol/L (98-107) 03/26/23 19:05 Carbon Dioxide 25 mmol/L (22-29) 03/26/23 19:05 Anion Gap 17.9 (5-19) 03/26/23 19:05 BUN 7 mg/dL (6-20) 03/26/23 19:05 Creatinine 0.9 mg/dL (0.7-1.2) 03/26/23 19:05 GFR Calculation 99.1 mL/min (90-130) 03/26/23 19:05 Glucose 110 mg/dL (65-115) 03/26/23 19:05 Calculated Osmolality 293 mOsm/kg (285-295) 03/26/23 19:05 Calcium 8.5 mg/dL (8.5-10.5) 03/26/23 19:05 Magnesium 2.1 mg/dL (1.7-2.3) 03/26/23 19:05 Total Bilirubin 0.6 mg/dL (0.15-1.2) 03/26/23 19:05 AST 453 U/L (0-40) H 03/26/23 19:05 ALT 330 U/L (0-41) H 03/26/23 19:05 Alkaline Phosphatase 90 U/L (40-130) 03/26/23 19:05 Ammonia 45 umol/L (16-60) 03/26/23 19:47 Total Protein 7.6 g/dL (6.6-8.7) 03/26/23 19:05 Albumin 4.5 g/dL (3.5-5.2) 03/26/23 19:05 Globulin 3.1 g/dL (1.3-4.6) 03/26/23 19:05 Lipase 47 U/L (13-60) 03/26/23 19:05 TSH 2.79 uIU/mL (0.27-4.20) 03/26/23 19:05 Urine Color Yellow (Yellow) 03/26/23 19:56 Urine Appearance Clear (CLEAR) 03/26/23 19:56 Urine pH 5 (5-7) 03/26/23 19:56 Ur Specific [place] 1.030 (1.005-1.030) 03/26/23 19:56 Urine Protein Trace (Negative) 03/26/23 19:56 Urine Glucose (UA) Norm (Normal) 03/26/23 19:56 Urine Ketones Negative (Negative) 03/26/23 19:56 Urine Blood Neg (Negative) 03/26/23 19:56 Urine Nitrate Negative (Negative) 03/26/23 19:56 Urine Bilirubin 1+ (Negative) H 03/26/23 19:56 Urine Urobilinogen 4 mg/dL (Negative) H 03/26/23 19:56 Ur Leukocyte Esterase Negative (Negative) 03/26/23 19:56 Urine RBC None /hpf (0-2) 03/26/23 19:56 Urine WBC None /hpf (0-5) 03/26/23 19:56 Ur Squamous Epith Cells 0-4 /hpf (0-5) H 03/26/23 19:56 Amorphous Sediment Trace /hpf 03/26/23 19:56 Urine Bacteria Trace /hpf (NONE) 03/26/23 19:56 Urine Mucus 3+ /hpf 03/26/23 19:56 Salicylates < 0.3 mg/dL (3-10) L 03/26/23 19:05 Urine Opiates Screen Negative ng/mL (Negative) 03/26/23 19:56 Acetaminophen < 5.0 ug/mL (10-30) L 03/26/23 19:05 Ur Barbiturates Screen Negative ng/mL (Negative) 03/26/23 19:56 Ur Phencyclidine Scrn Negative ng/mL (Negative) 03/26/23 19:56 Ur Amphetamines Screen Negative ng/mL (Negative) 03/26/23 19:56 U Benzodiazepines Scrn Positive ng/mL (Negative) H 03/26/23 19:56 Urine Cocaine Screen Negative ng/mL (Negative) 03/26/23 19:56 U Marijuana (THC) Screen Positive ng/mL (Negative) H 03/26/23 19:56 Ethyl Alcohol 320 mg/dL (0-10) H* 03/26/23 19:05 Discharge Plan Discharge Patient Disposition: Admitted As Inpatient Clinical Impression: Severe major depression, Alcoholic intoxication Condition: Stable Prescriptions: No Action lisinopril 20 mg tablet 20 mg PO DAILY chlordiazepoxide HCl 25 mg capsule 25 mg PO QID PRN (Reason: alcohol withdrawal) Qty: 27 0RF Rx Instructions: 1 p.o. 4 times daily x3 days, 1 p.o. 3 times daily x3 days, 1 p.o. twice daily x3 days Protonix 40 mg tablet,delayed release (DR/EC) 40 mg PO DAILY Qty: 30 0RF Referrals: Raghavendra Diez MD [Primary Care Provider] - Coding Level of Care Code ED Draw Tender for Marie Panda
--- NOTE | 2023-03-26 19:03 | ECG_ITS ---
[facility] Test Date: 2023-03-26 Pat Name: Bolivar Ledezma Department: Room: Gender: Male Tobacco Sample Puller: : 1995 Requested By: Harry Her Order Number: [id number] Haley MD: Keri Spencer M.D. Measurements Intervals [place] Rate: 103 P: 68 NV: 122 QRS: 63 QRSD: 85 T: 52 QT: 323 QTc: 425 Interpretive Statements SINUS TACHYCARDIA ABNORMAL RHYTHM ECG Compared to ECG 02/01/2023 13:35:40 Sinus rhythm no longer present Sinus arrhythmia no longer present Electronically Signed On 03-26-2023 22:32:54 CDT by Keri Spencer M.D. [email or web address]
[2023-03-26] MEDS: sodium chloride 0.9% 1,000 ML 999 ML IV (19:05)
[2023-03-26] MEDS: pantoprazole 40 mg SDV 80 MG IVP (19:06)
[2023-03-26 19:13] LABS: Basophils % 0.6 %; Eosinophils % 0.8 %; Hematocrit 42.3 % (42.0-52.0); Hemoglobin 15.1 g/dL (11.7-16.6); Lymphocytes # 1.7 10^3/uL (0.8-4.8); Mean Corpuscular HGB Conc 35.7 g/dL (30.0-36.0); Mean Corpuscular Volume 100.7 fl (80-94); Mean Platelet Volume 10.2 fL (7.4-10.4); Monocytes # 0.7 10^3/uL (0.2-0.9); Monocytes % 13.2 %; Neutrophils # 2.47 10^3/uL (1.8-7.7); Neutrophils % 50.2 %; Nucleated Red Blood Cells % 0 %; Platelet Count 174 10^3/cmm (130-400); Red Cell Distribution Width 12.7 % (12.1-15.1); White Blood Count 4.9 10^3/uL (4.0-10.0)
[2023-03-26 19:34] LABS: Alanine Aminotransferase 330 U/L (0-41); Albumin Level 4.5 g/dL (3.5-5.2); Alkaline Phosphatase 90 U/L (40-130); Anion Gap 17.9 (5-19); Aspartate Amino Transferase 453 U/L (0-40); Blood Urea Nitrogen 7 mg/dL (6-20); Calcium 8.5 mg/dL (8.5-10.5); Carbon Dioxide 25 mmol/L (22-29); Chloride 103 mmol/L (98-107); Creatinine Clr Calc Pharmacy 148.3357; Globulin 3.1 g/dL (1.3-4.6); Glomerular Filtration Rate 99.1 mL/min (90-130); Glucose 110 mg/dL (65-115); Magnesium 2.1 mg/dL (1.7-2.3); Osmolality Calculated 293 mOsm/kg (285-295); Potassium 3.9 mmol/L (3.5-5.1); Sodium 142 mmol/L (136-145); Thyroid Stimulating Hormone 2.79 uIU/mL (0.27-4.20); Total Bilirubin 0.6 mg/dL (0.15-1.2); Total Protein 7.6 g/dL (6.6-8.7)
[2023-03-26 19:36] LABS: Acetaminophen < 5.0 ug/mL (10-30); Salicylate < 0.3 mg/dL (3-10)
[2023-03-26 19:37] LABS: Alcohol Level 320 mg/dL (0-10)
--- NOTE | 2023-03-26 19:52 | PC.NURSE ---
NOTIFIED DR. MCCRACKEN OF PT TAKING 3 PINK PILLS IN TRIAGE PT STATES WAS XANAX DR. MCCRACKEN VERBALIZED UNDERSTANDING NO FURTHER ORDERS.
[2023-03-26 19:53] LABS: INR 0.98 (0.8-1.2)
[2023-03-26 20:09] LABS: Lipase 47 U/L (13-60)
[2023-03-26 20:20] LABS: Ammonia 45 umol/L (16-60)
[2023-03-26 20:29] LABS: Amphetamines Screen Urine Negative (Negative); Barbiturates Screen Urine Negative (Negative); Benzodiazepines Screen Urine Positive (Negative); Cocaine Screen Urine Negative (Negative); Opiate Screen Urine Negative (Negative); PCP Screen Urine Negative (Negative); THC Screen Urine Positive (Negative)
[2023-03-26 20:37] LABS: Urine Appearance Clear (CLEAR); Urine Color Yellow (Yellow)
[2023-03-26 20:38] LABS: Add Urine Microscopic? YES; Bacteria Urine TRACE /hpf; Bilirubin Urine 1+ (Negative); Blood Urine Neg (Negative); Glucose Urine UA Norm (Normal); Ketones Urine Negative (Negative); Leukocyte Esterase Urine Negative (Negative); Mucus Urine 3+ /hpf; Nitrate Urine Negative (Negative); Protein Urine Trace (Negative); Squamous Epithelial Cell Urine 0-4 /hpf (0-5); Urobilinogen Urine 4 mg/dL (Negative); pH Urine 5 (5-7)
[2023-03-26 20:39] LABS: Add Urine Culture? No; Amorphous Sediment Urine TRACE /hpf
[2023-03-26 20:40] LABS: INR 0.99 (0.8-1.2)
[2023-03-26 20:41] LABS: Partial Thromboplastin Time 27.6 SECONDS (23.9-36.7)
[2023-03-26] MEDS: LORazepam 2 mg/mL INJ 1 mL IVP (20:58)
[2023-03-26 21:14] VITALS: PULSE 67; RESP 18; O2SAT 93
[2023-03-26 21:30] VITALS: BP 147/102
[2023-03-26 22:56] LABS: Alcohol Level 221 mg/dL (0-10)
[2023-03-26 22:58] VITALS: BP 163/85; PULSE 93; RESP 16; O2SAT 91
[2023-03-26 23:09] VITALS: BP 140/90; PULSE 120; RESP 18; TEMP 36.6; O2SAT 98
--- NOTE | 2023-03-26 23:20 | PC.NURSE ---
pt arrived to unit via wheelchair from ER. pt calm and cooperative with admission assessment.
[2023-03-27] MEDS: LORazepam 2 mg Tablet PO ×2 (05:51→08:32)
[2023-03-27 06:00] VITALS: BP 153/113; PULSE 93; RESP 18; TEMP 36.9; O2SAT 99
--- NOTE | 2023-03-27 06:05 | PC.NURSE ---
pt given ativan 2mg po per CIWA scale of 22. pt requested po instead of im.
[2023-03-27] MEDS: multivitamin therapeutic Tablet 1 TAB PO (08:32)
[2023-03-27] MEDS: thiamine 100 mg Tablet PO (08:32)
[2023-03-27] MEDS: ondansetron 4 MG Tablet PO (08:32)
[2023-03-27] MEDS: pantoprazole DR 40 mg Tablet PO (08:32)
[2023-03-27] MEDS: folic acid 1 mg Tablet PO (08:32)
--- NOTE | 2023-03-27 08:34 | PC.NURSE ---
Addendum entered by Denise Fountain LPN 03/27/23 09:32: ATIVAN EFFECTIVE EFFECTIVE, CIWA SCORE 0, RESTING IN BED QUIETLY Original Note: CIWA SCORE 20, ATIVAN 2 MG GIVEN PO PER PT C/O INCREASED ANIXETY/AGITATION/TREMORS TO BILATERAL ARMS, MINIMAL BEADS OF SWEAT ON FOREHEAD, VOMITED PRIOR TO BREAKFAST IN ROOM, PRN ZOFRAN GIVEN FOR C/O NAUSEA/VOMITING
--- NOTE | 2023-03-27 08:37 | PC.NURSE ---
REFUSED SCHEDULED PRINIVIL, STATED I JUST DON'T LIKE IT
--- NOTE | 2023-03-27 08:46 | P.NPUHP_ITS ---
Providers/Chief Complaint Admitting Physician: Ghulam Szymanski MD Primary Care Provider: Raghavendra Diez MD Chief Complaint: detox , wants npu eval HPI NPU History of Present Illness Bolivar Ledezma is a 28 year old male who presented to the emergency department with the following report: Chief Complaint: Alcohol Stated Complaint: detox , wants npu eval Time Seen by Provider: 03/26/23 18:31 History of Present Illness: 28-year-old male here intoxicated. He says he wants to stop drinking. Initially at least, he denies suicidal or homicidal ideation. He is tearful on exam. Evidently he swallowed 3 small Xanax pills on arrival to the ER. He states that he threw up blood last night. This concerned him. Last drink: Just [employer] Amount of alcohol consumed: 18 shots. Chronic alcohol use: Yes Previous visits for alcohol intoxication: Yes Recent trauma: No Associated symptoms: Reports abdominal pain, depression, hematemesis, nausea and vomiting; Deny melena, suicidal ideation or syncope Treatments prior to arrival: none. He was admitted to the neuropsychiatric unit for definitive treatment of those issues. He presented today feeling sober versus yesterday when he reports being intoxicated with alcohol and benzodiazepine. He reports that he has been doing better recently and that he has a couple of jobs in general has been doing fine. He reports he stopped smoking cigarettes last February and has stayed with that. He reports that he is still smoking weed and drinking alcohol too much. He identifies that the marijuana is his replacement for the medication that we had given him and that he has no interest in starting medication and he just needed a place to be safe while he was going through withdrawal and he was starting to feel depressed because he felt that he was in a mess everything up by his alcohol getting out of control. He endorses a need for there to be outpatient follow-up possibly drug and alcohol follow-up but also that it would be helpful to have some mental health treatment as well. However he is clear that he does not want to start medication. He identifies that he is on a voluntary admission and so he is wanting to be discharged. We explored several different options as far as how we could be helpful and ways he might benefit from staying in the hospital however he continued to endorse a desire to be discharged today and had no clear indications for any lethality. He was able to contract for safety outside of the hospital and was desirous of referrals if possible but discharge was requested. Per his 08/21/2022 [facility] inpatient psychiatric evaluation: History of Present Illness Bolivar Ledezma is a 27 year old male who presented to the ED with the following report: Chief Complaint: Psychiatric Symptoms Stated Complaint: wants to be 96ed Time Seen by Provider: 08/20/22 17:56 History of Present Illness:?? Mr. Ledezma is a 27-year-old gentleman with family history of bipolar disorder and polysubstance abuse who presents to the emergency department due to psychiatric symptoms.? He has a longstanding history of substance abuse and was recently in a drug and alcohol rehab program [facility] he was kicked out of few days ago.? Since that time he has relapsed including drinking alcohol just before coming in and using injectable opioids earlier this morning.? He states that he needs a lifestyle change because this current situation is waking him feel like dying.? He denies specific plan.? Otherwise denies medical complaints.? No other specific changes in health, exacerbating, or alleviating factors identified. He was admitted to the neuropsychiatric unit for definitive treatment of those issues.? He present today reporting that after his last discharge that he went to a program for a couple weeks and has been off of Suboxone or opiates because they did not allow.? He reports he got kicked out of the program because of some interaction with another participant and came back to [place] and family self feeling like he had no options and was unclear about what his next move should be to avoid suicidal behavior or drug abuse.? He reports that he is off of his Zyprexa which was 50 mg p.o. twice daily for 2 weeks and feels that he is doing much better on it.? We discussed his benefits and alternatives of restarting that as he milligrams p.o. twice daily and then titrating that up.? He reports that he is homeless, off his medication and so he is spinning out of control.? He agreed to proceed with this plan as is documented in this note.? An excerpt of his last hospitalization about a month ago is included below as there have been no substantive changes except those noted above. Per [facility] inpatient psychiatric evaluation: History of Present Illness Bolivar Ledezma is a 27 year old male who presented to the emergency department with the following report: Chief Complaint: Psychiatric Symptoms Stated Complaint: anxiety Time Seen by Provider: 07/13/22 00:48 Source: patient Mode of arrival: ambulatory Limitations: no limitations History of Present Illness:?? Time he did [id number] male has a history of heroin abuse he states that he has been in and out of alf and is homeless states that he keeps relapsing on heroin and is feeling helpless he states he h as been having increased depression with some suicidal thoughts wants to be admitted is any worsening improving factors.? Denies any specific plan. Associated symptoms: Reports depression. He was admitted to the neuropsychiatric unit for definitive treatment of those issues.? Patient presents today reporting that since the time he saw me back in August 2019 he has had some good days and bad times.? An excerpt of that note is included below for context.? He presents today reporting that he has had significant inpatient and outpatient services since he saw me then.? He had been consistent with outpatient services at [facility] as recently as the end of summer 2020.? He was inpatient last month and left connected with Suboxone treatment.? He reports that in general he feels like he is been doing well but he has recently struggled with his drug use.? He reports that he had some heroin overdoses and that he did get his Medicaid in place but he is working and is without transportation and the closest Suboxone place requires daily visits and he is unable to make it there due to transportation.? He reports that is created a very dangerous situation and he came in because of suicidal thoughts and fears that his addiction would lead to completed overdose.? He reports that he actually has an appointment on 823 with a provider that we will do office-based treatment but he was feeling like he might not make it that far due to his most recent behavior.? He reports that he currently is homeless still and that creates a challenge and he is trying to get these final pieces in place so that he believes he will be able to finally stabilize and be functional again.? We agreed that he would assist us in finding the name of the doctor who he is set up with next Monday and that we might be able to collaborate to create a safe bridge to that appointment.? Otherwise he reports that he is doing fine on his medication and he feels safe here in the facility. Per his 09/13/2019 [facility] inpatient psychiatric evaluation: Date of Service: Sep 13, 2019 Chief Complaint: I'm struggling. HPI: Bolivar presents today reporting that he struggles with very low frustration tolerance.? He reports that his anxiety is through the roof. ? He reports that he had a rough go of it.? That he screams, cries and that his new relationship isn't going well secondary to his poor behavior.He reports that in March of this year he lost the second of his twins that were born at 28 weeks.? He reports that he and his significant other went several stays away to try to get away from the memories and fine work.? He reports that that lasted a short period of time and that they return to [place] but that the ghosts and demons were too much.? They split up and he hooked up with a new girlfriend who has 3 kids.? He tried to drown his memories in her children.? But that didn't work and his addiction started getting the best of him and he knows he needs help.? His goal in plan is to the get into an inpatient rehabilitation and he reports he has a bed waiting for him on 1024 but he wasn't sure he go that long without a slip up.? He reports doing was 14 he started smoking cigarettes, drinking alcohol and smoking marijuana by 15 he was doing everything else.? By 17 or 18.? Connected with heroin and alcohol heroin and methamphetamine became his problems.? He reported that apparently before and that he is hopefully going to go back there for inpatient.? He is on a 96 hour hold secondary secondary to his erratic behavior off of this medication and was active addiction. Psychiatric history: He reports he's been hospitalized 4 times and he's been on different medications but he reports that lithium and Depakote were the best.? Research however does not uncover a time when he was on Depakote.? But he has had reported benefits with lithium for some time. Substance abuse history: Patient reports he smokes a half a pack of cigarettes a day, he has alcohol use from time to time now, he has marijuana rarely cocaine rarely methamphetamine at times and pain pills/hair 1 have been a real problem.? He's been in rehabilitation 4 times the last time being in 2018.? He's had no DUIs. Per ED eval HISTORY OF PRESENT ILLNESS Chief Complaint: BEHAVIOR CHANGE and AGITATED, HOMICIDAL THOUGHTS, DELUSIONAL and HALLUCINATIONS.? This started today 3 weeks ago.? (24 yo male presents to ED with homicidal ideations, agitation, delusions, hallucinations and bizarre behavior. The patient has a history of psychiatric problems and quit taking his prescribed medications, instead he is self medicating with methamphetamines and marijuana. The patient had a butter knife on his person when he presented to the ED. The patient stated he feels like some people are trying to hurt him and are after him. He was going to use the butter knife on these people who are after him. The patient said the people were trying to run him over and all sort of shit .). ? No situational problems.? He has exhibited a behavior change. but was not found wandering.? He is non-compliant with medication.? Recent drug use and alcohol consumption.? Has exhibited unusual behavior but been eating or sleeping or not been depressed.? No anxiety, anger, paranoia, suicidal thoughts or self-injury inflicted.? He has had delusions and hallucinations. ? The symptoms are described as severe.? No injury is present. ? Similar symptoms previously. None. ? Recent medical care: Not recently seen/assessed. ? REVIEW OF SYSTEMS No headache, dizziness, weakness, chest pain or palpitations.? No abdominal pain, vomiting, diarrhea, black stools or numbness.? No fever, sore throat, cough, difficulty breathing or urinary frequency.? No skin rash, enlarged lymph nodes, joint pain, weight loss or laceration. ? PAST HISTORY See nurses notes.? Hypertension.? GI disease.? ( PCP - none).? Asthma. Hypokalemia.? Hepatitis.? Gastroesophageal reflux.? Anxiety.? Bipolar disorder.? Depression.? Alcoholism.? Substance abuse.? ( Lifestyle/Substance Problems). ? Surgeries: Adenoidectomy.? Tonsillectomy.? (Pyloric Stenosis Surgery). ? SOCIAL HISTORY Current every day heavy tobacco smoker (cigarette)- less than 1 pack per day. Heavy alcohol use. Last drink was just prior to arrival.? History of heavy drug use: methamphetamines, marijuana. Recently used drugs just prior to arrival.?? Meds NPU Home Medications Medication Instructions Recorded Confirmed Last Taken Type lisinopril 20 mg tablet 20 mg PO DAILY 02/01/23 03/27/23 02/01/23 History pantoprazole 40 mg tablet,delayed 40 mg PO DAILY #30 tabs 03/02/23 03/27/23 Unknown Rx release (Protonix) Allergies Allergy/AdvReac Type Severity Reaction Status Date / Time morphine Allergy Severe Stops Verified 12/27/22 14:24 respiratory system ziprasidone [From Geodon] Allergy Severe Breathing Verified 12/27/22 14:24 problems and Pulse paroxetine Allergy Intermediate Fidgety, Verified 12/27/22 14:24 tingling all over, couldn't sleep, hot flashes aripiprazole [From Abilify] AdvReac Intermediate stomach Verified 12/27/22 14:24 upset, N & V doxepin AdvReac Intermediate ADR-Headach Verified 12/27/22 14:24 e PFSH NPU PFSH: Medical History Alcohol use disorder, severe, dependence Hepatitis C Mood disorder Polysubstance (including opioids) dependence, daily use Psychiatric care Pyloric stenosis Social History Smoking and tobacco status: former smoker Quit status (tobacco): has tried quititng Number of times tried to quit tobacco: 5 Second hand smoke exposure: No Smoking risk assessment/counseling performed?: No Alcohol intake: former Substance/Drug Use: current Mental Status Exam MSE Comments: This is an overweight versus obese white male with in hospital scrubs with limited grooming and eye contact. No abnormal movements except for psychomotor retardation. Cooperative with exam in mild distress. Speech was decreased rate and volume. Mood described as feeling better, affect congruent. Thought process organized, thought content: patient denies suicidal or homicidal ideation, there were no delusions reported or noted, he denied any auditory or visual hallucinations. Attention and concentration were intact and memory appeared fully mostly reliable but none were formally tested. He?s alert and oriented times three. Insight and judgment appeared fair and impulse control appeared limited. Vitals/I&O/Wt Last Vital Signs Temp 98.4 F 03/27/23 06:00 Pulse 93 03/27/23 06:00 Resp 18 03/27/23 06:00 BP 153/113 03/27/23 06:00 Pulse Ox 99 03/27/23 06:00 O2 Del Method Room Air 03/27/23 06:00 03/26/23 03/27/23 03/27/23 22:59 06:59 14:59 Intake Total 1000 / 1000 Balance 1000 / 1000 Weight last 48 hrs Weight 102.058 kg Data NPU 03/26/23 19:05 03/26/23 19:05 A&P Assessment and plan (1) Bipolar disorder: (2) Alcohol use disorder, severe, dependence: (3) Opioid use disorder, severe, dependence: Plan This is a 28-year-old white male with a long history of inpatient and outpatient services and addiction with current active addiction particularly with alcohol and benzodiazepines who presents reporting he was just intoxicated and feeling depressed because he had messed up and now is not having any suicidality or thoughts to hurt anyone else and desirous of discharge as a voluntary patient. 1. Continue current medication. 2. Continue every 15 minute checks for safety. 3. Encourage individual, group and milieu therapies. 4. Encourage sober living treatment after discharge at the highest level of care to which he is willing to commit. Involuntary Hold Information 96 Hour Hold: 96 Hour Involuntary Admission: No Attestations NPU Medical Necessity Statement*: Inpatient hospitalization is medically appropriate at this time however patient is voluntary and without any credible lethality and desiring discharge. He will be allowed to discharge with referral to outpatient services. Coding Level of Care Code Acute Code for [facility] Diagnoses Bipolar disorder F31.9 Alcohol use disorder, severe, dependence F10.20 Opioid use disorder, severe, dependence F11.20
--- NOTE | 2023-03-27 15:12 | P.NPUDS_ITS ---
Diagnoses at Discharge Discharge Diagnosis (1) Bipolar disorder: Status: Acute (2) Alcohol use disorder, severe, dependence: Status: Chronic (3) Opioid use disorder, severe, dependence: Status: Acute Reason for Visit Reason for Visit: detox , wants npu eval Brief History: History of Present Illness Bolivar Ledezma is a 28 year old male who presented to the emergency department with the following report: Chief Complaint: Alcohol Stated Complaint: detox , wants npu eval Time Seen by Provider: 03/26/23 18:31 History of Present Illness:?? 28-year-old male here intoxicated.? He says he wants to stop drinking.? Initially at least, he denies suicidal or homicidal ideation.? He is tearful on exam.? Evidently he swallowed 3 small Xanax pills on arrival to the ER.? He states that he threw up blood last night.? This concerned him. ? Last drink: Just [employer] Amount of alcohol consumed: 18 shots. ? Chronic alcohol use: Yes Previous visits for alcohol intoxication: Yes Recent trauma: No Associated symptoms: Reports abdominal pain, depression, hematemesis, nausea and vomiting; Deny melena, suicidal ideation or syncope Treatments prior to arrival: none. He was admitted to the neuropsychiatric unit for definitive treatment of those issues.? He presented today feeling sober versus yesterday when he reports being intoxicated with alcohol and benzodiazepine.? He reports that he has been doing better recently and that he has a couple of jobs in general has been doing fine.? He reports he stopped smoking cigarettes last February and has stayed with that.? He reports that he is still smoking weed and drinking alcohol too much.? He identifies that the marijuana is his replacement for the medication that we had given him and that he has no interest in starting medication and he just needed a place to be safe while he was going through withdrawal and he was starting to feel depressed because he felt that he was in a mess everything up by his alcohol getting out of control.? He endorses a need for there to be outpatient follow-up possibly drug and alcohol follow-up but also that it would be helpful to have some mental health treatment as well.? However he is clear that he does not want to start medication.? He identifies that he is on a voluntary admission and so he is wanting to be discharged.? We explored several different options as far as how we could be helpful and ways he might benefit from staying in the hospital however he continued to endorse a desire to be discharged today and had no clear indications for any lethality.? He was able to contract for safety outside of the hospital and was desirous of referrals if possible but discharge was requested. Per his 08/21/2022 [facility] inpatient psychiatric evaluation: History of Present Illness Bolivar Ledezma is a 27 year old male who presented to the ED with the following report: Chief Complaint: Psychiatric Symptoms Stated Complaint: wants to be 96ed Time Seen by Provider: 08/20/22 17:56 History of Present Illness:?? Mr. Ledezma is a 27-year-old gentleman with family history of bipolar disorder and polysubstance abuse who presents to the emergency department due to psychiatric symptoms.? He has a longstanding history of substance abuse and was recently in a drug and alcohol rehab program from which he was kicked out of few days ago.? Since that time he has relapsed including drinking alcohol just before coming in and using injectable opioids earlier this morning.? He states that he needs a lifestyle change because this current situation is waking him feel like dying.? He denies specific plan.? Otherwise denies medical complaints.? No other specific changes in health, exacerbating, or alleviating factors identified. He was admitted to the neuropsychiatric unit for definitive treatment of those issues.? He present today reporting that after his last discharge that he went to a program for a couple weeks and has been off of Suboxone or opiates because they did not allow.? He reports he got kicked out of the program because of some interaction with another participant and came back to [place] and family self feeling like he had no options and was unclear about what his next move should be to avoid suicidal behavior or drug abuse.? He reports that he is off of his Zyprexa which was 50 mg p.o. twice daily for 2 weeks and feels that he is doing much better on it.? We discussed his benefits and alternatives of restarting that as he milligrams p.o. twice daily and then titrating that up.? He reports that he is homeless, off his medication and so he is spinning out of control.? He agreed to proceed with this plan as is documented in this note.? An excerpt of his last hospitalization about a month ago is included below as there have been no substantive changes except those noted above. Per [facility] inpatient psychiatric evaluation: History of Present Illness Bolivar Ledezma is a 27 year old male who presented to the emergency department with the following report: Chief Complaint: Psychiatric Symptoms Stated Complaint: anxiety Time Seen by Provider: 07/13/22 00:48 Source: patient Mode of arrival: ambulatory Limitations: no limitations History of Present Illness:?? Time he did [id number] male has a history of heroin abuse he states that he has been in and out of half-way and is homeless states that he keeps relapsing on heroin and is feeling helpless he states he has been having increased depression with some suicidal thoughts wants to be admitted is any worsening improving factors.? Denies any specific plan. Associated symptoms: Reports depression. He was admitted to the neuropsychiatric unit for definitive treatment of those issues.? Patient presents today reporting that since the time he saw me back in August 2019 he has had some good days and bad times.? An excerpt of that note is included below for context.? He presents today reporting that he has had significant inpatient and outpatient services since he saw me then.? He had been consistent with outpatient services at [facility] as recently as the end of summer 2020.? He was inpatient last month and left connected with Suboxone treatment.? He reports that in general he feels like he is been doing well but he has recently struggled with his drug use.? He reports that he had some heroin overdoses and that he did get his Medicaid in place but he is working and is without transportation and the closest Suboxone place requires daily visits and he is unable to make it there due to transportation.? He reports that is created a very dangerous situation and he came in because of suicidal thoughts and fears that his addiction would lead to completed overdose.? He reports that he actually has an appointment on 823 with a provider that we will do office-based treatment but he was feeling like he might not make it that far due to his most recent behavior.? He reports that he currently is homeless still and that creates a challenge and he is trying to get these final pieces in place so that he believes he will be able to finally stabilize and be functional again.? We agreed that he would assist us in finding the name of the doctor who he is set up with next Bhavna and that we might be able to collaborate to create a safe bridge to that appointment.? Otherwise he reports that he is doing fine on his medication and he feels safe here in the facility. Per his 09/13/2019 [facility] inpatient psychiatric evaluation: Date of Service: Sep 13, 2019 Chief Complaint: I'm struggling. HPI: Bolivar presents today reporting that he struggles with very low frustration tolerance.? He reports that his anxiety is through the roof. ? He reports that he had a rough go of it.? That he screams, cries and that his new relationship isn't going well secondary to his poor behavior.He reports that in March of this year he lost the second of his twins that were born at 28 weeks.? He reports that he and his significant other went several stays away to try to get away from the memories and fine work.? He reports that that lasted a short period of time and that they return to [place] but that the ghosts and demons were too much.? They split up and he hooked up with a new girlfriend who has 3 kids.? He tried to drown his memories in her children.? But that didn't work and his addiction started getting the best of him and he knows he needs help.? His goal in plan is to the get into an inpatient rehabilitation and he reports he has a bed waiting for him on 1024 but he wasn't sure he go that long without a slip up.? He reports doing was 14 he started smoking cigarettes, drinking alcohol and smoking marijuana by 15 he was doing everything else.? By 17 or 18.? Connected with heroin and alcohol heroin and methamphetamine became his problems.? He reported that apparently before and that he is hopefully going to go back there for inpatient.? He is on a 96 hour hold secondary secondary to his erratic behavior off of this medication and was active addiction. Psychiatric history: He reports he's been hospitalized 4 times and he's been on different medications but he reports that lithium and Depakote were the best.? Research however does not uncover a time when he was on Depakote.? But he has had reported benefits with lithium for some time. Substance abuse history: Patient reports he smokes a half a pack of cigarettes a day, he has alcohol use from time to time now, he has marijuana rarely cocaine rarely methamphetamine at times and pain pills/hair 1 have been a real problem.? He's been in rehabilitation 4 times the last time being in 2018.? He's had no DUIs. Per ED eval HISTORY OF PRESENT ILLNESS Chief Complaint: BEHAVIOR CHANGE and AGITATED, HOMICIDAL THOUGHTS, DELUSIONAL and HALLUCINATIONS.? This started today 3 weeks ago.? (24 yo male presents to ED with homicidal ideations, agitation, delusions, hallucinations and bizarre behavior. The patient has a history of psychiatric problems and quit taking his prescribed medications, instead he is self medicating with methamphetamines and marijuana. The patient had a butter knife on his person when he presented to the ED. The patient stated he feels like some people are trying to hurt him and are after him. He was going to use the butter knife on these people who are after him. The patient said the people were trying to run him over and all sort of shit .). ? No situational problems.? He has exhibited a behavior change. but was not found wandering.? He is non-compliant with medication.? Recent drug use and alcohol consumption.? Has exhibited unusual behavior but been eating or sleeping or not been depressed.? No anxiety, anger, paranoia, suicidal thoughts or self-injury inflicted.? He has had delusions and hallucinations. ? The symptoms are described as severe.? No injury is present. ? Similar symptoms previously. None. ? Recent medical care: Not recently seen/assessed. ? REVIEW OF SYSTEMS No headache, dizziness, weakness, chest pain or palpitations.? No abdominal pain, vomiting, diarrhea, black stools or numbness.? No fever, sore throat, cough, difficulty breathing or urinary frequency.? No skin rash, enlarged lymph nodes, joint pain, weight loss or laceration. ? PAST HISTORY See nurses notes.? Hypertension.? GI disease.? ( PCP - none).? Asthma. Hypokalemia.? Hepatitis.? Gastroesophageal reflux.? Anxiety.? Bipolar disorder.? Depression.? Alcoholism.? Substance abuse.? ( Lifestyle/Substance Problems). ? Surgeries: Adenoidectomy.? Tonsillectomy.? (Pyloric Stenosis Surgery). ? SOCIAL HISTORY Current every day heavy tobacco smoker (cigarette)- less than 1 pack per day. Heavy alcohol use. Last drink was just prior to arrival.? History of heavy drug use: methamphetamines, marijuana. Recently used drugs just prior to arrival.?? 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 He presented reporting that he had gotten intoxicated which led to the concerns of lethality. He reported that he has been doing fairly well except for this slip up and that his preference would be to continue his outpatient work and focus on employment and being stable. We monitored him for safety and ultimately determined that his reports seemed reasonable and he was allowed to discharge. He had modest improvement, and worked with the social work team to find timely outpatient follow-up.? He e was able to contract for safety outside the hospital prior to discharge.? During the hospitalization, patient had routine laboratory studies which were within normal limits except for few outliers.? Additionally there was a general medical evaluation which was also within normal limits and revealed no new acute processes. Discharge Summary: At the time of discharge, he denied psychosis or lethality.? Mood and anxiety were well managed.? Patient endorsed a plan to avoid all drugs of abuse and follow-up with the aftercare recommendations of the treatment team.? Patient was evaluated and deemed to be absent credible lethality, and had achieved the maximum benefit from an inpatient hospitalization, so was discharged. Involuntary Hold Information 96 Hour Hold: 96 Hour Involuntary Admission: No Mental Status Exam MSE Comments: This is an overweight versus obese white male with in hospital scrubs with limited grooming and eye contact. No abnormal movements except for psychomotor retardation. Cooperative with exam in mild distress. Speech was decreased rate and volume. Mood described as feeling better, affect congruent. Thought process organized, thought content: patient denies suicidal or homicidal ideation, there were no delusions reported or noted, he denied any auditory or visual hallucinations. Attention and concentration were intact and memory appeared fully mostly reliable but none were formally tested. He?s alert and oriented times three. Insight and judgment appeared fair and impulse control appeared limited. Discharge Data Studies Completed and Pending: Completed Studies During Hospitalization Category Date Time Status XR chest 1V nagi ble [id number] Stat Exams 03/26/23 18:43 Completed Radiology Impressions Chest X-Ray 03/26/23 18:43 IMPRESSION: No acute findings. Laboratory Results WBC 4.9 10^3/uL (4.0- 10.0) 03/26/23 19:05 RBC 4.20 10^6/uL (4.1 -5.3) 03/26/23 19:05 Hgb 15.1 g/dL (11.7-1 6.6) 03/26/23 19:05 Hct 42.3 % (42.0-52.0 ) 03/26/23 19:05 MCV 100.7 fl (80-94) H 03/26/23 19:05 MCH 36.0 pg (28.0-34. 0) H 03/26/23 19:05 MCHC 35.7 g/dL (30.0-3 6.0) 03/26/23 19:05 RDW 12.7 % (12.1-15.1 ) 03/26/23 19:05 Plt Count 174 10^3/cmm (130 -400) 03/26/23 19:05 MPV 10.2 fL (7.4-10.4 ) 03/26/23 19:05 Neut % (Auto) 50.2 % 03/26/23 19:05 Lymph % (Auto) 35.0 % 03/26/23 19:05 [place] % (Auto) 13.2 % 03/26/23 19:05 Eos % (Auto) 0.8 % 03/26/23 19:05 Baso % (Auto) 0.6 % 03/26/23 19:05 Neut # (Auto) 2.47 10^3/uL (1.8 -7.7) 03/26/23 19:05 Lymph # (Auto) 1.7 10^3/uL (0.8- 4.8) 03/26/23 19:05 [place] # (Auto) 0.7 10^3/uL (0.2- 0.9) 03/26/23 19:05 Eos # (Auto) 0.0 10^3/uL (0.0- 0.8) 03/26/23 19:05 Baso # (Auto) 0.0 10^3/uL (0.0- 0.1) 03/26/23 19:05 Nucleated RBC % (a uto) 0 % 03/26/23 19:05 Nucleated RBCs # 0.0 /100WBC 03/26/23 19:05 PT 13.40 SECONDS (12 .1-14.9) 03/26/23 20:17 INR 0.99 (0.8-1.2) 03/26/23 20:17 APTT 27.6 SECONDS (23. 9-36.7) 03/26/23 20:17 Sodium 142 mmol/L (136-1 45) 03/26/23 19:05 Potassium 3.9 mmol/L (3.5-5 .1) 03/26/23 19:05 Chloride 103 mmol/L (98-10 7) 03/26/23 19:05 Carbon Dioxide 25 mmol/L (22-29) 03/26/23 19:05 Anion Gap 17.9 (5-19) 03/26/23 19:05 BUN 7 mg/dL (6-20) 03/26/23 19:05 Creatinine 0.9 mg/dL (0.7-1. 2) 03/26/23 19:05 GFR Calculation 99.1 mL/min (90-1 30) 03/26/23 19:05 Glucose 110 mg/dL (65-115 ) 03/26/23 19:05 Calculated Osmolal ity 293 mOsm/kg (285- 295) 03/26/23 19:05 Calcium 8.5 mg/dL (8.5-10 .5) 03/26/23 19:05 Magnesium 2.1 mg/dL (1.7-2. 3) 03/26/23 19:05 Total Bilirubin 0.6 mg/dL (0.15-1 .2) 03/26/23 19:05 AST 453 U/L (0-40) H 03/26/23 19:05 ALT 330 U/L (0-41) H 03/26/23 19:05 Alkaline Phosphata se 90 U/L (40-130) 03/26/23 19:05 Ammonia 45 umol/L (16-60) 03/26/23 19:47 Total Protein 7.6 g/dL (6.6-8.7 ) 03/26/23 19:05 Albumin 4.5 g/dL (3.5-5.2 ) 03/26/23 19:05 Globulin 3.1 g/dL (1.3-4.6 ) 03/26/23 19:05 Lipase 47 U/L (13-60) 03/26/23 19:05 TSH 2.79 uIU/mL (0.27 -4.20) 03/26/23 19:05 Urine Color Yellow (Yellow) 03/26/23 19:56 Urine Appearance Clear (CLEAR) 03/26/23 19:56 Urine pH 5 (5-7) 03/26/23 19:56 Ur Specific Gravit y 1.030 (1.005-1.0 30) 03/26/23 19:56 Urine Protein Trace (Negative) 03/26/23 19:56 Urine Glucose (UA) Norm (Normal) 03/26/23 19:56 Urine Ketones Negative (Negati ve) 03/26/23 19:56 Urine Blood Neg (Negative) 03/26/23 19:56 Urine Nitrate Negative (Negati ve) 03/26/23 19:56 Urine Bilirubin 1+ (Negative) H 03/26/23 19:56 Urine Urobilinogen 4 mg/dL (Negative ) H 03/26/23 19:56 Ur Leukocyte Andie ase Negative (Negati ve) 03/26/23 19:56 Urine RBC None /hpf (0-2) 03/26/23 19:56 Urine WBC None /hpf (0-5) 03/26/23 19:56 Ur Squamous Epith Cells 0-4 /hpf (0-5) H 03/26/23 19:56 Amorphous Sediment Trace /hpf 03/26/23 19:56 Urine Bacteria Trace /hpf (NONE) 03/26/23 19:56 Urine Mucus 3+ /hpf 03/26/23 19:56 Salicylates < 0.3 mg/dL (3-10 ) L 03/26/23 19:05 Urine Opiates Scre en Negative ng/mL (N egative) 03/26/23 19:56 Acetaminophen < 5.0 ug/mL (10-3 0) L 03/26/23 19:05 Ur Barbiturates Sc reen Negative ng/mL (N egative) 03/26/23 19:56 Ur Phencyclidine S crn Negative ng/mL (N egative) 03/26/23 19:56 Ur Amphetamines Sc reen Negative ng/mL (N egative) 03/26/23 19:56 U Benzodiazepines Scrn Positive ng/mL (N egative) H 03/26/23 19:56 Urine Cocaine Scre en Negative ng/mL (N egative) 03/26/23 19:56 U Marijuana (THC) Screen Positive ng/mL (N egative) H 03/26/23 19:56 Ethyl Alcohol 221 mg/dL (0-10) H 03/26/23 22:38 Vitals: Last Vital Signs Temp 98.4 F 03/27/23 06:00 Pulse 93 03/27/23 06:00 Resp 18 03/27/23 06:00 BP 153/113 03/27/23 06:00 Pulse Ox 99 03/27/23 06:00 O2 Del Method Room Air 03/27/23 06:00 Discharge Plan Discharge Patient Disposition: Home Condition: Stable Prescriptions: Continued lisinopril 20 mg tablet 20 mg PO DAILY pantoprazole [Protonix] 40 mg tablet,delayed release (DR/EC) 40 mg PO DAILY Qty: 30 0RF Discharge Orders: Discharge Order (Routine); Ordered 03/27/23 Ordered By: Ghulam Szymanski Referrals: Raghavendra Diez MD [Primary Care Provider] - Discharge Diet: Regular Discharge Activity: Resume usual activity Patient Instructions: Lisinopril (By mouth), Pantoprazole (By mouth), Opioid Safety Stand Alone Forms: Work/School Release Discharge Attestations NPU Time Spent in Discharge Care*: less than 30 min Specific Discharge Activities: Specific discharge activities: educating patient, discussing with manager of case/social workers/dc planners, documenting/other paperwork and evaluating patient/reviewing data Coding Level of Care Code Acute g FW DC note Diagnoses Bipolar disorder F31.9 Alcohol use disorder, severe, dependence F10.20 Opioid use disorder, severe, dependence F11.20
[2023-03-27 15:20] VITALS: BP 153/113; PULSE 93; RESP 18; TEMP 36.9; O2SAT 99
== END 2023-03-27 15:33 | disposition home or self-care (01) ==
LOC: ER 22:19 → NP 23:03
PROVIDERS: Admitting Provider Psychiatry & Neurology Psychiatry; Emergency Provider Emergency Medicine; PCP Family Medicine; Visit Provider Psychiatry & Neurology Psychiatry
DX: F32.2 Major depressive disorder, single episode, severe without psychotic features (principal); F10.220 Alcohol dependence with intoxication, uncomplicated; Y90.8 Blood alcohol level of 240 mg/100 ml or more; R00.0 Tachycardia, unspecified
CPT/HCPCS: 36415; 71045; 80053; 80306; 80307; 81001; 82140; 83690; 83735; 84443; 85025; 85610; 85730; 93005; 96374; 96375; 97165; 99285; C9113; G0378; J2060; J3411; J7030; Q0162

== ENCOUNTER 2023-04-27 07:06 | Emergency (ER) | payer MEDICAID, SELFPAY ==
--- NOTE | 2023-04-27 07:28 | W.ED.SKABFB ---
HPI - Skin/Abscess/Foreign Bdy General: Chief complaint: Skin/Abscess/Foreign Body Stated complaint: poison sumac on lower body Time Seen by Provider: 04/27/23 07:16 History of Present Illness: Patient is a 28-year-old male who comes to the ED with pruritic rash on legs. Patient says 2 days ago he was around some poison lay and he started developing rash on his thighs bilaterally. Rash has spread up into his groin and onto his arms bilaterally as well. Denies any trouble breathing, wheezing, lip or tongue swelling or any vomiting. Associated symptoms: Deny chills, fever(s), nausea or vomiting Review of Systems Const: Denies: fever(s), chills or fatigue Eyes: Denies: change in vision or eye discomfort ENMT: Denies: throat pain, odynophagia, nasal discharge or nasal congestion Card: Denies: chest pain, palpitations, edema, swelling of feet/ankles, dyspnea on exertion or orthopnea Resp: Denies: dyspnea, productive cough or non-productive cough GI: Denies: abdominal pain, nausea, vomiting, diarrhea, constipation or hematochezia : Denies: flank pain, difficulty urinating, dysuria or hematuria Musc: Denies: neck pain, back pain or extremity swelling Skin/Breast: Reports: rash; Denies: new lesions Neuro: Denies: headache(s), numbness in extremities or weakness in extremities PFS ED PFSH: Medical History Alcohol use disorder, severe, dependence Hepatitis C Mood disorder Polysubstance (including opioids) dependence, daily use Psychiatric care Pyloric stenosis Social History Smoking and tobacco status: former smoker Quit status (tobacco): has tried quititng Number of times tried to quit tobacco: 5 Second hand smoke exposure: No Smoking risk assessment/counseling performed?: No Alcohol intake: former Substance/Drug Use: current Physical Exam Const: COMMON NORMALS: patient oriented x3 HENMT: COMMON NORMALS: normocephalic HEAD & SCALP: normocephalic MOUTH: Normal oral and palatal mucosa present THROAT: posterior oropharynx normal and uvula midline Neck/C-Spine: COMMON NORMALS: supple GENERAL: Yes normal visual inspection Resp: COMMON NORMALS: normal respiratory effort, No retractions, No use of accessory muscles and clear to auscultation bilaterally AUSCULTATION: clear to auscultation bilaterally Cardio: COMMON NORMALS: regular rate, regular rhythm, S1 normal heart sound present, S2 normal heart sound present, No gallops present (Cardio), No clicks present (Cardio), No murmurs present (Cardio) and Peripheral pulses 2+ throughout RATE: regular rate RHYTHM: regular rhythm HEART SOUNDS: S1 normal heart sound present and S2 normal heart sound present PERIPHERAL PULSES: Peripheral pulses 2+ throughout GI: COMMON NORMALS: Normal to inspection, nondistended, normoactive bowel sounds present, Soft to palpation, non-tender and no masses PALPATION: Yes Soft to palpation : COMMON NORMALS: Yes no CVA tenderness BLADDER/KIDNEY EXAM: Yes no CVA tenderness Back/Pelvis: COMMON NORMALS: no CVA tenderness Extremity: COMMON NORMALS: normal to inspection and full ROM Neuro: COMMON NORMALS: patient oriented x3 GAIT: Yes Normal gait present Skin: NARRATIVE SKIN EXAM: Patient has erythemic raised vesicular rash that is linear in fashion. Rash is nontender. Findings suggestive of contact dermatitis due to poison lay. Course Vital Signs: Vital signs: Vital Signs Temperature 98.4 F 04/27/23 07:32 Pulse Rate 83 04/27/23 07:32 Blood Pressure 151/104 04/27/23 07:32 Pulse Oximetry 100 04/27/23 07:32 Oxygen Delivery Me thod Room Air 04/27/23 07:32 MDM - Skin/Abscess/Foreign Bdy Medicial Decision Making Patient is a 28-year-old male who comes to the ED with pruritic rash on legs. Patient says 2 days ago he was around some poison lay and he started developing rash on his thighs bilaterally. Rash has spread up into his groin and onto his arms bilaterally as well. Denies any trouble breathing, wheezing, lip or tongue swelling or any vomiting. Vitals are stable.Patient has erythemic raised vesicular rash that is linear in fashion. Rash is nontender. Findings suggestive of contact dermatitis due to poison lay. Patient was given a shot of Kenalog here in the ED. Diagnosed with contact dermatitis and was stable for discharge home. Told to follow-up with PCP in a week for reevaluation. Patient understood and agreed with plan. Discharge Plan Discharge Patient Disposition: Home Clinical Impression: Contact dermatitis Qualifiers: Contact dermatitis type: unspecified Condition: Stable Prescriptions: New Medrol (Dharmesh) 4 mg tablets,dose pack See Rx Instructions .ROUTE .COMPLEX Qty: 21 0RF Rx Instructions: orally per package directions No Action lisinopril 20 mg tablet 20 mg PO DAILY pantoprazole [Protonix] 40 mg tablet,delayed release (DR/EC) 40 mg PO DAILY Qty: 30 0RF Discharge Orders: Discharge ED (Routine); Ordered 04/27/23 Ordered By: Arden Stewart Referrals: Raghavendra Diez MD [Primary Care Provider] - Discharge Diet: Regular Discharge Activity: Increase activity as tolerated Patient Instructions: Contact Dermatitis (ED) Activity Restrictions/Additional Instructions: Follow-up with medical provider as directed in the next 7 to 10 days for reevaluation. I am sending you home with a prescription for steroid, but wait about 5 days after shot of steroid here in the ED and if rash is not improving start taking the prescribed Medrol Dosepak. Take medications as prescribed. Return to the ER or your medical provider if condition worsens. Please read and understand discharge instructions. Thank you for choosing [facility] for your healthcare needs today. Please realize this is an emergency room and that we are providing you with a medical screening exam and this may not be complete and all inclusive of all the testing and or work up that you may need to determine your ailment or severity of your illness. It is very important that you follow up as instructed or that you return to the Emergency Department should you have concerns or if your condition changes or worsens in any way. Stand Alone Forms: Work/School Release Coding Level of Care Code ED General House Worker for Marie Panda
[2023-04-27 07:32] VITALS: BP 151/104; PULSE 83; TEMP 36.9; O2SAT 100; BMI 30.5
[2023-04-27] MEDS: triamcinolone 40 mg/mL SDV IM (07:37)
== END 2023-04-27 07:47 | disposition home or self-care (01) ==
PROVIDERS: Emergency Provider Physician Assistant; PCP Family Medicine
DX: L25.5 Unspecified contact dermatitis due to plants, except food (principal); Z87.891 Personal history of nicotine dependence; Z86.19 Personal history of other infectious and parasitic diseases
CPT/HCPCS: 96372; 99284; J3301

== ENCOUNTER 2023-05-17 09:54 | Emergency (ER) | payer MEDICAID, SELFPAY ==
[2023-05-17 09:56] VITALS: BP 150/85; PULSE 109; RESP 18; TEMP 36.7; O2SAT 94
--- NOTE | 2023-05-17 10:07 | ED_ITS ---
HPI - Extremity Problem General: Chief complaint: Extremity Injury, Lower Stated complaint: Right foot lac Time Seen by Provider: 05/17/23 10:07 History of Present Illness: 28-year-old gentleman presenting to the emergency department 3 days postinjury due to increasing foot pain. He reports that he stepped off the side of his porch and landed on some sort of a sticker thorn that entered his right foot obliquely. He picked out all the wood components and does believe that he got the whole piece out. He initially had increased redness and mild drainage however with wound care this is subsequently improved. Mostly presents today due to concern over forefoot pain. Denies signs systemic illness. Denies worsening redness or drainage. He walks quite frequently long distances for his job. No other specific changes in health, exacerbating, or alleviating factors identified. Onset (ago): day(s) Radiation: none Exacerbating factors: weight bearing and walking Review of Systems General: Reports: 10 or more systems reviewed and unremarkable except in HPI and below PFSH ED PFSH: Medical History Alcohol use disorder, severe, dependence Hepatitis C Mood disorder Polysubstance (including opioids) dependence, daily use Psychiatric care Pyloric stenosis Social History Smoking and tobacco status: former smoker Quit status (tobacco): has tried quititng Number of times tried to quit tobacco: 5 Second hand smoke exposure: No Smoking risk assessment/counseling performed?: No Alcohol intake: former Substance/Drug Use: current Physical Exam Const: COMMON NORMALS: alert GENERAL APPEARANCE: cooperative and well developed HENMT: COMMON NORMALS: normocephalic and atraumatic HEAD & SCALP: normocephalic and atraumatic THROAT: posterior oropharynx normal Eye: COMMON NORMALS: conjunctivae normal CONJUNCTIVA: Yes conjunctivae normal SCLERA: sclerae normal Neck/C-Spine: COMMON NORMALS: supple GENERAL: Yes trachea midline Resp: COMMON NORMALS: normal respiratory effort EFFORT & INSPECTION: Yes able to speak in complete sentences Cardio: COMMON NORMALS: regular rate and regular rhythm RATE: regular rate RHYTHM: regular rhythm GI: COMMON NORMALS: Soft to palpation PALPATION: Yes Soft to palpation and No Tenderness to palpation present (GI) PERCUSSION: normal to percussion Extremity: NARRATIVE EXTREMITY EXAM: right foot appears with wound which is superficial, no evidence of cellulitis, CMS intact, no retained foreign body identified on exam GENERAL: Yes normal exam except as noted and No edema Neuro: COMMON NORMALS: moves all extremities SENSORIUM/ORIENTATION: Yes alert and No Orientation impaired Psych: COMMON NORMALS: mental status grossly normal and Normal thought process present THOUGHT PROCESS: Normal thought process present Course Vital Signs: Vital signs: Vital Signs Temperature 98.1 F 05/17/23 09:56 Pulse Rate 109 H 05/17/23 09:56 Respiratory Rate 18 05/17/23 09:56 Blood Pressure 150/85 05/17/23 09:56 Pulse Oximetry 94 05/17/23 09:56 Oxygen Delivery Me thod Room Air 05/17/23 09:56 MDM - Extremity (Nontraumatic) Medical Decision Making 28-year-old male presenting with concern over wound. Wound from splinter which the patient removed. No evidence of retained foreign bodies. Area does not appear cellulitic. Superficial in appearance. Likely continued pain/exacerbation secondary to prolonged weightbearing. No occasion for labs or imaging. The results of ED evaluation were discussed with the patient including prescriptions and/or symptomatic cares (if applicable) including appropriate and responsible use, followup plan, and return precautions. The patient verbalized understanding and felt safe for discharge. Medical Records I reviewed the patient's medical records. Lab Data I reviewed the patient's lab results. Discharge Plan Discharge Patient Disposition: Home Clinical Impression: Foot laceration, Foot pain Condition: Stable Prescriptions: No Action No Known Home Medications Discharge Orders: Discharge ED (Routine); Ordered 05/17/23 Ordered By: Raphael Metz Referrals: Raghavendra Diez MD [Primary Care Provider] - Discharge Diet: Usual diet Discharge Activity: Limit activity as instructed Patient Instructions: Acute Wound Care (ED) Activity Restrictions/Additional Instructions: Thank you for visiting the emergency department. You were seen and evaluated for foot injury and pain. Given exam I do not believe that there is evidence of infection. Please continue current wound care. I will write a work note for light duty as walking on the extremity is likely causing your pain. Return for worsening symptoms, uncontrolled pain, any no evidence of infection, or anything else that you are concerned about and feel needs emergency department evaluation. Stand Alone Forms: Work/School Release Coding Level of Care Code ED Human Resources Designate for Marie Panda
--- NOTE | 2023-05-17 10:10 | PC.PHAR ---
pt states he stop taking all his prescription medications a while ago and started using marijuana-
== END 2023-05-17 10:29 | disposition home or self-care (01) ==
PROVIDERS: Emergency Provider Emergency Medicine; PCP Family Medicine
DX: S91.311A Laceration without foreign body, right foot, initial encounter (principal); W22.8XXA Striking against or struck by other objects, initial encounter; Y93.01 Activity, walking, marching and hiking; Y92.008 Other place in unspecified non-institutional (private) residence as the place of occurrence of the external cause
CPT/HCPCS: 99282

== ENCOUNTER 2023-06-28 12:06 | Emergency (ER) | payer MEDICAID, SELFPAY ==
[2023-06-28 12:11] VITALS: BP 160/105; PULSE 89; RESP 16; O2SAT 98
--- NOTE | 2023-06-28 13:23 | ED_ITS ---
HPI - Skin/Abscess/Foreign Bdy General: Chief complaint: Skin/Abscess/Foreign Body Stated complaint: rash on arm and face Time Seen by Provider: 06/28/23 13:20 Source: patient Mode of arrival: ambulatory Limitations: no limitations History of Present Illness: Patient is a 28-year-old male who presents to the emergency department complaining of rash onset 2-3 days. Patient says he was working outside and cutting brush, and noticed later that evening that he had developed linear rash to his right arm and torso. The rash is noted to be very pruritic, to the point where he has been scratching constantly. He denies any [id number]-imm-[id number] remedies at this point. The rash is also now to his R lateral neck, but he denies any involvement of his mouth, eyes or nose, and denies any respiratory complaints. Denies any fever, chest pain, chills, nausea, vomiting, diarrhea, or any other symptoms at this time. MD complaint: rash Onset (ago): day(s) Tetanus up to date: yes Location: face, chest and RUE Severity: mild Quality: burning and pruritic Relieving factors: none Exacerbating factors: none Context: other (Cutting down brush) Associated symptoms: Reports no associated symptoms; Deny chills, fever(s), nausea or vomiting Treatments prior to arrival: none Review of Systems General: Reports: 10 or more systems reviewed and unremarkable except in HPI and below Const: Denies: fever(s) or chills Eyes: Denies: change in vision or blurry vision Card: Denies: chest pain, palpitations, irregular heart rhythm, lightheadedness, syncope or dyspnea on exertion Resp: Denies: dyspnea, productive cough or pain on inspiration GI: Denies: abdominal pain, nausea, vomiting, heartburn or diarrhea : Denies: difficulty urinating or dysuria Musc: Denies: neck pain, back pain or joint pain Skin/Breast: Reports: rash and pruritus Neuro: Denies: headache(s), numbness in extremities, weakness in extremities or sensory changes PFSH ED PFSH: Medical History Alcohol use disorder, severe, dependence Hepatitis C Mood disorder Polysubstance (including opioids) dependence, daily use Psychiatric care Pyloric stenosis Social History (Reviewed 06/28/23 @ 14:13 by MARISELA Stokes Smoking and tobacco status: former smoker Quit status (tobacco): has tried quititng Number of times tried to quit tobacco: 5 Second hand smoke exposure: No Smoking risk assessment/counseling performed?: No Alcohol intake: former Substance/Drug Use: current Physical Exam Const: COMMON NORMALS: no acute distress, patient oriented x3, alert and well nourished GENERAL APPEARANCE: cooperative and comfortable ORIENTATION/CO NSCIOUSNESS: Yes awake, Yes oriented to person, Yes oriented to place and Yes oriented to time HENMT: COMMON NORMALS: normocephalic and atraumatic HEAD & SCALP: normocephalic and atraumatic Neck/C-Spine: COMMON NORMALS: full ROM, no lymphadenopathy, supple and no meningeal signs Chest: COMMONS NORMALS: normal inspection of the chest Resp: COMMON NORMALS: normal respiratory effort and clear to auscultation bilaterally AUSCULTATION: clear to auscultation bilaterally Cardio: COMMON NORMALS: regular rate and regular rhythm RATE: regular rate RHYTHM: regular rhythm GI: COMMON NORMALS: Normal to inspection, nondistended, normoactive bowel sounds present, Soft to palpation, non-tender, No hepatosplenomegaly present and no masses PALPATION: Yes Soft to palpation and Yes No hepatosplenomegaly present : COMMON NORMALS: Yes no CVA tenderness BLADDER/KIDNEY EXAM: Yes no CVA tenderness Back/Pelvis: COMMON NORMALS: no CVA tenderness and thoracic and lumbar spine normal to inspection Extremity: COMMON NORMALS: normal to inspection Neuro: COMMON NORMALS: patient oriented x3 SENSORIUM/ORIENTATION: Yes alert, Yes oriented to person, Yes oriented to place and Yes oriented to time MENINGEAL SIGNS: Yes no meningeal signs Skin: RASHES: rashes noted (erythematous rash with some linear consistent with plant dermatitis) OTHER: Lichenification to right arm present from repetitive scratching. Course Vital Signs: Vital signs: Vital Signs Pulse Rate 89 06/28/23 12:11 Respiratory Rate 16 06/28/23 12:11 Blood Pressure 160/105 06/28/23 12:11 Pulse Oximetry 98 06/28/23 12:11 Oxygen Delivery Me thod Room Air 06/28/23 12:11 MDM - Skin/Abscess/Foreign Bdy Medicial Decision Making Patient's history and physical exam is consistent with a plant dermatitis. He is requesting IM steroids as the rash to his right lateral neck seems to be worsening and he is worried about it spreading to his face. He was given IM Kenalog. Recommend OTC topical hydrocortisone cream as well as diphenhydramine cream. He can take oral diphenhydramine at night to help as well with itching. Return ED precautions given. Discharge Plan Discharge Patient Disposition: Home Clinical Impression: Dermatitis due to plant Condition: Stable Prescriptions: No Action No Known Home Medications Discharge Orders: Discharge ED (Routine); Ordered 06/28/23 Ordered By: Ewa Green Referrals: Raghavendra Diez MD [Primary Care Provider] - Patient Instructions: Poison [place] (ED) Activity Restrictions/Additional Instructions: As we discussed you may apply [id number] hydrocortisone cream as well as topical Benadryl cream to help with itching and burning. You may also take oral Benadryl in the evening to help with itching throughout the night. Keep rash clean with warm soap and water avoid spreading. Coding Level of Care Code ED Supervisor Particleboard for Marie Panda
[2023-06-28] MEDS: triamcinolone 40 mg/mL SDV IM (14:22)
== END 2023-06-28 14:25 | disposition home or self-care (01) ==
PROVIDERS: Emergency Provider Physician Assistant; PCP Family Medicine
DX: L25.5 Unspecified contact dermatitis due to plants, except food (principal); Z87.891 Personal history of nicotine dependence
CPT/HCPCS: 96372; 99284; J3301

== ENCOUNTER 2023-08-15 16:39 | Emergency (ER) | payer MEDICAID, SELFPAY ==
[2023-08-15 16:45] VITALS: BP 159/101; PULSE 89; RESP 16; TEMP 36.6; O2SAT 98; BMI 29.1
--- NOTE | 2023-08-15 16:49 | XRR_ITS ---
PROCEDURE INFORMATION: Exam: XR Left Ankle Exam date and time: 08/15/2023 4:58 PM Age: 28 years old Clinical indication: Injury or trauma; Other: Rolled lt ankle 1 week ago; Sprain or strain and swelling (edema); Left TECHNIQUE: Imaging protocol: Radiologic exam of the left ankle. Views: 3 or more views. COMPARISON: No relevant prior studies available. FINDINGS: Bones/joints: Small calcified heel spur. Lateral malleolar soft tissue swelling. Soft tissues: Normal. XR/XR ankle LT min 3V* [id number] IMPRESSION: 1. Negative for fracture or dislocation. 2. Small calcified heel spur. 3. Lateral malleolar soft tissue swelling.
--- NOTE | 2023-08-15 16:58 | ED_ITS ---
HPI - Extremity Injury (Lower) General: Chief Complaint: Extremity Injury, Lower Stated Complaint: left ankle pain was in here last week Time Seen by Provider: 08/15/23 16:42 Source: patient Mode of arrival: ambulatory Limitations: no limitations History of Present Illness: Patient is a 28-year-old male who presents to ED today for evaluation of a left lower leg/ankle injury that he sustained approximately a week ago after his dog ran into his leg causing his foot and ankle to invert. States he has continued to walk on the extremity since the injury but states pain has persisted and he has noticed ecchymosis to the area that concerned him. He has no other injuries or complaints at this time. MD complaint: leg injury and ankle injury Onset (ago): week(s) (one week ago) Injury: Left: ankle Type of Injury: inversion Place: home Severity: moderate Relieving factors: immobilization Exacerbating factors: weight bearing and palpation Context: direct blow and other (twisting) Associated symptoms: Reports no associated symptoms Other symptoms: none Review of Systems Musc: Reports: extremity pain (L LE), extremity swelling (L LE), joint pain (L ankle) and joint swelling (L ankle); Denies: joint redness or joint warmth Neuro: Denies: numbness in extremities, weakness in extremities or sensory changes PFSH ED PFSH: Medical History Alcohol use disorder, severe, dependence Hepatitis C Mood disorder Polysubstance (including opioids) dependence, daily use Psychiatric care Pyloric stenosis Social History Smoking and tobacco status: former smoker Quit status (tobacco): has tried quititng Number of times tried to quit tobacco: 5 Second hand smoke exposure: No Smoking risk assessment/counseling performed?: No Alcohol intake: former Substance/Drug Use: current Physical Exam Const: COMMON NORMALS: no acute distress, average body habitus, patient oriented x3, no limitations, healthy appearing, alert and well nourished Extremity: COMMON NORMALS: capillary refill normal, no clubbing, cyanosis or edema, no calf tenderness and no pedal edema GENERAL: Yes normal exam except as noted LEFT LOWER EXTREMITY: Yes lower leg (edema/ecchymosis anterior/medial ) Left lower leg: Yes neurovascular exam (normal) and Yes ankle joint (tenderness anterior ankle; no point tenderness over malleoli) Left ankle: Yes neurovascular exam (normal) Neuro: COMMON NORMALS: patient oriented x3, moves all extremities, no focal motor deficits and no sensory deficits noted SENSORIUM/ORIENTATION: Yes alert Skin: NARRATIVE SKIN EXAM: ecchymosis L lower leg/ankle Course Vital Signs: Vital signs: Vital Signs Temperature 97.8 F 08/15/23 16:45 Pulse Rate 86 08/15/23 17:03 Respiratory Rate 16 08/15/23 17:03 Blood Pressure 156/104 08/15/23 17:03 Pulse Oximetry 95 08/15/23 17:03 Oxygen Delivery Me thod Room Air 08/15/23 17:03 MDM - Extremity Injury (Lower) Medical Decision Making XR negative for fracture or dislocation. Will MONA wrap and give crutches. Recommend for ice, elevation, rest and begin taking an anti-inflammatory. Follow-up with primary care in 1 to 2 weeks if symptoms do not seem to be improving. Lab Data Radiology Impressions Ankle X-Ray 08/15/23 16:49 IMPRESSION: 1. Negative for fracture or dislocation. 2. Small calcified heel spur. 3. Lateral malleolar soft tissue swelling. All radiology interpretation(s) finalized by discharge Discharge Plan Discharge Patient Disposition: Home Clinical Impression: Injury of ankle, left Qualifiers: Encounter type: initial encounter Qualified Code(s): S99.912A - Unspecified injury of left ankle, initial encounter Condition: Stable Prescriptions: No Action No Known Home Medications Discharge Orders: Discharge ED (Routine); Ordered 08/15/23 Ordered By: Ewa Green Referrals: Raghavendra Diez MD [Primary Care Provider] - Patient Instructions: Ankle Sprain (DC) Coding Level of Care Code ED Gastroenterology Nurse Practitioner for Marie Panda
[2023-08-15 17:03] VITALS: BP 156/104; PULSE 86; RESP 16; O2SAT 95
== END 2023-08-15 17:39 | disposition home or self-care (01) ==
PROVIDERS: Emergency Provider Physician Assistant; PCP Family Medicine
DX: S99.912A Unspecified injury of left ankle, initial encounter (principal); Z87.891 Personal history of nicotine dependence; Z86.19 Personal history of other infectious and parasitic diseases; W54.1XXA Struck by dog, initial encounter
CPT/HCPCS: 73610; 99283; E0114

== ENCOUNTER 2023-10-21 17:43 | Emergency (ER) | payer MEDICAID, SELFPAY ==
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
[2023-10-21 19:02] VITALS: BP 157/111; PULSE 90; RESP 16; TEMP 36.6; O2SAT 98; BMI 31.1
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
[2023-10-21 20:04] VITALS: BP 157/111; PULSE 90; RESP 16; TEMP 36.6; O2SAT 98
[2023-10-21] MEDS: naproxen 500 mg Tablet PO (20:13)
== END 2023-10-21 20:14 | disposition home or self-care (01) ==
PROVIDERS: Emergency Provider Emergency Medicine; PCP Family Medicine
DX: S20.211A Contusion of right front wall of thorax, initial encounter (principal); Z86.19 Personal history of other infectious and parasitic diseases; Z87.891 Personal history of nicotine dependence; V19.3XXA Pedal cyclist (driver) (passenger) injured in unspecified nontraffic accident, initial encounter
CPT/HCPCS: 71101; 99283

== ENCOUNTER 2024-02-14 10:05 | Emergency (ER) | payer MEDICAID, SELFPAY ==
[2024-02-14 10:13] VITALS: BP 146/95; PULSE 90; TEMP 36.8; O2SAT 96; BMI 33.2
[2024-02-14 10:56] VITALS: BP 174/93; PULSE 88; O2SAT 94
[2024-02-14 11:00] LABS: Add Urine Microscopic? NO; Charge for UA Resulting for Rev
--- NOTE | 2024-02-14 11:00 | W.ED.ABDPA2 ---
HPI - Abdominal Pain General: Chief Complaint: Abdominal Pain Stated Complaint: Abd pain , N/V Time Seen by Provider: 02/14/24 10:27 Source: patient Mode of arrival: ambulatory History of Present Illness: 28-year-old male who presents emergency room clinic abdominal pain. He is already been drinking this morning he drinks on a regular basis drinking the equivalent of 8 or more beers per day as well as several shots. He states he frequently has a drink in the morning to manage being able to eat and function. He has noticed some distention of his abdomen week recently. No chest pain no shortness of breath no hematemesis or coffee-ground emesis. MD elicited complaint: abdominal pain Pertinent past history: other (Chronic alcohol use) Onset (ago): week(s) Location: Epigastric Severity: mild Quality: aching Exacerbating factors: nothing Relieving factors: nothing Associated Symptoms: Reports bloating, GI cramping, nausea and poor appetite; Denies anorexia, belching, change in bowel habits, change in stool character, chills, coffee ground emesis, constipation, diarrhea, dyspepsia, dysuria, excessive flatus, fever(s), heartburn, hematochezia, hematuria, hematemesis, fecal incontinence, loose stools, melena, syncope and vomiting Review of Systems Const: Denies: fever(s) or chills Card: Denies: syncope Resp: Denies: dyspnea GI: Reports: abdominal pain, nausea, bloating and GI cramping; Denies: vomiting, hematemesis, coffee ground emesis, heartburn, diarrhea, constipation, belching, excessive flatus, fecal incontinence, change in bowel habits, change in stool character, hematochezia or melena : Denies: dysuria or hematuria Musc: Denies: neck pain or back pain Skin/Breast: Denies: rash PFSH ED PFSH: Medical History Hepatitis C Alcohol use disorder, severe, dependence Mood disorder Polysubstance (including opioids) dependence, daily use Pyloric stenosis Social History Smoking and tobacco/nicotine status: former use of tobacco/nicotine Quit status (tobacco/nicotine): has tried quititng Number of times tried to quit tobacco: 5 Second hand smoke exposure: No Alcohol intake: former Substance/Drug Use: current Physical Exam Const: COMMON NORMALS: no acute distress GENERAL APPEARANCE: cooperative and comfortable ORIENTATION/CONSCIOUSNESS: Yes awake, Yes oriented to person, Yes oriented to place and Yes oriented to time HENMT: COMMON NORMALS: normocephalic, atraumatic and hearing grossly normal bilaterally HEAD & SCALP: normocephalic and atraumatic Resp: COMMON NORMALS: normal respiratory effort, No retractions, No use of accessory muscles and clear to auscultation bilaterally AUSCULTATION: clear to auscultation bilaterally Cardio: COMMON NORMALS: regular rate, regular rhythm and No murmurs present (Cardio) RATE: regular rate RHYTHM: regular rhythm GI: COMMON NORMALS: Soft to palpation and No hepatosplenomegaly present AUSCULTATION: Yes normoactive bowel sounds PALPATION: Yes Soft to palpation, No Tenderness to palpation present (GI), No Guarding due to palpation present (GI) and Yes No hepatosplenomegaly present Extremity: COMMON NORMALS: normal to inspection, capillary refill normal, no clubbing, cyanosis or edema, no calf tenderness and no pedal edema Neuro: SENSORIUM/ORIENTATION: Yes oriented to person, Yes oriented to place and Yes oriented to time Skin: COMMON NORMALS: no rashes or lesions noted GENERAL SKIN EXAM: no rashes or lesions noted Course Vital Signs: Vital signs: Vital Signs Temperature 98.3 F 02/14/24 10:13 Pulse Rate 80 02/14/24 13:00 Blood Pressure 143/61 02/14/24 13:00 Pulse Oximetry 97 02/14/24 13:00 Oxygen Delivery Me thod Room Air 02/14/24 13:00 MDM - Abdominal Pain Medical Decision Making His laboratory test show elevations of his transaminases as well as his T bilirubin. Lipase is normal CT of his abdomen does not show any gallbladder disease or obstructions, or dilation of the common bile duct. There is some enlargement of his liver. Discussed with the patient because discomfort is coming from alcoholic gastritis will start him on Protonix strongly encouraged him to seek out programs to help him abstain from alcohol use through [facility] alcoholic Anonymous or [facility] here in town. Return if has further problems. Medical Records I reviewed the patient's medical records. Lab Data I reviewed the patient's lab results. 02/14/24 10:57 02/14/24 10:57 Labs/Radiology: Laboratory Results WBC 5.90 10^3/uL (3.29-11.43) 02/14/24 10:57 RBC 4.22 10^6/uL (3.85-5.65) 02/14/24 10:57 Hgb 15.00 g/dL (11.27-16.99) 02/14/24 10:57 Hct 41.4 % (37-53) 02/14/24 10:57 MCV 98.1 fl (82-101) 02/14/24 10:57 MCH 35.5 pg (27-33) H 02/14/24 10:57 MCHC 36.2 g/dL (30-55) 02/14/24 10:57 RDW 11.5 % (12.1-15.1) L 02/14/24 10:57 Plt Count 166 10^3/cmm (157-399) 02/14/24 10:57 MPV 10.3 fL (7.4-10.4) 02/14/24 10:57 Neut % (Auto) 63.5 % 02/14/24 10:57 Lymph % (Auto) 23.2 % 02/14/24 10:57 [place] % (Auto) 9.0 % 02/14/24 10:57 Eos % (Auto) 3.6 % 02/14/24 10:57 Baso % (Auto) 0.5 % 02/14/24 10:57 Neut # (Auto) 3.75 10^3/uL (1.8-7.7) 02/14/24 10:57 Lymph # (Auto) 1.4 10^3/uL (0.8-4.8) 02/14/24 10:57 [place] # (Auto) 0.5 10^3/uL (0.2-0.9) 02/14/24 10:57 Eos # (Auto) 0.2 10^3/uL (0.0-0.8) 02/14/24 10:57 Baso # (Auto) 0.0 10^3/uL (0.0-0.1) 02/14/24 10:57 Nucleated RBC % (auto) 0 % 02/14/24 10:57 Nucleated RBCs # 0.0 /100WBC 02/14/24 10:57 PT 14.20 SECONDS (12.1-14.9) 02/14/24 10:57 INR 1.06 (0.8-1.2) 02/14/24 10:57 APTT 29.4 SECONDS (23.9-36.7) 02/14/24 10:57 Sodium 139 mmol/L (136-145) 02/14/24 10:57 Potassium 3.9 mmol/L (3.5-5.1) 02/14/24 10:57 Chloride 103 mmol/L (98-107) 02/14/24 10:57 Carbon Dioxide 22 mmol/L (22-29) 02/14/24 10:57 Anion Gap 17.9 (5-19) 02/14/24 10:57 BUN 6 mg/dL (6-20) 02/14/24 10:57 Creatinine 0.5 mg/dL (0.7-1.2) L 02/14/24 10:57 GFR Calculation 195.2 mL/min (90-130) H 02/14/24 10:57 Glucose 160 mg/dL (65-115) H 02/14/24 10:57 Calculated Osmolality 289 mOsm/kg (285-295) 02/14/24 10:57 Calcium 9.3 mg/dL (8.5-10.5) 02/14/24 10:57 Total Bilirubin 1.4 mg/dL (0.15-1.2) H 02/14/24 10:57 AST 652 U/L (0-40) H 02/14/24 10:57 ALT 589 U/L (0-41) H 02/14/24 10:57 Alkaline Phosphatase 76 U/L (40-130) 02/14/24 10:57 Ammonia 38 umol/L (16-60) 02/14/24 10:57 Total Protein 7.9 g/dL (6.6-8.7) 02/14/24 10:57 Albumin 4.4 g/dL (3.5-5.2) 02/14/24 10:57 Globulin 3.5 g/dL (1.3-4.6) 02/14/24 10:57 Lipase 38 U/L (13-60) 02/14/24 10:57 Urine Color Yellow (Yellow) 02/14/24 10:47 Urine Appearance Clear (CLEAR) 02/14/24 10:47 Urine pH 5 (5-7) 02/14/24 10:47 Ur Specific Driver 1.015 (1.005-1.030) 02/14/24 10:47 Urine Protein Neg (Negative) 02/14/24 10:47 Urine Glucose (UA) Norm (Normal) 02/14/24 10:47 Urine Ketones Negative (Negative) 02/14/24 10:47 Urine Blood Neg (Negative) 02/14/24 10:47 Urine Nitrate Negative (Negative) 02/14/24 10:47 Urine Bilirubin Neg (Negative) 02/14/24 10:47 Urine Urobilinogen 1 mg/dL (Negative) H 02/14/24 10:47 Ur Leukocyte Esterase Negative (Negative) 02/14/24 10:47 Ethyl Alcohol 110 mg/dL (0-10) H 02/14/24 10:57 All radiology interpretation(s) finalized by discharge Discharge Plan Discharge Patient Disposition: Home Clinical Impression: Alcoholic gastritis, Alcohol use disorder, severe, dependence, Hepatitis C Condition: Stable Prescriptions: New Protonix 40 mg tablet,delayed release (DR/EC) 40 mg PO DAILY Qty: 30 0RF No Action albuterol sulfate 90 mcg/actuation HFA aerosol inhaler 2 inh inhalation Q4H PRN (Reason: shortness of breath or wheezing) Qty: 6.7 0RF Discharge Orders: Discharge ED (Routine); Ordered 02/14/24 Ordered By: Romulo Garza Referrals: Raghavendra iDez MD [Primary Care Provider] - Discharge Diet: Usual diet Discharge Activity: Increase activity as tolerated Patient Instructions: Alcohol Intoxication (ED), Abuse of Alcohol (ED), Alcoholic Hepatitis (ED), Opioid Safety, Pain Management Activity Restrictions/Additional Instructions: Thank you for choosing [facility] for your healthcare needs today. Please realize this is an emergency room and that we are providing you with a medical screening exam and this may not be complete and all inclusive of all the testing and or work up that you may need to determine your ailment or severity of your illness. It is very important that you follow up as instructed or that you return to the Emergency Department should you have concerns or if your condition changes or worsens in any way. Strongly recommend abstaining from alcohol. Suspect your abdominal pain today is from irritation of the stomach lining from alcohol use. Consider joining a program such as Alcoholics Anonymous or being evaluated as an outpatient facility such as [facility] here in [place]. Coding Level of Care Code ED Clinical Trials Assistant for Marie Panda
[2024-02-14 11:03] LABS: Basophils % 0.5 %; Eosinophils # 0.2 10^3/uL (0.0-0.8); Eosinophils % 3.6 %; Hematocrit 41.4 % (37-53); Lymphocytes # 1.4 10^3/uL (0.8-4.8); Lymphocytes % 23.2 %; Mean Corpuscular HGB Conc 36.2 g/dL (30-55); Mean Corpuscular Hemoglobin 35.5 pg (27-33); Mean Corpuscular Volume 98.1 fl (82-101); Mean Platelet Volume 10.3 fL (7.4-10.4); Monocytes # 0.5 10^3/uL (0.2-0.9); Neutrophils # 3.75 10^3/uL (1.8-7.7); Neutrophils % 63.5 %; Nucleated Red Blood Cells % 0 %; Platelet Count 166 10^3/cmm (157-399); Red Blood Count 4.22 10^6/uL (3.85-5.65); Red Cell Distribution Width 11.5 % (12.1-15.1)
[2024-02-14 11:06] LABS: Bilirubin Urine Neg (Negative); Blood Urine Neg (Negative); Glucose Urine UA Norm (Normal); Ketones Urine Negative (Negative); Nitrate Urine Negative (Negative); Protein Urine Neg (Negative); Specific Gravity, Urine 1.015 (1.005-1.030); Urine Appearance Clear (CLEAR); Urine Color Yellow (Yellow); pH Urine 5 (5-7)
[2024-02-14 11:07] LABS: Leukocyte Esterase Urine Negative (Negative); Urobilinogen Urine 1 mg/dL (Negative)
--- NOTE | 2024-02-14 11:13 | US_ITS ---
WS: [id number] ULTRASOUND ABDOMEN LIMITED CLINICAL INFORMATION: abd pain/alcoholism/abd distension COMPARISON: None. FINDINGS: Liver Size: Hepatomegaly Craniocaudal length: 18.9 cm. Echogenicity: Coarse Surface nodularity: None. Mass (size and location): None. Bile ducts Intrahepatic ducts: Normal. Common bile duct diameter: 0.4 cm. Gallbladder Contracted Gallstones: None. Gallbladder sludge: None. Gallbladder wall thickening: None. Pericholecystic fluid: None. Sonographic Abdi sign: Absent. Pancreas Normal as visualized. Right kidney: Normal. Hydronephrosis: None. Size: 10.4 cm x 5.4 cm x 6.7 cm. Abdominal aorta and IVC Visualized portions are normal. Ascites: None. IMPRESSION: 1. Hepatomegaly with diffuse fatty infiltration. 2. Gallbladder is contracted. No cholelithiasis. 3. No hydronephrosis in the RIGHT kidney.
[2024-02-14 11:20] LABS: INR 1.06 (0.8-1.2)
[2024-02-14 11:21] LABS: Partial Thromboplastin Time 29.4 SECONDS (23.9-36.7)
[2024-02-14 11:25] LABS: Ammonia 38 umol/L (16-60)
[2024-02-14] MEDS: sodium chloride 0.9% 1,000 ML 999 ML IV (11:26)
[2024-02-14 11:28] LABS: Alcohol Level 110 mg/dL (0-10)
[2024-02-14 11:29] LABS: Alanine Aminotransferase 589 U/L (0-41); Albumin Level 4.4 g/dL (3.5-5.2); Alkaline Phosphatase 76 U/L (40-130); Anion Gap 17.9 (5-19); Aspartate Amino Transferase 652 U/L (0-40); Blood Urea Nitrogen 6 mg/dL (6-20); Calcium 9.3 mg/dL (8.5-10.5); Carbon Dioxide 22 mmol/L (22-29); Chloride 103 mmol/L (98-107); Creatinine Clr Calc Pharmacy 278.0922; Globulin 3.5 g/dL (1.3-4.6); Glomerular Filtration Rate 195.2 mL/min (90-130); Glucose 160 mg/dL (65-115); Lipase 38 U/L (13-60); Osmolality Calculated 289 mOsm/kg (285-295); Potassium 3.9 mmol/L (3.5-5.1); Sodium 139 mmol/L (136-145); Total Bilirubin 1.4 mg/dL (0.15-1.2); Total Protein 7.9 g/dL (6.6-8.7)
[2024-02-14 11:30] VITALS: PULSE 88; O2SAT 96
[2024-02-14 12:00] VITALS: BP 117/54; PULSE 74; O2SAT 95
[2024-02-14 12:30] VITALS: BP 130/73; PULSE 79; O2SAT 98
[2024-02-14 13:00] VITALS: BP 143/61; PULSE 80; O2SAT 97
== END 2024-02-14 13:39 | disposition home or self-care (01) ==
PROVIDERS: Emergency Provider Family Medicine; PCP Family Medicine
DX: K29.20 Alcoholic gastritis without bleeding (principal); F10.20 Alcohol dependence, uncomplicated; B19.20 Unspecified viral hepatitis C without hepatic coma; Z87.891 Personal history of nicotine dependence
CPT/HCPCS: 76705; 80053; 80307; 81003; 82140; 83690; 85025; 85610; 85730; 96360; 96361; 99284; J7030

== ENCOUNTER 2024-05-01 12:04 | Inpatient (IN) | payer MEDICAID, SELFPAY ==
[2024-05-01 12:09] VITALS: BP 123/78; PULSE 55; TEMP 36.7; O2SAT 99; BMI 29.8
--- NOTE | 2024-05-01 12:26 | W.ED.PSYCHS ---
HPI - Psych General: Chief Complaint: Psychiatric Symptoms Stated Complaint: MHE Time Seen by Provider: 05/01/24 12:10 Source: patient Mode of arrival: ambulatory Limitations: no limitations History of Present Illness: 29-year-old male states that he has been having increased depression along with suicidal thoughts over the last few weeks. He states it started with trauma and since then he has been having worsening symptoms he states he is now having suicidal thoughts he has had attempts in the past. He denies any worsening improving factors. Associated symptoms: Reports depression and suicidal ideation Review of Systems Const: Denies: fever(s), chills, body aches or change in appetite ENMT: Denies: throat pain or dental pain Card: Denies: chest pain Resp: Denies: dyspnea GI: Denies: abdominal pain, nausea, vomiting or diarrhea Musc: Denies: neck pain or back pain Skin/Breast: Denies: rash Neuro: Denies: headache(s) Psych: Reports: depression and suicidal ideation [facility] ED PFSH: Medical History Hepatitis C Alcohol use disorder, severe, dependence Mood disorder Polysubstance (including opioids) dependence, daily use Pyloric stenosis Social History Smoking and tobacco/nicotine status: former use of tobacco/nicotine Quit status (tobacco/nicotine): has tried quititng Number of times tried to quit tobacco: 5 Second hand smoke exposure: No Alcohol intake: former Substance/Drug Use: current Physical Exam Const: COMMON NORMALS: no acute distress, patient oriented x3 and healthy appearing HENMT: COMMON NORMALS: normocephalic and atraumatic HEAD & SCALP: normocephalic and atraumatic Neck/C-Spine: COMMON NORMALS: full ROM and supple Chest: COMMONS NORMALS: normal inspection of the chest and normal palpation of entire chest wall Resp: COMMON NORMALS: normal respiratory effort, No retractions, No use of accessory muscles and clear to auscultation bilaterally AUSCULTATION: clear to auscultation bilaterally Cardio: COMMON NORMALS: regular rate, regular rhythm and No murmurs present (Cardio) RATE: regular rate RHYTHM: regular rhythm Extremity: COMMON NORMALS: normal to inspection and full ROM Neuro: COMMON NORMALS: patient oriented x3, moves all extremities and no focal motor deficits Psych: COMMON NORMALS: mental status grossly normal, Normal thought process present and cooperative MOOD & AFFECT: Yes depressed mood THOUGHT PROCESS: Normal thought process present THOUGHT CONTENT: Yes Suicidality present Skin: COMMON NORMALS: no rashes or lesions noted and no wounds GENERAL SKIN EXAM: no rashes or lesions noted Course Vital Signs: Vital signs: Vital Signs Temperature 98.1 F 05/01/24 12:09 Pulse Rate 55 L 05/01/24 12:57 Respiratory Rate 18 05/01/24 12:57 Blood Pressure 123/78 05/01/24 12:57 Pulse Oximetry 99 05/01/24 12:57 Oxygen Delivery Me thod Room Air 05/01/24 12:57 MDM - Psych Medical Decision Making Patient presents here with suicidal ideations he was placed under 96-hour hold he is medically cleared I spoke to psychiatry will admit Medical Records I reviewed the patient's medical records. Lab Data I reviewed the patient's lab results. 05/01/24 12:31 05/01/24 12:31 Laboratory Results WBC 5.22 10^3/uL (3.29-11.43) 05/01/24 12:31 RBC 4.08 10^6/uL (3.85-5.65) 05/01/24 12:31 Hgb 13.50 g/dL (11.27-16.99) 05/01/24 12:31 Hct 36.9 % (37-53) L 05/01/24 12:31 MCV 90.4 fl (82-101) 05/01/24 12:31 MCH 33.1 pg (27-33) H 05/01/24 12:31 MCHC 36.6 g/dL (30-55) 05/01/24 12:31 RDW 12.9 % (12.1-15.1) 05/01/24 12:31 Plt Count 158 10^3/cmm (157-399) 05/01/24 12:31 MPV 11.4 fL (7.4-10.4) H 05/01/24 12:31 Neut % (Auto) 57.8 % 05/01/24 12:31 Lymph % (Auto) 30.1 % 05/01/24 12:31 [place] % (Auto) 9.2 % 05/01/24 12:31 Eos % (Auto) 2.3 % 05/01/24 12:31 Baso % (Auto) 0.4 % 05/01/24 12:31 Neut # (Auto) 3.02 10^3/uL (1.8-7.7) 05/01/24 12:31 Lymph # (Auto) 1.6 10^3/uL (0.8-4.8) 05/01/24 12:31 [place] # (Auto) 0.5 10^3/uL (0.2-0.9) 05/01/24 12:31 Eos # (Auto) 0.1 10^3/uL (0.0-0.8) 05/01/24 12:31 Baso # (Auto) 0.0 10^3/uL (0.0-0.1) 05/01/24 12:31 Nucleated RBC % (auto) 0 % 05/01/24 12: Nucleated RBCs # 0.0 /100WBC 05/01/24 12:31 Sodium 137 mmol/L (136-145) 05/01/24 12:31 Potassium 3.3 mmol/L (3.5-5.1) L 05/01/24 12:31 Chloride 99 mmol/L (98-107) 05/01/24 12:31 Carbon Dioxide 27 mmol/L (22-29) 05/01/24 12:31 Anion Gap 14.3 (5-19) 05/01/24 12:31 BUN 6 mg/dL (6-20) 05/01/24 12:31 Creatinine 0.8 mg/dL (0.7-1.2) 05/01/24 12:31 GFR Calculation 112.8 mL/min (90-130) 05/01/24 12:31 Glucose 81 mg/dL (65-115) 05/01/24 12:31 Calculated Osmolality 281 mOsm/kg (285-295) L 05/01/24 12:31 Calcium 9.3 mg/dL (8.5-10.5) 05/01/24 12:31 Total Bilirubin 0.9 mg/dL (0.15-1.2) 05/01/24 12:31 AST 51 U/L (0-40) H 05/01/24 12:31 ALT 69 U/L (0-41) H 05/01/24 12:31 Alkaline Phosphatase 60 U/L (40-130) 05/01/24 12:31 Total Protein 7.6 g/dL (6.6-8.7) 05/01/24 12:31 Albumin 4.3 g/dL (3.5-5.2) 05/01/24 12:31 Globulin 3.3 g/dL (1.3-4.6) 05/01/24 12:31 Salicylates < 0.3 mg/dL (3-10) L 05/01/24 12:31 Urine Opiates Screen Negative ng/mL (Negative) 05/01/24 12:21 Acetaminophen < 5.0 ug/mL (10-30) L 05/01/24 12:31 Ur Barbiturates Screen Negative ng/mL (Negative) 05/01/24 12:21 Ur Phencyclidine Scrn Negative ng/mL (Negative) 05/01/24 12:21 Ur Amphetamines Screen Negative ng/mL (Negative) 05/01/24 12:21 U Benzodiazepines Scrn Negative ng/mL (Negative) 05/01/24 12:21 Urine Cocaine Screen Negative ng/mL (Negative) 05/01/24 12:21 U Marijuana (THC) Screen Positive ng/mL (Negative) H 05/01/24 12:21 Ethyl Alcohol < 10 mg/dL (0-10) 05/01/24 12:31 No radiology studies performed this visit Discharge Plan Discharge Patient Disposition: Admitted As Inpatient Clinical Impression: Suicidal ideation Condition: Stable Prescriptions: No Action clonazepam 0.5 mg tablet 0.5 mg PO BID PRN (Reason: Anxiety) lamotrigine 25 mg tablet See Rx Instructions .ROUTE .COMPLEX Rx Instructions: TAKE ONE TABLET BY MOUTH DAILY FOR TWO WEEKS THEN INCREASE TO TWO TABLETS DAILY FOR TWO WEEKS losartan-hydrochlorothiazide 50-12.5 mg tablet 1 tab PO DAILY Vivitrol 380 mg suspension,extended rel recon 4.2 mg IM .[id number] Mavyret 100-40 mg tablet 3 tab PO DAILY Referrals: Raghavendra Diez MD [Primary Care Provider] - Coding Level of Care Code ED Pace Analyst for Mariumg Amarilys
[2024-05-01 12:44] LABS: Basophils % 0.4 %; Eosinophils # 0.1 10^3/uL (0.0-0.8); Eosinophils % 2.3 %; Hematocrit 36.9 % (37-53); Lymphocytes # 1.6 10^3/uL (0.8-4.8); Lymphocytes % 30.1 %; Mean Corpuscular HGB Conc 36.6 g/dL (30-55); Mean Corpuscular Hemoglobin 33.1 pg (27-33); Mean Corpuscular Volume 90.4 fl (82-101); Mean Platelet Volume 11.4 fL (7.4-10.4); Monocytes # 0.5 10^3/uL (0.2-0.9); Monocytes % 9.2 %; Neutrophils # 3.02 10^3/uL (1.8-7.7); Neutrophils % 57.8 %; Nucleated Red Blood Cells % 0 %; Platelet Count 158 10^3/cmm (157-399); Red Blood Count 4.08 10^6/uL (3.85-5.65); Red Cell Distribution Width 12.9 % (12.1-15.1); White Blood Count 5.22 10^3/uL (3.29-11.43)
[2024-05-01 12:57] VITALS: BP 123/78; PULSE 55; RESP 18; O2SAT 99
[2024-05-01 13:11] LABS: Amphetamines Screen Urine Negative (Negative); Barbiturates Screen Urine Negative (Negative); Benzodiazepines Screen Urine Negative (Negative); Cocaine Screen Urine Negative (Negative); Opiate Screen Urine Negative (Negative); PCP Screen Urine Negative (Negative); THC Screen Urine Positive (Negative)
--- NOTE | 2024-05-01 13:11 | PC.NURSE ---
96 hour hold rights read and reviewed with patient. Patient verbalized understandings. Copy of rights given to patient.
[2024-05-01 13:29] LABS: Alanine Aminotransferase 69 U/L (0-41); Albumin Level 4.3 g/dL (3.5-5.2); Alkaline Phosphatase 60 U/L (40-130); Anion Gap 14.3 (5-19); Aspartate Amino Transferase 51 U/L (0-40); Blood Urea Nitrogen 6 mg/dL (6-20); Calcium 9.3 mg/dL (8.5-10.5); Carbon Dioxide 27 mmol/L (22-29); Chloride 99 mmol/L (98-107); Creatinine Clr Calc Pharmacy 163.6438; Globulin 3.3 g/dL (1.3-4.6); Glomerular Filtration Rate 112.8 mL/min (90-130); Glucose 81 mg/dL (65-115); Osmolality Calculated 281 mOsm/kg (285-295); Potassium 3.3 mmol/L (3.5-5.1); Sodium 137 mmol/L (136-145); Total Bilirubin 0.9 mg/dL (0.15-1.2); Total Protein 7.6 g/dL (6.6-8.7)
[2024-05-01 13:33] LABS: Acetaminophen < 5.0 ug/mL (10-30); Alcohol Level < 10 mg/dL (0-10); Salicylate < 0.3 mg/dL (3-10)
[2024-05-01] MEDS: LORazepam 2 mg/mL INJ 10 mL MDV IM (13:52)
[2024-05-01 14:11] VITALS: BP 128/84; PULSE 59; RESP 20; TEMP 36.5; O2SAT 99
--- NOTE | 2024-05-01 15:09 | PC.NURSE ---
Patient endorses having worsening depression and suicidal thoughts that he says get worse as soon as he takes his vivitrol injection. He states it has been giving him panic attacks. He endorses si, but denies having any plan. He says he occasionally has auditory hallucinations, but can't describe them. Denies hi and vh. Patient says he was taking trazodone for sleep, but that it has been giving him night terrors. He denies all drug usage other than having a 30mg of THC daily. Patient very flat upon assessment.
[2024-05-01] MEDS: CLONazepam 0.5 mg Tablet PO (18:41)
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
[2024-05-01 22:00] VITALS: BP 115/72; PULSE 63; RESP 16; O2SAT 99
[2024-05-02 06:00] VITALS: BP 123/71; PULSE 98; RESP 16; TEMP 36.8; O2SAT 98
[2024-05-02 08:17] VITALS: BP 123/71
[2024-05-02] MEDS: lamoTRIgine 100 mg Tablet 50 MG PO (08:17)
[2024-05-02] MEDS: losartan 50 mg Tablet PO (08:17)
[2024-05-02] MEDS: hydroCHLOROthiazide 25 mg Tablet 12.5 MG PO (08:17)
[2024-05-02] MEDS: hyDROXYzine 25 mg Capsule 50 MG PO ×2 (08:17→20:54)
--- NOTE | 2024-05-02 08:34 | W.PM.NPUH&PS ---
Providers/Chief Complaint Admitting Physician: Jimmie Gilman MD Primary Care Provider: Raghavendra Diez MD Chief Complaint: MHE HPI NPU History of Present Illness Bolivar Ledezma is a 29 year old male With a significant history of polysubstance abuse including alcohol dependence, opiate dependence, and methamphetamine abuse along with likely substance-induced mood disorder who presented to the emergency department with complaints of worsening depression and suicidal thoughts that has been worsening over the past few weeks. He states that he has an extended history of anxiety and states that he has a hard time with managing his anxiety. He reports that he had been prescribed Klonopin to help with his anxiety but he had taken his 60 pills of Klonopin in 20 days and had run out recently. He had reported that he has attempted to maintain sobriety off of alcohol for the past 3 months and reports that Vivitrol has helped with his cravings but reports that he feels worse in regards to his mood and anxiety. He had endorsed a history of poor frustration tolerance and mood swings. He had endorsed a history of panic attacks. He had reported a past history of opiate dependence but reports that he has been sober off of opiates for several months. He endorses no methamphetamine use. He had reported having periods of intense mood lability but did not endorse a clear history of tianna. He has reported having struggles with managing his desire to drink. He reports having more frequent suicidal thoughts. He endorses having been depressed for at least a year. He had reported recently having tried to hang himself. Inpatient psychiatric history: He reports multiple inpatient hospitalizations most recently in March 2023 At [facility]. Outpatient psychiatric history: None currently as he reports his primary care physician has been managing his current medications. Allergies: Morphine, Geodon, Paxil, Abilify, doxepin Current medications: Mavyret, Lamictal, Klonopin, losartan, naltrexone monthly IM 380mg Medical history: Pyloric stenosis, hepatitis C, hypertension Surgical history: Treatment for pyloric stenosis, adenoidectomy and tonsillectomy Drug and alcohol history: Patient smokes cigarettes. He had an extended history of alcohol abuse with multiple inpatient rehabilitation as well as outpatient treatment. He had reported a past history of alcohol-related withdrawal. He reported having used alcohol since his adolescence. He had also reported a history of opiate abuse including IV use. He had reported having previously been on Suboxone but has been off of that for several months. He also reported history of methamphetamine use on specified period of time. Family psychiatric history: Bipolar disorder per previous records Social history: Patient lives alone and currently has a job working at [employer] in [facility]. He had reported an extended history of trauma in the past Excerpt from NPU Discharge Summary 03/27/23 Diagnoses at Discharge Discharge Diagnosis (1) Bipolar disorder: Status: Acute (2) Alcohol use disorder, severe, dependence: Status: Chronic (3) Opioid use disorder, severe, dependence: Status: Acute Reason for Visit detox , wants npu eval Brief History: History of Present Illness Bolivar Ledezma is a 28 year old male who presented to the emergency department with the following report: Chief Complaint: Alcohol Stated Complaint: detox , wants npu eval Time Seen by Provider: 03/26/23 18:31 History of Present Illness:?? 28-year-old male here intoxicated.? He says he wants to stop drinking.? Initially at least, he denies suicidal or homicidal ideation.? He is tearful on exam.? Evidently he swallowed 3 small Xanax pills on arrival to the ER.? He states that he threw up blood last night.? This concerned him. ? Last drink: Just CALIBRATION TESTER Amount of alcohol consumed: 18 shots. ? Chronic alcohol use: Yes Previous visits for alcohol intoxication: Yes Recent trauma: No Associated symptoms: Reports abdominal pain, depression, hematemesis, nausea and vomiting; Deny melena, suicidal ideation or syncope Treatments prior to arrival: none. He was admitted to the neuropsychiatric unit for definitive treatment of those issues.? He presented today feeling sober versus yesterday when he reports being intoxicated with alcohol and benzodiazepine.? He reports that he has been doing better recently and that he has a couple of jobs in general has been doing fine.? He reports he stopped smoking cigarettes last February and has stayed with that.? He reports that he is still smoking weed and drinking alcohol too much.? He identifies that the marijuana is his replacement for the medication that we had given him and that he has no interest in starting medication and he just needed a place to be safe while he was going through withdrawal and he was starting to feel depressed because he felt that he was in a mess everything up by his alcohol getting out of control.? He endorses a need for there to be outpatient follow-up possibly drug and alcohol follow-up but also that it would be helpful to have some mental health treatment as well.? However he is clear that he does not want to start medication.? He identifies that he is on a voluntary admission and so he is wanting to be discharged.? We explored several different options as far as how we could be helpful and ways he might benefit from staying in the hospital however he continued to endorse a desire to be discharged today and had no clear indications for any lethality.? He was able to contract for safety outside of the hospital and was desirous of referrals if possible but discharge was requested. Per his 08/21/2022 [facility] inpatient psychiatric evaluation: History of Present Illness Bolivar Ledezma is a 27 year old male who presented to the ED with the following report: Chief Complaint: Psychiatric Symptoms Stated Complaint: wants to be 96ed Time Seen by Provider: 08/20/22 17:56 History of Present Illness:??Mr. Ledezma is a 27-year-old gentleman with family history of bipolar disorder and polysubstance abuse who presents to the emergency department due to psychiatric symptoms.? He has a longstanding history of substance abuse and was recently in a drug and alcohol rehab program from which he was kicked out of few days ago.? Since that time he has relapsed including drinking alcohol just before coming in and using injectable opioids earlier this morning.? He states that he needs a lifestyle change because this current situation is waking him feel like dying.? He denies specific plan.? Otherwise denies medical complaints.? No other specific changes in health, exacerbating, or alleviating factors identified. He was admitted to the neuropsychiatric unit for definitive treatment of those issues.? He present today reporting that after his last discharge that he went to a program for a couple weeks and has been off of Suboxone or opiates because they did not allow.? He reports he got kicked out of the program because of some interaction with another participant and came back to [place] and family self feeling like he had no options and was unclear about what his next move should be to avoid suicidal behavior or drug abuse.? He reports that he is off of his Zyprexa which was 50 mg p.o. twice daily for 2 weeks and feels that he is doing much better on it.? We discussed his benefits and alternatives of restarting that as he milligrams p.o. twice daily and then titrating that up.? He reports that he is homeless, off his medication and so he is spinning out of control.? He agreed to proceed with this plan as is documented in this note.? An excerpt of his last hospitalization about a month ago is included below as there have been no substantive changes except those noted above. Per [facility] inpatient psychiatric evaluation: History of Present Illness Bolivar Ledezma is a 27 year old male who presented to the emergency department with the following report: Chief Complaint: Psychiatric Symptoms Stated Complaint: anxiety Time Seen by Provider: 07/13/22 00:48 Source: patient Mode of arrival: ambulatory Limitations: no limitations History of Present Illness:??Time he did [id number] male has a history of heroin abuse he states that he has been in and out of assisted and is homeless states that he keeps relapsing on heroin and is feeling helpless he states he has been having increased depression with some suicidal thoughts wants to be admitted is any worsening improving factors.? Denies any specific plan. Associated symptoms: Reports depression. He was admitted to the neuropsychiatric unit for definitive treatment of those issues.? Patient presents today reporting that since the time he saw me back in August 2019 he has had some good days and bad times.? An excerpt of that note is included below for context.? He presents today reporting that he has had significant inpatient and outpatient services since he saw me then.? He had been consistent with outpatient services at [facility] as recently as the end of summer 2020.? He was inpatient last month and left connected with Suboxone treatment.? He reports that in general he feels like he is been doing well but he has recently struggled with his drug use.? He reports that he had some heroin overdoses and that he did get his Medicaid in place but he is working and is without transportation and the closest Suboxone place requires daily visits and he is unable to make it there due to transportation.? He reports that is created a very dangerous situation and he came in because of suicidal thoughts and fears that his addiction would lead to completed overdose.? He reports that he actually has an appointment on 823 with a provider that we will do office-based treatment but he was feeling like he might not make it that far due to his most recent behavior.? He reports that he currently is homeless still and that creates a challenge and he is trying to get these final pieces in place so that he believes he will be able to finally stabilize and be functional again.? We agreed that he would assist us in finding the name of the doctor who he is set up with next Monday and that we might be able to collaborate to create a safe bridge to that appointment.? Otherwise he reports that he is doing fine on his medication and he feels safe here in the facility. Per his 09/13/2019 [facility] inpatient psychiatric evaluation: Date of Service: Sep 13, 2019 Chief Complaint: I'm struggling. HPI: Bolivra presents today reporting that he struggles with very low frustration tolerance.? He reports that his anxiety is through the roof. ? He reports that he had a rough go of it.? That he screams, cries and that his new relationship isn't going well secondary to his poor behavior.He reports that in March of this year he lost the second of his twins that were born at 28 weeks.? He reports that he and his significant other went several stays away to try to get away from the memories and fine work.? He reports that that lasted a short period of time and that they return to [place] but that the ghosts and demons were too much.? They split up and he hooked up with a new girlfriend who has 3 kids.? He tried to drown his memories in her children.? But that didn't work and his addiction started getting the best of him and he knows he needs help.? His goal in plan is to the get into an inpatient rehabilitation and he reports he has a bed waiting for him on 1024 but he wasn't sure he go that long without a slip up.? He reports doing was 14 he started smoking cigarettes, drinking alcohol and smoking marijuana by 15 he was doing everything else.? By 17 or 18.? Connected with heroin and alcohol heroin and methamphetamine became his problems.? He reported that apparently before and that he is hopefully going to go back there for inpatient.? He is on a 96 hour hold secondary secondary to his erratic behavior off of this medication and was active addiction. Psychiatric history: He reports he's been hospitalized 4 times and he's been on different medications but he reports that lithium and Depakote were the best.? Research however does not uncover a time when he was on Depakote.? But he has had reported benefits with lithium for some time. Substance abuse history: Patient reports he smokes a half a pack of cigarettes a day, he has alcohol use from time to time now, he has marijuana rarely cocaine rarely methamphetamine at times and pain pills/hair 1 have been a real problem.? He's been in rehabilitation 4 times the last time being in 2018.? He's had no DUIs. Per ED eval HISTORY OF PRESENT ILLNESS Chief Complaint: BEHAVIOR CHANGE and AGITATED, HOMICIDAL THOUGHTS, DELUSIONAL and HALLUCINATIONS.? This started today 3 weeks ago.? (24 yo male presents to ED with homicidal ideations, agitation, delusions, hallucinations and bizarre behavior. The patient has a history of psychiatric problems and quit taking his prescribed medications, instead he is self medicating with methamphetamines and marijuana. The patient had a butter knife on his person when he presented to the ED. The patient stated he feels like some people are trying to hurt him and are after him. He was going to use the butter knife on these people who are after him. The patient said the people were trying to run him over and all sort of shit .). ? No situational problems.? He has exhibited a behavior change. but was not found wandering.? He is non-compliant with medication.? Recent drug use and alcohol consumption.? Has exhibited unusual behavior but been eating or sleeping or not been depressed.? No anxiety, anger, paranoia, suicidal thoughts or self-injury inflicted.? He has had delusions and hallucinations. ? The symptoms are described as severe.? No injury is present. ? Similar symptoms previously. None. ? Recent medical care: Not recently seen/assessed. ? REVIEW OF SYSTEMS No headache, dizziness, weakness, chest pain or palpitations.? No abdominal pain, vomiting, diarrhea, black stools or numbness.? No fever, sore throat, cough, difficulty breathing or urinary frequency.? No skin rash, enlarged lymph nodes, joint pain, weight loss or laceration. ? PAST HISTORY See nurses notes.? Hypertension.? GI disease.? ( PCP - none).? Asthma. Hypokalemia.? Hepatitis.? Gastroesophageal reflux.? Anxiety.? Bipolar disorder.? Depression.? Alcoholism.? Substance abuse.? ( Lifestyle/Substance Problems). ? Surgeries: Adenoidectomy.? Tonsillectomy.? (Pyloric Stenosis Surgery). ? SOCIAL HISTORY Current every day heavy tobacco smoker (cigarette)- less than 1 pack per day. Heavy alcohol use. Last drink was just prior to arrival.? History of heavy drug use: methamphetamines, marijuana. Recently used drugs just prior to arrival.?? 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 He presented reporting that he had gotten intoxicated which led to the concerns of lethality. He reported that he has been doing fairly well except for this slip up and that his preference would be to continue his outpatient work and focus on employment and being stable. We monitored him for safety and ultimately determined that his reports seemed reasonable and he was allowed to discharge. He had modest improvement, and worked with the social work team to find timely outpatient follow-up.? He e was able to contract for safety outside the hospital prior to discharge.? During the hospitalization, patient had routine laboratory studies which were within normal limits except for few outliers.? Additionally there was a general medical evaluation which was also within normal limits and revealed no new acute processes. Discharge Summary: At the time of discharge, he denied psychosis or lethality.? Mood and anxiety were well managed.? Patient endorsed a plan to avoid all drugs of abuse and follow-up with the aftercare recommendations of the treatment team.? Patient was evaluated and deemed to be absent credible lethality, and had achieved the maximum benefit from an inpatient hospitalization, so was discharg [facility] NPU Home Medications Medication Instructions Recorded Confirmed Last Taken Type clonazepam 0.5 mg tablet 0.5 mg PO BID PRN Anxiety 05/01/24 05/01/24 04/30/24 History glecaprevir 100 mg-pibrentasvir 40 3 tab PO DAILY 05/01/24 05/01/24 04/30/24 History mg tablet (Mavyret) glecaprevir 100 mg-pibrentasvir 40 300 tab PO DAILY 05/01/24 05/01/24 04/30/24 History mg tablet (Mavyret) lamotrigine 25 mg tablet See Rx Instructions .Route .COMPLEX 05/01/24 05/01/24 04/30/24 History losartan 50 mg-hydrochlorothiazide 1 tab PO DAILY 05/01/24 05/01/24 04/30/24 History 12.5 mg tablet losartan 50 mg-hydrochlorothiazide 50 tab PO DAILY 05/01/24 05/01/24 Unknown History 12.5 mg tablet naltrexone microspheres 380 mg 4.2 mg IM .[id number] 05/01/24 05/01/24 04/16/24 History intramuscular suspension,extended release (Vivitrol) Allergies Allergy/AdvReac Type Severity Reaction Status Date / Time morphine Allergy Severe Stops Verified 05/01/24 12:13 respiratory system ziprasidone [From Geodon] Allergy Severe Breathing Verified 05/01/24 12:13 problems and Pulse paroxetine Allergy Intermediate Fidgety, Verified 05/01/24 12:13 tingling all over, couldn't sleep, hot flashes aripiprazole [From Abilify] AdvReac Intermediate stomach Verified 05/01/24 12:13 upset, N & V doxepin AdvReac Intermediate ADR-Headach Verified 05/01/24 12:13 e PFSH NPU PFSH: Medical History Hepatitis C Alcohol use disorder, severe, dependence Mood disorder Polysubstance (including opioids) dependence, daily use Pyloric stenosis Social History Smoking and tobacco/nicotine status: former use of tobacco/nicotine Quit status (tobacco/nicotine): has tried quititng Number of times tried to quit tobacco: 5 Second hand smoke exposure: No Alcohol intake: former Substance/Drug Use: current Mental Status Exam MSE Comments: This is an overweight versus obese white male with in hospital scrubs with limited grooming and eye contact. No abnormal movements except for severe psychomotor retardation. Cooperative with exam in severe distress. Speech was decreased in rate and normal in volume. Mood described as anxious.Affect was mood congruent and anxious. Thought process was linear and organized. Thought content: patient endorsed suicidal ideation, there were no delusions reported or noted, he denied any auditory or visual hallucinations. Attention and concentration were intact and memory appeared fully mostly reliable but none were formally tested. He?s alert and oriented times three. Insight was impaired and judgment appeared poor and impulse control appeared limited. Vitals/I&O/Wt Last Vital Signs Temp 98.3 F 05/02/24 06:00 Pulse 98 05/02/24 06:00 Resp 16 05/02/24 06:00 BP 123/71 05/02/24 08:17 Pulse Ox 98 05/02/24 06:00 O2 Del Method Room Air 05/02/24 06:00 Weight last 48 hrs Weight 99.79 kg Data NPU 05/01/24 12:31 05/01/24 12:31 A&P Assessment and plan (1) Depression: Qualifiers: Depression Type: other depression Qualified Code(s): F32.89 - Other specified depressive episodes (2) Suicidal ideation: (3) Panic attacks: (4) Alcohol use disorder, severe, dependence: (5) Opioid use disorder, severe, dependence: Plan This is a 29-year-old white male with a long history of inpatient and outpatient services and addiction currently reporting sobriety off opiates and alcohol but unable to cope with increased anxiety and severe depression with suicidal ideation. 1. Continue current medication. 2. Continue every 15 minute checks for safety. 3. Encourage individual, group and milieu therapies. 4. Encourage sober living treatment after discharge at the highest level of care to which he is willing to commit. 5. Continue Naltrexone, Lamotrigine, as prescribed. D/C Klonopin and switch to Valium to target anxiety along with trial of zoloft for tx of depression and anxiety particularly panic attacks. Involuntary Hold Information 96 Hour Hold: 96 Hour Involuntary Admission: Yes 96 Hour Hold Ending Date: 05/07/24 96 Hour Hold Ending Time: 12:40 Attestations NPU Medical Necessity Statement*: Inpatient hospitalization is medically necessary and deemed to ?be ?the clinically appropriate intervention ?at this time.? We will monitor/initiate medications and make changes as indicated.? The patient will be in the hospital for over 2 midnights.? The patient?s likely length of stay 7-10 days. Coding Level of Care Code Acute Code for [facility] Fwd Diagnoses Depression F32.89 Depression Type: other depression Suicidal ideation R45.851 Panic attacks F41.0 Alcohol use disorder, severe, dependence F10.20 Opioid use disorder, severe, dependence F11.20
--- NOTE | 2024-05-02 08:42 | PC.NURSE ---
PT OBSERVED TO BE VERY ANXIOUS THIS MORNING. CLONAZEPAM 0.5 MG GIVEN ORDERED FOR REPORTS OF INCREASED ANXIETY. DENIES SI/HI AND AVH AT THIS TIME. RATES DEPRESSION 5/10. PT IS OBSERVED HAVING A FLAT AFFECT AND DEPRESSED MOOD. PT STATES HE IS TRYING TO STOP DRINKING AND REPORTS HE RAN OUT OF MY KLONOPIN EARLY AND NOW I'M SUPER ANXIOUS AND NEED IT. PT WAS NEGATIVE FOR CLONAZEPAM/BENZODIAZAPINS ON ADMISSION. ALL QUESTIONS ANSWERED AND SUPPORT WAS VOICED.
[2024-05-02] MEDS: CLONazepam 0.5 mg Tablet PO (08:51)
[2024-05-02] MEDS: multivitamin therapeutic Tablet 1 TAB PO (10:37)
--- NOTE | 2024-05-02 10:40 | PC.NURSE ---
VALIUM 5 MG 900 AM DOSE NOT GIVEN DUE TO HAVING CLONAZEPAM 0.5 MG AND VISTARIL 50 MG THIS AM. WILL GIVE FIRST DOSE OF VALIUM AT 1500 ORDERED. PT EDUCATED ON NEW ORDERS FOR VALIUM, VERBALIZED UNDERSTANDING.
[2024-05-02 14:00] VITALS: BP 119/76; PULSE 71; RESP 16; TEMP 36.8; O2SAT 95
[2024-05-02] MEDS: diazePAM 2 mg Tablet 2.5 MG PO (15:51)
[2024-05-02] MEDS: diazePAM 5 mg Tablet 2.5 MG PO (15:53)
--- NOTE | 2024-05-02 17:16 | PC.NURSE ---
This nurse wasted 2.5mg valium with LUANNE Aquino.
--- NOTE | 2024-05-02 17:17 | PC.NURSE ---
PT WAS GIVEN (1500 DOSE) OF VALIUM AT APPROXIMATELY 1424, ONLY 2.5 MG OF VALIUM WAS GIVEN AT THAT TIME AND THE OTHER 2.5 MG VALIUM WAS WASTED AT APPROXIMATELY 1450 BY THIS RN AND DANILO CONNOLLY RN. THIS RN GAVE HALF OF THE 5MG TAB DUE TO THINKING IT WAS A 10 MG TAB AND HALF NEEDED TO BE GIVEN TO EQUAL 5 MG. WAS NOTIFIED IMMEDIATELY THAT PT ONLY RECEIVED 2.5 MG AND NEEDED ANOTHER 2.5 MG OF VALIUM TO EQUAL THE 5 MG DOSAGE. NEW ORDERS RECEIVED TO GIVE VALIUM 2.5 MG NOW TIMES TWO, THE THE FIRST DOSE GIVEN AT 1424, SECOND DOSE OF VALIUM 2.5 MG WAS GIVEN AT 1551, AND EQUALED THE [address] CELIS INITIALLY WANTED AND ORDERED. THE 1500 DOSE OF VALIUM 5 MG WAS NOT GIVEN WITH A COMMENT TO SEE 2.5 MG VALIUM ORDER. EDUCATIONAL PSYCHOLOGY TEACHER WAS NOTIFIED VIA PHONE, PHARMACY ([facility]) WAS NOTIFIED ON PHONE AND THEN CAME ON UNIT IN PERSON TO ASSIST THIS RN WITH VALIUM WASTES AND RETURNS. HORSE RANCHER CORY STROUD WAS NOTIFIED IN PERSON. PT WAS INFORMED OF ISSUE AND GIVEN THE REST OF THE VALIUM DOSE. ALL QUESTIONS WERE ANSWERED AND SUPPORT WAS VOICED.
[2024-05-02 19:00] VITALS: BP 122/65; PULSE 71; RESP 18; TEMP 36.8; O2SAT 95
[2024-05-02] MEDS: diazePAM 5 mg Tablet PO (20:53)
[2024-05-03 06:00] VITALS: BP 138/89; PULSE 66; RESP 20; TEMP 36.5; O2SAT 99
[2024-05-03 08:12] VITALS: BP 138/89
[2024-05-03] MEDS: hydroCHLOROthiazide 25 mg Tablet 12.5 MG PO (08:12)
[2024-05-03] MEDS: diazePAM 5 mg Tablet PO ×3 (08:12→21:00)
[2024-05-03] MEDS: losartan 50 mg Tablet PO (08:12)
[2024-05-03] MEDS: lamoTRIgine 100 mg Tablet 50 MG PO (08:12)
[2024-05-03] MEDS: multivitamin therapeutic Tablet 1 TAB PO (08:12)
[2024-05-03] MEDS: sertraline 50 mg Tablet 25 MG PO (08:12)
--- NOTE | 2024-05-03 09:02 | PC.NURSE ---
PT CURRENTLY DENIES SI/HI/AH/VH. PT CURRENTLY ENDORSES DEPRESSION RATING IT A 4/10 ON A 0-10 SCALE WHERE 0 IS NONE AND 10 IS THE WORST POSSIBLE. PT WAS COOPERATIVE WITH ASSESSMENT AND MEDICATIONS. PT CURRENT NEEDS ARE MET AT THIS TIME.
[2024-05-03 13:59] VITALS: BP 129/74; PULSE 65; RESP 17; TEMP 36.7; O2SAT 99
--- NOTE | 2024-05-03 16:42 | P.NPUPN_ITS ---
Subjective NPU 2 Subjective: Patient is a 27-year-old white male with a history of opiate dependence along with alcohol dependence with a history of psychotic symptoms and reported history of bipolar disorder along with PTSD. The patient had reported feeling better. He had continued to report having depression but reported some relief of anxiety with the Valium in place of the Klonopin. He had reported that he would benefit from a mood stabilizer. He did not report any cravings for opiates. He had reported no side effects from the Zoloft at this time. He had acknowledged having problems with managing his frustration. He reported some difficulties falling asleep. He continued to report having some suicidal ideation. Mental Status Exam 2 MSE Comments: This is an overweight versus obese white male with in hospital scrubs with limited grooming and fleeting eye contact. No abnormal movements except for moderate psychomotor retardation. He was cooperative with exam in severe distress. Speech was decreased in rate and normal in volume. Mood described as anxious. Affect was mood congruent and irritable. Thought process was linear and organized. Thought content: patient endorsed suicidal ideation, there were no delusions reported or noted, he denied any auditory or visual hallucinations. Attention and concentration were intact and memory appeared fully mostly reliable but none were formally tested. He?s alert and oriented times three. Insight was impaired and judgment appeared poor and impulse control appeared limited. Vitals/I&O/Wt Last Vital Signs Temp 98.1 F 05/03/24 13:59 Pulse 65 05/03/24 13:59 Resp 17 05/03/24 13:59 BP 129/74 05/03/24 13:59 Pulse Ox 99 05/03/24 13:59 O2 Del Method Room Air 05/03/24 06:00 Data NPU 05/01/24 12:31 05/01/24 12:31 A&P Assessment and plan (1) Depression: Qualifiers: Depression Type: other depression Qualified Code(s): F32.89 - Other specified depressive episodes (2) Suicidal ideation: (3) Methamphetamine abuse: (4) Panic attacks: (5) Alcohol use disorder, severe, dependence: (6) Opioid use disorder, severe, dependence: Plan This is a 29-year-old white male with a long history of inpatient and outpatient services and addiction currently reporting sobriety off opiates and alcohol but unable to cope with increased anxiety and severe depression with suicidal ideation. 1. Continue current medication. 2. Continue every 15 minute checks for safety. 3. Encourage individual, group and milieu therapies. 4. Encourage sober living treatment after discharge at the highest level of care to which he is willing to commit. 5. Continue Vivitrol, continue zoloft 25mg daily with titration up to 50mg daily. Continue Valium 5mg tid, Add Seroquel 100mg at night to target depression. Continue Lamotrigine 50mg daily. Involuntary Hold Information 2 96 Hour Hold: 96 Hour Involuntary Admission: Yes 96 Hour Hold Ending Date: 05/07/24 96 Hour Hold Ending Time: 12:40 Attestations NPU 2 Medical Necessity Statement*: Inpatient hospitalization is medically necessary and deemed to ?be ?the clinically appropriate intervention ?at this time.? We will monitor/initiate medications and make changes as indicated.?The patient?s likely length of stay 5-7 days. Coding Level of Care Code Acute Code for [facility] Fwd Diagnoses Depression F32.89 Depression Type: other depression Suicidal ideation R45.851 Methamphetamine abuse F15.10 Panic attacks F41.0 Alcohol use disorder, severe, dependence F10.20 Opioid use disorder, severe, dependence F11.20
[2024-05-03] MEDS: hyDROXYzine 25 mg Capsule 50 MG PO (17:28)
[2024-05-03 20:04] VITALS: BP 135/80; PULSE 56; RESP 18; O2SAT 98
[2024-05-03] MEDS: quetiapine XR (24HR) 50 mg Tablet PO (21:00)
[2024-05-04 06:00] VITALS: BP 114/60; PULSE 77; RESP 16; TEMP 36.6; O2SAT 99
[2024-05-04] MEDS: lamoTRIgine 100 mg Tablet 50 MG PO (08:14)
[2024-05-04] MEDS: multivitamin therapeutic Tablet 1 TAB PO (08:14)
[2024-05-04 08:15] VITALS: BP 126/80
[2024-05-04] MEDS: sertraline 50 mg Tablet 25 MG PO (08:15)
[2024-05-04] MEDS: hydroCHLOROthiazide 25 mg Tablet 12.5 MG PO (08:15)
[2024-05-04] MEDS: losartan 50 mg Tablet PO (08:15)
[2024-05-04] MEDS: diazePAM 5 mg Tablet PO ×3 (08:15→20:04)
[2024-05-04] MEDS: hyDROXYzine 25 mg Capsule 50 MG PO (12:17)
--- NOTE | 2024-05-04 12:18 | PC.NURSE ---
PT CAME TO THIS NURSE AND REQUESTED VISTARIL. THIS NURSE ASKED WHAT IS GOING ON. PT STATED HE WAS ANXIOUS AND RATED HIS ANXIETY A 5/10 ON A 0-10 SCALE WHERE 0 IS NONE AND 10 IS THE WORST POSSIBLE. THIS NURSE ADMINISTERED VISTARIL 50MG PRN PO.
[2024-05-04 13:45] VITALS: BP 129/71; PULSE 84; RESP 16; TEMP 36.6; O2SAT 98
--- NOTE | 2024-05-04 14:10 | P.NPUPN_ITS ---
Subjective NPU 2 Subjective: Patient is a 27-year-old white male with a history of opiate dependence along with alcohol dependence with a history of psychotic symptoms and reported history of bipolar disorder along with PTSD. Patient had reported continued depression. He had reported some reduction in anxiety. He had continued to report periods of intense irritability. He had reported no alcohol withdrawal symptoms. He had reported that his anxiety had been better controlled with the Valium in place of the Klonopin. Patient had isolated himself on the milieu. He had reported some difficulties with falling asleep. He had continued to endorse some feelings of hopelessness but reported that he felt motivated to attempt to get to work soon. Mental Status Exam 2 MSE Comments: This is an overweight versus obese white male with in hospital scrubs with limited grooming and fleeting eye contact with a simon complexion. No abnormal movements except for moderate psychomotor retardation. He was cooperative with exam in severe distress. Speech was decreased in rate and normal in volume. Mood remained anxious. Affect was irritable. Thought process was linear and organized. Thought content: patient endorsed fleeting suicidal ideation, there were no delusions reported or noted, he denied any auditory or visual hallucinations. Attention and concentration were intact and memory appeared fully mostly reliable but none were formally tested. He?s alert and oriented times three. Insight was impaired and judgment appeared poor and impulse control appeared limited. Vitals/I&O/Wt Last Vital Signs Temp 97.8 F 05/04/24 13:45 Pulse 84 05/04/24 13:45 Resp 16 05/04/24 13:45 BP 129/71 05/04/24 13:45 Pulse Ox 98 05/04/24 13:45 O2 Del Method Room Air 05/04/24 06:00 Data NPU 05/01/24 12:31 05/01/24 12:31 A&P Assessment and plan (1) Depression: Qualifiers: Depression Type: other depression Qualified Code(s): F32.89 - Other specified depressive episodes (2) Suicidal ideation: (3) Methamphetamine abuse: (4) Panic attacks: (5) Alcohol use disorder, severe, dependence: (6) Opioid use disorder, severe, dependence: Plan This is a 29-year-old white male with a long history of inpatient and outpatient services and addiction currently reporting sobriety off opiates and alcohol but unable to cope with increased anxiety and severe depression with suicidal ideation. 1. Continue valium 5mg tid, increase seroquel xr 100mg at 2000, and zoloft increase to 50mg daily to target depression and anxiety. 2. Continue every 15 minute checks for safety. 3. Encourage individual, group and milieu therapies. 4. Encourage sober living treatment after discharge at the highest level of care to which he is willing to commit. 5. Continue Vivitrol monthly baise. Continue Valium 5mg tid, Continue Lamotrigine 50mg daily. Involuntary Hold Information 2 96 Hour Hold: 96 Hour Involuntary Admission: Yes 96 Hour Hold Ending Date: 05/07/24 96 Hour Hold Ending Time: 12:40 Attestations NPU 2 Medical Necessity Statement*: Inpatient hospitalization is medically necessary and deemed to ?be ?the clinically appropriate intervention ?at this time.? We will monitor/initiate medications and make changes as indicated.?The patient?s likely length of stay 5-7 days. Coding Level of Care Code Acute Code for [facility] Diagnoses Depression F32.89 Depression Type: other depression Suicidal ideation R45.851 Methamphetamine abuse F15.10 Panic attacks F41.0 Alcohol use disorder, severe, dependence F10.20 Opioid use disorder, severe, dependence F11.20
[2024-05-04] MEDS: quetiapine XR (24HR) 50 mg Tablet 100 MG PO (20:04)
[2024-05-04 20:08] VITALS: BP 147/79; PULSE 55; RESP 18; TEMP 36.8; O2SAT 97
[2024-05-04] MEDS: OLANZapine 5 mg ODT PO (21:40)
[2024-05-05 06:00] VITALS: BP 105/71; PULSE 62; RESP 17; TEMP 36.6; O2SAT 98
[2024-05-05] MEDS: hydroCHLOROthiazide 25 mg Tablet 12.5 MG PO (08:17)
[2024-05-05] MEDS: multivitamin therapeutic Tablet 1 TAB PO (08:17)
[2024-05-05] MEDS: diazePAM 5 mg Tablet PO ×3 (08:17→22:02)
[2024-05-05] MEDS: sertraline 50 mg Tablet PO (08:17)
[2024-05-05] MEDS: lamoTRIgine 100 mg Tablet 50 MG PO (08:17)
[2024-05-05 08:18] VITALS: BP 127/80
[2024-05-05] MEDS: losartan 50 mg Tablet PO (08:18)
--- NOTE | 2024-05-05 09:02 | PC.NURSE ---
Patient flat and guarded during assessment. Patient stated that he is doing good. Patient denies SI, HI, AVH, depression, and anxiety. Patient took morning medications with no issues.
[2024-05-05] MEDS: hyDROXYzine 25 mg Capsule 50 MG PO (12:12)
[2024-05-05 14:00] VITALS: BP 123/80; PULSE 81; RESP 16; TEMP 36.6; O2SAT 98
--- NOTE | 2024-05-05 15:34 | W.PM.NPUPNS ---
Subjective NPU Subjective: Patient is a 27-year-old white male with a history of opiate dependence along with alcohol dependence with a history of psychotic symptoms and reported history of bipolar disorder along with PTSD. The patient reported having less suicidal thoughts. He reported that he was feeling better. He continued to endorse some depression but stated feeling more hopeful. He denied any racing thoughts. He had isolated himself on the milieu. He reported his anxiety had felt more under control with the use of Valium versus Klonopin. He had reported his sleep better with the addition of Seroquel. He had expressed interest in returning to work and considered outpatient therapy including potential use of digital applications for managing his chronic issues with methamphetamine use. Mental Status Exam MSE Comments: This is an overweight versus obese white male with in hospital scrubs with limited grooming and fleeting eye contact with a simon complexion. No abnormal movements except for moderate psychomotor retardation. He was cooperative with exam in severe distress. Speech was slightly decreased in rate and normal in volume. Mood described as better. Affect remained restricted. Thought process was linear and organized. Thought content: patient denied suicidal ideation. Patient denied homicidal ideation. There were no delusions reported or noted, he denied any auditory or visual hallucinations. Attention and concentration were intact and memory appeared fully mostly reliable but none were formally tested. He?s alert and oriented times three. Insight was impaired and judgment appeared poor and impulse control appeared limited. Vitals/I&O/Wt Last Vital Signs Temp 97.8 F 05/05/24 14:00 Pulse 81 05/05/24 14:00 Resp 16 05/05/24 14:00 BP 123/80 05/05/24 14:00 Pulse Ox 98 05/05/24 14:00 O2 Del Method Room Air 05/04/24 20:08 Weight last 48 hrs Weight 96.524 kg Data NPU 05/01/24 12:31 05/01/24 12:31 A&P Assessment and plan (1) Depression: Qualifiers: Depression Type: other depression Qualified Code(s): F32.89 - Other specified depressive episodes (2) Suicidal ideation: (3) Methamphetamine abuse: (4) Panic attacks: (5) Alcohol use disorder, severe, dependence: (6) Opioid use disorder, severe, dependence: Plan This is a 29-year-old white male with a long history of inpatient and outpatient services and addiction currently reporting sobriety off opiates and alcohol but unable to cope with increased anxiety and severe depression with suicidal ideation. 1. Continue valium 5mg tid, increase seroquel xr 150mg at 1999, and continue zoloft 50mg daily to target depression and anxiety. 2. Continue every 15 minute checks for safety. 3. Encourage individual, group and milieu therapies. 4. Encourage sober living treatment after discharge at the highest level of care to which he is willing to commit. 5. Continue Vivitrol monthly. Continue Valium 5mg tid, Continue Lamotrigine 50mg daily. Involuntary Hold Information 96 Hour Hold: 96 Hour Involuntary Admission: Yes 96 Hour Hold Ending Date: 05/07/24 96 Hour Hold Ending Time: 12:40 Attestations NPU Medical Necessity Statement*: Inpatient hospitalization is medically necessary and deemed to ?be ?the clinically appropriate intervention ?at this time.? We will monitor/initiate medications and make changes as indicated.?The patient?s likely length of stay 2-4 days. Coding Level of Care Code Acute Code for [facility] Fwd Diagnoses Depression F32.89 Depression Type: other depression Suicidal ideation R45.851 Methamphetamine abuse F15.10 Panic attacks F41.0 Alcohol use disorder, severe, dependence F10.20 Opioid use disorder, severe, dependence F11.20
[2024-05-05] MEDS: OLANZapine 5 mg ODT PO (17:21)
[2024-05-05 20:43] VITALS: BP 128/68; PULSE 56; RESP 17; TEMP 36.6; O2SAT 97
[2024-05-05] MEDS: quetiapine XR (24HR) 50 mg Tablet 150 MG PO (22:03)
[2024-05-06 06:00] VITALS: BP 102/61; PULSE 83; RESP 16; TEMP 36.6; O2SAT 97
[2024-05-06 08:21] VITALS: BP 102/61
[2024-05-06] MEDS: lamoTRIgine 100 mg Tablet 50 MG PO (08:21)
[2024-05-06] MEDS: multivitamin therapeutic Tablet 1 TAB PO (08:21)
[2024-05-06] MEDS: hydroCHLOROthiazide 25 mg Tablet 12.5 MG PO (08:21)
[2024-05-06] MEDS: diazePAM 5 mg Tablet PO ×2 (08:21→14:06)
[2024-05-06] MEDS: sertraline 50 mg Tablet PO (08:21)
[2024-05-06] MEDS: losartan 50 mg Tablet PO (08:21)
--- NOTE | 2024-05-06 09:51 | PC.NURSE ---
RATES ANXIETY 4/10 AND DEPRESSION 4/10. DENIES PAIN. DENIES SI/HI AND AVH AT THIS TIME. PT CONTINUES TO HAVE FLAT AFFECT AND ANXIOUS/DEPRESSED MOOD. ANTICIPATES DISCHARGE TODAY. PT GOAL FOR THE DAY IS KEEP A POSITIVE ATTITUDE. ALL QUESTIONS ANSWERED AND SUPPORT VOICEDE.
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
[2024-05-06 14:01] VITALS: BP 102/61
== END 2024-05-06 16:16 | disposition home or self-care (01) | DRG 885 ==
LOC: ER 13:34 → NP 13:44
PROVIDERS: Admitting Provider Psychiatry & Neurology Psychiatry; Emergency Provider Emergency Medicine; PCP Family Medicine; Visit Provider Psychiatry & Neurology Psychiatry
DX: F31.9 Bipolar disorder, unspecified (principal); R45.851 Suicidal ideations; F11.20 Opioid dependence, uncomplicated; Z87.891 Personal history of nicotine dependence; F10.20 Alcohol dependence, uncomplicated; F15.10 Other stimulant abuse, uncomplicated; F41.9 Anxiety disorder, unspecified; I10 Essential (primary) hypertension; B19.20 Unspecified viral hepatitis C without hepatic coma; F41.0 Panic disorder [episodic paroxysmal anxiety]; F43.10 Post-traumatic stress disorder, unspecified
CPT/HCPCS: 36415; 80053; 80306; 80307; 85025; 96372; 97150; 97165; 99285; J2060

== ENCOUNTER 2024-05-28 10:25 | Emergency (ER) | payer MEDICAID, SELFPAY ==
[2024-05-28 10:40] VITALS: BP 171/99; PULSE 88; RESP 18; TEMP 36.8; O2SAT 97; BMI 29.1
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
[2024-05-28 11:04] LABS: Basophils % 0.3 %; Eosinophils # 0.3 10^3/uL (0.0-0.8); Eosinophils % 6.8 %; Hematocrit 37.4 % (37-53); Lymphocytes # 1.3 10^3/uL (0.8-4.8); Lymphocytes % 33.3 %; Mean Corpuscular HGB Conc 35.6 g/dL (30-55); Mean Corpuscular Hemoglobin 32.8 pg (27-33); Mean Corpuscular Volume 92.1 fl (82-101); Mean Platelet Volume 10.7 fL (7.4-10.4); Monocytes # 0.3 10^3/uL (0.2-0.9); Monocytes % 7.3 %; Neutrophils # 2.07 10^3/uL (1.8-7.7); Neutrophils % 52.3 %; Nucleated Red Blood Cells % 0 %; Platelet Count 105 10^3/cmm (157-399); Red Blood Count 4.06 10^6/uL (3.85-5.65); Red Cell Distribution Width 13.7 % (12.1-15.1); White Blood Count 3.96 10^3/uL (3.29-11.43)
[2024-05-28 11:23] LABS: Alanine Aminotransferase 39 U/L (0-41); Alkaline Phosphatase 88 U/L (40-130); Anion Gap 17.3 (5-19); Aspartate Amino Transferase 81 U/L (0-40); Blood Urea Nitrogen 7 mg/dL (6-20); Calcium 8.6 mg/dL (8.5-10.5); Carbon Dioxide 20 mmol/L (22-29); Chloride 105 mmol/L (98-107); Creatinine Clr Calc Pharmacy 215.9028; Globulin 3.3 g/dL (1.3-4.6); Glomerular Filtration Rate 157.1 mL/min (90-130); Glucose 136 mg/dL (65-115); Osmolality Calculated 288 mOsm/kg (285-295); Potassium 3.3 mmol/L (3.5-5.1); Sodium 139 mmol/L (136-145); Total Bilirubin 0.7 mg/dL (0.15-1.2); Total Protein 7.3 g/dL (6.6-8.7)
[2024-05-28] MEDS: tetanus-dipt-pertussis 0.5 mL SDV IM (11:47)
[2024-05-28] MEDS: HYDROcodone-acetaminophen 5-325 mg Tablet 1 TAB PO (12:09)
[2024-05-28 12:16] VITALS: PULSE 82; O2SAT 97
== END 2024-05-28 12:19 | disposition home or self-care (01) ==
PROVIDERS: Emergency Provider Family Medicine; PCP Family Medicine
DX: S02.2XXA Fracture of nasal bones, initial encounter for closed fracture (principal); S05.12XA Contusion of eyeball and orbital tissues, left eye, initial encounter; S05.11XA Contusion of eyeball and orbital tissues, right eye, initial encounter; Z86.19 Personal history of other infectious and parasitic diseases; Z87.891 Personal history of nicotine dependence; Y08.09XA Assault by strike by other specified type of sport equipment, initial encounter; Z23 Encounter for immunization
CPT/HCPCS: 36415; 70450; 70486; 80053; 85025; 90471; 90715; 99284

== ENCOUNTER 2025-09-28 16:14 | Emergency (ER) | payer SELFPAY ==
--- OUTSIDE RECORDS SUMMARY | 2025-09-28 16:20 | XMS_ITS | Clinical Summary ---
Author Organization [facility] Address [address] [place] [address] Phone Care Team Providers Care Staff Nuclear Medicine Technologist Name Role Phone Unavailable Primary Care Provider Unavailabl e Allergies Active Allergy Reactions Criticality Noted Date Comments Aripiprazole Unknown 04/27/2020 bad reaction Doxepin Unknown 04/27/2020 it will kill me Morphine Anaphylaxis High 11/11/2011 Ziprasidone Hcl Other (See Comments) 07/01/2017 Heavy sedation Medications topiramate (TOPAMAX) 100 mg Oral tablet Take 100 mg by mouth 2 times daily. Active ciprofloxacin (CILOXAN) 0.3 % OP ointment 0.25 Inches by See Admin Instructions route see administration instructions. APPLY TO AFFECTED EYE(S) TID FOR 2 DAYS, THEN BID FOR 5 DAYS 1 Tube 0 1 Active HYDROcodone-ac etaminophen (LORTAB) 5-500 mg Oral tablet Take 1-2 Tabs by mouth every 6 hours as needed for Pain. 15 Tab None 1 Active cloNIDine HCl (CATAPRES) 0.1 mg tablet Take 0.1 mg by mouth 2 times daily. Active methylPREDNISo lone (MEDROL, RENY,) 4 mg Tablets, Dose Pack As directed. 1 Package None 7 Active Immunizations Immunization Administration Dates Next Due (M-M-R II/PRIORIX)(12 MO UP) MEASLES, MUMPS AND RUBELLA VIRUS VACCINE, 0.5 ML IM/SUBCUT 04/29/1998,12/12/1994 Dt Dtp Dtap Vaccine 03/18/1998, 5,07/08/1994,10/11,1993 HIB, Unspecified Formulation 12/12/1994,10/11/19 93,1993 Hepatitis A Vaccine 2008 Hepatitis B Vaccine 07/08/1998,03/18/1998,1992 IPV/OPV 03/18/1998, 5,1993,05/24 Meningococcal A Conjugate Vaccine IM 2008 Social History Tobacco Use Types Packs/Day Years Used Date Smoking Tobacco: Every Day Cigarettes Smokeless Tobacco: Never Alcohol Use Standard Drinks/Week Comments Yes 13 (1 standard drink = 0.6 oz pu re alcohol) vodka Sex and Gender Information Value Date Recorded Sex Assigned at Not on file 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 Gender Identity Not on file Sexual Orientation Not on file Last Filed Vital Signs Vital Sign Reading Time Taken Comments Blood Pressure 156/92 04/27/2020 8:03 PM CDT Pulse 79 07/01/2017 6:00 PM CDT Temperature 36.1 C (96.9 F) 04/27/2020 8:03 PM CDT Respiratory Rate 18 04/27/2020 8:03 PM CDT Oxygen Saturation 99% 04/27/2020 8:03 PM CDT Inhaled Oxygen Concentration - - Weight 83.9 kg (185 lb) 04/27/2020 8:03 PM CDT Height 182.9 cm (6') 04/27/2020 8:03 PM CDT Body Mass Index 25.09 04/27/2020 8:03 PM CDT Plan of Treatment Health Maintenance Due Date Last Done Comments DTAP/TDAP/TD VACCINES (6 - Tdap) 2004 03/18/1998, 12/12/1994, 07/08/1994, Additional history exists HPV VACCINES (1 - 3-dose SCD M series) 2020 INFLUENZA VACCINE (#1) 2025 HEPATITIS B VACCINES Completed 07/08/1998, 03/18/1998, 1993 Insurance MEDICAID [place]
--- OUTSIDE RECORDS SUMMARY | 2025-09-28 16:20 | XMS_ITS | Encounter Summary ---
Author Organization [facility] Address [address] [place] [address] Care Team Providers Care Herbarium Worker Name Role Phone Arden Cristina MD Primary Care Provider Vanessa villatoro Encounter Details Date Type Department Care Team (Latest Contact Info) Description 12/19/2000 Outpatient Historical [facility] Ear, Nose and Throat 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
[2025-09-28 16:21] VITALS: BP 147/94; PULSE 114; RESP 18; TEMP 36.6; O2SAT 98; BMI 33.9
--- NOTE | 2025-09-28 16:25 | W.ED.FALL ---
HPI - Fall General: Chief Complaint: Fall Stated Complaint: Fell off of roof yesterday Time Seen by Provider: 09/28/25 16:22 Source: patient Mode of arrival: ambulatory Limitations: no limitations History of Present Illness: 30-year-old male states he had fell off a roof yesterday. States it fell on his left leg is having some pain in his left groin and left lower leg. Dates it felt like he had pulled a muscle he denies any severe pain. States he has been able to ambulate. He states that he mainly needs a work note as he is having too much pain to go to work tomorrow. Denies hitting his head denies any neck pain Related Data Home Medications ?Medication ?Instructions ?Recorded ?Confirmed glecaprevir 100 mg-pibrentasvir 40 3 tab PO DAILY 05/01/24 06/20/24 mg tablet (Mavyret) losartan 50 mg-hydrochlorothiazide 50 tab PO DAILY 05/01/24 06/20/24 12.5 mg tablet lamotrigine 100 mg tablet 100 mg PO DAILY 05/28/24 06/20/24 quetiapine 150 mg tablet,extended 150 mg PO DAILY 05/28/24 06/20/24 release 24 hr Previous Rx's ?Medication ?Instructions ?Recorded diazepam 5 mg tablet 5 mg PO TID 30 days #90 tabs 05/06/24 naltrexone microspheres 380 mg 380 mg IM .[id number] #1 ea 05/06/24 intramuscular suspension,extended release (Vivitrol) sertraline 50 mg tablet 75 mg (1.5 x 50 mg) PO DAILY 30 05/06/24 days #30 tabs diclofenac sodium 75 mg 75 mg PO Q12H PRN pain #20 tabs 05/28/24 tablet,delayed release permethrin 5 % topical cream 1 applic topical Q14D 2 doses #60 08/09/24 grams methocarbamol 750 mg tablet 750 mg PO Q6H PRN spasms #20 tabs 09/28/25 naproxen 500 mg tablet (Naprosyn) 500 mg PO BID PRN pain #20 tabs 09/28/25 Allergies Allergy/AdvReac Type Severity Reaction Status Date / Time morphine Allergy Severe Stops Verified 09/28/25 16:25 respiratory system ziprasidone (From Geodon) Allergy Severe Breathing Verified 11/02/25 16:25 problems and Pulse paroxetine Allergy Intermediate Fidgety, Verified 09/28/25 16:25 tingling all over, couldn't sleep, hot flashes aripiprazole (From Abilify) AdvReac Intermediate stomach Verified 09/28/25 16:25 upset, N & V doxepin AdvReac Intermediate ADR-Headach Verified 09/28/25 16:25 e Review of Systems Musc: Reports: extremity pain PFSH ED PFSH: Medical History Hepatitis C Alcohol use disorder, severe, dependence Mood disorder Polysubstance (including opioids) dependence, daily use Pyloric stenosis Social History Smoking and tobacco/nicotine status: former use of tobacco/nicotine Quit status (tobacco/nicotine): has tried quititng Number of times tried to quit tobacco: 5 Second hand smoke exposure: No Alcohol intake: former Substance/Drug Use: current Physical Exam Const: COMMON NORMALS: no acute distress, patient oriented x3 and healthy appearing HENMT: COMMON NORMALS: normocephalic and atraumatic HEAD & SCALP: normocephalic and atraumatic Neck/C-Spine: COMMON NORMALS: full ROM and supple Chest: COMMONS NORMALS: normal inspection of the chest Resp: COMMON NORMALS: normal respiratory effort Cardio: COMMON NORMALS: regular rate RATE: regular rate Extremity: COMMON NORMALS: normal to inspection and full ROM NARRATIVE EXTREMITY EXAM: Slight tenderness over left lower leg no obvious deformities patient is able to ambulate Neuro: COMMON NORMALS: patient oriented x3, moves all extremities and no focal motor deficits Psych: COMMON NORMALS: mental status grossly normal, Normal thought process present and cooperative THOUGHT PROCESS: Normal thought process present Skin: COMMON NORMALS: no rashes or lesions noted and no wounds GENERAL SKIN EXAM: no rashes or lesions noted Course Vital Signs: Vital signs: Vital Signs Temperature 98 F 09/28/25 16:21 Pulse Rate 114 H 09/28/25 16:21 Respiratory Rate 18 09/28/25 16:21 Blood Pressure 147/94 09/28/25 16:21 Pulse Oximetry 98 09/28/25 16:21 MDM - Fall Medical Decision Making Patient presents here with left leg pain after falling off a roof. Exam here is benign he has no signs any fractures or major injuries. He is able to ambulate I did offer him an x-ray he refused we will place him on Naprosyn Robaxin did give him a work note he is to return if worsening he understands agrees plan Medical Records I reviewed the patient's medical records. No radiology studies performed this visit Discharge Plan Discharge Patient Disposition: Home Clinical Impression: Muscle strain of left lower leg, Fall Condition: Stable Prescriptions: New methocarbamol 750 mg tablet 750 mg PO Q6H PRN (Reason: spasms) Qty: 20 0RF naproxen [Naprosyn] 500 mg tablet 500 mg PO BID PRN (Reason: pain) Qty: 20 0RF No Action permethrin 5 % cream 1 applic topical Q14D Qty: 60 0RF Rx Instructions: apply second treatment 14 days after first treatment if live lice remain diclofenac sodium 75 mg tablet,delayed release (DR/EC) 75 mg PO Q12H PRN (Reason: pain) Qty: 20 0RF lamotrigine 100 mg tablet 100 mg PO DAILY quetiapine 150 mg tablet extended release 24 hr 150 mg PO DAILY Mavyret 100-40 mg tablet 3 tab PO DAILY losartan-hydrochlorothiazide 50-12.5 mg tablet 50 tab PO DAILY sertraline 50 mg Tablet 75 mg PO DAILY 30 Days Qty: 30 1RF diazepam 5 mg Tablet 5 mg PO TID 30 Days Qty: 90 1RF Vivitrol 380 mg suspension,extended rel recon 380 mg IM .[id number] Qty: 1 1RF Rx Instructions: IM next due date 05/14/24 Discharge Orders: Discharge ED (Routine); Ordered 09/28/25 Ordered By: Komal Barajas Referrals: Raghavendra Diez MD [Primary Care Provider, Family Practice] - 4-7 days Discharge Diet: Advance as tolerated Discharge Activity: Resume usual activity Patient Instructions: Muscle Strain (ED) Stand Alone Forms: Work/School Release Print Language: Frisian Coding Level of Care Code ED Purchasing Officer for Marie Panda
[2025-09-28 16:34] VITALS: BP 139/82; PULSE 105; RESP 16; O2SAT 96
== END 2025-09-28 16:35 | disposition home or self-care (01) ==
PROVIDERS: Emergency Provider Emergency Medicine; PCP Family Medicine
DX: S86.912A Strain of unspecified muscle(s) and tendon(s) at lower leg level, left leg, initial encounter (principal); Z87.891 Personal history of nicotine dependence; W13.2XXA Fall from, out of or through roof, initial encounter
CPT/HCPCS: 99283; J9999

== ENCOUNTER 2025-10-24 11:37 | Emergency (ER) | payer SELFPAY ==
--- NOTE | 2025-10-24 11:39 | XRR_ITS ---
PROCEDURE INFORMATION: Exam: XR Chest Exam date and time: 10/24/2025 12:01 PM Age: 30 years old Clinical indication: Cough TECHNIQUE: Imaging protocol: Radiologic exam of the chest. Views: 1 view. COMPARISON: CR XR ribs RT mn 3V w CXR1V [id number] 10/21/2023 6:40 PM FINDINGS: Lungs: Unremarkable. No consolidation. Pleural spaces: Unremarkable. No pleural effusion. No pneumothorax. Heart/Mediastinum: Unremarkable. No cardiomegaly. Bones/joints: Unremarkable. XR/XR chest 1V portable [id number] IMPRESSION: No acute findings.
--- OUTSIDE RECORDS SUMMARY | 2025-10-24 11:42 | XMS_ITS | Clinical Summary ---
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
--- OUTSIDE RECORDS SUMMARY | 2025-10-24 11:42 | XMS_ITS | Encounter Summary ---
Author Organization [facility] Address [address] [place] [address] Care Team Providers Care Real Estate Acquisition Analyst Name Role Phone Arden Cristina MD Primary Care Provider Vanessa villatoro Encounter Details Date Type Department Care Team (Latest Contact Info) Description 12/19/2000 Outpatient Historical [facility] Ear, Nose and Throat 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
[2025-10-24 11:43] VITALS: BP 154/95; PULSE 92; RESP 16; TEMP 36.4; O2SAT 98; BMI 33.6
--- NOTE | 2025-10-24 12:00 | W.ED.GENADLT ---
HPI - General Adult General: Chief complaint: General Medical Stated complaint: Vomiting Blood nose bleeding coughing Time Seen by Provider: 10/24/25 11:51 Source: patient Mode of arrival: ambulatory Limitations: no limitations History of Present Illness: 30-year-old male that has a history of hypertension states that his blood pressures been running high as he has ran out of his meds. Patient states that over the last 2 days has had intermittent nosebleeds states he has had a slight cough states he swallowed some of blood and vomited back up. He denies any pain currently does not have a nosebleed currently. Related Data Home Medications ?Medication ?Instructions ?Recorded ?Confirmed losartan 50 mg-hydrochlorothiazide 50 tab PO DAILY 05/01/24 10/24/25 12.5 mg tablet Previous Rx's ?Medication ?Instructions ?Recorded losartan 50 mg-hydrochlorothiazide 1 tab PO DAILY #10 tabs 10/24/25 12.5 mg tablet Allergies Allergy/AdvReac Type Severity Reaction Status Date / Time morphine Allergy Severe Stops Verified 09/28/25 16:25 respiratory system ziprasidone (From Geodon) Allergy Severe Breathing Verified 09/28/25 16:25 problems and Pulse paroxetine Allergy Intermediate Fidgety, Verified 09/28/25 16:25 tingling all over, couldn't sleep, hot flashes aripiprazole (From Abilify) AdvReac Intermediate stomach Verified 09/28/25 16:25 upset, N & V doxepin AdvReac Intermediate ADR-Headach Verified 09/28/25 16:25 e [facility] ED PFSH: Medical History (Updated 10/24/25 @ 12:54 by Komal Barajas MD) Hepatitis C Alcohol use disorder, severe, dependence Mood disorder Polysubstance (including opioids) dependence, daily use Pyloric stenosis Social History Smoking and tobacco/nicotine status: former use of tobacco/nicotine Quit status (tobacco/nicotine): has tried quititng Number of times tried to quit tobacco: 5 Second hand smoke exposure: No Alcohol intake: former Substance/Drug Use: current Physical Exam Const: COMMON NORMALS: no acute distress, patient oriented x3 and healthy appearing HENMT: COMMON NORMALS: normocephalic and atraumatic HEAD & SCALP: normocephalic and atraumatic Neck/C-Spine: COMMON NORMALS: full ROM and supple Chest: COMMONS NORMALS: normal inspection of the chest and normal palpation of entire chest wall Resp: COMMON NORMALS: normal respiratory effort, No retractions, No use of accessory muscles and clear to auscultation bilaterally AUSCULTATION: clear to auscultation bilaterally Cardio: COMMON NORMALS: regular rate, regular rhythm and No murmurs present (Cardio) RATE: regular rate RHYTHM: regular rhythm GI: COMMON NORMALS: Normal to inspection, nondistended, normoactive bowel sounds present, Soft to palpation, non-tender and no masses PALPATION: Yes Soft to palpation Extremity: COMMON NORMALS: normal to inspection and full ROM Neuro: COMMON NORMALS: patient oriented x3, moves all extremities and no focal motor deficits Psych: COMMON NORMALS: mental status grossly normal, Normal thought process present and cooperative THOUGHT PROCESS: Normal thought process present Skin: COMMON NORMALS: no rashes or lesions noted and no wounds GENERAL SKIN EXAM: no rashes or lesions noted Course Vital Signs: Vital signs: Vital Signs Temperature 97.5 F L 10/24/25 11:43 Pulse Rate 87 10/24/25 12:34 Respiratory Rate 16 10/24/25 11:43 Blood Pressure 141/95 10/24/25 12:34 Pulse Oximetry 97 10/24/25 12:34 Oxygen Delivery Me thod Room Air 10/24/25 12:34 MDM - General Adult Medical Decision Making 30-year-old male presents here with nosebleed along with hypertension. He is hypertensive as he has not been taking his meds. He has had no nosebleed here lab work showed no significant abnormality we will write him a 10-day supply of his meds at this time. He stable for discharge follow-up PCP return if worsening Medical Records I reviewed the patient's medical records. Lab Data I reviewed the patient's lab results. 10/24/25 12:11 10/24/25 12:11 Radiology Impressions Chest X-Ray 10/24/25 11:39 IMPRESSION: No acute findings. Laboratory Results WBC 7.35 10^3/uL (3.29-11.43) 10/24/25 12:11 RBC 4.21 10^6/uL (3.85-5.65) 10/24/25 12:11 Hgb 15.10 g/dL (11.27-16.99) 10/24/25 12:11 Hct 41.2 % (37-53) 10/24/25 12:11 MCV 97.9 fl (82-101) 10/24/25 12:11 MCH 35.9 pg (27-33) H 10/24/25 12:11 MCHC 36.7 g/dL (30-55) 10/24/25 12:11 RDW 13.2 % (12.1-15.1) 10/24/25 12:11 Plt Count 210 10^3/cmm (157-399) 10/24/25 12:11 MPV 10.8 fL (7.4-10.4) H 10/24/25 12:11 Neut % (Auto) 58.8 % 10/24/25 12:11 Lymph % (Auto) 27.3 % 10/24/25 12:11 [place] % (Auto) 9.7 % 10/24/25 12:11 Eos % (Auto) 3.1 % 10/24/25 12:11 Baso % (Auto) 0.8 % 10/24/25 12:11 Neut # (Auto) 4.32 10^3/uL (1.8-7.7) 10/24/25 12:11 Lymph # (Auto) 2.0 10^3/uL (0.8-4.8) 10/24/25 12:11 [place] # (Auto) 0.7 10^3/uL (0.2-0.9) 10/24/25 12:11 Eos # (Auto) 0.2 10^3/uL (0.0-0.8) 10/24/25 12:11 Baso # (Auto) 0.1 10^3/uL (0.0-0.1) 10/24/25 12:11 Nucleated RBC % (auto) 0 % 10/24/25 12:11 Nucleated RBCs # 0.0 /100WBC 10/24/25 12:11 Sodium 139 mmol/L (136-145) 10/24/25 12:11 Potassium 3.4 mmol/L (3.5-5.1) L 10/24/25 12:11 Chloride 101 mmol/L (98-107) 10/24/25 12:11 Carbon Dioxide 22 mmol/L (22-29) 10/24/25 12:11 Anion Gap 19.4 (5-19) H 10/24/25 12:11 BUN 6 mg/dL (6-20) 10/24/25 12:11 Creatinine 0.5 mg/dL (0.7-1.2) L 10/24/25 12:11 GFR Calculation 192.7 mL/min (90-130) H 10/24/25 12:11 Glucose 99 mg/dL (65-115) 10/24/25 12:11 Calculated Osmolality 286 mOsm/kg (285-295) 10/24/25 12:11 Calcium 9.4 mg/dL (8.5-10.5) 10/24/25 12:11 Total Bilirubin 1.0 mg/dL (0.15-1.2) 10/24/25 12:11 AST 357 U/L (0-40) H 10/24/25 12:11 ALT 272 U/L (0-41) H 10/24/25 12:11 Alkaline Phosphatase 87 U/L (40-130) 10/24/25 12:11 Total Protein 8.5 g/dL (6.6-8.7) 10/24/25 12:11 Albumin 5.0 g/dL (3.5-5.2) 10/24/25 12:11 Globulin 3.5 g/dL (1.3-4.6) 10/24/25 12:11 Lipase 42 U/L (13-60) 10/24/25 12:11 No radiology studies performed this visit Discharge Plan Discharge Patient Disposition: Home Clinical Impression: Hypertension, Epistaxis Condition: Stable Prescriptions: New losartan-hydrochlorothiazide 50-12.5 mg tablet 1 tab PO DAILY Qty: 10 0RF No Action losartan-hydrochlorothiazide 50-12.5 mg tablet 50 tab PO DAILY Discharge Orders: Discharge ED (Routine); Ordered 10/24/25 Ordered By: Komal Barajas Referrals: Raghavendra Diez MD [Primary Care Provider, Family Practice] Discharge Diet: Advance as tolerated Discharge Activity: Resume usual activity Patient Instructions: Nosebleed (ED), Hypertension (ED) Print Language: [place] Coding Level of Care 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
[2025-10-24] MEDS: hyDRALAzine 20 mg/mL INJ 1 mL 10 MG IVP (12:23)
[2025-10-24 12:24] LABS: Hematocrit 41.2 % (37-53); Hemoglobin 15.10 g/dL (11.27-16.99); Mean Corpuscular HGB Conc 36.7 g/dL (30-55); Mean Corpuscular Hemoglobin 35.9 pg (27-33); Mean Corpuscular Volume 97.9 fl (82-101); Nucleated Red Blood Cells % 0 %; Platelet Count 210 10^3/cmm (157-399); Red Blood Count 4.21 10^6/uL (3.85-5.65); White Blood Count 7.35 10^3/uL (3.29-11.43)
[2025-10-24 12:28] VITALS: BP 160/95; PULSE 86; O2SAT 99
--- NOTE | 2025-10-24 12:30 | PC.NURSE ---
Addendum entered by Jena Pat LPN 10/24/25 12:34: Pt states he drinks a pint of vodka daily. Original Note: Pt states he is here for multiple reasons, pt states he has high blood pressure, has been having daily nose bleeds that start in the morning, pt reports feet swelling, pt denies having a primary care doctor. Pt states he has now started vomitting in the morning sometimes blood tinged. Pt family bedside states they are concerned he is diabetic, concerned he is retaining fluids, and concerned for the bloody nose and vomitting.
[2025-10-24 12:34] VITALS: BP 141/95; PULSE 87; O2SAT 97
--- NOTE | 2025-10-24 12:41 | PC.PHAR ---
Patient and Family memeber both state Patient is suppose to be on Medications , but has not taken anything since his last fill dates in 06/06/25. before that his last elias dates were in March. Patient does state he smoke weed.
[2025-10-24 12:42] LABS: Alanine Aminotransferase 272 U/L (0-41); Albumin Level 5.0 g/dL (3.5-5.2); Alkaline Phosphatase 87 U/L (40-130); Anion Gap 19.4 (5-19); Aspartate Amino Transferase 357 U/L (0-40); Blood Urea Nitrogen 6 mg/dL (6-20); Calcium 9.4 mg/dL (8.5-10.5); Carbon Dioxide 22 mmol/L (22-29); Chloride 101 mmol/L (98-107); Globulin 3.5 g/dL (1.3-4.6); Glucose 99 mg/dL (65-115); Lipase 42 U/L (13-60); Osmolality Calculated 286 mOsm/kg (285-295); Potassium 3.4 mmol/L (3.5-5.1); Sodium 139 mmol/L (136-145); Total Protein 8.5 g/dL (6.6-8.7)
[2025-10-24 13:22] VITALS: BP 124/71; PULSE 82; O2SAT 98
== END 2025-10-24 13:10 | disposition home or self-care (01) ==
PROVIDERS: Emergency Provider Emergency Medicine; PCP Family Medicine
DX: I10 Essential (primary) hypertension (principal); R04.0 Epistaxis; Z87.891 Personal history of nicotine dependence
CPT/HCPCS: 36415; 71045; 80053; 83690; 85025; 96374; 99284; J0360